=== PATIENT | female | born 1955 | race Caucasian/White ===

== ENCOUNTER → 2017-09-03 | Outpatient (CLI) | payer MEDICAID, SELFPAY | PROVIDERS: Family Provider Internal Medicine; Visit Provider Surgery | DX: K57.20 Diverticulitis of large intestine with perforation and abscess without bleeding (principal); K56.0 Paralytic ileus; R34 Anuria and oliguria; Z48.01 Encounter for change or removal of surgical wound dressing | CPT/HCPCS: 80048; 85025; G0463 ==

== ENCOUNTER 2017-11-12 10:09 | Outpatient (CLI) | payer MEDICAID, SELFPAY ==
--- NOTE | 2017-11-12 13:44 | PC.NURSE ---
1015 - PT HERE FOR EDUCATION ON PROPER COLOSTOMY CARE AND TO HAVE WAFER/BAG CHANGED OR REINFORCED IF NEEDED. DR ZENDEJAS STATED THAT SKIN AROUND STOMA IS VERY RED AND BLISTERED AND PT REPORTS THAT WAFERS ARE NOT STAYING ON AND SHE IS CHANGING WAFERS AND SOMETIMES BAGS 5-[address] ZENDEJAS ALSO STATED THAT HE BELIEVES THEY ARE CUTTING THE HOLE IN THE WAFER TOO BIG SO STOOL IS GETTING ON SKIN AROUND STOMA, CAUSING IT TO BE BECOME RED AND BLISTERED. DISCUSSED WITH PT ABOUT ONLY CUTTING HOLE BIG ENOUGH TO ALLOW COLOSTOMY TO DRAIN INTO BAG AND IMPORTANCE OF NOT ALLOWING STOOL TO TOUCH THE SKIN AROUND THE STOMA. ALSO GAVE PT STOMA ADHESIVE PASTE AND INSTRUCTED ON USE TO HELP WAFER TO STICK TO SKIN AND ALSO PROVIDE RELIEF TO IRRITATED SKIN. REINFORCED CURRENT WAFER WITH MEDIPORE TAPE BUT APPLIANCES NOT CHANGED DURING THIS VISIT. DR ZENDEJAS'S OFFICE LOOKING INTO SETTING PT UP WITH COLOSTOMY NURSE, ALTHOUGH PT ALREADY HAS HOME HEALTH AT HOME.
== END 2017-11-12 11:10 | disposition home or self-care (01) ==
LOC: INF 10:14
PROVIDERS: PCP Internal Medicine; Visit Provider Surgery
DX: Z93.3 Colostomy status (principal)
CPT/HCPCS: G0463

== ENCOUNTER → 2017-12-16 12:39 | Outpatient (CLI) | payer MEDICAID, SELFPAY ==
--- NOTE | 2017-12-16 13:00 | CT_ITS ---
CT abdomen pelvis w con CLINICAL INDICATION: ITS.REASON: LOWER ABD PAIN, DIVERTICULITIS, ABCESS ORDERING PHYSICIAN: Alfred Chapa PATIENT AGE: 62 years COMPARISON: 08/31/2017 TECHNIQUE: Axial images obtained with sagittal and coronal reformats. PROCEDURE: Oral Contrast: Redicat IV Contrast: 75 mL's of Isovue-370. FINDINGS: There are atelectatic/fibrotic changes in the lung bases. The gallbladder is slightly distended and there is mild prominence of the common bile duct and proximal biliary radicles. Spleen, adrenal glands, and pancreas have an unremarkable appearance. No obstructing renal or ureteral calculi. No suspicious renal mass. There is a right lower quadrant diverting ileostomy as before. There is no evidence of intestinal obstruction. The colon is nondistended. Postsurgical changes are present at the rectosigmoid junction. There is a multilocular cystic mass in the left adnexal region which measures 4.9 x 4.9 cm and has increased in size previously measuring 1.9 x 0.9 cm on 08/31/2017. No free air is evident. No obvious gas within the mass. This lesion is along the infra aspect of the sigmoid colon and left lateral to the uterus. No free air or free fluid evident. There is diverticulosis of the descending colon. No evidence of acute diverticulitis. No acute bony anomalies are evident. There is mild wedging of T12 unchanged. IMPRESSION: 1. Enlarging multilocular cyst left pelvic cystic mass with mildly thickened wall and internal septation consistent with enlarging abscess. This is NOT amenable to percutaneous CT-guided drainage by the conventional approach. 2. Postsurgical changes with diverting ileostomy. 3. Mildly distended gallbladder with mild biliary ductal dilatation
--- NOTE | 2017-12-16 13:37 | HMH.ITSHM ---
ATENOLOL,PREDNSISONE PROTONIX ISOSORSBIDE
== END ==
PROVIDERS: Family Provider Internal Medicine; PCP Internal Medicine; Visit Provider Internal Medicine
DX: R10.30 Lower abdominal pain, unspecified (principal); K57.20 Diverticulitis of large intestine with perforation and abscess without bleeding
CPT/HCPCS: 74177; Q9967

== ENCOUNTER → 2018-01-17 08:54 | Outpatient (CLI) | payer MEDICAID, SELFPAY ==
[2018-01-17 09:04] LABS: Basophils # 0.1 K/mm3 (0-0.2); Basophils % 0.5 % (0.1-2.0); Eosinophils # 0.4 K/mm3 (0.0-0.4); Eosinophils % 2.2 % (0.1-12.0); Hematocrit 38.2 % (37.0-47.0); Hemoglobin 11.8 g/dL (12.2-16.2); Lymphocytes # 2.9 K/mm3 (0.7-4.5); Mean Corpuscular Hemoglobin 27.7 pg (27.0-31.2); Mean Corpuscular Volume 89.6 fl (81-99); Mean Platelet Volume 7.5 fl (7.4-10.4); Monocytes # 0.8 K/mm3 (0.1-1.0); Monocytes % 5.2 % (1.7-9.3); Platelet Count 618 K/mm3 (142-424); Red Blood Count 4.27 M/mm3 (4.20-5.40); Red Cell Distribution Width 14.3 % (11.5-17.5); White Blood Count 16.2 K/mm3 (4.8-10.8)
[2018-01-17 09:06] LABS: MANUAL DIFFERENTIAL MANUAL DIFFERENTIAL (MANUAL DIFF)
[2018-01-17 09:29] LABS: Eosinophils % 1 % (0-3); Lymphocytes % 17 % (10-50); Monocytes % 5 % (2-9); Neutrophils % 75 % (42-76); Platelet Estimate Moderate Increase; RBC Morphology Normal; Total Cells Counted 100
[2018-01-17 11:11] LABS: Anion Gap 17.3 mEq/L (5-15); Blood Urea Nitrogen 15 mg/dL (7-18); Carbon Dioxide 23 mmol/L (21.0-32.0); Chloride 106 mmol/L (98-107); Creatinine,Serum 0.83 mg/dL (0.55-1.02); Estimated Glomerular Filt Rate 69 ml/min (>60); GFR (African American) 84 ML/MIN (>60); Glucose 84 mg/dL (74-106); Potassium 4.3 mmoL/L (3.5-5.1); Sodium 142 mmol/L (136-145)
== END ==
PROVIDERS: Visit Provider Surgery
DX: R10.9 Unspecified abdominal pain (principal); K57.92 Diverticulitis of intestine, part unspecified, without perforation or abscess without bleeding
CPT/HCPCS: 36415; 80048; 85007; 85025

== ENCOUNTER → 2018-01-19 09:11 | Outpatient (CLI) | payer MEDICAID, SELFPAY ==
--- NOTE | 2018-01-19 09:13 | CT_ITS ---
CT abdomen pelvis w con CLINICAL INDICATION: Follow-up abscess, diverticulitis ORDERING PHYSICIAN: Javy Steele MD PATIENT AGE: 62 years COMPARISON: None TECHNIQUE: Axial images obtained with sagittal and coronal reformats. All CT scans at the facility use one or more dose reduction, viz: automated exposure control; ma/kV adjustment per patient size (including targeted exams where dose is matched to indication; i.e. head); or iterative reconstruction technique. PROCEDURE: Oral Contrast: Redicat IV Contrast: 75 mL's of Isovue-370 . FINDINGS: There are chronic changes in the lung bases. Coronary artery calcifications are present. The liver, gallbladder, spleen, adrenal glands, pancreas, and kidneys have an unremarkable appearance. Right lower quadrant diverting ileostomy once again noted.. In the left adnexal region there is once again noted a complex mass measuring 3.9 x 3.6 x 4.5 cm smaller when compared to the previous exam previously measuring 4.9 x 4.6 x 6.1 cm. The cystic component of the mass is less apparent. The wall of the cystic mass appears slightly more thickened on today's exam. No gas is evident in this region. This is immediately contiguous with the left adnexa and directly inferior to a loop of sigmoid colon. Colonic diverticulosis once again noted without evidence of acute diverticulitis. No free fluid evident. IMPRESSION: Interval decrease in size of the complex left cystic pelvic/adnexal mass. This may very well represent a abscess. Could involve the left ovary. A cystic ovarian neoplasm is felt to be less likely as this lesion has waxed and waned in size. Continued follow-up recommended.
--- NOTE | 2018-01-19 10:14 | HMH.ITSHM ---
ATENOLOL,ISORAVIDE,PREDNISONE
== END ==
PROVIDERS: Family Provider Internal Medicine; PCP Internal Medicine; Visit Provider Surgery
DX: K57.32 Diverticulitis of large intestine without perforation or abscess without bleeding (principal); R10.9 Unspecified abdominal pain
CPT/HCPCS: 74177; Q9967

== ENCOUNTER → 2018-04-01 09:27 | Outpatient (CLI) | payer MEDICAID, SELFPAY ==
[2018-04-01 10:05] LABS: Blood Urea Nitrogen 14 mg/dL (7-18); Estimated Glomerular Filt Rate 56 ml/min (>60); GFR (African American) 68 ML/MIN (>60)
--- NOTE | 2018-04-01 10:14 | CT_ITS ---
CT abdomen pelvis w con CLINICAL INDICATION: Diverticulitis, diverticular abscess follow-up, evaluate for reconstruction of ileostomy ITS.REASON: Diverticulitis ORDERING PHYSICIAN: Javy Steele MD PATIENT AGE: 62 years COMPARISON: None TECHNIQUE: Axial images obtained with sagittal and coronal reformats. All CT scans at the facility use one or more dose reduction, viz: automated exposure control; ma/kV adjustment per patient size (including targeted exams where dose is matched to indication; i.e. head); or iterative reconstruction technique. PROCEDURE: Oral Contrast: Gastroview Rectal contrast also administered with Gastroview IV Contrast: 75 mL is Isovue-370 . FINDINGS: Initial images were obtained without IV and oral contrast. Once these were reviewed, rectal contrast was administered and repeat exam performed. Lung base images show mild atelectatic changes in the right lobe with chronic volume loss in the right middle lobe. There are coronary artery calcifications. Fibrotic changes are present in the left lung base. The liver, spleen, adrenal glands, gallbladder, pancreas, and kidneys have an unremarkable appearance There has been a diverting ileostomy performed in the right lower quadrant. No intestinal obstruction or free air. A thick walled cavitating masslike lesion is present in the left posterior pelvis as previously described. This is in the left adnexal region and inferior to the sigmoid colon which drapes over top of this area. This measures 3.6 x 3.4 cm and has been present on multiple previous exams at one time measuring up to 4.9 x 4.6 cm on 12/16/2017. This is not significant change from the most recent study of 01/19/2018. Complex ovarian cyst or sterile abscess centered. Neoplasm is not totally excluded. Contrast does not extravasate into this lesion. Following the rectal administration of contrast to colon still retrograde to the proximal ascending colon region. Extensive diverticulosis is present within the sigmoid colon and distal descending colon. No evidence of acute diverticulitis at this time. Moderate wedge compression changes involve T12 with mild wedging of T11. The compressive changes at at T11 and T12 have somewhat increased compared to the previous exam. There is at least 50% wedge compression change of T12 with 30% wedge compression changes of T11. IMPRESSION: 1. Right lower quadrant diverting ileostomy present. Extensive diverticulosis of the sigmoid colon. No evidence of acute diverticulitis. No contrast extravasation. 2. Persistent complex cystic mass in the left adnexa. Differential diagnosis would include complex ovarian cyst/neoplasm versus sterile abscess. This is not significantly changed from the previous exam 3. Increasing wedge compression changes of T11 and T12 as described above
== END ==
PROVIDERS: Surgery; Family Provider Internal Medicine; PCP Internal Medicine; Visit Provider Surgery
DX: K57.20 Diverticulitis of large intestine with perforation and abscess without bleeding (principal)
CPT/HCPCS: 36415; 74177; 82565; 84520

== ENCOUNTER → 2018-04-18 14:40 | Outpatient (CLI) | payer MEDICAID, SELFPAY ==
--- NOTE | 2018-04-18 14:42 | US_ITS ---
US transvaginal HISTORY: Pelvic pain ITS.REASON: Pain in pelvis ORDERING PHYSICIAN: Javy Steele MD PATIENT AGE: 62 years Comparison: 04/01/2018, 12/13/2008 FINDINGS: Patient has had diverticulitis with complex lesion in the left adnexa which has somewhat changed in size at 1. Measuring up to 4.9 x 3.6 cm and on the most recent study 2.9 x 2.1 cm. The uterus measures 4.7 x 2.8 x 4 cm with a combined endometrial thickness of 1 cm. No uterine mass evident. The right ovary is not visualized. What appears to represent the left ovary measures 3.4 x 2.5 cm and contains a complex 2.5 x 2 cm cystic area similar to the CT abnormality. No cul-de-sac fluid or other significant anomalies evident. IMPRESSION: 1. Thickened endometrium. 2. Enlarged left ovary with complex ovarian cyst measuring up to 2.9 x 2.1 cm.
== END ==
PROVIDERS: Family Provider Internal Medicine; PCP Internal Medicine; Visit Provider Surgery
DX: K57.20 Diverticulitis of large intestine with perforation and abscess without bleeding (principal); R10.2 Pelvic and perineal pain
CPT/HCPCS: 76830

== ENCOUNTER → 2018-04-25 11:22 | Outpatient (CLI) | payer MEDICAID, SELFPAY ==
--- NOTE | 2018-04-25 11:27 | XR_ITS ---
EXAM: XR lumbar spine min 4V HISTORY: ITS.REASON: MID/LOW BACK PAIN,COPD ORDERING PHYSICIAN: Alfred Chapa PATIENT AGE: 62 years COMPARISON: None FINDINGS: There is mild dextroscoliotic curvature of the upper lumbar spine. There is slightly accentuated lordotic curvature at the lumbosacral junction. All lumbar vertebrae appear intact and disc spaces are well maintained. There is minimal anterior ossific spurring at the anterior superior border of L4. There is no pars defect. The SI joints are normal. There is generalized osteopenia. There is prominent diffuse arteriosclerotic calcification of the abdominal aorta but there is no aneurysm. . IMPRESSION: Mild accentuated lordotic curvature minor degenerative and/or posttraumatic change L4 vertebral body
--- NOTE | 2018-04-25 11:27 | XR_ITS ---
EXAM: XR thoracic spine 3V HISTORY: ITS.REASON: MID/LOW BACK PAIN,COPD Comparison: 38 (08/24/2017 FINDINGS: There is moderate kyphotic curvature of the thoracic spine. There is generalized osteopenia. There is an old compression fracture of T12 with approximately 60% loss of height. There is old compression fracture T11 with approximately 30-35% loss of height. There is minor old compression of T8 with possibly 20% loss of height. There is mild serpentine scoliotic curvature of the lower thoracic and upper lumbar spine. There is no paraspinal mass. IMPRESSION: Moderate compression fractures of T11 and T12 which apparently have occurred since the previous chest film 08/24/2017, generalized osteopenia of the entire spine as described
== END ==
PROVIDERS: PCP Internal Medicine; Visit Provider Internal Medicine
DX: M54.6 Pain in thoracic spine (principal); M54.5 Low back pain; J44.9 Chronic obstructive pulmonary disease, unspecified
CPT/HCPCS: 72072; 72110

== ENCOUNTER → 2018-04-27 11:13 | Outpatient (CLI) | payer MEDICAID, SELFPAY ==
[2018-04-27 11:45] LABS: Basophils # 0.1 K/mm3 (0-0.2); Basophils % 0.3 % (0.1-2.0); Eosinophils # 0.1 K/mm3 (0.0-0.4); Eosinophils % 0.8 % (0.1-12.0); Hematocrit 46.5 % (37.0-47.0); Lymphocytes # 1.4 K/mm3 (0.7-4.5); Lymphocytes % 9.4 K/mm3 (10-50); Mean Corpuscular HGB Conc 30.2 g/dL (31.8-35.4); Mean Corpuscular Hemoglobin 28.1 pg (27.0-31.2); Mean Corpuscular Volume 93.2 fl (81-99); Mean Platelet Volume 6.9 fl (7.4-10.4); Monocytes # 0.5 K/mm3 (0.1-1.0); Monocytes % 3.6 % (1.7-9.3); Neutrophils % 85.9 % (37.0-80.0); Platelet Count 353 K/mm3 (142-424); Red Blood Count 4.99 M/mm3 (4.20-5.40); Red Cell Distribution Width 14.3 % (11.5-17.5); White Blood Count 15.1 K/mm3 (4.8-10.8)
[2018-04-27 11:46] LABS: MANUAL DIFFERENTIAL MANUAL DIFFERENTIAL (MANUAL DIFF)
[2018-04-27 13:08] LABS: Anion Gap 12.1 mEq/L (5-15); Blood Urea Nitrogen 17 mg/dL (7-18); Calcium 9.6 mg/dL (8.5-10.1); Carbon Dioxide 28 mmol/L (21.0-32.0); Chloride 102 mmol/L (98-107); Creatinine,Serum 0.92 mg/dL (0.55-1.02); Estimated Glomerular Filt Rate 61 ml/min (>60); GFR (African American) 74 ML/MIN (>60); Glucose 94 mg/dL (74-106); Potassium 4.1 mmoL/L (3.5-5.1); Sodium 138 mmol/L (136-145)
[2018-04-27 14:19] LABS: Eosinophils % 2 % (0-3); Lymphocytes % 7 % (10-50); Monocytes % 4 % (2-9); Neutrophils % 87 % (42-76); Platelet Estimate Normal; Total Cells Counted 100
[2018-04-28 13:59] LABS: Cancer Antigen (CA) 125 17.1 U/mL (0.0-38.1)
== END ==
PROVIDERS: Visit Provider Nurse Practitioner Obstetrics & Gynecology
DX: R10.2 Pelvic and perineal pain (principal); N83.209 Unspecified ovarian cyst, unspecified side
CPT/HCPCS: 36415; 80048; 85007; 85025; 86316

== ENCOUNTER → 2018-05-09 14:00 | Outpatient (CLI) | payer MEDICAID, SELFPAY ==
[2018-05-09 15:11] LABS: Blood Urea Nitrogen 22 mg/dL (7-18); Creatinine,Serum 1.24 mg/dL (0.55-1.02); Estimated Glomerular Filt Rate 44 ml/min (>60); GFR (African American) 53 ML/MIN (>60)
== END ==
PROVIDERS: Visit Provider Surgery
DX: Z01.818 Encounter for other preprocedural examination (principal)
CPT/HCPCS: 36415; 82565; 84520

== ENCOUNTER → 2018-05-10 09:48 | Outpatient (CLI) | payer MEDICAID, SELFPAY ==
--- NOTE | 2018-05-10 10:10 | CT_ITS ---
CT abdomen pelvis w con CLINICAL INDICATION: Follow-up diverticulitis, abscess, pelvic mass versus abscess ITS.REASON: Abd. Pain ORDERING PHYSICIAN: Javy Steele MD PATIENT AGE: 62 years COMPARISON: 04/01/2018, 01/19/2018, 08/06/2017 TECHNIQUE: Axial images obtained with sagittal and coronal reformats. All CT scans at the facility use one or more dose reduction, viz: automated exposure control; ma/kV adjustment per patient size (including targeted exams where dose is matched to indication; i.e. head); or iterative reconstruction technique. PROCEDURE: Oral Contrast: None IV Contrast: 75 mL Isovue-370. FINDINGS: There is chronic volume loss of the right middle lobe. The right hemidiaphragm is elevated. No focal liver lesion. The spleen, adrenal glands, gallbladder, and pancreas have an unremarkable appearance. Unremarkable appearing kidneys. No hydronephrosis. There is and diverticulosis. Diverting ileostomy once again noted in the right lower quadrant. There is decompression of the colon. No intestinal obstruction or free air is evident. There remains a complex density in the left adnexa. This is slightly smaller compared to the previous exam measuring 2.8 x 2.5 cm previously 3.7 x 3.3 cm. The central fluid density in this area is also smaller measuring 1 cm previously measuring 2.5 cm. No free fluid in the pelvis. No evidence of acute diverticulitis. Wedge compression changes are present involving T11 and T12 not significant changed. IMPRESSION: 1. Left adnexal complex lesion is somewhat smaller compared to the previous study. The central fluid density in this lesion is also smaller. 2. No change status post ileostomy with diverticulosis of the colon. No evidence of acute diverticulitis.
--- NOTE | 2018-05-10 10:34 | HMH.ITSHM ---
ATENOL 50 MG FLAGYLL PREDNISONE 5 MG ISORDIE
== END ==
PROVIDERS: Family Provider Internal Medicine; PCP Internal Medicine; Visit Provider Surgery
DX: R10.2 Pelvic and perineal pain (principal); N83.202 Unspecified ovarian cyst, left side
CPT/HCPCS: 74177; Q9967

== ENCOUNTER 2018-05-25 06:04 | Inpatient (IN) ==
[2018-05-25 07:12] LABS: Basophils # 0.1 K/mm3 (0-0.2); Basophils % 0.7 % (0.1-2.0); Eosinophils # 0.3 K/mm3 (0.0-0.4); Eosinophils % 2.4 % (0.1-12.0); Hematocrit 42.4 % (37.0-47.0); Hemoglobin 13.7 g/dL (12.2-16.2); Lymphocytes # 2.7 K/mm3 (0.7-4.5); Lymphocytes % 22.3 K/mm3 (10-50); Mean Corpuscular HGB Conc 32.3 g/dL (31.8-35.4); Mean Corpuscular Hemoglobin 29.4 pg (27.0-31.2); Mean Corpuscular Volume 90.9 fl (81-99); Mean Platelet Volume 6.7 fl (7.4-10.4); Monocytes # 0.9 K/mm3 (0.1-1.0); Monocytes % 7.1 % (1.7-9.3); Neutrophils # 8.1 K/mm3 (1.8-7.8); Neutrophils % 67.5 % (37.0-80.0); Platelet Count 374 K/mm3 (142-424); Red Blood Count 4.67 M/mm3 (4.20-5.40); Red Cell Distribution Width 14.7 % (11.5-17.5)
[2018-05-25 07:21] LABS: Anion Gap 12.5 mEq/L (5-15); Calcium 10.2 mg/dL (8.5-10.1); Potassium 4.5 mmoL/L (3.5-5.1)
--- NOTE | 2018-05-25 07:22 | Progress Note ---
[facility] Anesthesia Checklist - Patient Identification Patient Identification: Arm Band, Verbal (Name & ) - Structural Data Admitted From: Home Planned Operative Procedure/s: L SO possible TREMAINE, ileostomy take down possible colon resection Consent for Planned Operative Procedure(s) Verified: Yes Verified Documents: Surgical Consent, History and Physical - NPO Status Verified Time NPO: 22:30 - Additional verifications Patient : No Anesthesia Reactions: No - Airway Assessment C-Spine Mobility Assessed: Yes TMJ Mobility Assessed: Yes Dentition: Poor Dentition (missing) - Neurological Assessment Level of Consciousness: Awake Hx Seizures: No Numbness or tingling in extremities: No - Anesthesia Plan Anesthesia Risk discussed: Yes Anesthesia Plan: Verified ASA Class: III Anesthesia Type: General (with Intrathecal) [facility] Anesthesia HX I have reviewed the patient's past medical history: Yes Medical History: Reports:: Chronic Obstructive Pulmonary Disease (COPD), Gastroesophageal Reflux Disease(GERD), Hypertension Denies:: Cancer, Diabetes Mellitus Type 1, Diabetes Mellitus Type 2, MRSA, Seizures Other Medical History: Reports: Arthritis, Fibromyalgia. Denies: Blood Transfusion Reaction Other Surgeries: Yes: Appendectomy, Cancer Surgery, Colonoscopy, Colon Resection , Colostomy, Diagnostic Lap, Tubal Ligation Amputation: No Fractures: No *Family Hx:: Asthma, Hypertension
--- NOTE | 2018-05-25 09:34 | Operative Note ---
Date of procedure: 05/25/18 Pre-op Diagnosis:: Left ovarian mass, left lower quadrant pain, ileostomy Post-op Diagnosis:: Left ovarian abscess, left lower quadrant pain, ileostomy Procedure performed:: Total abdominal hysterectomy, left salpingo-nephrectomy, extensive lysis of adhesions Surgeon:: Froy Cardenas MD Spinner Open End(s):: Dr. Steele VENEER STAPLER:: Other Anesthesia: GETA Estimated blood loss (mL): 300 Clinical Note:: Is a 62-year-old lady who is been followed by Dr. Steele. She had a previous resection of her colon and ileostomy as a result of diverticulosis. She had a CT scan that showed an ovarian mass and it was not clear whether this was possibly ovarian cancer or an abscess associated with the previous diverticulitis in her sigmoid colon. Dr. Steele and I had long discussions about how we were going to approach this case and we decided that if she had an abscess we would not take down her ileostomy. We had discussed the various risks and staging pressures associated with ovarian cancer. We had a frozen section scheduled as well. Operative findings:: She had extensive adhesions of small bowel into the deep pelvis and along the anterior abdominal wall. On examination of her uterus it was small and atrophic. In the left adnexa the ovary was enlarged and when we freed the ovary up there was approximately 2 cm of thick pus that was released. There was also some inflammation along the left adnexa. As well. The rest the pelvis appeared well. She has had a previous right salpingo-nephrectomy. Operative note:: She was taken to the operating room where general anesthesia was found be adequate. She was prepped and draped in normal sterile fashion in the supine position. A Chen catheter is in the bladder. Dr. Steele will dictate the opening of the abdominal wall as well as extensive lysis of adhesions. After having dissected out the adhesions and freeing up the uterus we then grasped the left adnexa with her fingers and using blunt dissection we freed up the left ovary from the pelvic sidewall. It was quite firm and enlarged approximately 3 times its normal size. On doing this it was noted that there was a pocket of pus that drained. There was also extensive inflammation in the left adnexa and anterior to the left adnexa. The cornua of the uterus were grasped with Mariajose clamps and I then grasped the left round ligament with a Mariajose clamp. I sutured the round ligament and then cut the round ligament. I then opened up into the retroperitoneum. I freed up the ovary using blunt dissection and then fenestrated the posterior aspect of the broad ligament with my finger. I then isolated the infundibular pelvic ligament and clamped across this with Alfonso clamp. This was then cut and doubly suture ligated. We then further freed up the ovary and cut it away from the uterine cornua. This was then sent to pathology and it was determined by frozen section that she had chronic inflammation consistent with an abscess. There was some thickened inflammatory tissue that was adherent to the left adnexa and we took a small piece of this for frozen section. It also said chronic inflammation with calcifications. We then elected to perform a complete hysterectomy. The anterior peritoneum was opened in the midline freeing up the bladder. We then clamped across the uterine artery on the left side cut and suture ligated this. This was followed by the left cardinal ligament which was clamped cut and suture ligated. We then turned our attention to the right side where we grasped the right round ligament, suture ligated this and then cut the round ligament. Once again the anterior peritoneum was taken down to the midline joining up with the other side. The bladder was taken down using both blunt and sharp dissection. The right uterine artery was then skeletonized clamped cut and suture ligated. This was followed by the right cardinal ligament which was clamped cut and suture ligated. We then took one more bite on the right sinus took this down beyond the uterosacral ligament and this was clamped cut and sutured. Using curved Alfonso clamps were then clamped across the vaginal vault and cut away the cervix and uterus. The vaginal vault was then closed at the fornices with interrupted 0 Vicryl suture. The vaginal vault was then closed using running 0 Vicryl suture in a locked fashion. We then assured hemostasis and rinsed the pelvis well with saline. Dr. Steele placed [address] Steele will dictate the remainder of the case. She tolerated the procedure well and was taken to the recovery room in excellent condition. All sponge instrument and needle counts were correct. The estimated blood loss was approximately 300 cc. Condition: stable Disposition: PACU Specimens:: Uterus, left ovary and tube, small portion of the left adnexa Complications:: None
--- NOTE | 2018-05-25 10:28 | Progress Note ---
[facility] Anesthesia Record Part I Intake, IV Amount: 1,700 Estimated blood loss (mL): 250 Urine output (mL): 10 Blood Products used (#): none Blood Pressure: 119/72 SaO2: 96 Pulse Rate: 97 Respiratory Rate: 18 Temperature: 97.5 F Patient is:: Awake, Stable Stable to PACU at:: 10:23
--- NOTE | 2018-05-25 10:29 | Progress Note ---
[facility] Anesthesia Record Part II Discharge Time: 10:53 Destination: Medical Surgical Department PACU nurse assessment reviewed?: Yes Patient Condition:: Good Anesthesia Complications:: None
--- NOTE | 2018-05-25 10:46 | Operative Note ---
Date of procedure: 05/25/18 Pre-op Diagnosis:: Ileostomy Left lower quadrant/left pelvic pain Post-op Diagnosis:: Same Procedure performed:: Exploratory laparotomy, extensive lysis of adhesions Surgeon:: Javy Steele MD ROLL SHEETING CUTTER:: Other Anesthesia: GETA Estimated blood loss (mL): 250 Clinical Note:: Patient is a 62-year-old white female who is a regular established patient of mine for quite some time. Late last summer she had progressive obstipation, left lower quadrant abdominal pain, and inability to maintain adequate nutrition. She had undergone a colonoscopy by Dr. Worley on 07/26/17 and was found to have significant inflammatory stricture of the sigmoid colon consistent with diverticular disease. Full colonoscopy was performed but visualization was difficult and he recommended repeat colonoscopy in 1 year. He was also referred for possible elective resection given the degree of the chronic inflammation and stricture in the sigmoid colon. However, she developed progressive symptoms and had presented to the emergency department on 08/06/17. CT scan at that time revealed findings of complicated diverticulitis with possible developing abscess. She was admitted and underwent distal sigmoid colon resection urgently on 08/09/17. She did have anastomosis performed but had a diverting proximal ileostomy. She had sacral drains placed for a prolonged period of time and did initially have some feculent drainage. She has been followed in the office regularly and has undergone multiple imaging studies. Her initial CT scan revealed possible ovarian cysts and she has had ongoing imaging studies of possible fluid collection versus ovarian cyst pathology mostly on the left. She has had some episodes of left pelvic pain and this usually resolves with antibiotics treating empirically for possible diverticulitis. She had undergone CT scan with IV, oral, and rectal contrast. This revealed this persistent left pelvic fluid collection. However there was no extravasation or communication with the bowel. She did undergo transvaginal ultrasound recently and it is felt that this is likely left ovarian pathology and cyst. Consideration has been given for possible ileostomy takedown. However, the nature of the problem is complicated by this pelvic pathology. She did undergo consultation with Dr. Froy Marti who felt that she needed a possible left salpingo-oophorectomy with possible more extensive surgery if this was gynecologic malignant neoplasm. This was planned as a combined BOAT [employer]ER and general surgical case with possible ileostomy takedown versus drainage of pelvic abscess if that was deemed the pathology. The patient attended to the office several weeks ago with some low-grade fevers and was having general diffuse pain in the abdomen described as a "warmth". She is also had some anorexia and was concerned about her ileostomy. She was given a prescription for levofloxacin and metronidazole for possible diverticulitis. She states that she has had some GI issues with the levofloxacin and metallic taste with the metronidazole. She underwent follow-up CT scan with IV and oral contrast which actually revealed that this fluid collection lesion was slightly smaller. There is no evidence of any acute inflammation. Plan was made to proceed with exploratory laparotomy with exploration of the pelvis, left salpingo-oophorectomy with frozen sections, possible more extensive gynecologic surgery, possible ileostomy takedown if pelvis relatively unremarkable. Operative findings:: She had extensive adhesions within the pelvis. Appears as though she had a left tubo-ovarian abscess. The degree of adhesions in the pelvis made evaluation somewhat difficult but it appeared as though the sigmoid colon was relatively unaffected but was very closely adherent to this left ovarian pathology. Operative note:: Was obtained patient was taken to the operating room. She was given preoperative intravenous antibiotic. In the operating room she was placed in a supine position. General anesthesia was induced. Abdomen was prepped and draped in the standard surgical fashion. Occlusive dressing was placed over the ileostomy. Midline incision was made. Careful dissection was carried down through subcutaneous tissues and fascia. Old prior suture was removed. Peritoneum was entered. Extensive intra-abdominal adhesions with extensive interloop adhesions to small bowel and into the pelvis was encountered. This was carefully taken down so that the small bowel was able to be retracted out of the pelvis. Dissection was carried out using some blunt dissection and some careful Metzenbaum dissection. Ultimately the pelvis was inspected and uterus was relatively unremarkable. There appeared to be chronic inflammatory abscess which was entered in the left adnexal region. Decision was made to perform left salpingo-oophorectomy and send this for frozen section. Please see Dr. Marti's dictation for complete details. She ultimately underwent left salpingo- oophorectomy and hysterectomy. Further dissection was performed and the colon was inspected. There appeared to be no obvious abscess or acute inflammation. Given the degree of adhesions and fact that she appeared to have abscess, although not directly involving the colon, plan was made to forego ileostomy takedown until the acute and chronic inflammatory process in the pelvis could resolve. The pelvis was thoroughly irrigated and aspirated until clear. A couple of HAYES drains were placed within the pelvis through separate incision in the left lower quadrant. Enteric contents were returned to the normal anatomic position. Fascia was closed with a running #2 Novafil 2. Subcutaneous tissues were irrigated. Skin was closed with deandre. A few 3-0 nylon vertical mattress sutures were placed. HAYES drains were secured with 3-0 nylon. Clean dry sterile dressings were applied. New colostomy appliance was applied to the loop ileostomy site. Condition: stable Disposition: PACU Complications:: None immediately apparent
--- NOTE | 2018-05-26 08:23 | Progress Note ---
Subjective Narrative: Patient complains of being sore. Minor nausea when she was coughing. Exam Vital signs and Labs for Last 24 Hours: Temp Pulse Resp BP Pulse Ox 98.1 F 98 H 16 114/58 98 05/26/18 08:00 05/26/18 06:01 05/26/18 06:01 05/26/18 06:01 05/26/18 06:01 Laboratory Results - last 24 hr 05/25/18 07:55: Urine Color Red, Urine Appearance Turbid, Urine pH 6.5, Ur Specific [place] 1.025, Urine Protein 3+, Urine Glucose (UA) Negative, Urine Ketones Negative, Urine Blood 3+, Urine Nitrate Positive, Urine Bilirubin Negative, Urine Urobilinogen 0.2, Ur Leukocyte Esterase Negative, Urine RBC Tntc , Urine WBC Occasional, Ur Squamous Epith Cells Occasional, Urine Bacteria Trace I & O for Last 24 hours: Intake & Output 05/23/18 05/24/18 05/25/18 05/26/18 11:59 11:59 11:59 11:59 Intake Total 1700 / 1700 3261 / 3261 Output Total 873 / 873 Balance 1700 / 1700 2388 / 2388 Weight 159 lb 172 lb 6 oz - *Routine Abdominal Exam Present: distended, surgical scars Progress Note: A&P Assessment and Plan for All Diagnoses:: Clear liquid diet. Transfer out of step down. Keep martinez for now due to post- op hematuria (which has now resolved).
--- NOTE | 2018-05-26 11:22 | Progress Note ---
Internal Medicine - PN: Subj *Date: 05/26/18 *Time: 11:19 Interval history: She seems to be doing much better this morning. She does have some tenderness and I have encouraged her to take pain medicine for this. Her incision looks clean and dry. She had significant hematuria yesterday and is now putting out more urine and the urine is clear. She says she does not feel very hungry yet. She does continue to feel thirsty. I have encouraged her to its. She denies chest pain or calf tenderness or shortness of breath. Exam Vital signs and Labs for Last 24 Hours: Temp Pulse Resp BP Pulse Ox 98.1 F 98 H 20 116/61 98 05/26/18 08:00 05/26/18 08:00 05/26/18 08:00 05/26/18 08:00 05/26/18 08:00 Laboratory Results - last 24 hr 05/25/18 07:55: Urine Color Red, Urine Appearance Turbid, Urine pH 6.5, Ur Specific [place] 1.025, Urine Protein 3+, Urine Glucose (UA) Negative, Urine Ketones Negative, Urine Blood 3+, Urine Nitrate Positive, Urine Bilirubin Negative, Urine Urobilinogen 0.2, Ur Leukocyte Esterase Negative, Urine RBC Tntc , Urine WBC Occasional, Ur Squamous Epith Cells Occasional, Urine Bacteria Trace I & O for Last 24 hours: Intake & Output 05/23/18 05/24/18 05/25/18 05/26/18 11:59 11:59 11:59 11:59 Intake Total 1700 / 1700 3261 / 3261 Output Total 873 / 873 Balance 1700 / 1700 2388 / 2388 Weight 159 lb 172 lb 6 oz - Constitutional no acute distress - *Routine Abdominal Exam Present: soft Comments: Her incision looks clean and dry. She is passing some fluid through her ostomy Assessment and Plan (1) Pelvic peritoneal adhesions, female (postoperative) (postinfection) Current visit: Yes Status: Acute Category: Medical Code(s): N73.6 - Female pelvic peritoneal adhesions (postinfective) (2) Ovarian abscess Current visit: Yes Status: Acute Category: Medical Code(s): N70.92 - Oophoritis, unspecified (3) Status post colostomy Current visit: Yes Status: Acute Category: Surgical Code(s): Z93.3 - Colostomy status - Assessment and plan all Dx Assessment and Plan for all problems:: She is to be doing well this morning. She has some pain and we will give her narcotics for this. She still does not feel hungry yet. She is putting out much more urine. We will start her on Lovenox today since she is elderly and had fairly extensive surgery yesterday. She is not mobile yet.. She does have compression hose. We will plan to keep her for another 3 or 4 days.
--- NOTE | 2018-05-26 16:09 | Pharmacy Consult Notes ---
[facility] Pharmacy VTE Monitoring - Patient Demographics Admission date: 05/25/18 Report Date: 05/26/18 Time: 16:08 Allergies/Adverse Reactions: Patient Allergies No Known Allergies Allergy (Verified 05/09/18 13:27) Height: 1.6 m Weight: 78.188 kg Patient Problems: Current Active Problems Pelvic peritoneal adhesions, female (postoperative) (postinfection) (Acute) Ovarian abscess (Acute) Status post colostomy (Acute) - VTE Risk Labs: VTE Related Lab Results Hgb 13.7 g/dL (12.2-16.2) 05/25/18 07:00 Hct 42.4 % (37.0-47.0) 05/25/18 07:00 Plt Count 374 K/mm3 (142-424) 05/25/18 07:00 BUN 15 mg/dL (7-18) 05/25/18 07:00 Creatinine 0.92 mg/dL (0.55-1.02) 05/25/18 07:00 Estimated Creat Clear 65 mL/min (0-300) 05/25/18 07:00 Was VTE Risk Assessment Performed: Yes VTE Score: 1 VTE Risk Level: Very Low Risk - Prophylaxis VTE Prophylaxis Ordered?: Yes Types of VTE Prophylaxis: IPCS Knee High Location of Applied Device: Bilateral Lower Extremeties - VTE Diagnosis Confirmed Treatment or plan recommended: Continue Current Treatment
[2018-05-27 06:41] LABS: Basophils % 0.2 % (0.1-2.0); Eosinophils # 0.1 K/mm3 (0.0-0.4); Eosinophils % 0.6 % (0.1-12.0); Hematocrit 26.6 % (37.0-47.0); Hemoglobin 8.8 g/dL (12.2-16.2); Lymphocytes # 1.9 K/mm3 (0.7-4.5); Lymphocytes % 10.9 K/mm3 (10-50); Mean Corpuscular HGB Conc 33.2 g/dL (31.8-35.4); Mean Corpuscular Hemoglobin 29.8 pg (27.0-31.2); Mean Corpuscular Volume 89.6 fl (81-99); Mean Platelet Volume 6.9 fl (7.4-10.4); Monocytes # 1.4 K/mm3 (0.1-1.0); Monocytes % 8.1 % (1.7-9.3); Neutrophils # 13.8 K/mm3 (1.8-7.8); Neutrophils % 80.2 % (37.0-80.0); Platelet Count 265 K/mm3 (142-424); Red Blood Count 2.97 M/mm3 (4.20-5.40); Red Cell Distribution Width 14.7 % (11.5-17.5); White Blood Count 17.2 K/mm3 (4.8-10.8)
[2018-05-27 06:51] LABS: Anion Gap 8.6 mEq/L (5-15); Potassium 3.6 mmoL/L (3.5-5.1)
[2018-05-27 07:05] LABS: Calcium 8.5 mg/dL (8.5-10.1)
[2018-05-27 09:17] LABS: Lymphocytes % 13 % (10-50); Monocytes % 5 % (2-9); Neutrophils % 81 % (42-76); Total Cells Counted 100
[2018-05-27 09:18] LABS: RBC Morphology Normal
--- NOTE | 2018-05-27 10:04 | Progress Note ---
Subjective Narrative: Patient complains of being sore. She did have some vomiting with clear liquids. Exam Vital signs and Labs for Last 24 Hours: Temp Pulse Resp BP Pulse Ox 97.3 F L 98 H 20 129/71 96 05/27/18 08:00 05/27/18 08:00 05/27/18 08:00 05/27/18 08:00 05/27/18 08:00 Laboratory Results - last 24 hr 05/27/18 06:15: WBC 17.2 H D, RBC 2.97 L D, Hgb 8.8 L, Hct 26.6 L, MCV 89.6, MCH 29.8, MCHC 33.2, RDW 14.7, Plt Count 265 D, MPV 6.9 L, Neut % (Auto) 80.2 H , Lymph % (Auto) 10.9, [place] % (Auto) 8.1, Eos % (Auto) 0.6, Baso % (Auto) 0.2, Neut # (Auto) 13.8 H, Lymph # (Auto) 1.9, [place] # (Auto) 1.4 H, Eos # (Auto) 0.1 , Baso # (Auto) 0.0, Total Counted 100, Neutrophils % (Manual) 81 H, Lymphocytes % (Manual) 13, Monocytes % (Manual) 5, Basophils % (Manual) 1.0, Platelet Estimate Normal, RBC Morphology Normal 05/27/18 06:15: Sodium 140, Potassium 3.6, Chloride 104, Carbon Dioxide 31, Anion Gap 8.6, BUN 11 D, Creatinine 1.02, Estimated Creat Clear 67, Estimated GFR 55 L, Est GFR ( Amer) 66, Glucose 84, Calcium 8.5 D I & O for Last 24 hours: Intake & Output 05/24/18 05/25/18 05/26/18 05/27/18 11:59 11:59 11:59 11:59 Intake Total 1700 / 1700 3261 / 3261 3215 / 3215 Output Total 873 / 873 1705 / 1705 Balance 1700 / 1700 2388 / 2388 1510 / 1510 Weight 159 lb 172 lb 6 oz 167 lb 3 oz - *Routine Abdominal Exam Present: distended, ostomy Progress Note: A&P (1) Pelvic peritoneal adhesions, female (postoperative) (postinfection) Status: Acute Current Visit: Yes (2) Ovarian abscess Status: Acute Current Visit: Yes (3) Status post colostomy Status: Acute Current Visit: Yes Assessment and Plan for All Diagnoses:: Notable decrease in hemoglobin and hematocrit. HAYES output thin serosanguineous. Will DC Chen catheter. Continue clear liquids for now. She does have good ileostomy output however. Possibly remove 1 drain this afternoon.
--- NOTE | 2018-05-27 14:44 | Progress Note ---
Internal Medicine - PN: Subj *Date: 05/27/18 *Time: 14:41 Interval history: POD #2 "feels sore" but no unusual/concerning complaints Postop Hgb 8.8 (preop 13.7) Exam Vital signs and Labs for Last 24 Hours: Temp Pulse Resp BP Pulse Ox 98.0 F 83 18 118/60 99 05/27/18 12:00 05/27/18 12:00 05/27/18 12:00 05/27/18 12:00 05/27/18 12:00 Laboratory Results - last 24 hr 05/27/18 06:15: WBC 17.2 H D, RBC 2.97 L D, Hgb 8.8 L, Hct 26.6 L, MCV 89.6, MCH 29.8, MCHC 33.2, RDW 14.7, Plt Count 265 D, MPV 6.9 L, Neut % (Auto) 80.2 H , Lymph % (Auto) 10.9, [place] % (Auto) 8.1, Eos % (Auto) 0.6, Baso % (Auto) 0.2, Neut # (Auto) 13.8 H, Lymph # (Auto) 1.9, [place] # (Auto) 1.4 H, Eos # (Auto) 0.1 , Baso # (Auto) 0.0, Total Counted 100, Neutrophils % (Manual) 81 H, Lymphocytes % (Manual) 13, Monocytes % (Manual) 5, Basophils % (Manual) 1.0, Platelet Estimate Normal, RBC Morphology Normal 05/27/18 06:15: Sodium 140, Potassium 3.6, Chloride 104, Carbon Dioxide 31, Anion Gap 8.6, BUN 11 D, Creatinine 1.02, Estimated Creat Clear 67, Estimated GFR 55 L, Est GFR ( Amer) 66, Glucose 84, Calcium 8.5 D I & O for Last 24 hours: Intake & Output 05/25/18 05/26/18 05/27/18 05/28/18 11:59 11:59 11:59 11:59 Intake Total 1700 / 1700 3261 / 3261 3215 / 3215 Output Total 873 / 873 1705 / 1705 Balance 1700 / 1700 2388 / 2388 1510 / 1510 Weight 159 lb 172 lb 6 oz 167 lb 3 oz - Constitutional no acute distress - *Routine Respiratory Exam Absent: respiratory distress - *Routine Cardiovascular Exam Absent: tachycardia - *Routine Abdominal Exam Present: soft, tenderness (appropriate postop tenderness), wound (dressing dry/ intact) - *Routine Skin Exam Absent: rash - *Routine Neurological Exam Present: alert, oriented X3 - Routine Psychiatric Exam Present: normal affect Assessment and Plan (1) Pelvic peritoneal adhesions, female (postoperative) (postinfection) Current visit: Yes Status: Acute Category: Medical Code(s): N73.6 - Female pelvic peritoneal adhesions (postinfective) (2) Ovarian abscess Current visit: Yes Status: Acute Category: Medical Code(s): N70.92 - Oophoritis, unspecified (3) Status post colostomy Current visit: Yes Status: Acute Category: Surgical Code(s): Z93.3 - Colostomy status - Assessment and plan all Dx Assessment and Plan for all problems:: Continue inpatient management Advance postop care as tolerated; defer to general surgery regarding plans for advancing care and discharge Will continue to follow while inpatient
[2018-05-28 06:17] LABS: Basophils % 0.2 % (0.1-2.0); Eosinophils # 0.2 K/mm3 (0.0-0.4); Eosinophils % 1.7 % (0.1-12.0); Hematocrit 27.1 % (37.0-47.0); Hemoglobin 8.7 g/dL (12.2-16.2); Lymphocytes # 1.2 K/mm3 (0.7-4.5); Lymphocytes % 8.8 K/mm3 (10-50); Mean Corpuscular Hemoglobin 29.3 pg (27.0-31.2); Mean Corpuscular Volume 91.7 fl (81-99); Mean Platelet Volume 6.8 fl (7.4-10.4); Monocytes % 7.7 % (1.7-9.3); Neutrophils # 10.9 K/mm3 (1.8-7.8); Neutrophils % 81.6 % (37.0-80.0); Platelet Count 271 K/mm3 (142-424); Red Blood Count 2.96 M/mm3 (4.20-5.40); Red Cell Distribution Width 14.6 % (11.5-17.5); White Blood Count 13.4 K/mm3 (4.8-10.8)
[2018-05-28 06:46] LABS: Calcium 8.4 mg/dL (8.5-10.1)
--- NOTE | 2018-05-28 13:04 | Progress Note ---
Subjective Patient reports: no new complaints, voiding w/o difficulty Narrative: Has been having less nausea bit feels bloated. Exam Vital signs and Labs for Last 24 Hours: Temp Pulse Resp BP Pulse Ox 98.2 F 87 18 135/79 98 05/28/18 12:00 05/28/18 12:36 05/28/18 12:00 05/28/18 12:00 05/28/18 12:36 Laboratory Results - last 24 hr 05/28/18 05:45: WBC 13.4 H, RBC 2.96 L, Hgb 8.7 L, Hct 27.1 L, MCV 91.7, MCH 29.3, MCHC 32.0, RDW 14.6, Plt Count 271, MPV 6.8 L, Neut % (Auto) 81.6 H, Lymph % (Auto) 8.8 L, [place] % (Auto) 7.7, Eos % (Auto) 1.7, Baso % (Auto) 0.2, Neut # (Auto) 10.9 H, Lymph # (Auto) 1.2, [place] # (Auto) 1.0, Eos # (Auto) 0.2, Baso # (Auto) 0.0 05/28/18 05:45: Sodium 142, Potassium 4.0, Chloride 104, Carbon Dioxide 34 H, Anion Gap 8.0, BUN 8 D, Creatinine 0.86, Estimated Creat Clear 70, Estimated GFR 66, Est GFR ( Amer) 80 D, Glucose 81, Calcium 8.4 L I & O for Last 24 hours: Intake & Output 05/26/18 05/27/18 05/28/18 05/29/18 11:59 11:59 11:59 11:59 Intake Total 3261 / 3261 3215 / 3215 3512 / 3512 Output Total 873 / 873 1705 / 1705 1268 / 1268 Balance 2388 / 2388 1510 / 1510 2244 / 2244 Weight 172 lb 6 oz 167 lb 3 oz 171 lb 2 oz - *Routine Abdominal Exam Present: soft, distended, ostomy Progress Note: A&P (1) Pelvic peritoneal adhesions, female (postoperative) (postinfection) Status: Acute Current Visit: Yes (2) Ovarian abscess Status: Acute Current Visit: Yes (3) Status post colostomy Status: Acute Current Visit: Yes Assessment and Plan for All Diagnoses:: Patient with significant ileus. Good ileostomy output. Limit to clear liquids.
[2018-05-29 04:13] LABS: Basophils % 0.2 % (0.1-2.0); Eosinophils # 0.3 K/mm3 (0.0-0.4); Eosinophils % 3.3 % (0.1-12.0); Lymphocytes # 1.2 K/mm3 (0.7-4.5); Lymphocytes % 11.2 K/mm3 (10-50); Mean Corpuscular Hemoglobin 29.3 pg (27.0-31.2); Mean Corpuscular Volume 91.5 fl (81-99); Mean Platelet Volume 7.6 fl (7.4-10.4); Monocytes # 0.9 K/mm3 (0.1-1.0); Monocytes % 8.5 % (1.7-9.3); Neutrophils # 7.9 K/mm3 (1.8-7.8); Neutrophils % 76.9 % (37.0-80.0); Platelet Count 278 K/mm3 (142-424); Red Blood Count 2.73 M/mm3 (4.20-5.40); Red Cell Distribution Width 14.7 % (11.5-17.5); White Blood Count 10.3 K/mm3 (4.8-10.8)
--- NOTE | 2018-05-30 08:37 | Progress Note ---
Subjective Patient reports: no new complaints (on O2, walking "only a little bit") Exam Vital signs and Labs for Last 24 Hours: Temp Pulse Resp BP Pulse Ox 97.8 F 86 18 135/74 98 05/30/18 07:33 05/30/18 07:33 05/30/18 07:33 05/30/18 07:33 05/30/18 08:00 I & O for Last 24 hours: Intake & Output 05/27/18 05/28/18 05/29/18 05/30/18 11:59 11:59 11:59 11:59 Intake Total 3215 / 3215 3512 / 3512 3426 / 3426 2943 / 2943 Output Total 1705 / 1705 1268 / 1268 1208 / 1208 1650 / 1650 Balance 1510 / 1510 2244 / 2244 2218 / 2218 1293 / 1293 Weight 167 lb 3 oz 171 lb 2 oz 173 lb 9 oz 174 lb 8 oz - Constitutional no acute distress - *Routine Respiratory Exam Absent: respiratory distress Comments: on [place] O2 - *Routine Abdominal Exam Present: soft Comments: ostomy with normal output incision without erythema Progress Note: A&P (1) Pelvic peritoneal adhesions, female (postoperative) (postinfection) Status: Acute Current Visit: Yes (2) Ovarian abscess Status: Acute Current Visit: Yes (3) Status post colostomy Status: Acute Current Visit: Yes (4) Postoperative anemia Status: Acute Assessment and plan: repeat labs this AM Current Visit: Yes (5) Hypoxia Status: Acute Assessment and plan: wean O2 as tolerated Current Visit: Yes (6) Physical deconditioning Status: Acute Assessment and plan: PT consult Current Visit: Yes
[2018-05-30 09:10] LABS: Basophils % 0.3 % (0.1-2.0); Eosinophils # 0.3 K/mm3 (0.0-0.4); Eosinophils % 3.6 % (0.1-12.0); Hematocrit 27.6 % (37.0-47.0); Hemoglobin 9.1 g/dL (12.2-16.2); Lymphocytes # 1.2 K/mm3 (0.7-4.5); Lymphocytes % 12.7 K/mm3 (10-50); Mean Corpuscular HGB Conc 32.9 g/dL (31.8-35.4); Mean Corpuscular Hemoglobin 30.1 pg (27.0-31.2); Mean Corpuscular Volume 91.3 fl (81-99); Mean Platelet Volume 6.7 fl (7.4-10.4); Monocytes # 0.9 K/mm3 (0.1-1.0); Monocytes % 9.4 % (1.7-9.3); Neutrophils % 73.9 % (37.0-80.0); Platelet Count 360 K/mm3 (142-424); Red Blood Count 3.03 M/mm3 (4.20-5.40); Red Cell Distribution Width 14.6 % (11.5-17.5); White Blood Count 9.4 K/mm3 (4.8-10.8)
[2018-05-30 09:16] LABS: Anion Gap 6.2 mEq/L (5-15); Calcium 8.5 mg/dL (8.5-10.1); Potassium 3.2 mmoL/L (3.5-5.1)
--- NOTE | 2018-05-31 07:18 | Progress Note ---
Subjective Patient reports: feels better, pain is less Narrative: Not much appetite. No nausea. Taking minimal full liquids. Exam Vital signs and Labs for Last 24 Hours: Temp Pulse Resp BP Pulse Ox 98.9 F 102 H 22 172/96 90 L 05/31/18 04:00 05/31/18 04:00 05/31/18 04:00 05/31/18 04:00 05/31/18 04:00 Laboratory Results - last 24 hr 05/30/18 08:53: WBC 9.4, RBC 3.03 L, Hgb 9.1 L, Hct 27.6 L, MCV 91.3, MCH 30.1, MCHC 32.9, RDW 14.6, Plt Count 360 D, MPV 6.7 L, Neut % (Auto) 73.9, Lymph % ( Auto) 12.7, [place] % (Auto) 9.4 H, Eos % (Auto) 3.6, Baso % (Auto) 0.3, Neut # ( Auto) 7.0, Lymph # (Auto) 1.2, [place] # (Auto) 0.9, Eos # (Auto) 0.3, Baso # (Auto ) 0.0 05/30/18 08:53: Sodium 141, Potassium 3.2 L, Chloride 103, Carbon Dioxide 35 H, Anion Gap 6.2, BUN 5 L D, Creatinine 0.87, Estimated Creat Clear 71, Estimated GFR 66, Est GFR ( Amer) 79, Glucose 86, Calcium 8.5 I & O for Last 24 hours: Intake & Output 05/28/18 05/29/18 05/30/18 05/31/18 11:59 11:59 11:59 11:59 Intake Total 3512 / 3512 3426 / 3426 2943 / 2943 988 / 988 Output Total 1268 / 1268 1208 / 1208 1650 / 1650 2683 / 2683 Balance 2244 / 2244 2218 / 2218 1293 / 1293 -1695 / -1695 Weight 171 lb 2 oz 173 lb 9 oz 174 lb 8 oz 174 lb 8.004 oz - *Routine Abdominal Exam Present: soft, ostomy Progress Note: A&P (1) Pelvic peritoneal adhesions, female (postoperative) (postinfection) Status: Acute Current Visit: Yes (2) Ovarian abscess Status: Acute Current Visit: Yes (3) Status post colostomy Status: Acute Current Visit: Yes (4) Postoperative anemia Status: Acute Current Visit: Yes (5) Hypoxia Status: Acute Current Visit: Yes (6) Physical deconditioning Status: Acute Current Visit: Yes Assessment and Plan for All Diagnoses:: DC antibiotics. Decrease IV fluids. May DC HAYES this afternoon. Possible discharge home once able to sustain oral fluid and nutrition intake.
--- NOTE | 2018-06-01 10:04 | Discharge Summary ---
General - General Admission date:: 05/25/18 Discharge date: 06/01/18 HPI HPI: Patient is a 62-year-old white female with a history of complicated diverticulitis who underwent urgent sigmoid colon resection and in August 2017 with anastomosis and proximal diverting loop ileostomy at that time. She did convalesce slowly from that. 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 This was evaluated with trans-vaginal ultrasound. She has had some episodes of intermittent abdominal pain and fevers and has been treated empirically for infection or diverticulitis with oral antibiotics as an outpatient. She did undergo contrast enema which revealed no evidence of any communication to the colon with the fluid collection. She also had CT scan with IV, oral, and rectal contrast. She was sent for consultation with gynecology, Dr. Froy Marti. Plan was for left salpingo-oophorectomy with possible cancer operation combined with general surgery with possible ileostomy takedown versus colon resection. Hospital Course Hospital Course: Patient was taken to the operating room and underwent laparotomy. She is found to have extensive intra-abdominal adhesions. It appeared as though the colon was relatively unaffected. She did have cystic lesion in the left ovary and underwent left salpingo-oophorectomy. She also had a significant amount of inflammation within the uterus and therefore ultimately underwent total abdominal hysterectomy. 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 Residual right ovary or tube. Please see operative dictation for complete details including gynecologic operative note for the majority of the details. Decision was made to not perform ileostomy takedown due to the extensive adhesions of loops of small bowel and due to the pelvic pathology. She did have a couple of HAYES drains placed. She was admitted postoperatively for inpatient care. She was initially stopped within the stepdown unit. Patient convalesced slowly. She initially had gross hematuria immediately postoperatively but this resolved within a few hours after surgery. She did have a postoperative ileus due to the dissection of the loops of small bowel secondary to adhesions. On postoperative day #2 she had her Chen catheter removed. She voided without difficulty. She did show some decrease in hemoglobin and hematocrit postoperatively but did not require transfusion and this stabilized. Her diet was slowly advanced as her ileus resolved and her ileostomy output improved. She was rather slow to increase her activity and wean off oxygen. However, by postoperative day #5 she was off oxygen. She was ambulating with some assistance. Discharge planning was consulted and plan was made ultimately for discharge home with home health. By postoperative day # 7 patient was feeling well. She still does not have an appetite but nausea had resolved and she was tolerating a bland diet. She had good ileostomy output. Incision was clean with only some minimal induration inferiorly but no evidence of any cellulitis. Plan was made for discharge home at that time. Objective Vital signs: Temp Pulse Resp BP Pulse Ox 98.9 F 108 H 16 189/93 90 L 06/01/18 07:52 06/01/18 07:52 06/01/18 07:52 06/01/18 07:52 06/01/18 08:15 DS: Diagnosis - Discharge Diagnosis (1) Pelvic peritoneal adhesions, female (postoperative) (postinfection) Status: Acute (2) Ovarian abscess Status: Acute (3) Status post colostomy Status: Acute (4) Postoperative anemia Status: Acute (5) Hypoxia Status: Acute (6) Physical deconditioning Status: Acute Discharge Plan - Patient Discharge Instructions ACTIVITY: No heavy lifting DIET: advance to your usual diet Patient Instructions: Surgical Site Infection - Follow up Plan Follow up with: Javy Steele MD [Staff Physician] - 06/06/18 Froy Cardenas MD [Staff Physician] - 1 week Disposition: Home Health Service Home Medications: Home Medications Medication Instructions Recorded Confirmed Type atenolol 50 mg tablet 50 mg PO DAILY tab 11/12/17 05/25/18 History RX: Isosorbide Mononitrate 10 mg PO DAILY 05/24/18 05/25/18 History RX: predniSONE [Prednisone 5mg 5 mg PO DAILY 05/24/18 05/25/18 History Tab] Albuterol Sulfate [Albuterol HFA 1 - 2 puffs IH Q4-6H PRN 05/25/18 05/25/18 History Inhaler] Alendronate Sodium [Fosamax] 70 mg PO WEEKLY 05/25/18 05/25/18 History Loratadine [Claritin] 10 mg PO DAILY 05/25/18 05/25/18 History Pantoprazole Sodium [Protonix 40mg 40 mg PO DAILY 05/25/18 05/25/18 History tablet] Prescriptions/Medication Reconciliation: New Hydrocod/Acet 5/325 mg [Fisher 5/325mg tablet] 1 - 2 tab PO Q6HP PRN #21 tab PRN Reason: Moderate Pain RX: Nystatin [Nystatin Susp 500,000 Units/5mL Udc] 500,000 unit PO TID #14 udc Continue atenolol 50 mg tablet 50 mg PO DAILY tab RX: predniSONE [Prednisone 5mg Tab] 5 mg PO DAILY Albuterol Sulfate [Albuterol HFA Inhaler] 1 - 2 puffs IH Q4-6H PRN PRN Reason: Shortness Of Breath Or Wheezing Loratadine [Claritin] 10 mg PO DAILY Pantoprazole Sodium [Protonix 40mg tablet] 40 mg PO DAILY RX: Isosorbide Mononitrate 10 mg PO DAILY Alendronate Sodium [Fosamax] 70 mg PO WEEKLY
--- NOTE | 2018-06-01 10:05 | Progress Note ---
Subjective Patient reports: feels better Exam Vital signs and Labs for Last 24 Hours: Temp Pulse Resp BP Pulse Ox 98.9 F 108 H 16 189/93 90 L 06/01/18 07:52 06/01/18 07:52 06/01/18 07:52 06/01/18 07:52 06/01/18 08:15 I & O for Last 24 hours: Intake & Output 05/29/18 05/30/18 05/31/18 06/01/18 11:59 11:59 11:59 11:59 Intake Total 3426 / 3426 2943 / 2943 1468 / 1468 480 / 480 Output Total 1208 / 1208 1650 / 1650 2683 / 2683 300 / 300 Balance 2218 / 2218 1293 / 1293 -1215 / -1215 180 / 180 Weight 173 lb 9 oz 174 lb 8 oz 174 lb 8.004 oz - *Routine Abdominal Exam Present: soft, ostomy Comments: Minimal induration inferiorly Progress Note: A&P (1) Pelvic peritoneal adhesions, female (postoperative) (postinfection) Status: Acute Current Visit: Yes (2) Ovarian abscess Status: Acute Current Visit: Yes (3) Status post colostomy Status: Acute Current Visit: Yes (4) Postoperative anemia Status: Acute Current Visit: Yes (5) Hypoxia Status: Acute Current Visit: Yes (6) Physical deconditioning Status: Acute Current Visit: Yes Assessment and Plan for All Diagnoses:: Discharge home
== END 2018-06-01 11:12 | disposition home health service (06) ==
LOC: 2ND 06:04 → EDSTATUS 07:30 → 2ND 11:58
PROVIDERS: ADMIT Nurse Practitioner Obstetrics & Gynecology; ATTEND Surgery

== ENCOUNTER → 2018-07-14 14:35 | Outpatient (CLI) | payer MEDICAID, SELFPAY ==
--- NOTE | 2018-07-14 14:42 | MR_ITS ---
MR lumbar spine wo con, MR 3-d myelogram/MRCP HISTORY: PT states low back pain off and on X 6 Months or so. Left side pain, Left leg tingling at times. ITS.REASON: LUMBAGO, LT SCIATICA ORDERING PHYSICIAN: Alfred Chapa PATIENT AGE: 62 years Comparison: X-RAY 04/25/18 TECHNIQUE: Standard multiplanar multiecho sequences are performed without contrast. 3-D MIP and myelographic images are also rendered and reviewed FINDINGS: There is normal alignment. The spinal cord ends at the T12-L1 level. Multilevel degenerative disc disease is noted. T10-T11: Degenerative disc disease. T11-T12: Degenerative disc disease. There is wedging of the T12 vertebral body with loss of height anteriorly by approximately 40% and appears chronic. T12-L1: Moderate wedging of the superior endplate of L1 greater along the anterior aspect with slight increase T2 signal involving the vertebral body. Previous CT scan demonstrated chronic wedging of T12 unchanged from 04/01/2018 but has however increased somewhat since 01/19/2018. There is slight increased T2 signal involving the mid and superior aspect of the vertebral body with some sclerosis along the endplates. Minimal retropulsion posterior superior aspect of L1 L1-L2: Minimal wedging along the anterosuperior aspect appears chronic. Minimal retropulsion of the posterior superior aspect of L2 L2-L3: Decreased T1 and slightly increased STIR signal involving the superior endplate of L3 consistent with mild acute wedge changes with minimal central and anterior loss of height with minimal retropulsion of the posterior superior aspect of L3. L3-L4: Unremarkable. L5-S1: Minimal anterolisthesis of L5 with mild concentric bulging disc and mild facet hypertrophic change. No canal stenosis. No disc herniation evident. 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 IMPRESSION: 1. Abnormal MRI of the lumbar spine with subacute wedging of T12 and L1 with mild chronic wedging of L2 2. Minimal wedging of the superior endplate of L3 which appears more acute. 3. Multilevel degenerative disc disease. Please see above for detailed description at each level.
== END ==
PROVIDERS: Family Provider Internal Medicine; PCP Internal Medicine; Visit Provider Internal Medicine
DX: Q04.0 Congenital malformations of corpus callosum (principal); M54.42 Lumbago with sciatica, left side
CPT/HCPCS: 72148; 76376

== ENCOUNTER → 2018-08-24 09:06 | Outpatient (CLI) | payer MEDICAID, SELFPAY ==
--- NOTE | 2018-08-24 09:16 | CT_ITS ---
CT abdomen pelvis w con CLINICAL INDICATION: Abdominal pain and bloating ITS.REASON: abdominal bloating, possible abscess ORDERING PHYSICIAN: Javy Steele MD PATIENT AGE: 62 years COMPARISON: 05/10/2018 TECHNIQUE: Axial images obtained with sagittal and coronal reformats. All CT scans at the facility use one or more dose reduction, viz: automated exposure control, ma/kV adjustment per patient size (including targeted exams where dose is matched to indication, i.e. head), or iterative reconstruction technique. PROCEDURE: Oral Contrast: Redicat IV Contrast: 75 mL's of Isovue-370. FINDINGS: There are atelectatic changes in the lung bases with elevated right hemidiaphragm. There are coronary artery calcifications. No radio opaque gallstones. The liver, spleen, adrenal glands, and pancreas have an unremarkable appearance. No renal or ureteral calculi. No hydronephrosis. There is a diverting right lower quadrant ileostomy with decompression of the colon.. There is herniation of abdominal fat into the ileostomy site. There is colonic diverticulosis. No evidence of diverticulitis. No abscess apparent. There has been an interval hysterectomy. Previously noted left adnexal lesion no longer apparent There is been interval wedge compression changes having developed in the inferior endplate of L4 as well as compression changes also noted at L3 and increasing wedge compression changes at L2 with new compression fracture at L1. IMPRESSION: 1. Interval hysterectomy. Left adnexal mass no longer apparent. 2. Overall no change status post diverting ileostomy with colonic diverticulosis. No evidence of diverticulitis 3. New multiple wedge compression changes of the lumbar spine at L1, L2, L3, and L4
[2018-08-24 09:33] LABS: Blood Urea Nitrogen 15 mg/dL (7-18); Estimated Glomerular Filt Rate 63 ml/min (>60); GFR (African American) 76 ML/MIN (>60)
--- NOTE | 2018-08-24 10:17 | HMH.ITSHM ---
Current Home Medications as stated by this patient Dulce Mae or software support representative. []PREDNISONE,ATENOL,ISORIBIDE,PROTONIX
== END ==
PROVIDERS: Family Provider Internal Medicine; PCP Internal Medicine; Visit Provider Surgery
DX: L02.91 Cutaneous abscess, unspecified (principal); R14.0 Abdominal distension (gaseous)
CPT/HCPCS: 36415; 74177; 82565; 84520; Q9967

== ENCOUNTER → 2018-09-21 11:20 | Outpatient (CLI) | payer MEDICAID, SELFPAY ==
--- NOTE | 2018-09-21 11:31 | CT_ITS ---
CT chest w con HISTORY: Shortness of air, acute exacerbation of COPD ITS.REASON: COPD WITH ACUTE EXACERBATION, SOB ORDERING PHYSICIAN: Alfred Chapa PATIENT AGE: 62 years COMPARISON: 08/07/2015 TECHNIQUE: Axial images obtained following the administration of 75 mL of Isovue 370 . Sagittal, and coronal reformatted images are also generated and reviewed. All CT scans at the facility use one or more dose reduction, viz: automated exposure control, ma/kV adjustment per patient size (including targeted exams where dose is matched to indication, i.e. head), or iterative reconstruction technique. FINDINGS: No mediastinal or hilar mass. No evidence of central pulmonary embolus or aortic dissection. There is mild dilatation and ectasia of the descending thoracic aorta which measures up to 3.4 cm in AP and transverse dimension. There is increasing tortuosity of the descending thoracic aorta There is some increase seen rind of soft tissue density along the posterior left lateral aspect of the descending thoracic aorta consistent with perianeurysmal fibrosis . This does raise a suspicion of a chronic leak from the descending thoracic aorta. Coronary artery calcifications are present with normal heart size. There is a small hiatal hernia. There are centrilobular emphysematous changes. The right hemidiaphragm is elevated. This has developed since the previous exam. No obvious central obstructing lesion is evident. Atelectatic changes are present in the right middle lobe and right lower lobe. There are also atelectatic changes in the left lower lobe posteriorly. There is multilevel wedge compression changes within the thoracic and lumbar spine which have developed since the previous exam. There is mild wedging of T7, moderate wedging of T8, mild wedging at T11 and moderate wedging at T12 as well as moderate wedging of L1. These findings have either progressed or developed since the CT scan 08/07/2015. Please see recent MRI lumbar spine report of 07/14/2018. IMPRESSION: 1. Mild dilatation of the descending thoracic aorta with tortuosity. Descending thoracic aorta measures up to 3.4 cm. There is a small rind of soft tissue density along the posterior left lateral aspect of the descending thoracic aorta which could represent some mild perianeurysmal fibrosis which may be seen with either prior or chronic leak. Please correlate with clinical parameters. 2. Elevated right hemidiaphragm with atelectatic changes in the right middle and right lower lobe. Left lower lobe atelectasis is also noted.. 3. Coronary artery calcification. 4. Multiple wedge compression changes of the thoracic and lumbar spine
[2018-09-21 11:42] LABS: Blood Urea Nitrogen 28 mg/dL (7-18); Creatinine,Serum 1.02 mg/dL (0.55-1.02); Estimated Glomerular Filt Rate 55 ml/min (>60); GFR (African American) 66 ML/MIN (>60)
== END ==
PROVIDERS: Visit Provider Internal Medicine
DX: J44.1 Chronic obstructive pulmonary disease with (acute) exacerbation (principal); R06.02 Shortness of breath
CPT/HCPCS: 36415; 71260; 82565; 84520; Q9967

== ENCOUNTER → 2018-10-31 10:05 | Outpatient (CLI) | payer MEDICAID, SELFPAY ==
--- NOTE | 2018-10-31 10:09 | US_ITS ---
US gallbladder COMPARISON: CT scan abdomen pelvis 08/24/2018 HISTORY:Right upper quadrant pain and nausea Sagittal, transverse and decubitus imaging of the gallbladder was performed. GALLBLADDER - No stones are evident. There is no gallbladder wall thickening. Common duct is normal in diameter. There is partial septation of the gallbladder and there is a tiny amount biliary sludge near the neck. Liver: Unremarkable Pancreas: Grossly normal Right kidney: The right kidney measures 8.6 x 4.2 x 7.2 cm and appears sonographically normal. IMPRESSION: Partially septated gallbladder with tiny amount biliary sludge, no other significant abnormality noted..
== END ==
PROVIDERS: PCP Internal Medicine; Visit Provider Internal Medicine
DX: R10.9 Unspecified abdominal pain (principal)
CPT/HCPCS: 76705

== ENCOUNTER → 2018-12-09 11:17 | Outpatient (CLI) | payer MEDICARE, OTHER, SELFPAY ==
[2018-12-09 12:17] LABS: Blood Urea Nitrogen 21 mg/dL (7-18); Creatinine,Serum 1.06 mg/dL (0.55-1.02); Estimated Glomerular Filt Rate 52 ml/min (>60); GFR (African American) 63 ML/MIN (>60)
== END ==
PROVIDERS: Visit Provider Surgery
DX: Z01.818 Encounter for other preprocedural examination (principal)
CPT/HCPCS: 36415; 82565; 84520

== ENCOUNTER → 2018-12-15 08:46 | Outpatient (CLI) | payer MEDICARE, OTHER, SELFPAY ==
--- NOTE | 2018-12-15 08:48 | CT_ITS ---
CT abdomen pelvis w con CLINICAL INDICATION: Diffuse abdominal pain, history of diverticulitis with abscess ITS.REASON: abdominal pain ORDERING PHYSICIAN: Javy Steele MD PATIENT AGE: 63 years COMPARISON: 08/24/2018, [id number] TECHNIQUE: Axial images obtained with sagittal and coronal reformats. All CT scans at the facility use one or more dose reduction, viz: automated exposure control, ma/kV adjustment per patient size (including targeted exams where dose is matched to indication, i.e. head), or iterative reconstruction technique. PROCEDURE: Oral Contrast: Redicat, rectal contrast also given IV Contrast: 75 mL's Optiray 350. FINDINGS: Coronary artery calcifications are present. Mild atelectatic or fibrotic changes are present in the lung bases. The heart is shifted toward the left. The liver, gallbladder, spleen, adrenal glands, pancreas, and kidneys have an unremarkable appearance. There is a right lower quadrant diverting ileostomy. There is herniation of the peritoneal fat into the ileostomy as well as herniation of a loop of transverse colon into the ileostomy site. The ileum is narrowed at the ileostomy site but no evidence of obstruction. There is no evidence of pelvic abscess or abnormal fluid collection. Diffuse diverticulosis involves the colon. No evidence of diverticulitis. There has been a prior hysterectomy. No intestinal obstruction or free air. Multiple wedge compression changes are present in the lower thoracic and lumbar spine at T11, T12, L1, L2, L3, and L4. These findings are not significantly changed. IMPRESSION: 1. Postsurgical changes with right lower quadrant diverting ileostomy. There is herniation of a loop transverse colon in the ileostomy site. No intestinal obstruction is evident. 2. No evidence of pelvic abscess or contrast extravasation from the rectal contrast. There is diffuse diverticulosis of the colon. 3. No change multiple wedge compression changes of the thoracic and lumbar spine
--- NOTE | 2018-12-15 11:51 | HMH.ITSHM ---
Current Home Medications as stated by this patient Dulce Mae or support representative. []ISOSORBIDE ATENOL PREDNISONE PANTRASONE OMELODEPINE
== END ==
PROVIDERS: PCP Internal Medicine; Visit Provider Surgery
DX: R10.9 Unspecified abdominal pain (principal)
CPT/HCPCS: 74177

== ENCOUNTER → 2019-01-03 12:56 | Outpatient (POV) | payer MEDICARE, OTHER, SELFPAY | PROVIDERS: Visit Provider Internal Medicine | DX: Z00.00 Encounter for general adult medical examination without abnormal findings (principal) ==

== ENCOUNTER → 2019-01-26 09:26 | Outpatient (CLI) | payer MEDICARE, OTHER, SELFPAY ==
[2019-01-26 10:16] LABS: Basophils # 0.1 K/mm3 (0-0.2); Basophils % 0.7 % (0.1-2.0); Eosinophils # 0.2 K/mm3 (0.0-0.4); Eosinophils % 1.7 % (0.1-12.0); Hematocrit 40.6 % (37.0-47.0); Lymphocytes # 1.4 K/mm3 (0.7-4.5); Lymphocytes % 15.2 % (10-50); Mean Corpuscular HGB Conc 32.1 g/dL (31.8-35.4); Mean Corpuscular Hemoglobin 29.5 pg (27.0-31.2); Mean Corpuscular Volume 91.9 fl (81-99); Monocytes # 0.4 K/mm3 (0.1-1.0); Monocytes % 4.5 % (1.7-9.3); Neutrophils # 6.9 K/mm3 (1.8-7.8); Neutrophils % 77.9 % (37.0-80.0); Platelet Count 341 K/mm3 (142-424); Red Blood Count 4.41 M/mm3 (4.20-5.40); Red Cell Distribution Width 13.9 % (11.5-17.5); White Blood Count 8.8 K/mm3 (4.8-10.8)
[2019-01-26 10:47] VITALS: PULSE 74
[2019-01-26 11:00] VITALS: BP 143/84; PULSE 74; RESP 12; O2SAT 97
[2019-01-26 11:15] VITALS: BP 128/86; PULSE 80; RESP 16; O2SAT 99
[2019-01-26 12:34] LABS: Erythrocyte Sedimentation Rate 14 mm/hr (0-30)
[2019-01-26 19:49] LABS: Alanine Aminotransferase 32 U/L (12-78); Albumin/Globulin Ratio 1.1 (1.1-1.8); Alkaline Phosphatase 71 U/L (46-116); Anion Gap 20.4 mEq/L (5-15); Aspartate Amino Transferase 29 U/L (15-37); Bilirubin,Total 0.5 mg/dL (0.2-1.0); Blood Urea Nitrogen 17 mg/dL (7-18); Calcium 9.7 mg/dL (8.5-10.1); Carbon Dioxide 22 mmol/L (21.0-32.0); Chloride 106 mmol/L (98-107); Creatinine,Serum 1.07 mg/dL (0.55-1.02); Estimated Glomerular Filt Rate 51 ml/min (>60); GFR (African American) 62 ML/MIN (>60); Globulin 3.7 gm/dl (1.3-3.2); Glucose 95 mg/dL (74-106); Potassium 4.4 mmoL/L (3.5-5.1); Sodium 144 mmol/L (136-145); Thyroid Stimulating Hormone 1.79 uIU/ml (0.358-3.740); Total Protein,Serum 7.7 gm/dL (6.4-8.2)
== END ==
PROVIDERS: PCP Internal Medicine; Visit Provider Internal Medicine
DX: R06.09 Other forms of dyspnea (principal); M35.3 Polymyalgia rheumatica; J98.6 Disorders of diaphragm; J44.9 Chronic obstructive pulmonary disease, unspecified
CPT/HCPCS: 36415; 80053; 84443; 85025; 85651; 94060; 94618; 94640; 94726; 94729

== ENCOUNTER → 2019-02-27 09:48 | Outpatient (CLI) | payer MEDICARE, OTHER, SELFPAY ==
--- NOTE | 2019-02-27 09:51 | FL_ITS ---
Fluoro up to 1 hour Diaphragmatic sniff test CLINICAL INDICATION: Shortness of breath, elevated hemidiaphragm ITS.REASON: DIAPHRAGM DYSFUNCTION ORDERING PHYSICIAN: Basilio Galdamez MD PATIENT AGE: 63 years Comparison: None Fluoroscopy time: 38 seconds FINDINGS: The upright position the patient was instructed to take deep sniff in. Hemidiaphragm is visualized bilaterally. There is elevation of the right hemidiaphragm but good excursion on deep sniff in. The left hemidiaphragm has normal excursion. IMPRESSION: Elevated right hemidiaphragm with normal excursion on deep breathing
--- NOTE | 2019-02-27 10:13 | XR_ITS ---
XR chest 2V HISTORY: ITS.REASON: DIAPHRAGM DYSFUNCTION ORDERING PHYSICIAN: Basilio Galdamez MD PATIENT AGE: 63 years COMPARISON: 10/25/2017 FINDINGS: There is mild elevation of the right hemidiaphragm. Atelectatic or fibrotic changes are present in both lower lobes. Upper lobes are clear. Unremarkable cardiovascular structures. There is tortuosity of the thoracic aorta. There is mild wedging of T12, T11, T8, T7, and T6. There is also mild wedging of L1 and L2. IMPRESSION: 1. Elevated right hemidiaphragm with bibasilar atelectasis or fibrosis. 2. Multiple wedge compression changes of the thoracic spine. Most of these do not appear significant change dating back to previous CT scan of 12/15/2018. The T6 and T7 area however was not imaged at that time and is age indeterminate
[2019-02-27 11:38] LABS: Basophils # 0.1 K/mm3 (0-0.2); Basophils % 0.4 % (0.1-2.0); Eosinophils # 0.2 K/mm3 (0.0-0.4); Eosinophils % 1.3 % (0.1-12.0); Hematocrit 41.2 % (37.0-47.0); Hemoglobin 13.6 g/dL (12.2-16.2); Lymphocytes # 1.5 K/mm3 (0.7-4.5); Lymphocytes % 11.3 % (10-50); Mean Corpuscular HGB Conc 32.9 g/dL (31.8-35.4); Mean Corpuscular Hemoglobin 29.3 pg (27.0-31.2); Mean Corpuscular Volume 88.9 fl (81-99); Mean Platelet Volume 6.8 fl (7.4-10.4); Monocytes # 0.7 K/mm3 (0.1-1.0); Monocytes % 4.9 % (1.7-9.3); Neutrophils # 11.2 K/mm3 (1.8-7.8); Platelet Count 376 K/mm3 (142-424); Red Blood Count 4.64 M/mm3 (4.20-5.40); Red Cell Distribution Width 13.6 % (11.5-17.5); White Blood Count 13.6 K/mm3 (4.8-10.8)
[2019-02-27 12:08] LABS: Alanine Aminotransferase 30 U/L (12-78); Albumin Level 3.9 gm/dL (3.4-5.0); Alkaline Phosphatase 84 U/L (46-116); Anion Gap 12.9 mEq/L (5-15); Aspartate Amino Transferase 18 U/L (15-37); Bilirubin,Total 0.5 mg/dL (0.2-1.0); Blood Urea Nitrogen 17 mg/dL (7-18); Calcium 9.2 mg/dL (8.5-10.1); Carbon Dioxide 26 mmol/L (21.0-32.0); Chloride 106 mmol/L (98-107); Cholesterol 225 mg/dL (140-200); Creatinine,Serum 0.96 mg/dL (0.55-1.02); Estimated Glomerular Filt Rate 58 ml/min (>60); GFR (African American) 71 ML/MIN (>60); Globulin 3.8 gm/dl (1.3-3.2); Glucose 91 mg/dL (74-106); HDL Cholesterol 75 mg/dL (29-89); LDL Cholesterol 123 mg/dL (0-130); Potassium 3.9 mmoL/L (3.5-5.1); Sodium 141 mmol/L (136-145); Total Protein,Serum 7.7 gm/dL (6.4-8.2); Triglycerides 134 mg/dL (30-200); VLDL Cholesterol 27 mg/dL (0-40)
[2019-02-28 10:12] LABS: Vitamin D 25 Hydroxy 28.2 ng/mL (30.0-100.0)
== END ==
PROVIDERS: PCP Internal Medicine; Visit Provider Internal Medicine
DX: J98.6 Disorders of diaphragm (principal); J44.9 Chronic obstructive pulmonary disease, unspecified; R41.3 Other amnesia; H66.019 Acute suppurative otitis media with spontaneous rupture of ear drum, unspecified ear; Z79.899 Other long term (current) drug therapy
CPT/HCPCS: 36415; 71046; 76000; 80053; 80061; 82652; 85025

== ENCOUNTER → 2019-03-31 10:57 | Outpatient (CLI) | payer MEDICARE, OTHER, SELFPAY ==
--- NOTE | 2019-03-31 11:00 | MR_ITS ---
MR lumbar spine wo con, MR 3-d myelogram/MRCP HISTORY: LBP with several compression FX. Low back pain ITS.REASON: LOW BACK PAIN, OSTEOPOROSIS ORDERING PHYSICIAN: Alfred Chapa PATIENT AGE: 63 years Comparison: 07/14/2018 TECHNIQUE: Standard multiplanar multiecho sequences are performed without contrast. 3-D MIP and myelographic images are also rendered and reviewed FINDINGS: The spinal cord ends at the L1 level. There is kyphosis of the thoracic lumbar region. T10-T11: Degenerative disc disease. There is mild chronic wedging of T11 anteriorly of approximately 40% unchanged. A Schmorl's node is present along the inferior endplate of T11. T11-T12: Degenerative disc use. There is chronic wedging at T12 with loss of height of approximately 45-50% and a small node along the inferior endplate of T12 unchanged. T12-L1: Minimal bulging disc. There is mild concavity along the superior endplate of L1 which is chronic. L1-L2: Unremarkable. L2-L3: Unremarkable. L3-L4: Unremarkable. There is concave deformity involving the inferior endplate of L4 which has developed since the previous exam but does not have an acute appearance without bone marrow edema. L5-S1: Minimal anterolisthesis of L5 of approximately 3 mm with mild bulging disc. Tarlov cysts are present at the S2 region on the left and centrally. IMPRESSION: 1. Multilevel spondylosis with degenerative disc disease and bulging disc. There is multilevel chronic wedge compression changes involving T11-T12 and L1. Not significant change. There is kyphosis of the lower thoracic spine 2. Mild central concave compression deformity of the inferior endplate of L4 which has developed since the previous exam but does not appear acute. No bone marrow edema evident. 3. No disc herniation or canal stenosis
== END ==
PROVIDERS: PCP Internal Medicine; Visit Provider Internal Medicine
DX: M54.5 Low back pain (principal); M81.0 Age-related osteoporosis without current pathological fracture
CPT/HCPCS: 72148; 76376

== ENCOUNTER → 2019-05-16 15:58 | Outpatient (POV) | payer MEDICARE, OTHER, SELFPAY | PROVIDERS: Visit Provider Internal Medicine | DX: Z00.00 Encounter for general adult medical examination without abnormal findings (principal) ==

== ENCOUNTER → 2019-06-27 11:00 | Outpatient (CLI) | payer MEDICARE, OTHER, SELFPAY ==
--- NOTE | 2019-06-27 11:05 | XR_ITS ---
PROCEDURE: XR SINUS MIN 3V CLINICAL INDICATION: SINUSITIS, FRONTAL CHEEK PAIN COMPARISON: No exams were available for comparison FINDINGS: There is an air-fluid level in the left maxillary sinus. No other significant anomalies are evident. IMPRESSION: Left maxillary sinusitis Dictated by: Avery Francis MD 06/27/2019 11:29 Signed by: <Electronically signed by Avery Francis MD in [facility]> 06/27/2019 11:29
== END ==
PROVIDERS: PCP Internal Medicine; Visit Provider Internal Medicine
DX: J01.10 Acute frontal sinusitis, unspecified (principal)
CPT/HCPCS: 70220

== ENCOUNTER → 2019-08-29 14:45 | Outpatient (CLI) | payer MEDICARE, OTHER, SELFPAY ==
[2019-08-29 18:41] LABS: Anion Gap 16.8 mEq/L (5-15); Blood Urea Nitrogen 18 mg/dL (7-18); Calcium 7.8 mg/dL (8.5-10.1); Carbon Dioxide 27 mmol/L (21.0-32.0); Chloride 104 mmol/L (98-107); Chol/HDL Ratio 3.2 (1-3.5); Cholesterol 190 mg/dL (140-200); Creatinine,Serum 1.06 mg/dL (0.55-1.02); Estimated Glomerular Filt Rate 52 ml/min (>60); GFR (African American) 63 ML/MIN (>60); Glucose 97 mg/dL (74-106); HDL Cholesterol 60 mg/dL (29-89); LDL Cholesterol 107 mg/dL (0-130); Potassium 4.8 mmoL/L (3.5-5.1); Sodium 143 mmol/L (136-145); Triglycerides 115 mg/dL (30-200); VLDL Cholesterol 23 mg/dL (0-40)
[2019-08-29 19:09] LABS: Magnesium 0.5 mg/dL (1.4-2.2)
== END ==
PROVIDERS: Visit Provider Internal Medicine
DX: E78.5 Hyperlipidemia, unspecified (principal); E83.42 Hypomagnesemia; E87.6 Hypokalemia
CPT/HCPCS: 36415; 80048; 80061; 83735

== ENCOUNTER → 2019-12-08 14:35 | Outpatient (CLI) | payer MEDICARE, OTHER, SELFPAY ==
--- NOTE | 2019-12-08 14:41 | XR_ITS ---
PROCEDURE: XR CHEST 2V CLINICAL HISTORY: COUGH,SPUTUM,SOA Cough, congestion, shortness of air COMPARISON: CXR CHEST(2 VIEWS-NOT PORTABLE) from 08/24/2017 CXR1 CHEST-PORTABLE from 10/25/[address] chest w con from 09/21/2018 XR CHEST 2V from 08/12/2019 FINDINGS: Heart size. There is moderate tortuosity/ectasia of the descending thoracic aorta not significantly changed. There are atelectatic or fibrotic changes in the lingula as before Kyphosis of the thoracic spine with mild wedging involving L2, L1, T12, T11, T8 and T7. This is not significantly changed. IMPRESSION: As above, no change with no acute finding Dictated by: Avery Francis MD 12/08/2019 14:49 Electronically signed by Avery Francis MD in [facility] 12/08/2019 14:49
== END ==
PROVIDERS: PCP Internal Medicine; Visit Provider Internal Medicine
DX: R05 Cough (principal); R06.02 Shortness of breath; R09.89 Other specified symptoms and signs involving the circulatory and respiratory systems
CPT/HCPCS: 71046

== ENCOUNTER → 2020-01-05 14:33 | Outpatient (CLI) | payer MEDICARE, OTHER, SELFPAY ==
--- NOTE | 2020-01-05 14:40 | XR_ITS ---
PROCEDURE: XR WRIST RT MIN 3V CLINICAL INDICATION: RT HAND AND WRIST PAIN Lateral wrist pain COMPARISON: WRL3 WRIST-3 VIEWS-LT from 04/09/2017 XR HAND RT MIN 3V from 01/05/2020 FINDINGS: Severe osteoarthritic changes of the 1st metacarpal carpal with bony hypertrophic change at this area. Osteoarthritic changes are also present at the lunate capitate joint. No fracture or dislocation. IMPRESSION: Osteoarthritis as described Dictated by: Avery Francis MD 01/05/2020 16:20 Electronically signed by Avery Francis MD in [facility] 01/05/2020 16:20
== END ==
PROVIDERS: PCP Internal Medicine; Visit Provider Internal Medicine
DX: M79.641 Pain in right hand (principal); M25.531 Pain in right wrist
CPT/HCPCS: 73110; 73130

== ENCOUNTER → 2020-03-06 13:23 | Outpatient (CLI) | payer MEDICARE, OTHER, SELFPAY ==
--- NOTE | 2020-03-06 13:26 | CA_ITS ---
APPROVED REPORT EXAM: Comprehensive 2D, Doppler, and color-flow Echocardiogram Stitchdown Toe Former: Leonor Sorto RVT Ht: 5 ft 4 in Wt: 168lbs BSA: 1.82 BP: 143/89 mmHg Indications: SOA,PALPS,COPD,HTN,HLD,GERD VERY TDS-LIMITED WINDOWS 2D Dimensions LVOT 2.14 cm (M/F) 1.5-2.5 M-Mode Dimensions RVDd 2.44 cm (0.9-2.6) LVDd 4.51 cm (3.5-5.7) LVDs 3.15 cm (3.5-5.7) IVSd 1.69 cm (0.6-1.1) PWd 0.70 cm (0.6-1.1) EF (Teich) 57.60% FS 30.20% EDV (Teich) 92.90 mL ESV (Teich) 39.40 mL LV Diastology E/A Ratio 1.03 Mitral Valve MV A Velocity 80.00 (40-130 cm/s) Left Ventricle Left atrium is mildly enlarged, left ventricle is normal size, mild concentric left ventricular hypertrophy, visually estimated ejection fraction 55% with no regional wall motion abnormality, grade 1 diastolic dysfunction seen without tissue Doppler evidence of raise left atrial pressure. Right Ventricle Right atrium and right ventricle mildly enlarged with normal contractility. Aortic Valve Aortic valve is thickened and calcified leaflet chordae display good mobility, there is no aortic stenosis or aortic insufficiency. Mitral Valve Mitral valve is grossly normal, there is mild mitral regurgitation. Tricuspid Valve Tricuspid valve grossly normal, there is mild tricuspid regurgitation, tricuspid regurgitation jet velocity is inadequate for calculation of the right ventricular systolic pressure. Pulmonic Valve Pulmonic valve is poorly visualized. Great Vessels Aortic root is normal size. Pericardium No significant pericardial effusion noted, there is anterior echo-free space seen. Conclusion 1. Mild biatrial abdomen, normal left ventricular size, mild concentric left ventricular hypertrophy, visually estimated ejection fraction 55% with no regional wall motion abnormality, grade 1 diastolic dysfunction seen without tissue Doppler evidence of raise left atrial pressure. 2. Mildly enlarged right ventricle with normal contractility. 3. Thickened and calcified aortic valve without aortic stenosis or aortic insufficiency. 4. Mild mitral and tricuspid regurgitation. 5. There is no significant pericardial effusion noted, there is anterior echo-free space seen. Electronically signed by : Juventino Granda, 03/07/2020 15:29:59
== END ==
PROVIDERS: PCP Internal Medicine; Visit Provider Internal Medicine
DX: R00.2 Palpitations (principal); R06.00 Dyspnea, unspecified
CPT/HCPCS: 93306

== ENCOUNTER → 2020-05-03 13:08 | Outpatient (CLI) | payer MEDICARE, OTHER, SELFPAY ==
[2020-05-03 14:49] LABS: Chloride 101 mmol/L (98-107); Sodium 136 mmol/L (136-145)
[2020-05-03 14:50] LABS: Potassium 5.1 mmoL/L (3.5-5.1)
[2020-05-03 14:53] LABS: Anion Gap 11.1 mEq/L (5-15); Blood Urea Nitrogen 17 mg/dl (7-17); Calcium 9.4 mg/dl (8.4-10.2); Carbon Dioxide 29 mmol/L (22.0-30.0); Estimated Glomerular Filt Rate 72 ml/min (>60); GFR (African American) 87 ML/MIN (>60); Glucose 100 mg/dl (74-100)
[2020-05-03 15:03] LABS: NT Pro Brain Natriuretic Pep. 89.1 pg/mL (0-125)
== END ==
PROVIDERS: Visit Provider Internal Medicine Cardiovascular Disease
DX: I51.89 Other ill-defined heart diseases (principal); R06.00 Dyspnea, unspecified; R07.9 Chest pain, unspecified
CPT/HCPCS: 36415; 80048; 83880

== ENCOUNTER → 2020-05-07 12:02 | Outpatient (CLI) | payer MEDICARE, OTHER, SELFPAY ==
--- NOTE | 2020-05-07 | CA_ITS ---
APPROVED REPORT Exam: Pharmacologic Technologist: Denise Cantrell Ht: 5 ft 4 in Wt: 168 lbs BSA: 1.82 m2 HR: 68 bpm BP: 148/70 mmHg Indications: Chest pain Medical History Medications: Isosorbide,,,,, Atenolol,,,,, Vitamin C,,,,, Vitamin B12,,,,, Losartan,,,,, Pantoprazole,,,,, Tramadol,,,,, LoraTidine,,,,, Methocarbamol,,,,, RoSUVASTATIN,,,,, Alendronate,,,,, Stress Test Details Test: LEXISCAN HR Resting HR: 76 bpm Max Heart Rate (APMHR): 154 bpm Max HR Achieved: 103 bpm Target HR (85% APMHR): 130 bpm % of APMHR: 66 Recovery HR: 88 bpm BP Resting BP: 148.0/70.0 mmHg Max BP: 153.0/78.0 mmHg Recovery BP: 153.0/78.0 mmHg ECG Clinical Exercise duration: 04:00 min Highest Stage Achieved: Stress ECG Conclusion Resting ECG: Normal sinus rhythm Symptoms: Shortness of air, malaise, urge to defacate. No chest pain. Arrhythmias/Ectopy: None ST-T Changes: No significant changes. Conclusion: Unremarkable Lexiscan stress. Myoview images reported separately. Test Summary . . Myoview Injected . . . Stop exercise at 04:00 . . . . Electronically signed by : Juventino Granda, 05/07/2020 19:26:47
--- NOTE | 2020-05-07 12:03 | NM_ITS ---
APPROVED REPORT Exam: Nuclear Stress Test Indication: obesity, htn, hyperlipidemia, fm hx, c.p., sob, pa;pitations, syncope, fatigue Patient Location: Outpatient Stress Tech: Denise Cantrell ND Tech:Shannon Hayes, ARRT, RT (R)(N) Ht: 5 ft 4 in Wt: 168 lbs Bra Size: DD HR: 68 bpm BP: 148/70 mmHg BSA: 1.82 m2 BMI: 28.8 History: obesity, htn, hyperlipidemia, fm hx, c.p., sob, pa;pitations, syncope, fatigue Procedure: Patient received a 0.4 mg of intravenous Lexiscan, resting heart rate 68 bpm, resting blood pressure 148/70 mmHg, with Lexiscan maximum heart rate achived was 98 bpm which is Less than 85 % of the maximum predicted heart rate and blood pressure was 148/82 mmHg. With Lexiscan, patient denied any complaint of chest pain. Electrocardiogram Resting electrocardiogram showed sinus rhythm, with Lexiscan less than 1.[address] segment depression noted from the baseline EKG. The EKG portion of the Lexiscan Myoview is nondiagnostic. Cardiac Stress and Resting SPECT Images: Cardiac Stress and Resting SPECT images were obtained using technetium 99m Myoview 31.7 mCi stress and 10.66 mCi at rest. Gated SPECT for the analysis of segmental wall motion and calculation of the ejection fraction also done. Cardiac stress and resting SPECT images show a mild fixed defect in the anterior wall with normal contracted gated SPECT is likely secondary to soft tissue attenuation, no reversible ischemia seen. Computer derived ejection fraction is over 65% with no regional wall motion abnormality, right ventricle is normal size and contractility. Conclusion: 1. The EKG portion of the Lexiscan Myoview is nondiagnostic. 2. No scintigraphic evidence of reversible ischemia seen, computer derived ejection fraction is over 65% with no regional wall motion abnormality, right ventricle is normal size and contractility. 3. Likely normal Lexiscan Myoview study. Electronically signed by : Juventino Granda, 05/07/2020 19:29:03
--- NOTE | 2020-05-07 13:59 | CA_ITS ---
APPROVED REPORT Butter Wrapper: Leonor Sorto RVT Laterality: Bilateral Study Quality: Good Indications: dizziness Risk Factors Hypertension: Smoking Doppler Spectral Velocity Analysis ECA (R) 88.10/3.10 cm/s ECA (L) 97.30/6.50 cm/s dICA (R) 78.50/24.50 cm/s dICA (L) 120.00/25.70 cm/s Bharath (R) 89.80/24.40 cm/s Bharath (L) 102.00/26.60 cm/s pICA (R) 116.80/25.40 cm/s pICA (L) 108.00/22.30 cm/s dCCA (R) 81.50/16.30 cm/s dCCA (L) 88.70/17.90 cm/s pCCA (R) 81.20/14.00 cm/s pCCA (L) 73.80/14.30 cm/s Vert (R) 56.60/12.60 cm/s Vert (L) 59.40/13.10 cm/s ICA/CCA 1.43 ICA/CCA 1.35 Findings Study suggests 20-49% stenosis of the right internal cartoid artery. Study suggests 20-49% stenosis of the left internal cartoid artery. Antegrade flow seen bilateral vertebral arteries. Conclusion Study suggests 20-49% stenosis of the right internal cartoid artery. Study suggests 20-49% stenosis of the left internal cartoid artery. Antegrade flow seen bilateral vertebral arteries. Electronically signed by : Avery Francis MD 05/07/2020 17:37:01
== END ==
PROVIDERS: PCP Internal Medicine; Visit Provider Internal Medicine Cardiovascular Disease
DX: I51.89 Other ill-defined heart diseases (principal); R06.00 Dyspnea, unspecified; R07.9 Chest pain, unspecified; R60.0 Localized edema; I20.9 Angina pectoris, unspecified; R42 Dizziness and giddiness
CPT/HCPCS: 78452; 93017; 93880; A9502; J2785

== ENCOUNTER 2020-05-26 12:04 | Emergency (ER) | payer MEDICARE, OTHER, SELFPAY ==
[2020-05-26 12:05] VITALS: BP 170/92; PULSE 109; RESP 18; TEMP 36.5; O2SAT 95; BMI 30.1
--- NOTE | 2020-05-26 12:33 | CT_ITS ---
PROCEDURE: CT CERVICAL SPINE WO CON CLINICAL INDICATION: pain COMPARISON: No exams were available for comparison TECHNIQUE: Axial images obtained with sagittal and coronal reformats. All CT scans at the facility use one or more dose reduction, viz: automated exposure control, ma/kV adjustment per patient size (including targeted exams where dose is matched to indication, i.e. head), or iterative reconstruction technique. Axial spiral CT scanning performed of the cervical spine beginning at the base of the skull and continuing to the upper T-spine. 3-D multiplanar reconstruction with 3-D manipulation of volumetric data set in image rendering was completed by the radiologist and/or technologist with the supervision of the radiologist on independent workstation. FINDINGS: No fracture nor subluxation is evident. Normal prevertebral soft tissues. Facets, neural foramen and vertebral bodies intact and unremarkable. There is mild generalized osteopenia. There is mild disc space narrowing at the C6-7 level with mild anterior osteophytic spurring. There is mild multilevel narrowing and sclerosis of the apophyseal joints. Normal C1/C2 relationships. Apices of lungs are clear with no acute findings. IMPRESSION: Mild degenerate disc disease C6-7 along with mild multilevel osteoarthritic changes of the apophyseal joints Dictated by: Dr. Zen Granados MD 05/26/2020 13:[address] Zen Granados MD in [place] 05/26/2020 13:42
--- NOTE | 2020-05-26 12:33 | CT_ITS ---
PROCEDURE: CT HEAD/BRAIN WO CON CLINICAL INDICATION: pain Chronic headache COMPARISON: HDWO CT HEAD W/O CONTRAST from 11/18/2016 TECHNIQUE: Axial images obtained. All CT scans at the facility use one or more dose reduction, viz: automated exposure control, ma/kV adjustment per patient size (including targeted exams where dose is matched to indication, i.e. head), or iterative reconstruction technique. FINDINGS: No midline shift, mass effect, intracranial hemorrhage, hydrocephalus, or extra-axial fluid collection is evident. The sylvian fissures and cortical sulci are mildly prominent. There are mild periventricular hypodensities consistent with chronic ischemic white matter changes. The calvarium has an unremarkable appearance. No mastoid effusion. No sinus air-fluid level. IMPRESSION: Findings of [id number] cortical atrophy and mild chronic white matter changes, no acute intracranial pathology noted Dictated by: Dr. Zen Granados MD 05/26/2020 13:[address] Zen Granados MD in [place] 05/26/2020 13:39
--- NOTE | 2020-05-26 12:35 | XR_ITS ---
PROCEDURE: XR CHEST AP CLINICAL HISTORY: weak COMPARISON: CXR1 CHEST-PORTABLE from 10/25/[address] chest w con from 09/21/2018 XR CHEST 2V from 08/12/2019 XR CHEST 2V from 12/08/2019 FINDINGS: This is a poor inspiratory effort. There is an ill-defined opacity right perihilar region with atelectasis versus early pneumonic infiltrate as possibilities. There is borderline cardiomegaly which is likely somewhat accentuated due to the poor inspiration. The left lung base is partially obscured by the cardiac silhouette. The left upper lung field is clear. IMPRESSION: Poor inspiration right perihilar opacity with infiltrate versus atelectasis and I somewhat favor the former Dictated by: Dr. Zen Granados MD 05/26/2020 13:[address] Zen Granados MD in [place] 05/26/2020 13:44
--- NOTE | 2020-05-26 12:35 | ECG_ITS ---
APPROVED REPORT Exam: Resting ECG HR:108 bpm ECG Measurements Heart Rate 108 AXES MA 124 P 12 QRSd 84 QRS -8 QT 348 T 54 QTc 466 <Conclusion> Sinus tachycardia PAC Noted Abnormal ECG Electronically signed by : Alfred Chapa, 05/27/2020 09:04:43
[2020-05-26 12:39] LABS: Appearance,Urine CLEAR (Clear); Bilirubin,Urine Negative (Negative); Blood, Urine 1+ (Negative); Color,Urine DK YELLOW (Yellow); Glucose,Urine (UA) Negative (Negative); Ketones,Urine Negative (Negative); Leukocyte Esterase,Urine Negative (Negative); Microscopic, Urine URINE MICROSCOPIC (MICROSCOPIC); Nitrate,Urine Negative (Negative); PH,Urine 6.5 (5.0-8.5); Protein,Urine Negative (Negative); Urobilinogen,Urine 0.2 EU/dl (0.2)
[2020-05-26 12:40] LABS: Basophils # 0.1 K/mm3 (0-0.2); Basophils % 0.3 % (0.1-2.0); Eosinophils % 0.2 % (0.1-12.0); Hematocrit 36.8 % (37.0-47.0); Hemoglobin 12.5 g/dL (12.2-16.2); Lymphocytes % 6.6 % (10-50); Mean Corpuscular HGB Conc 34.1 g/dL (31.8-35.4); Mean Corpuscular Hemoglobin 28.8 pg (27.0-31.2); Mean Corpuscular Volume 84.5 fl (81-99); Mean Platelet Volume 7.7 fl (7.4-10.4); Monocytes # 1.1 K/mm3 (0.1-1.0); Monocytes % 7.3 % (1.7-9.3); Neutrophils # 13.5 K/mm3 (1.8-7.8); Neutrophils % 85.6 % (37.0-80.0); Platelet Count 379 K/mm3 (142-424); Red Blood Count 4.35 M/mm3 (4.20-5.40); Red Cell Distribution Width 15.2 % (11.5-17.5); White Blood Count 15.7 K/mm3 (4.8-10.8)
[2020-05-26 12:42] LABS: MANUAL DIFFERENTIAL MANUAL DIFFERENTIAL (MANUAL DIFF)
--- NOTE | 2020-05-26 12:43 | HMH.EDHA ---
ED Disposition Clinical Impression: Tension headache Disposition: Home, Self-Care Condition on Discharge: Good Instructions: DI for Headache Prescriptions: Cyclobenzaprine HCl [Cyclobenzaprine 5mg Tab] 5 mg PO Q8HP PRN #30 tab PRN Reason: pain/spasm Transmission Status: Pending to [facility] Ketorolac Tromethamine [Toradol 10mg tablet] 10 mg PO Q6H 5 Days #20 tab Transmission Status: Pending to [facility] Referrals: Alfred Chapa [Primary Care Provider] - - Critical Care Critical Care Time: No Attestation: On 05/26/20, the high probability of a clinically significant, sudden or life threatening deterioration of the following system(s) required my full and direct attention, intervention and personal management. The time I documented below is in addition to time spent performing reported procedures but includes the following listed in this critical care notation. Medical Decision Making - Medical Records Medical records reviewed: Yes: I reviewed the patient's medical records. - Chuy Inquiry Pt receiving controlled substance: No Vital Signs: 05/26/20 12:05 05/26/20 13:30 Temperature 97.7 F Temperature Source Temporal Artery Scan Pulse Rate [Right] 109 H 103 H Respiratory Rate 18 17 Blood Pressure [Right Arm] 170/92 H 147/78 H Blood Pressure Mean [Right Arm] 118 101 02 Sat by Pulse Oximetry 95 92 L - Lab Data Lab results reviewed: Yes: I reviewed the patient's lab results. Lab Results 05/26/20 12:15: Urine Color Dk yellow, Urine Appearance Clear, Urine pH 6.5, Ur Specific [place] 1.020, Urine Protein Negative, Urine Glucose (UA) Negative, Urine Ketones Negative, Urine Blood 1+, Urine Nitrate Negative, Urine Bilirubin Negative, Urine Urobilinogen 0.2, Ur Leukocyte Esterase Negative, Urine RBC 3-5, Urine WBC 3-5, Ur Squamous Epith Cells 20-50, Urine Bacteria None 05/26/20 12:15: WBC 15.7 H, RBC 4.35, Hgb 12.5, Hct 36.8 L, MCV 84.5, MCH 28.8, MCHC 34.1, RDW 15.2, Plt Count 379, MPV 7.7, Neut % (Auto) 85.6 H, Lymph % (Auto) 6.6 L, [place] % (Auto) 7.3, Eos % (Auto) 0.2, Baso % (Auto) 0.3, Neut # (Auto) 13.5 H, Lymph # (Auto) 1.0, [place] # (Auto) 1.1 H, Eos # (Auto) 0.0, Baso # (Auto) 0.1, Total Counted 100, Neutrophils % (Manual) 81 H, Band Neutrophils % 4.0, Lymphocytes % (Manual) 11, Monocytes % (Manual) 4, Platelet Estimate Normal, RBC Morphology Normal, ESR 20 05/26/20 12:15: Sodium 133 L, Potassium 3.9, Chloride 92 L, Carbon Dioxide 31 H, Anion Gap 13.9, BUN 11, Creatinine 0.80, Estimated Creat Clear 67, Estimated GFR 72, Est GFR ( Amer) 87, Glucose 127 H, Calcium 8.9, Total Bilirubin 1.3, AST 28, ALT 19, Alkaline Phosphatase 77, Troponin I < 0.01, C-Reactive Protein 148.2 H, Total Protein 7.4, Albumin 4.0, Globulin 3.4 H, Albumin/Globulin Ratio 1.2 Result diagrams: 05/26/20 12:15 05/26/20 12:15 Orders (Tests/Meds): ED MEDICATIONS Discontinued Medications Generic Name Dose Route Start Last Admin Trade Name Freq PRN Reason Stop Dose Admin Ketorolac Tromethamine 30 mg 05/26/20 12:36 05/26/20 12:46 Toradol 30mg/Ml Vial IV 05/26/20 12:37 30 mg ONCE ONE Administration Methylprednisolone Sodium Succinate 125 mg 05/26/20 12:36 05/26/20 12:46 Solu-Medrol 125mg/2ml Vial IV 05/26/20 12:37 125 mg ONCE ONE Administration Ondansetron HCl 4 mg 05/26/20 12:36 05/26/20 12:46 Zofran 4mg/2ml Vial IV 05/26/20 12:37 4 mg ONCE ONE Administration Orphenadrine Citrate 60 mg 05/26/20 12:42 05/26/20 12:46 Norflex 60mg/2ml Vial IV 05/26/20 12:43 60 mg ONCE ONE Administration Promethazine HCl 12.5 mg 05/26/20 13:43 05/26/20 13:46 Phenergan 25mg/Ml 1ml Vial IV 05/26/20 13:44 12.5 mg ONCE ONE Administration Sodium Chloride 25 ml 05/26/20 13:43 05/26/20 13:46 Sod Chlor 0.9% 25ml Bag IV 05/26/20 13:44 25 ml ONCE ONE Administration ORDERS Category Date Time Status Troponin I Q3H Lab 05/26/20 15:45 Ordered Troponin I Q3H [place]
[2020-05-26 12:44] LABS: Chloride 92 mmol/L (98-107); Potassium 3.9 mmoL/L (3.5-5.1); Sodium 133 mmol/L (136-145)
[2020-05-26 12:46] LABS: Squamous Epithelial Cell,Urine 20-50 #/hpf (0-5)
[2020-05-26 12:47] LABS: Alanine Aminotransferase 19 U/L (12-78); Albumin/Globulin Ratio 1.2 (1.1-1.8); Alkaline Phosphatase 77 U/L (38-126); Anion Gap 13.9 mEq/L (5-15); Aspartate Amino Transferase 28 U/L (14-36); Bilirubin,Total 1.3 mg/dl (0.2-1.3); Blood Urea Nitrogen 11 mg/dl (7-17); Carbon Dioxide 31 mmol/L (22.0-30.0); Creatinine Clearance Estimated 67 mL/min (50-200); Estimated Glomerular Filt Rate 72 ml/min (>60); GFR (African American) 87 ML/MIN (>60); Globulin 3.4 g/dL (1.3-3.2); Total Protein,Serum 7.4 g/dl (6.3-8.2)
[2020-05-26 12:48] LABS: Calcium 8.9 mg/dl (8.4-10.2); Glucose 127 mg/dl (74-100)
[2020-05-26 12:51] LABS: Lymphocytes % 11 % (10-50); Monocytes % 4 % (2-9); Neutrophils % 81 % (42-76); Platelet Estimate Normal; RBC Morphology Normal; Total Cells Counted 100
[2020-05-26 12:53] LABS: C-Reactive Protein 148.2 mg/L (0-4)
[2020-05-26 13:02] LABS: Erythrocyte Sedimentation Rate 20 mm/hr (0-30); Troponin I < 0.01 ng/ml (0.00-0.034)
--- NOTE | 2020-05-26 13:10 | PC.NURSE ---
pt is still in rad
[2020-05-26 13:30] VITALS: BP 147/78; PULSE 103; RESP 17; O2SAT 92
[2020-05-26 14:11] VITALS: BP 121/74; PULSE 87; RESP 19; TEMP 36.6; O2SAT 98
== END 2020-05-26 14:13 | disposition home or self-care (01) ==
PROVIDERS: Emergency Provider Emergency Medicine; PCP Internal Medicine
DX: G44.209 Tension-type headache, unspecified, not intractable (principal); M79.7 Fibromyalgia; K21.9 Gastro-esophageal reflux disease without esophagitis; E78.5 Hyperlipidemia, unspecified; I10 Essential (primary) hypertension; J44.9 Chronic obstructive pulmonary disease, unspecified; Z79.899 Other long term (current) drug therapy
CPT/HCPCS: 70450; 71045; 72125; 80053; 81001; 84484; 85007; 85025; 85651; 86140; 93005; 96374; 96375; 99284; J2405

== ENCOUNTER → 2020-06-03 13:59 | Outpatient (CLI) | payer MEDICARE, OTHER, SELFPAY ==
[2020-06-03 14:51] LABS: Anion Gap 17.5 mEq/L (5-15); Blood Urea Nitrogen 17 mg/dl (7-17); Calcium 10.6 mg/dl (8.4-10.2); Carbon Dioxide 29 mmol/L (22.0-30.0); Chloride 100 mmol/L (98-107); Estimated Glomerular Filt Rate 72 ml/min (>60); GFR (African American) 87 ML/MIN (>60); Glucose 101 mg/dl (74-100); Potassium 5.5 mmoL/L (3.5-5.1); Sodium 141 mmol/L (136-145)
[2020-06-03 15:00] LABS: NT Pro Brain Natriuretic Pep. 99.5 pg/mL (0-125)
== END ==
PROVIDERS: Visit Provider Internal Medicine Cardiovascular Disease
DX: I20.9 Angina pectoris, unspecified (principal); I51.89 Other ill-defined heart diseases; R06.00 Dyspnea, unspecified; R07.9 Chest pain, unspecified; R60.0 Localized edema
CPT/HCPCS: 36415; 80048; 83880

== ENCOUNTER → 2020-06-11 13:34 | Outpatient (CLI) | payer MEDICARE, OTHER, SELFPAY ==
[2020-06-11 14:54] LABS: Anion Gap 15.7 mEq/L (5-15); Blood Urea Nitrogen 19 mg/dl (7-17); Calcium 9.7 mg/dl (8.4-10.2); Carbon Dioxide 29 mmol/L (22.0-30.0); Chloride 100 mmol/L (98-107); Estimated Glomerular Filt Rate 50 ml/min (>60); GFR (African American) 60 ML/MIN (>60); Glucose 101 mg/dl (74-100); Potassium 4.7 mmoL/L (3.5-5.1); Sodium 140 mmol/L (136-145)
== END ==
PROVIDERS: Physician Assistant; Visit Provider Internal Medicine Cardiovascular Disease
DX: I20.9 Angina pectoris, unspecified (principal); I51.89 Other ill-defined heart diseases; I65.29 Occlusion and stenosis of unspecified carotid artery; R06.00 Dyspnea, unspecified; R60.0 Localized edema
CPT/HCPCS: 36415; 80048

== ENCOUNTER → 2020-06-24 12:32 | Outpatient (CLI) | payer MEDICARE, OTHER, SELFPAY ==
[2020-06-24 15:25] LABS: Coronavirus 19 IgG Antibody Negative (Negative); Coronavirus 19 IgM Antibody Negative (Negative)
== END ==
PROVIDERS: Visit Provider Ophthalmology
DX: Z03.818 Encounter for observation for suspected exposure to other biological agents ruled out (principal)
CPT/HCPCS: 36415; 86328

== ENCOUNTER 2020-06-25 08:43 | Day surgery (SDC) | payer MEDICARE, OTHER, SELFPAY ==
[2020-06-20 14:22] VITALS: BMI 28.8
[2020-06-25 08:54] VITALS: BP 149/88; PULSE 80; RESP 18; TEMP 36.4; O2SAT 97
[2020-06-25 09:30] VITALS: BP 148/85; PULSE 74; RESP 18; O2SAT 97
== END 2020-06-25 09:40 | disposition home or self-care (01) ==
LOC: OUTP 08:45
PROVIDERS: PCP Internal Medicine; Visit Provider Ophthalmology
PROC: (CPT 66821; principal; 2020-06-25 09:00)
DX: H26.493 Other secondary cataract, bilateral (principal); H53.8 Other visual disturbances; H53.149 Visual discomfort, unspecified; Z96.1 Presence of intraocular lens; R03.0 Elevated blood-pressure reading, without diagnosis of hypertension; M19.90 Unspecified osteoarthritis, unspecified site; K21.9 Gastro-esophageal reflux disease without esophagitis; Z90.49 Acquired absence of other specified parts of digestive tract; Z87.19 Personal history of other diseases of the digestive system; Z90.710 Acquired absence of both cervix and uterus; Z87.42 Personal history of other diseases of the female genital tract; Z79.899 Other long term (current) drug therapy
CPT/HCPCS: 66821

== ENCOUNTER → 2020-07-05 12:19 | Outpatient (CLI) | payer MEDICARE, OTHER, SELFPAY ==
[2020-07-05 13:59] LABS: Chloride 101 mmol/L (98-107); Potassium 4.7 mmoL/L (3.5-5.1); Sodium 141 mmol/L (136-145)
[2020-07-05 14:02] LABS: Anion Gap 13.7 mEq/L (5-15); Blood Urea Nitrogen 17 mg/dl (7-17); Calcium 9.5 mg/dl (8.4-10.2); Carbon Dioxide 31 mmol/L (22.0-30.0); Estimated Glomerular Filt Rate 63 ml/min (>60); GFR (African American) 76 ML/MIN (>60); Glucose 88 mg/dl (74-100)
[2020-07-05 14:11] LABS: NT Pro Brain Natriuretic Pep. 132 pg/mL (0-125)
== END ==
PROVIDERS: Visit Provider Internal Medicine Cardiovascular Disease
DX: I25.10 Atherosclerotic heart disease of native coronary artery without angina pectoris (principal); I65.23 Occlusion and stenosis of bilateral carotid arteries; R07.9 Chest pain, unspecified; R06.00 Dyspnea, unspecified
CPT/HCPCS: 36415; 80048; 83880

== ENCOUNTER → 2020-08-08 14:09 | Outpatient (CLI) | payer MEDICARE, OTHER, SELFPAY ==
[2020-08-08 14:32] LABS: Chloride 100 mmol/L (98-107); Potassium 5.1 mmoL/L (3.5-5.1); Sodium 143 mmol/L (136-145)
[2020-08-08 14:35] LABS: Blood Urea Nitrogen 17 mg/dl (7-17); Estimated Glomerular Filt Rate 55 ml/min (>60); GFR (African American) 67 ML/MIN (>60)
[2020-08-08 14:36] LABS: Anion Gap 14.1 mEq/L (5-15); Calcium 10.6 mg/dl (8.4-10.2); Carbon Dioxide 34 mmol/L (22.0-30.0); Glucose 103 mg/dl (74-100)
== END ==
PROVIDERS: Visit Provider Internal Medicine Cardiovascular Disease
DX: I25.10 Atherosclerotic heart disease of native coronary artery without angina pectoris (principal); R07.9 Chest pain, unspecified; I65.23 Occlusion and stenosis of bilateral carotid arteries
CPT/HCPCS: 36415; 80048

== ENCOUNTER → 2021-03-28 12:56 | Outpatient (CLI) | payer MEDICARE, OTHER, SELFPAY ==
[2021-03-28 13:51] LABS: Basophils # 0.1 K/mm3 (0-0.2); Basophils % 0.7 % (0.1-2.0); Eosinophils # 0.3 K/mm3 (0.0-0.4); Eosinophils % 2.8 % (0.1-12.0); Hemoglobin 12.7 g/dL (12.2-16.2); Lymphocytes # 1.3 K/mm3 (0.7-4.5); Lymphocytes % 10.2 % (10-50); Mean Corpuscular HGB Conc 31.8 g/dL (31.8-35.4); Mean Corpuscular Hemoglobin 28.4 pg (27.0-31.2); Mean Corpuscular Volume 89.1 fl (81-99); Mean Platelet Volume 7.1 fl (7.4-10.4); Monocytes # 0.8 K/mm3 (0.1-1.0); Monocytes % 6.1 % (1.7-9.3); Neutrophils # 9.9 K/mm3 (1.8-7.8); Neutrophils % 80.3 % (37.0-80.0); Platelet Count 340 K/mm3 (142-424); Red Blood Count 4.49 M/mm3 (4.20-5.40); Red Cell Distribution Width 14.2 % (11.5-17.5); White Blood Count 12.3 K/mm3 (4.8-10.8)
[2021-03-28 14:28] LABS: Chloride 102 mmol/L (98-107)
[2021-03-28 14:29] LABS: Potassium 3.9 mmoL/L (3.5-5.1); Sodium 139 mmol/L (136-145)
[2021-03-28 14:32] LABS: Alanine Aminotransferase 12 U/L (12-78); Albumin Level 4.3 g/dl (3.5-5.0); Albumin/Globulin Ratio 1.6 (1.1-1.8); Alkaline Phosphatase 81 U/L (38-126); Anion Gap 11.9 mEq/L (5-15); Aspartate Amino Transferase 26 U/L (14-36); Bilirubin,Total 0.9 mg/dl (0.2-1.3); Blood Urea Nitrogen 11 mg/dl (7-17); Carbon Dioxide 29 mmol/L (22.0-30.0); Chol/HDL Ratio 2.7 (1-3.5); Cholesterol 159 mg/dl (140-200); Estimated Glomerular Filt Rate 72 ml/min (>60); GFR (African American) 87 ML/MIN (>60); Globulin 2.7 g/dL (1.3-3.2); Glucose 92 mg/dl (74-100); HDL Cholesterol 60 mg/dl (40-60); Triglycerides 162 mg/dl (30-150); VLDL Cholesterol 32 mg/dL (0-40)
[2021-03-28 14:44] LABS: Direct LDL Cholesterol 64.24 mg/dL (100-129)
[2021-03-28 18:10] LABS: Erythrocyte Sedimentation Rate 99 mm/hr (0-30)
== END ==
PROVIDERS: Visit Provider Internal Medicine
DX: I11.0 Hypertensive heart disease with heart failure (principal); I50.32 Chronic diastolic (congestive) heart failure; E78.5 Hyperlipidemia, unspecified; M35.3 Polymyalgia rheumatica; M81.0 Age-related osteoporosis without current pathological fracture
CPT/HCPCS: 36415; 80053; 80061; 82306; 85025; 85651

== ENCOUNTER → 2021-08-05 14:39 | Outpatient (CLI) | payer MEDICARE, OTHER, SELFPAY ==
--- NOTE | 2021-08-05 14:46 | XR_ITS ---
PROCEDURE: XR CHEST 2V CLINICAL HISTORY: CHEST PAIN,COPD COMPARISON: CT CHESTW CT chest w con from 09/21/2018 CR XR CHEST 2V from 08/12/2019 CR XR CHEST 2V from 12/08/2019 CR XR CHEST AP from 05/26/2020 FINDINGS: The cardiomediastinal silhouette and pulmonary vascularity are within normal limits. There is tortuosity of the descending thoracic aorta. The heart is slightly located toward the left as before. Minimal atelectatic changes are present in the right CP angle. There is exaggeration of the thoracic kyphosis with multiple mild wedge compression changes from T7-T12 greatest at T12 and T10. The T10 compression changes have increased since 12/08/2019 with 40 percent loss of height anteriorly at T10 and 50 percent loss of height anteriorly at T12.. IMPRESSION: Mild cardiomegaly with minimal right basilar atelectasis. Increased wedge compression change of T10 with stable moderate to severe compression change of T12 Dictated by: Avery Francis MD 08/05/2021 15:07 Avery Francis MD in [place] 08/05/2021 15:07
== END ==
PROVIDERS: PCP Internal Medicine; Visit Provider Internal Medicine
DX: R07.89 Other chest pain (principal); J44.9 Chronic obstructive pulmonary disease, unspecified
CPT/HCPCS: 71046

== ENCOUNTER 2021-09-04 17:11 | Emergency (ER) | payer MEDICARE, OTHER, SELFPAY ==
[2021-09-04 17:11] VITALS: BP 145/89; PULSE 71; RESP 16; TEMP 36.6; O2SAT 98; BMI 28.8
--- NOTE | 2021-09-04 17:11 | ECG_ITS ---
APPROVED REPORT Exam: Resting ECG HR:68 bpm ECG Measurements Heart Rate 68 AXES FL 138 P 28 QRSd 76 QRS -7 QT 402 T 45 QTc 427 Conclusion Normal sinus rhythm Normal ECG Electronically signed by : Edgar Jimenez MD 09/05/2021 22:38:21
[2021-09-04 17:16] VITALS: BMI 28.8
--- NOTE | 2021-09-04 17:17 | XR_ITS ---
PROCEDURE INFORMATION: Exam: XR Chest Exam date and time: 09/04/2021 5:17 PM Age: 65 years old Clinical indication: Pain; Chest pressure; Additional info: Cp TECHNIQUE: Imaging protocol: XR of the chest. Views: 1 view. COMPARISON: CR XR CHEST 2V 08/05/2021 2:55 PM FINDINGS: Lungs: Unremarkable. No consolidation. Pleural spaces: Unremarkable. No pleural effusion. No pneumothorax. Heart/Mediastinum: Unremarkable. No cardiomegaly. Vasculature: Moderate aortic tortuosity with atherosclerotic calcification. Bones/joints: Unremarkable. IMPRESSION: No acute findings.
[2021-09-04 17:26] LABS: Basophils # 0.1 K/mm3 (0-0.2); Basophils % 0.8 % (0.1-2.0); Eosinophils # 0.2 K/mm3 (0.0-0.4); Eosinophils % 1.5 % (0.1-12.0); Hematocrit 43.8 % (37.0-47.0); Hemoglobin 14.1 g/dL (12.2-16.2); Lymphocytes # 1.6 K/mm3 (0.7-4.5); Lymphocytes % 15.5 % (10-50); Mean Corpuscular HGB Conc 32.2 g/dL (31.8-35.4); Mean Corpuscular Hemoglobin 29.8 pg (27.0-31.2); Mean Corpuscular Volume 92.6 fl (81-99); Mean Platelet Volume 8.1 fl (7.4-10.4); Monocytes # 0.6 K/mm3 (0.1-1.0); Monocytes % 5.5 % (1.7-9.3); Neutrophils % 76.7 % (37.0-80.0); Platelet Count 341 K/mm3 (142-424); Red Blood Count 4.73 M/mm3 (4.20-5.40); Red Cell Distribution Width 14.7 % (11.5-17.5); White Blood Count 10.4 K/mm3 (4.8-10.8)
[2021-09-04 17:29] LABS: Chloride 96 mmol/L (98-107); Potassium 4.1 mmoL/L (3.5-5.1); Sodium 138 mmol/L (136-145)
[2021-09-04 17:32] LABS: Anion Gap 15.1 mEq/L (5-15); Blood Urea Nitrogen 8 mg/dl (7-17); Carbon Dioxide 31 mmol/L (22.0-30.0); Creatinine Clearance Estimated 64 mL/min (50-200); Estimated Glomerular Filt Rate 72 ml/min (>60); GFR (African American) 87 ML/MIN (>60)
[2021-09-04 17:33] LABS: Calcium 9.6 mg/dl (8.4-10.2); Glucose 115 mg/dl (74-100)
[2021-09-04 17:47] LABS: Troponin I < 0.01 ng/ml (0.00-0.034)
--- NOTE | 2021-09-04 19:24 | HMH.EDGENADL ---
ED Disposition Clinical Impression: Atypical chest pain Disposition: Home, Self-Care Condition on Discharge: Good Referrals: Alfred Chapa [Primary Care Provider] - - Critical Care Critical Care Time: No Attestation: On 09/04/21, the high probability of a clinically significant, sudden or life threatening deterioration of the following system(s) required my full and direct attention, intervention and personal management. The time I documented below is in addition to time spent performing reported procedures but includes the following listed in this critical care notation. Medical Decision Making - Medical Records Medical records reviewed: Yes: I reviewed the patient's medical records. - Chuy Inquiry Pt receiving controlled substance: No Vital Signs: 09/04/21 17:11 Temperature 97.8 F Temperature Source Oral Pulse Rate [Right Radial] 71 Respiratory Rate 16 Blood Pressure [Right Arm] 145/89 H Blood Pressure Mean [Right Arm] 107 Blood Pressure Source [Right Arm] Automatic Cuff Blood Pressure Position [Right Arm] Sitting 02 Sat by Pulse Oximetry 98 Oxygen Delivery Method Room Air - Lab Data Lab Results 09/04/21 17:15: WBC 10.4, RBC 4.73, Hgb 14.1, Hct 43.8, MCV 92.6, MCH 29.8, MCHC 32.2, RDW 14.7, Plt Count 341, MPV 8.1, Neut % (Auto) 76.7, Lymph % (Auto) 15.5, [place] % (Auto) 5.5, Eos % (Auto) 1.5, Baso % (Auto) 0.8, Neut # (Auto) 8.0 H, Lymph # (Auto) 1.6, [place] # (Auto) 0.6, Eos # (Auto) 0.2, Baso # (Auto) 0.1 09/04/21 17:15: Sodium 138, Potassium 4.1, Chloride 96 L, Carbon Dioxide 31 H, Anion Gap 15.1 H, BUN 8, Creatinine 0.80, Estimated Creat Clear 64, Estimated GFR 72, Est GFR ( Amer) 87, Glucose 115 H, Calcium 9.6, Troponin I < 0.01 09/04/21 19:52: Troponin I < 0.01 Result diagrams: 09/04/21 17:15 09/04/21 17:15 Orders (Tests/Meds): ED MEDICATIONS Discontinued Medications Generic Name Dose Route Start Last Admin Trade Name Freq PRN Reason Stop Dose Admin Georgea Alkaloids 60 ml 09/04/21 19:37 09/04/21 20:00 Gi Cocktail 60ml Udc PO 09/04/21 19:38 60 ml ONCE ONE Administration ORDERS Category Date Time Status Troponin I Q3H Lab 09/04/21 23:30 Ordered Medical Decision Narrative: 65-year-old female presents emergency department chief complaint of pain. Differential diagnosis in this patient includes ACS, esophageal spasm, pleurodynia, pneumonia, costochondritis, among others. Given this plan to order troponin, CBC, CMP, chest x-ray, EKG. EKG showed normal sinus rhythm denies any acute ST elevation or ST depression. CBC is grossly within normal meds, as was CMP. Initial troponin was not elevated however given that patient symptoms have been short will wait for a second troponin. Second troponin was also not elevated. Patient was given a GI cocktail due to concern for esophageal spasm versus GERD as a pathology of the pain. On reevaluation patient was asymptomatic with regard to the chest pain. Patient discharged. General Adult HPI - General Chief complaint: Chest Pain Stated complaint: CP Time Seen by Provider: 09/04/21 17:40 Mode of Arrival: Wheelchair Limitations: No Limitations Description of Symptoms (Recalled from ER Triage Doc. by RN): PT C/O INTERMITTENT MIDSTERNAL CP THAT BEGAN APPROX 1530 WITH ASSOCIATED NAUSEA AND SOA. PT STATES BUT IM ALWAYS SOA - History of Present Illness HPI narrative: Patient is a 65-year-old female presenting to the emergency department with chief complaint of chest pain. She states the chest pain began around 230 or 3 when she was at the store. She has a past history of esophageal spasm and used to take calcium channel blockers for it however she has not taken them past 2 months because she has had lower blood pressure. States that she feels chronically short of breath but she has not had any worsening of her shortness of breath. Chest pain began on the of her chest and moved to the left side of her chest felt li
[2021-09-04 20:34] LABS: Troponin I < 0.01 ng/ml (0.00-0.034)
[2021-09-04 20:55] VITALS: BP 100/67; PULSE 86; RESP 16; TEMP 36.6; O2SAT 99
== END 2021-09-04 21:16 | disposition home or self-care (01) ==
PROVIDERS: Emergency Provider Emergency Medicine; PCP Internal Medicine
DX: R07.89 Other chest pain (principal); K22.4 Dyskinesia of esophagus; J44.9 Chronic obstructive pulmonary disease, unspecified; K21.9 Gastro-esophageal reflux disease without esophagitis; E78.5 Hyperlipidemia, unspecified; I10 Essential (primary) hypertension; M79.7 Fibromyalgia; Z87.891 Personal history of nicotine dependence; Z79.899 Other long term (current) drug therapy
CPT/HCPCS: 71045; 80048; 84484; 85025; 93005; 99283

== ENCOUNTER → 2021-09-29 18:00 | Outpatient (CLI) | payer MEDICARE, OTHER, SELFPAY ==
[2021-09-29 19:37] LABS: Alanine Aminotransferase 6 U/L (12-78); Albumin Level 4.1 g/dl (3.5-5.0); Albumin/Globulin Ratio 1.5 (1.1-1.8); Alkaline Phosphatase 84 U/L (38-126); Aspartate Amino Transferase 30 U/L (14-36); Bilirubin,Total 0.6 mg/dl (0.2-1.3); Blood Urea Nitrogen 17 mg/dl (7-17); Calcium 10.5 mg/dl (8.4-10.2); Carbon Dioxide 31 mmol/L (22.0-30.0); Chloride 98 mmol/L (98-107); Chol/HDL Ratio 2.4 (1-3.5); Cholesterol 168 mg/dl (140-200); Estimated Glomerular Filt Rate 72 ml/min (>60); GFR (African American) 87 ML/MIN (>60); Globulin 2.8 g/dL (1.3-3.2); Glucose 81 mg/dl (74-100); HDL Cholesterol 71 mg/dl (40-60); Sodium 137 mmol/L (136-145); Total Protein,Serum 6.9 g/dl (6.3-8.2); Triglycerides 118 mg/dl (30-150); VLDL Cholesterol 24 mg/dL (0-40)
[2021-09-29 19:47] LABS: Direct LDL Cholesterol 74.65 mg/dL (100-129)
== END ==
PROVIDERS: Visit Provider Internal Medicine
DX: I25.10 Atherosclerotic heart disease of native coronary artery without angina pectoris (principal); I10 Essential (primary) hypertension; E78.5 Hyperlipidemia, unspecified
CPT/HCPCS: 80053; 80061

== ENCOUNTER → 2021-10-20 12:34 | Outpatient (CLI) | payer MEDICARE, OTHER, SELFPAY ==
[2021-10-20 14:00] LABS: Phosphorous 3.9 mg/dl (2.5-4.5)
[2021-10-20 14:10] LABS: Intact Parathyroid Hormone 101.4 pg/mL (7.5-53.5)
== END ==
PROVIDERS: Visit Provider Internal Medicine
DX: E83.52 Hypercalcemia (principal)
CPT/HCPCS: 36415; 82310; 83970; 84100

== ENCOUNTER → 2021-12-08 17:06 | Outpatient (CLI) | payer MEDICARE, OTHER, SELFPAY ==
[2021-12-08 21:54] LABS: Erythrocyte Sedimentation Rate 42 mm/hr (0-30)
== END ==
PROVIDERS: Visit Provider Internal Medicine
DX: R70.0 Elevated erythrocyte sedimentation rate (principal)
CPT/HCPCS: 85651

== ENCOUNTER → 2021-12-13 10:32 | Outpatient (CLI) | payer MEDICARE, OTHER, SELFPAY ==
[2021-12-13 11:34] LABS: Basophils # 0.1 K/mm3 (0-0.2); Basophils % 0.3 % (0.1-2.0); Eosinophils # 0.2 K/mm3 (0.0-0.4); Eosinophils % 0.9 % (0.1-12.0); Hematocrit 45.6 % (37.0-47.0); Hemoglobin 14.6 g/dL (12.2-16.2); Lymphocytes # 1.6 K/mm3 (0.7-4.5); Mean Corpuscular Hemoglobin 29.6 pg (27.0-31.2); Mean Corpuscular Volume 92.5 fl (81-99); Mean Platelet Volume 7.9 fl (7.4-10.4); Monocytes # 0.7 K/mm3 (0.1-1.0); Neutrophils # 15.5 K/mm3 (1.8-7.8); Neutrophils % 85.8 % (37.0-80.0); Platelet Count 393 K/mm3 (142-424); Red Blood Count 4.93 M/mm3 (4.20-5.40); Red Cell Distribution Width 14.3 % (11.5-17.5); White Blood Count 18.1 K/mm3 (4.8-10.8)
[2021-12-13 11:35] LABS: MANUAL DIFFERENTIAL MANUAL DIFFERENTIAL (MANUAL DIFF)
[2021-12-13 11:45] LABS: Anion Gap 11.5 mEq/L (5-15); Blood Urea Nitrogen 23 mg/dl (7-17); Calcium 9.4 mg/dl (8.4-10.2); Carbon Dioxide 32 mmol/L (22.0-30.0); Chloride 101 mmol/L (98-107); Estimated Glomerular Filt Rate 62 ml/min (>60); GFR (African American) 75 ML/MIN (>60); Glucose 97 mg/dl (74-100); Potassium 4.5 mmoL/L (3.5-5.1); Sodium 140 mmol/L (136-145)
[2021-12-13 11:57] LABS: Lymphocytes % 14 % (10-50); Monocytes % 1 % (2-9); Neutrophils % 85 % (42-76); Platelet Estimate Normal; Total Cells Counted 100
== END ==
PROVIDERS: PCP Internal Medicine; Visit Provider Surgery
DX: R07.89 Other chest pain (principal); R51.9 Headache, unspecified; Z01.812 Encounter for preprocedural laboratory examination; Z11.52 Encounter for screening for COVID-19
CPT/HCPCS: 36415; 80048; 85007; 85025; C9803; U0003; U0005

== ENCOUNTER 2021-12-16 09:58 | Day surgery (SDC) | payer MEDICARE, OTHER, SELFPAY ==
[2021-12-16] VITALS (10 sets, daily range): BP systolic 118–169; BP diastolic 68–89; PULSE 67–98; RESP 16–18; TEMP 36.2–37.6; O2SAT 91–98
--- NOTE | 2021-12-16 10:42 | HMH.ANESCL ---
[facility] Anesthesia Checklist - Patient Identification Patient Identification: Arm Band - Structural Data Admitted From: Home Planned Operative Procedure/s: Temporal artery biopsy Consent for Planned Operative Procedure(s) Verified: Yes - NPO Status Verified Time NPO: 00:00 - Additional verifications Anesthesia Reactions: No Hx Blood Transfusions: No Blood Transfusion Reaction: No - Airway Assessment C-Spine Mobility Assessed: Yes TMJ Mobility Assessed: Yes Dentition: Poor Dentition - Neurological Assessment Level of Consciousness: Awake Hx Seizures: No Numbness or tingling in extremities: No - Anesthesia Plan Anesthesia Risk discussed: Yes Anesthesia Plan: Verified ASA Class: III Anesthesia Type: General [facility] History I have reviewed the patient's past medical history: Yes Medical History: Reports:: Chronic Obstructive Pulmonary Disease (COPD), Gastroesophageal Reflux Disease(GERD), Hyperlipidemia, Hypertension, Lung Disease, Palpitations Denies:: Cancer, Diabetes Mellitus Type 1, Diabetes Mellitus Type 2, Internal Pacemaker, MRSA, Seizures *Have you ever received a pneumonia vaccine?: Yes *Have you received a flu vaccine this season?: Yes Other Medical History: Reports: Arthritis, Fibromyalgia. Denies: Blood Transfusion Reaction Anesthesia experience/problems:: None Laterality Cases: Bilateral: Cataract Other Surgeries: Yes: Appendectomy, Cancer Surgery, Cardiac Catheterization, Colonoscopy, Colon Resection, Colostomy, Diagnostic Lap, Hernia Repair, Hysterectomy-Total, Tubal Ligation. No: Pacemaker Amputation: No Fractures: Yes (spinal) - *Social History Last grade of school completed: GED Smoking Status: Former smoker Tobacco Type: cigarettes #Yrs smoked (if former smoker): 48 Alcohol Intake: never Alcohol Intake Frequency:: other Substance Use Type: denies use *Occupational Status:: retired Housing: house Household Members: spouse *Travel in the last 8 weeks: None Family Hx:: Cancer, Heart Attack
--- NOTE | 2021-12-16 10:55 | US_ITS ---
FINAL REPORT CLINICAL HISTORY: LOCALIZE TEMPORAL ARTERY for preop-- dr echevarria present for loc FINDINGS: Limited sonographic images of the scalp were obtained for localization of the temporal artery. The temporal artery is patent. IMPRESSION: The temporal artery is patent. Reviewed, Interpreted and Dictated by Javy Sutherland III, MD Transcribed by Jayde Salazar Authenticated by Javy Sutherland III, MD on 12/16/2021 02:35:23 PM [facility]
--- NOTE | 2021-12-16 13:48 | P.OP_ITS ---
Date of procedure: 12/16/21 Pre-op Diagnosis:: Headache and visual changes, rule out temporal arteritis Post-op Diagnosis:: Same Procedure performed:: Right temporal artery biopsy Surgeon:: Javy Steele MD CONSTRUCTION SKILLS TEACHER:: Joseluis Jasmine Anesthesia: LMA Estimated blood loss (mL): 5 Clinical Note:: Patient is a 66-year-old female well-known to me referred by Dr. Alfred Chapa for right temporal artery biopsy. She has a prior history of complicated diverticulitis for which she underwent laparotomy with sigmoid colon resection and proximal diverting ileostomy on 08/09/2017. She did have a prolonged postoperative convalescence and ultimately did undergo reversal of ileostomy at outside facility. She has a history of polymyalgia rheumatica. She has recen tly had some symptoms of visual changes with blurry vision and double vision. She states that she had a spell where she had the symptoms and also had severe right-sided headache. She is also had symptoms of her entire right side becoming numb. There is concern for possible temporal arteritis and she was started on steroids empirically. She is referred for surgical consultation for temporal artery biopsy. 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 Using the SonoSite device until was made to localize and map the temporal artery. This was rather difficult. A couple of sites where the apparent temporal artery was located was marked with a skin marker. Ultrasound was then performed with time study technologist present and once again identification of branches of the temporal artery were rather difficult due to the likely very attenuated artery. However, couple of sites were marked with an indelible marker. Patient was then taken to the operating room. She was given preoperative intravenous antibiotic. In the operating room she was placed in a supine position. General anesthesia was induced via LMA. The area was prepped and draped. SonoSite was brought onto the field. With some difficulty there appeared to be attenuated artery located at previously marked site. Limited incision was made. Dissection was carried down through subcutaneous tissues and superficial temporal parietal fascia. What appeared to be rather small attenuated artery was identified. This was dissected proximally and distally for at least 2 cm. It was clamped proximally and distally with the intervening segment excised. It was ligated proximally and distally with 4-0 Vicryl. There was additional very tiny branch which was excised in similar fashion and sent along with the specimen. Exploration was carried out of the wound. SonoSite was once again brought onto the field to assess for residual artery. Wound was then irrigated. Hemostasis was achieved with use of bipolar cautery. Subcutaneous tissues were reapproximated with interrupted 4-0 Vicryl. Skin incision was closed with a running 5-0 plain gut. Dermabond was applied. Clean dry sterile dressing was applied. There were no immediate complications. Condition: stable Disposition: PACU Specimens:: Temporal artery Complications:: None immediately apparent
--- NOTE | 2021-12-16 13:54 | HMH.ANESI ---
[facility] Anesthesia Record Part I Intake, IV Amount: 1,000 Estimated blood loss (mL): 10 Urine output (mL): 0 Blood Pressure: 166/76 SaO2: 91 Pulse Rate: 98 Respiratory Rate: 16 Temperature: 99.6 F Patient is:: Drowsy, Stable Stable to PACU at:: 13:50
--- NOTE | 2021-12-16 14:33 | HMH.ANESII ---
[facility] Anesthesia Record Part II Discharge Time: 14:20 Destination: Surgical Day Care (OP Surgery) PACU nurse assessment reviewed?: Yes Patient Condition:: Good Anesthesia Complications:: None Swallowing reflex intact?: Yes Cyanosis?: No Blood Pressure: 133/84 Pulse Rate: 90 Temperature: 98.4 F Mental Status: Alert & Oriented Pain level:: 0 Nausea and/or vomitting:: None Intake, IV Amount: 0
== END 2021-12-16 15:05 | disposition home or self-care (01) ==
LOC: OR 10:00
PROVIDERS: PCP Internal Medicine; Visit Provider Surgery
DX: G44.89 Other headache syndrome; H53.8 Other visual disturbances; J44.9 Chronic obstructive pulmonary disease, unspecified; K21.9 Gastro-esophageal reflux disease without esophagitis; E78.5 Hyperlipidemia, unspecified; I10 Essential (primary) hypertension; J84.9 Interstitial pulmonary disease, unspecified; R00.2 Palpitations; M19.90 Unspecified osteoarthritis, unspecified site; M79.7 Fibromyalgia; Z80.9 Family history of malignant neoplasm, unspecified; Z82.3 Family history of stroke
CPT/HCPCS: 37609; 76536; 88305; 96374; J2405

== ENCOUNTER → 2021-12-30 12:44 | Outpatient (CLI) | payer MEDICARE, OTHER, SELFPAY ==
--- NOTE | 2021-12-30 | CA_ITS ---
FINAL REPORT TECHNIQUE: Color Doppler, duplex Doppler and patterson scale sonography of the bilateral neck vasculature was performed. Velocities were measured in the carotid arteries. Stenosis evaluation based on velocity criteria. 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 TIA. HTN, smoking FINDINGS: The peak systolic velocity of the right common carotid artery is 61 cm/sec and internal carotid artery 54 cm/sec. The diastolic velocity in the internal carotid artery is 22 cm/sec. The ICA/CCA ratio is 0.9. Visually, a mild amount of plaque is seen. These findings are consistent with less than 50% stenosis. The external carotid artery is patent. The right vertebral artery is patent with antegrade flow. The peak systolic velocity of the left common carotid artery is 115 cm/sec and internal carotid artery 161 cm/sec. The diastolic velocity in the internal carotid artery is 33 cm/sec. The ICA/CCA ratio is 1.4. Visually, a moderate amount of plaque is seen. These findings are consistent with 50-69 % stenosis. The external carotid artery is patent. The left vertebral velocity is elevated of uncertain significance with possible bidirectional flow.. IMPRESSION: Less than 50% stenosis of the right carotid artery. 50-69% stenosis of the left carotid artery. If indicated, CTA or catheter angiogram could further evaluate. Reviewed, Interpreted and Dictated by Javy Sutherland III, MD Transcribed by Rosibel Wood Authenticated by Javy Sutherland III, MD on 12/30/2021 03:10:28 PM [facility]
== END ==
PROVIDERS: PCP Internal Medicine; Visit Provider Internal Medicine
DX: G45.8 Other transient cerebral ischemic attacks and related syndromes (principal)
CPT/HCPCS: 93880

== ENCOUNTER → 2022-01-21 15:21 | Outpatient (CLI) | payer MEDICARE, OTHER, SELFPAY | PROVIDERS: PCP Internal Medicine; Visit Provider Internal Medicine | DX: R00.2 Palpitations (principal); R00.1 Bradycardia, unspecified | CPT/HCPCS: 93225; 93226 ==

== ENCOUNTER → 2022-02-20 15:00 | Outpatient (CLI) | payer MEDICARE, OTHER, SELFPAY ==
--- NOTE | 2022-02-20 15:04 | CA_ITS ---
APPROVED REPORT EXAM: Comprehensive 2D, Doppler, and color-flow Echocardiogram [employer]: Leonor Sorto RVT Ht: 5 ft 4 in Wt: 165lbs BSA: 1.80 BP: 95/50 mmHg Indications: SOA,COPD,GERD,PALPS,HTN,HLD,EX SMOKER TDS PT BODY HABITUS 2D Dimensions LVOT 2.13 cm (M/F) 1.5-2.5 LA Volume 42.10 mL LA Volume Index 23.38 mL/m2 (M/F) 16-34 M-Mode Dimensions RVDd 1.50 cm (0.9-2.6) LA Diam 3.86 cm (1.9-4.0) LVDd 4.04 cm (3.5-5.7) Ao Diam 2.64 cm (2.0-3.7) LVDs 2.63 cm (3.5-5.7) IVSd 1.13 cm (0.6-1.1) PWd 1.27 cm (0.6-1.1) EF (Teich) 64.70% FS 34.90% EDV (Teich) 71.70 mL ESV (Teich) 25.30 mL LV Diastology E Decel Time 200.00 (160-240 msec) E/A Ratio 0.7 MED E' 6.20 (< 7 cm/sec) E'/MED E' Ratio 9.47 (>14) LAT E' 7.10 (<10 cm/sec) E/LAT E' Ratio 8.27 (>14) Aortic Valve AO Peak GR. 3.50 mmHg Mitral Valve MV E Max Kj. 59.00 (40-130 cm/s) MV A Velocity 79.00 (40-130 cm/s) E/A Ratio 0.74 MV Decel. Time 200.00 (160-240 ms) MV PHT 59.00 ms Pulmonary Valve PV Peak Velocity 76.00 (50-150 cm/s) Left Ventricle Technically difficult study because of the patient factors and poor acoustic windows, left atrium is mildly enlarged, left ventricle is normal size, mild concentric left ventricular hypertrophy, estimated ejection fraction 55% with no regional wall motion abnormality, grade 1 diastolic dysfunction seen without tissue Doppler evidence of raise left atrial pressure. Right Ventricle Right atrium and right ventricle are mildly enlarged with normal contractility. Aortic Valve Aortic valve is thickened and calcified without Doppler evidence of aortic stenosis or aortic insufficiency. Mitral Valve Mitral valve is grossly normal, there is trace mitral regurgitation. Tricuspid Valve Tricuspid grossly normal, there is trace tricuspid regurgitation, tricuspid regurgitation jet velocity is inadequate for calculation of the right ventricular systolic pressure. Pulmonic Valve Pulmonic valve is poorly visualized. Great Vessels Aortic root is normal size. Inferior vena cava is poorly visualized. Pericardium No significant pericardial effusion noted. Conclusion 1. Mild biatrial enlargement, normal left ventricular size, mild concentric left ventricular hypertrophy, estimated ejection fraction 55% with no regional wall motion abnormality, grade 1 diastolic dysfunction seen without tissue Doppler evidence of raise left atrial pressure. 2. Mildly enlarged right ventricle with normal contractility. 3. Trace mitral and tricuspid regurgitation. 4. No significant pericardial effusion. 5. Inferior vena cava is poorly visualized. Electronically signed by : Juventino Granda MD 02/23/2022 20:27:11
== END ==
PROVIDERS: PCP Internal Medicine; Visit Provider Internal Medicine
DX: R06.02 Shortness of breath (principal); R06.09 Other forms of dyspnea; I50.32 Chronic diastolic (congestive) heart failure
CPT/HCPCS: 93306

== ENCOUNTER → 2022-02-27 07:54 | Outpatient (CLI) | payer MEDICARE, OTHER, SELFPAY ==
--- NOTE | 2022-02-27 07:59 | FL_ITS ---
FINAL REPORT CLINICAL HISTORY: GERD, BLOATING FT: 1:19 FINDINGS: UPPER GI WITH SBFT UPPER GI EXAM HISTORY: Abdominal pain, nausea. PROCEDURE: The patient ingested barium. Effervescent crystals were also administered. Spot and overhead films were obtained. FINDINGS: The esophagus is normal. There is no hiatal hernia. There is mildgastroesophageal refluxto the upper third of the esophagus. Peristalsis is normal.There are mildly prominent gastric folds which may in part be due to nondistentional. The duodenal bulb is normal. FLUOROSCOPY TIME: 1 minute 19 secondss IMPRESSION: 1. Gastroesophageal reflux to the upper third of the esophagus. 2. Mildly prominent gastric folds may be due to nondistention. SBFT: The sewer pipe layer helper film is normal. There is no evidence of obstruction. The mucosal fold pattern is normal. The terminal ilium is normal. IMPRESSION: Normal SBFT. Reviewed, Interpreted and Dictated by Cristobal Wu MD Transcribed by CHRISTOPHER Mcmahan Authenticated by Cristobal Wu MD on 02/27/2022 11:04:31 AM [facility]
--- NOTE | 2022-02-27 07:59 | FL_ITS ---
FINAL REPORT CLINICAL HISTORY: GERD, BLOATING FT: 1:19 FINDINGS: UPPER GI WITH SBFT UPPER GI EXAM HISTORY: Abdominal pain, nausea. PROCEDURE: The patient ingested barium. Effervescent crystals were also administered. Spot and overhead films were obtained. FINDINGS: The esophagus is normal. There is no hiatal hernia. There is mildgastroesophageal refluxto the upper third of the esophagus. Peristalsis is normal.There are mildly prominent gastric folds which may in part be due to nondistentional. The duodenal bulb is normal. FLUOROSCOPY TIME: 1 minute 19 secondss IMPRESSION: 1. Gastroesophageal reflux to the upper third of the esophagus. 2. Mildly prominent gastric folds may be due to nondistention. SBFT: The printing machinist film is normal. There is no evidence of obstruction. The mucosal fold pattern is normal. The terminal ilium is normal. IMPRESSION: Normal SBFT. Reviewed, Interpreted and Dictated by Cristobal Wu MD Transcribed by CHRISTOPHER Mcmahan Authenticated by Cristobal Wu MD on 02/27/2022 11:04:29 AM [facility]
[2022-02-27 10:28] LABS: Blood Urea Nitrogen 13 mg/dl (7-17); Estimated Glomerular Filt Rate 62 ml/min (>60); GFR (African American) 75 ML/MIN (>60)
== END ==
PROVIDERS: Surgery; PCP Internal Medicine; Visit Provider Internal Medicine
DX: R06.02 Shortness of breath (principal); K21.9 Gastro-esophageal reflux disease without esophagitis; R14.0 Abdominal distension (gaseous)
CPT/HCPCS: 36415; 74221; 74246; 74250; 82565; 84520

== ENCOUNTER → 2022-03-04 08:34 | Outpatient (CLI) | payer MEDICARE, OTHER, SELFPAY ==
--- NOTE | 2022-03-04 08:35 | CT_ITS ---
FINAL REPORT CLINICAL HISTORY: LLQ abdominal pain and gas FINDINGS: CT OF THE ABDOMEN AND PELVIS WITH CONTRAST Axial CT images of the abdomen and pelvis were obtained after the administration of oral and iv contrast. Coronal reformatted images were also obtained and reviewed.This study was performed with techniques to keep radiation doses as low as reasonably achievable (ALARA). Individualized dose reduction techniques using automated exposure control or adjustment of mA and/or kV according to the patient's size were employed. Abdomen: There is mild scarring in the lung bases.. The heart is normal in size. 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 The liver has an unremarkable appearance, without evidence of mass or biliary ductal dilatation. There is mild, nonspecific gallbladder wall thickening. No biliary ductal dilatation is identified. The spleen is unremarkable. No adrenal mass is present. The pancreas has an unremarkable appearance. The kidneys are normal, without evidence of mass or hydronephrosis. The aorta is normal in caliber. There is no free fluid or adenopathy. No mass or abnormal fluid collection is seen. Pelvis: The appendix not seen which is consistent with history of appendectomy. There are postoperative changes from hysterectomy. There are multiple diverticula within the colon. There are postoperative changes in the rectosigmoid colon. There is been interval resolution of right anterior pelvic fluid collection. The urinary bladder is unremarkable. No inflammatory process is seen. There is no evidence of mass or adenopathy. There is no evidence of bowel obstruction. IMPRESSION: Nonspecific gallbladder wall thickening. Multiple diverticula within the colon. Stable descending thoracic aorta aneurysm. Reviewed, Interpreted and Dictated by Javy Sutherland III, MD Transcribed by Abi Franco Authenticated by Javy Sutherland III, MD on 03/04/2022 11:17:29 AM [facility]
== END ==
PROVIDERS: PCP Internal Medicine; Visit Provider Surgery
DX: R10.32 Left lower quadrant pain (principal); K57.92 Diverticulitis of intestine, part unspecified, without perforation or abscess without bleeding
CPT/HCPCS: 74177; Q9967

== ENCOUNTER → 2022-03-31 12:03 | Outpatient (CLI) | payer MEDICARE, OTHER, SELFPAY ==
[2022-03-31 13:26] LABS: Basophils # 0.2 K/mm3 (0-0.2); Basophils % 1.5 % (0.1-2.0); Eosinophils # 0.1 K/mm3 (0.0-0.4); Eosinophils % 0.7 % (0.1-12.0); Hematocrit 41.5 % (37.0-47.0); Hemoglobin 13.7 g/dL (12.2-16.2); Lymphocytes % 6.6 % (10-50); Mean Corpuscular HGB Conc 32.9 g/dL (31.8-35.4); Mean Corpuscular Hemoglobin 30.6 pg (27.0-31.2); Mean Corpuscular Volume 93.2 fl (81-99); Mean Platelet Volume 8.1 fl (7.4-10.4); Monocytes # 0.6 K/mm3 (0.1-1.0); Monocytes % 3.8 % (1.7-9.3); Neutrophils # 12.6 K/mm3 (1.8-7.8); Neutrophils % 87.4 % (37.0-80.0); Platelet Count 295 K/mm3 (142-424); Red Blood Count 4.46 M/mm3 (4.20-5.40); Red Cell Distribution Width 14.7 % (11.5-17.5); White Blood Count 14.4 K/mm3 (4.8-10.8)
[2022-03-31 13:33] LABS: MANUAL DIFFERENTIAL MANUAL DIFFERENTIAL (MANUAL DIFF)
[2022-03-31 13:59] LABS: Alanine Aminotransferase 18 U/L (12-78); Albumin Level 3.9 g/dl (3.5-5.0); Albumin/Globulin Ratio 1.5 (1.1-1.8); Alkaline Phosphatase 90 U/L (38-126); Aspartate Amino Transferase 31 U/L (14-36); Bilirubin,Total 0.7 mg/dl (0.2-1.3); Blood Urea Nitrogen 14 mg/dl (7-17); Calcium 9.2 mg/dl (8.4-10.2); Carbon Dioxide 33 mmol/L (22.0-30.0); Chloride 97 mmol/L (98-107); Chol/HDL Ratio 2.1 (1-3.5); Cholesterol 165 mg/dl (140-200); Estimated Glomerular Filt Rate 62 ml/min (>60); GFR (African American) 75 ML/MIN (>60); Globulin 2.6 g/dL (1.3-3.2); Glucose 98 mg/dl (74-100); HDL Cholesterol 77 mg/dl (40-60); Sodium 138 mmol/L (136-145); Total Protein,Serum 6.5 g/dl (6.3-8.2); Triglycerides 94 mg/dl (30-150); VLDL Cholesterol 19 mg/dL (0-40)
[2022-03-31 14:10] LABS: Lymphocytes % 9 % (10-50); Monocytes % 8 % (2-9); Neutrophils % 83 % (42-76); Platelet Estimate Normal; RBC Morphology Normal; Total Cells Counted 100
[2022-03-31 14:22] LABS: Direct LDL Cholesterol 70.57 mg/dL (100-129)
[2022-03-31 14:27] LABS: Thyroid Stimulating Hormone 1.09 uIU/mL (0.465-4.68)
== END ==
PROVIDERS: PCP Internal Medicine; Visit Provider Internal Medicine
DX: I25.10 Atherosclerotic heart disease of native coronary artery without angina pectoris (principal); I10 Essential (primary) hypertension; E78.5 Hyperlipidemia, unspecified; E03.9 Hypothyroidism, unspecified; J44.9 Chronic obstructive pulmonary disease, unspecified; M35.3 Polymyalgia rheumatica; M81.0 Age-related osteoporosis without current pathological fracture
CPT/HCPCS: 80053; 80061; 84443; 85007; 85025

== ENCOUNTER → 2022-04-08 11:03 | Outpatient (CLI) | payer MEDICARE, OTHER, SELFPAY | PROVIDERS: PCP Internal Medicine; Visit Provider Internal Medicine Pulmonary Disease | DX: R06.02 Shortness of breath (principal) | CPT/HCPCS: 94762 ==

== ENCOUNTER → 2022-04-13 15:08 | Outpatient (CLI) | payer MEDICARE, OTHER, SELFPAY ==
--- NOTE | 2022-04-13 15:13 | XR_ITS ---
FINAL REPORT CLINICAL HISTORY: LEFT HIP PAIN AFTER PULLING WEEDS IN GARDEN FINDINGS: LEFT HIP 2 views including AP pelvis were obtained. There is no acute fracture or dislocation. There is mild degenerative change of both hips. There are mild vascular calcifications. There are postoperative changes in the pelvis. IMPRESSION: Mild degenerative change with no acute bony abnormality. Reviewed, Interpreted and Dictated by Javy Sutherland III, MD Transcribed by Abi Franco Authenticated and [facility]
== END ==
PROVIDERS: PCP Internal Medicine; Visit Provider Internal Medicine
DX: M25.552 Pain in left hip (principal); R10.32 Left lower quadrant pain
CPT/HCPCS: 73502

== ENCOUNTER → 2022-04-23 10:42 | Outpatient (CLI) | payer MEDICARE, OTHER, SELFPAY ==
--- NOTE | 2022-04-23 10:46 | US_ITS ---
FINAL REPORT CLINICAL HISTORY: AAA, FAMILY H/O ANEURYSM FINDINGS: ULTRASOUND AORTA Limited sonographic images were obtained of the abdomen to evaluate the abdominal aorta and iliac arteries. The abdominal aorta measures up to 2.0 cm in greatest dimensions. The iliac arteries are within normal limits. IMPRESSION: No evidence of abdominal aortic aneurysm. Reviewed, Interpreted and Dictated by Javy Sutherland III, MD Transcribed by Elpidio Lee Authenticated and [facility]
== END ==
PROVIDERS: PCP Internal Medicine; Visit Provider Internal Medicine
DX: Z13.6 Encounter for screening for cardiovascular disorders (principal)
CPT/HCPCS: 76770

== ENCOUNTER → 2022-05-27 12:17 | Outpatient (CLI) | payer MEDICARE, OTHER, SELFPAY ==
[2022-05-27 13:20] VITALS: PULSE 72; PULSE 76
--- NOTE | 2022-05-27 13:48 | CT_ITS ---
FINAL REPORT TECHNIQUE: Thin section axial images were obtained from the lung apices through the upper abdomen without contrast. High-resolution images were obtained in inspiration, expiration and prone position. Reconstruction images were also obtained. This study was performed with techniques to keep radiation doses as low as reasonably achievable (ALARA). Individualized dose reduction techniques using automated exposure control or adjustment of mA and/or kV according to the patient's size were employed. CLINICAL HISTORY: soa COMPARISON: 05/21/2018 FINDINGS: There is no mediastinal, hilar, or axillary lymphadenopathy. There is no pleural or pericardial effusion. Heart is normal in size. There are prominent coronary artery and aortic calcifications. Discoid opacities are seen bilaterally, asymmetric to the left, favor atelectasis. No nodule or mass is identified. Limited imaging of the upper abdomen is without acute abnormality. There are multiple thoracic compression fractures, likely stable from prior exam. High-resolution images were obtained on inspiration, expiration and in the prone position. There is mild emphysema. No pulmonary fibrosis is seen. There is no significant interlobular septal thickening. With expiration, there appears to be mild air trapping in the superior segments of the lower lobes bilaterally, which is nonspecific. IMPRESSION: No evidence of pulmonary fibrosis. Subtle air trapping in the superior segments of the lower lobes, nonspecific. Mild emphysema. Reviewed, Interpreted and Dictated by Becky Solis MD Transcribed by Namita Wang Authenticated and [facility]
== END ==
PROVIDERS: PCP Surgery; Visit Provider Internal Medicine Pulmonary Disease
DX: J84.9 Interstitial pulmonary disease, unspecified (principal)
CPT/HCPCS: 71250; 94060; 94618; 94640; 94727; 94729; C9803; U0003; U0005

== ENCOUNTER 2022-05-29 10:08 | Day surgery (SDC) | payer MEDICARE, OTHER, SELFPAY ==
[2022-05-29 10:31] VITALS: BP 112/76; PULSE 72; RESP 18; TEMP 36.2; O2SAT 95; BMI 30.1
--- NOTE | 2022-05-29 10:55 | P.PN_ITS ---
[facility] Anesthesia Checklist - Patient Identification Patient Identification: Arm Band - Structural Data Admitted From: Home Planned Operative Procedure/s: Colonoscopy Consent for Planned Operative Procedure(s) Verified: Yes Verified Documents: Surgical Consent, History and Physical - NPO Status Verified Time NPO: 00:00 - Additional verifications Anesthesia Reactions: No Hx Blood Transfusions: No Blood Transfusion Reaction: No - Airway Assessment C-Spine Mobility Assessed: Yes (mp2) TMJ Mobility Assessed: Yes Dentition: Poor Dentition - Neurological Assessment Level of Consciousness: Awake, Alert - Anesthesia Plan Anesthesia Risk discussed: Yes Anesthesia Plan: Verified ASA Class: III Anesthesia Type: MAC [facility] History I have reviewed the patient's past medical history: Yes Medical History: Reports:: Chronic Obstructive Pulmonary Disease (COPD), Gastroesophageal Reflux Disease(GERD), Hyperlipidemia, Hypertension, Lung Disease, Palpitations Denies:: Cancer, Diabetes Mellitus Type 1, Diabetes Mellitus Type 2, Internal Pacemaker, MRSA, Seizures *Have you ever received a pneumonia vaccine?: Yes *Have you received a flu vaccine this season?: Yes Other Medical History: Reports: Arthritis, Fibromyalgia. Denies: Blood Transfusion Reaction Anesthesia experience/problems:: nac Other Surgeries: Yes: Appendectomy, Cancer Surgery, Cardiac Catheterization, Colonoscopy, Colon Resection, Colostomy, Diagnostic Lap, EGD, Hernia Repair, Hysterectomy-Total, Tubal Ligation, Other. No: Pacemaker Amputation: No Fractures: Yes (spinal) - *Social History Last grade of school completed: GED Smoking Status: Former smoker Tobacco Type: cigarettes #Yrs smoked (if former smoker): 48 Alcohol Intake: never Alcohol Intake Frequency:: other Substance Use Type: denies use *Occupational Status:: retired Housing: house Household Members: spouse *Travel in the last 8 weeks: None Family Hx:: No significant family history
--- NOTE | 2022-05-29 11:10 | HMH.GSHP ---
HPI HPI: Patient presents for colonoscopy.? She had undergone colonoscopy by Dr. Worley on 07/26/2017.? She was found to have findings of complicated diverticulitis.? There were no polyps.? Her symptoms failed outpatient management and she actually developed abscess with refractory symptoms despite intravenous antibiotics and was taken to the operating room as an inpatient on 08/09/2017 at which time she underwent low anterior resection with proximal diverting loop ileostomy.? She had a very prolonged postoperative recovery and there was even concern for recurrent abscess and she actually had gone back to the operating room at which time she underwent oophorectomy by Dr. Cardenas.? Patient ultimately underwent her ileostomy takedown in [place] in July [address] Camron Diaz (colorectal surgeon) at [facility].? Consideration was being given for possible colonoscopy following that but this was delayed due to the COVID pandemic.? Patient states that recently over the past 4 to 5 months she has a sensation like she is trying to blocked up .? She describes some left lower quadrant pain.? This is intermittent.? She has had some decreased bowel movements.? She does describe some gassiness.? I had seen her in the office as a consultation for possible colonoscopy on 02/24/2021. She had already been scheduled for a small bowel follow-through through her primary care provider's office. I felt that this was a good idea and I also ordered a CT scan with IV and oral contrast due to her prior history. She was found to have some evidence of gastroesophageal reflux to the upper third of the esophagus. There were mildly prominent gastric folds which may be due to nondistention. Small bowel follow-through was unremarkable. CT scan revealed nonspecific gallbladder wall thickening. There were multiple diverticuli within the colon with a stable descending thoracic aortic aneurysm. [facility] History I have reviewed the patient's past medical history: Yes Medical History: Reports:: Chronic Obstructive Pulmonary Disease (COPD), Gastroesophageal Reflux Disease(GERD), Hyperlipidemia, Hypertension, Lung Disease, Palpitations Denies:: Cancer, Diabetes Mellitus Type 1, Diabetes Mellitus Type 2, Internal Pacemaker, MRSA, Seizures *Have you ever received a pneumonia vaccine?: Yes *Have you received a flu vaccine this season?: Yes Other Medical History: Reports: Arthritis, Fibromyalgia. Denies: Blood Transfusion Reaction Anesthesia experience/problems:: nac Other Surgeries: Yes: Appendectomy, Cancer Surgery, Cardiac Catheterization, Colonoscopy, Colon Resection, Colostomy, Diagnostic Lap, EGD, Hernia Repair, Hysterectomy-Total, Tubal Ligation, Other. No: Pacemaker Amputation: No Fractures: Yes (spinal) - *Social History Last grade of school completed: GED Smoking Status: Former smoker Tobacco Type: cigarettes #Yrs smoked (if former smoker): 48 Alcohol Intake: never Alcohol Intake Frequency:: other Substance Use Type: denies use *Occupational Status:: retired Housing: house Household Members: spouse *Travel in the last 8 weeks: None Family Hx:: No significant family history Review of Systems - Review of Systems Review of systems:: pertinent systems reviewed and negative unless documented below Meds Home Medications Medication Instructions Recorded Confirmed Type atenolol 50 mg tablet 50 mg PO DAILY tab 11/12/17 03/26/22 History predniSONE [Prednisone 5mg 10 mg PO QID 05/24/18 03/26/22 History Tab] Alendronate Sodium [Fosamax 70mg 70 mg PO WEEKLY 05/25/18 03/26/22 History Tablet] Loratadine [Claritin] 10 mg PO DAILY 05/25/18 03/26/22 History Pantoprazole Sodium [Protonix 40mg 40 mg PO DAILY 05/25/18 03/26/22 History tablet] ascorbate calcium (vitamin C) 500 500 mg PO DAILY 04/25/20 03/26/22 History mg tablet tramadol 50 mg tablet 50 mg PO NEEDED PRN tab 04/25/20 03/26/22 History rosuvastatin 10 mg tablet 10 mg PO DAILY #90 tab
[2022-05-29 11:17] VITALS: O2SAT 95
--- NOTE | 2022-05-29 11:45 | HMH.SCOPE ---
- Procedure: Date: 05/29/22 Patient Date of :: 1955 Procedure Performed:: Total colonoscopy with biopsy Indications:: Patient presents for colonoscopy.? She had undergone colonoscopy by Dr. Worley on 07/26/2017.? She was found to have findings of complicated diverticulitis.? There were no polyps.? Her symptoms failed outpatient management and she actually developed abscess with refractory symptoms despite intravenous antibiotics and was taken to the operating room as an inpatient on 08/09/2017 at which time she underwent low anterior resection with proximal diverting loop ileostomy.? She had a very prolonged postoperative recovery and there was even concern for recurrent abscess and she actually had gone back to the operating room at which time she underwent oophorectomy by Dr. Cardenas.? Patient ultimately underwent her ileostomy takedown in [place] in July [address] Camron Diaz (colorectal surgeon) at [facility].? She does state that he had performed colonoscopy prior to ileostomy reversal. Consideration was being given for possible colonoscopy following that but this was delayed due to the COVID pandemic.? ? I had seen her in the office as a consultation for possible colonoscopy on 02/24/2021. She had already been scheduled for a small bowel follow-through through her primary care provider's office. I felt that this was a good idea and I also ordered a CT scan with IV and oral contrast due to her prior history. She was found to have some evidence of gastroesophageal reflux to the upper third of the esophagus. There were mildly prominent gastric folds which may be due to nondistention. Small bowel follow-through was unremarkable. CT scan revealed nonspecific gallbladder wall thickening. There were multiple diverticuli within the colon with a stable descending thoracic aortic aneurysm. Performing Provider:: Javy Steele MD Referring Provider:: Alfred Chapa MD Sedation:: MAC sedation Procedure:: Consent was obtained and patient was taken to endoscopy procedure room. She was positioned in lateral decubitus position. Adequate intravenous sedation was achieved. Variable stiffness Olympus colonoscope was inserted via the anus. It was advanced to the cecum. Ileocecal valve and appendiceal orifice were clearly identified. There was some particulate liquid stool throughout the colon and this was able to be cleared for the most part using irrigation and suctioning. The appendiceal orifice and ileocecal valve were clearly identified. Colonoscope was advanced briefly a short distance into the terminal ileum which appeared grossly normal. There was a possible tiny subtle polyp adjacent to the appendiceal orifice which was removed with cold biopsy forceps. She had severe pandiverticulosis which was most pronounced in the left colon. In the ascending colon there was a subtle irregularity which was likely inverted diverticulum. This was biopsied with cold biopsy forceps. Colonoscope was withdrawn through the remainder of the colon. Anastomosis was identified at approximately 12 cm from the anal verge. Retroflexion revealed internal hemorrhoids. Colonoscope was withdrawn. Findings:: Severe pandiverticulosis Anastomosis at approximately 12 cm Possible very tiny diminutive cecal polyp removed with biopsy forceps Ascending colon irregularity biopsied, probable inverted diverticulum Recommendations:: Repeat colonoscopy pending pathology. Likely 5 years Complications:: None immediately apparent Estimated blood obtained (mL): 1
[2022-05-29 11:46] VITALS: BP 88/57; PULSE 90; RESP 17; TEMP 36.1; O2SAT 94
[2022-05-29 11:56] VITALS: BP 96/51; PULSE 92; RESP 17; O2SAT 98
[2022-05-29 12:06] VITALS: BP 130/77; PULSE 87; RESP 17; O2SAT 98
== END 2022-05-29 12:18 | disposition home or self-care (01) ==
LOC: OUTP 10:09
PROVIDERS: PCP Internal Medicine; Visit Provider Surgery
PROC: 0DJD8ZZ Inspection of Lower Intestinal Tract, Via Natural or Artificial Opening Endoscopic (ICD-10-PCS; principal; 2022-05-29 11:30)
DX: Z12.11 Encounter for screening for malignant neoplasm of colon (principal); K63.5 Polyp of colon; K21.9 Gastro-esophageal reflux disease without esophagitis; E78.5 Hyperlipidemia, unspecified; I10 Essential (primary) hypertension; J44.9 Chronic obstructive pulmonary disease, unspecified; Z79.899 Other long term (current) drug therapy
CPT/HCPCS: 45380; 88305; J2704

== ENCOUNTER → 2022-07-23 07:49 | Outpatient (CLI) | payer MEDICARE, OTHER, SELFPAY ==
[2022-07-23 08:33] LABS: Blood Urea Nitrogen 15 mg/dl (7-17); Estimated Glomerular Filt Rate 71 ml/min (>60); GFR (African American) 86 ML/MIN (>60)
--- NOTE | 2022-07-23 08:54 | CT_ITS ---
FINAL REPORT CLINICAL HISTORY: DIZZINESS,VERTIGO FINDINGS: Thin section axial CT with IV contrast supplemented with multiplanar reconstruction under CT angiogram protocol. This study was performed with techniques to keep radiation doses as low as reasonably achievable (ALARA). Individualized dose reduction techniques using automated exposure control or adjustment of mA and/or kV according to the patient's size were employed. NASCET criteria was utilized during interpretation. Aortic arch: Arch shows no significant narrowing. Great vessel origins are widely patent. Right carotid: Dense vascular calcification at the bifurcation. Less than 50% stenosis. Left carotid: Dense vascular calcification at the bifurcation. Less than 50% stenosis. Vertebral: Left vertebral artery is dominant. No significant stenosis is present. There is a 1.5 cm heterogeneous lesion within the superior pole of the left thyroid. IMPRESSION: Dense vascular calcification at the aortic bifurcations with less than 50% stenosis. Heterogeneous left thyroid lesion. Recommend dedicated thyroid ultrasound. Reviewed, Interpreted and Dictated by Cristobal Wu MD Transcribed by Elpidio Lee Authenticated and [facility]
--- NOTE | 2022-07-23 09:35 | CT_ITS ---
FINAL REPORT TECHNIQUE: Axial CT images were performed through the head. Coronal reformatted images were submitted. This study was performed with techniques to keep radiation doses as low as reasonably achievable (ALARA). Individualized dose reduction techniques using automated exposure control or adjustment of mA and/or kV according to the patient's size were employed. CLINICAL HISTORY: DIZZINESS,VERTIGO FINDINGS: There is [id number] diffuse atrophy. There is mild decreased attenuation in the deep white matter consistent with chronic ischemia. There is physiologic calcification in the right basal ganglia. The ventricles are normal in size. There is no evidence of hemorrhage. There is no mass or edema identified. There is no abnormal extra-axial fluid seen. The sinuses are well aerated. IMPRESSION: No acute intracranial process. Reviewed, Interpreted and Dictated by Cristobal Wu MD Transcribed by Elpidio Lee Authenticated and [facility]
--- NOTE | 2022-07-23 09:36 | CT_ITS ---
FINAL REPORT TECHNIQUE: Following the administration of intravenous contrast, helically acquired axial multidetector CT images were obtained through the brain. Multiplanar, MIP and 3-D reconstructions were performed. Dose reduction techniques were employed. CLINICAL HISTORY: DIZZINESS,VERTIGO FINDINGS: CTA HEAD With regards the intracranial vessels, the bilateral anterior cerebral, middle cerebral and posterior cerebral arteries are patent. The basilar artery is patent. There is no evidence of aneurysm formation. IMPRESSION: No evidence of aneurysm or stenosis of the intracranial vasculature. Reviewed, Interpreted and Dictated by Cristobal Wu MD Transcribed by Elpidio Lee Authenticated and [facility]
== END ==
PROVIDERS: PCP Internal Medicine; Visit Provider Internal Medicine
DX: R42 Dizziness and giddiness (principal)
CPT/HCPCS: 36415; 70450; 70496; 70498; 82565; 84520; Q9967

== ENCOUNTER → 2022-09-07 13:07 | Outpatient (CLI) | payer MEDICARE, OTHER, SELFPAY ==
--- NOTE | 2022-09-07 | XR_ITS ---
FINAL REPORT CLINICAL HISTORY: una shoulder pain FINDINGS: RIGHT SHOULDER Three views demonstrate no acute fracture or dislocation. The visualized joint spaces are normally aligned. The soft tissues are unremarkable. IMPRESSION: No acute process. Reviewed, Interpreted and Dictated by Cristobal Wu MD Transcribed by Namita Wang Authenticated and [facility]
--- NOTE | 2022-09-07 | XR_ITS ---
FINAL REPORT CLINICAL HISTORY: una shoulder pain FINDINGS: LEFT SHOULDER 3 views of the left shoulder were obtained. There is no acute fracture or dislocation. There are mild hypertrophic changes of the acromioclavicular joint. Soft tissues are unremarkable. IMPRESSION: No acute bony abnormality. Reviewed, Interpreted and Dictated by Cristobal Wu MD Transcribed by Namita Wang Authenticated and [facility]
--- NOTE | 2022-09-07 13:18 | XR_ITS ---
FINAL REPORT CLINICAL HISTORY: OSTEOARTHRITIS FINDINGS: RIGHT HAND Three views demonstrate no acute fracture or dislocation. There are advanced changes of osteoarthritis at the basilar joint. Mild degenerative changes are seen of the DIP and PIP joints with joint space narrowing. The soft tissues are unremarkable. IMPRESSION: Advanced degenerative changes without acute bony abnormality. Reviewed, Interpreted and Dictated by Cristobal Wu MD Transcribed by Namita Wang Authenticated and [facility]
--- NOTE | 2022-09-07 13:19 | XR_ITS ---
FINAL REPORT CLINICAL HISTORY: OSTEOARTHRITIS FINDINGS: LEFT HAND Three views demonstrate no acute fracture or dislocation. There are advanced changes of osteoarthritis at the basilar joint. Mild degenerative changes are seen of the DIP and PIP joints with joint space narrowing. The soft tissues are unremarkable. IMPRESSION: Advanced degenerative changes without acute bony abnormality. Reviewed, Interpreted and Dictated by Cristobal Wu MD Transcribed by Namita Wang Authenticated and [facility]
== END ==
PROVIDERS: PCP Internal Medicine; Visit Provider Internal Medicine Rheumatology
DX: M06.4 Inflammatory polyarthropathy (principal); M18.9 Osteoarthritis of first carpometacarpal joint, unspecified; M35.3 Polymyalgia rheumatica; R53.83 Other fatigue; E66.9 Obesity, unspecified; Z68.31 Body mass index [BMI] 31.0-31.9, adult; Z79.899 Other long term (current) drug therapy
CPT/HCPCS: 73030; 73130

== ENCOUNTER → 2022-10-19 14:21 | Outpatient (CLI) | payer MEDICARE, OTHER, SELFPAY ==
--- NOTE | 2022-10-19 14:26 | XR_ITS ---
FINAL REPORT CLINICAL HISTORY: Right shoulder pain COMPARISON: 09/07/2022 FINDINGS: RIGHT SHOULDER Two views demonstrate no acute fracture or dislocation. There are stable, mild degenerative changes at the acromioclavicular joint. The visualized bony structures are well aligned. No soft tissue abnormality is seen. IMPRESSION: Stable degenerative changes with no acute process. Reviewed, Interpreted and Dictated by Javy Sutherland III, MD Transcribed by Rosibel Wood Authenticated and [facility]
== END ==
PROVIDERS: PCP Internal Medicine; Visit Provider Internal Medicine
DX: M25.511 Pain in right shoulder (principal)
CPT/HCPCS: 73030

== ENCOUNTER → 2022-12-04 14:44 | Outpatient (CLI) | payer MEDICARE, OTHER, SELFPAY ==
--- NOTE | 2022-12-04 14:53 | CT_ITS ---
FINAL REPORT CLINICAL HISTORY: DIZZINESS, BLURRED VISION COMPARISON: 07/23/2022 FINDINGS: Axial images of the head were obtained without contrast. Coronal reformatted images were also obtained. This study was performed with techniques to keep radiation doses as low as reasonably achievable (ALARA). Individualized dose reduction techniques using automated exposure control or adjustment of mA and/or kV according to the patient's size were employed. There is generalized age-appropriate atrophy. Periventricular low-attenuation areas are seen consistent with mild chronic ischemic changes. There is no evidence of intracranial hemorrhage or mass. There is no evidence of acute infarct. There is no evidence of shift of the midline structures. No skull abnormality is seen on the bone window images. There are small fluid levels in the maxillary sinuses consistent with maxillary sinusitis. IMPRESSION: Atrophy and mild periventricular chronic ischemic changes. No acute intracranial abnormality identified. Reviewed, Interpreted and Dictated by Javy Sutherland III, MD Transcribed by Jayde Salazar Authenticated and . [facility]
== END ==
PROVIDERS: PCP Internal Medicine; Visit Provider Internal Medicine
DX: R42 Dizziness and giddiness (principal); H53.8 Other visual disturbances; I63.9 Cerebral infarction, unspecified
CPT/HCPCS: 70450

== ENCOUNTER → 2022-12-22 11:55 | Outpatient (CLI) | payer MEDICARE, OTHER, SELFPAY ==
[2022-12-22 12:40] LABS: Basophils # 0.1 K/mm3 (0-0.2); Basophils % 0.5 % (0.1-2.0); Eosinophils # 0.1 K/mm3 (0.0-0.4); Eosinophils % 0.9 % (0.1-12.0); Hematocrit 41.7 % (37.0-47.0); Hemoglobin 13.4 g/dL (12.2-16.2); Lymphocytes # 1.2 K/mm3 (0.7-4.5); Lymphocytes % 8.1 % (10-50); Mean Corpuscular Hemoglobin 29.3 pg (27.0-31.2); Mean Corpuscular Volume 91.3 fl (81-99); Mean Platelet Volume 7.6 fl (7.4-10.4); Monocytes # 0.6 K/mm3 (0.1-1.0); Monocytes % 4.6 % (1.7-9.3); Neutrophils # 12.1 K/mm3 (1.8-7.8); Neutrophils % 85.9 % (37.0-80.0); Platelet Count 388 K/mm3 (142-424); Red Blood Count 4.56 M/mm3 (4.20-5.40); Red Cell Distribution Width 15.3 % (11.5-17.5); White Blood Count 14.1 K/mm3 (4.8-10.8)
[2022-12-22 12:55] LABS: MANUAL DIFFERENTIAL MANUAL DIFFERENTIAL (MANUAL DIFF)
[2022-12-22 13:07] LABS: Alanine Aminotransferase 22 U/L (12-78); Albumin Level 4.1 g/dl (3.5-5.0); Albumin/Globulin Ratio 1.6 (1.1-1.8); Alkaline Phosphatase 73 U/L (38-126); Anion Gap 7.1 mEq/L (5-15); Aspartate Amino Transferase 31 U/L (14-36); Bilirubin,Total 0.8 mg/dl (0.2-1.3); Blood Urea Nitrogen 19 mg/dl (7-17); Calcium 9.5 mg/dl (8.4-10.2); Carbon Dioxide 32 mmol/L (22.0-30.0); Chloride 103 mmol/L (98-107); Chol/HDL Ratio 2.2 (1-3.5); Cholesterol 142 mg/dl (140-200); Estimated Glomerular Filt Rate 62 ml/min (>60); GFR (African American) 75 ML/MIN (>60); Globulin 2.6 g/dL (1.3-3.2); Glucose 87 mg/dl (74-100); HDL Cholesterol 64 mg/dl (40-60); Potassium 5.1 mmoL/L (3.5-5.1); Sodium 137 mmol/L (136-145); Total Protein,Serum 6.7 g/dl (6.3-8.2); Triglycerides 114 mg/dl (30-150); VLDL Cholesterol 23 mg/dL (0-40)
[2022-12-22 13:34] LABS: Erythrocyte Sedimentation Rate 25 mm/hr (0-30)
[2022-12-22 18:47] LABS: Lymphocytes % 11 % (10-50); Monocytes % 3 % (2-9); Neutrophils % 85 % (42-76); Platelet Estimate Normal; RBC Morphology Normal; Total Cells Counted 100
== END ==
PROVIDERS: PCP Internal Medicine; Visit Provider Internal Medicine
DX: H34.231 Retinal artery branch occlusion, right eye (principal)
CPT/HCPCS: 36415; 80053; 80061; 85007; 85025; 85651

== ENCOUNTER → 2022-12-22 13:40 | Outpatient (CLI) | payer MEDICARE, OTHER, SELFPAY ==
--- NOTE | 2022-12-22 | CA_ITS ---
APPROVED REPORT EXAM: Comprehensive 2D, Doppler, and color-flow Echocardiogram Continuity Person: Luda Noriega RT(R) Ht: 5 ft 3 in Wt: 175lbs BSA: 1.83 BP: 120/69 mmHg Indications: CP, COPD, ex smoker, SOB, BOBBY, obesity, HTN, hyperlipidemia. Limited windows secondary to body habitus and lung interference. LV Diastology E Decel Time 190.00 (160-240 msec) E/A Ratio 0.6 MED E' 9.20 (< 7 cm/sec) E'/MED E' Ratio 6.89 (>14) LAT E' 8.10 (<10 cm/sec) E/LAT E' Ratio 7.83 (>14) Mitral Valve MV E Max Kj. 63.00 (40-130 cm/s) MV A Velocity 99.00 (40-130 cm/s) E/A Ratio 0.64 MV Decel. Time 190.00 (160-240 ms) MV PHT 56.00 ms Left Ventricle Technically difficult study because of the patient factors and poor acoustic windows. Left atrium is mildly enlarged, left ventricle is normal size mild concentric left ventricular hypertrophy, estimated ejection fraction 55% with no regional wall motion abnormality, grade 1 diastolic dysfunction seen without tissue Doppler evidence of late left atrial pressure. Right Ventricle Right atrium and right ventricular mildly enlarged with normal contractility. Aortic Valve Aortic valve is minimally thickened and calcified without aortic stenosis aortic insufficiency. Mitral Valve Mitral valve is grossly normal, there is trace mitral regurgitation. Tricuspid Valve Tricuspid valve grossly normal, there is trace tricuspid regurgitation tricuspid regurgitation jet velocity is inadequate for calculation of the right ventricular systolic pressure. Pulmonic Valve Pulmonic valve is poorly visualized. Great Vessels Aortic root is normal size. Inferior vena cava is poorly visualized. Pericardium No significant pericardial effusion noted. Conclusion 1. Mild biatrial enlargement, normal left ventricular size, estimated ejection fraction 55% with no regional wall motion abnormality, grade 1 diastolic dysfunction seen without tissue Doppler evidence of raise left atrial pressure. 2. Mildly enlarged right ventricle with normal contractility. 3. Trace mitral and tricuspid regurgitation. 4. No significant pericardial effusion noted, there is anterior echo-free space seen. 5. Inferior vena cava is poorly visualized. Electronically signed by : Juventino Granda MD 12/23/2022 05:51:52
--- NOTE | 2022-12-22 | CA_ITS ---
FINAL REPORT CLINICAL HISTORY: .TIA, HTN, Smoker FINDINGS: An ultrasound of the carotid arteries was performed. Duplex Doppler evaluation with spectral analysis was performed. The peak systolic velocity of the right common carotid artery is 77 cm/s. The peak systolic velocity of the right internal carotid artery is 65 cm/s and end diastolic velocity 33 cm/s. A moderate amount of plaque is present. The right external carotid artery is patent. There appears to be retrograde flow the right vertebral artery. ICA/CCA ratio: 1.6 The peak systolic velocity of the left common carotid artery is 134 cm/s. The peak systolic velocity of the left internal carotid artery is 167 cm/s and end diastolic velocity 33 cm/s. A moderate amount of plaque is present. The left external carotid artery is patent. The left vertebral artery is patent with antegrade flow. ICA/CCA ratio: 1.2 IMPRESSION: Less than 50% bilateral carotid stenosis. Retrograde flow in the right vertebral artery. Consider CTA or catheter directed angiography. Reviewed, Interpreted and Dictated by Javy Sutherland III, MD Transcribed by Elpidio Lee Authenticated and . [facility]
== END ==
PROVIDERS: PCP Internal Medicine; Visit Provider Internal Medicine
DX: I10 Essential (primary) hypertension (principal); H34.231 Retinal artery branch occlusion, right eye; R07.89 Other chest pain; R06.09 Other forms of dyspnea
CPT/HCPCS: 36415; 80053; 80061; 85007; 85025; 85651; 93225; 93226; 93306; 93880

== ENCOUNTER → 2023-08-02 13:55 | Outpatient (CLI) | payer MEDICARE, OTHER, SELFPAY ==
--- NOTE | 2023-08-02 14:15 | XR_ITS ---
FINAL REPORT CLINICAL HISTORY: pain - whole spinal area FINDINGS: Cervical spine AP and lateral views were obtained. Vertebrae are normal height. Alignment is within normal limits. There are moderate and severe degenerative changes with multilevel osteophytes. IMPRESSION: No acute process. Thoracic spine AP and lateral views were obtained. There are multiple chronic thoracic compression fractures. There is moderate diffuse kyphosis. Vertebrae are normal height. Alignment is within normal limits. There are moderate degenerative changes with osteophytes. IMPRESSION: No acute process. Lumbar spine AP and lateral views were obtained. There are several chronic mild lumbar compression fractures. Vertebrae are normal height. Alignment is within normal limits. There are mild and moderate degenerative changes. There is multilevel facet arthropathy. Dense vascular calcification is seen. IMPRESSION: No acute process. Reviewed, Interpreted and Dictated by Javy Sutherland III, MD Transcribed by Elpidio Lee Authenticated and [facility]
[2023-08-02 14:24] LABS: Basophils % 0.3 % (0.1-2.0); Eosinophils # 0.2 K/mm3 (0.0-0.4); Eosinophils % 1.2 % (0.1-12.0); Hematocrit 39.3 % (37.0-47.0); Hemoglobin 12.2 g/dL (12.2-16.2); Lymphocytes # 1.1 K/mm3 (0.7-4.5); Lymphocytes % 7.5 % (10-50); Mean Corpuscular HGB Conc 31.2 g/dL (31.8-35.4); Mean Corpuscular Hemoglobin 27.6 pg (27.0-31.2); Mean Corpuscular Volume 88.6 fl (81-99); Mean Platelet Volume 8.4 fl (7.4-10.4); Monocytes # 0.7 K/mm3 (0.1-1.0); Monocytes % 4.5 % (1.7-9.3); Neutrophils # 12.6 K/mm3 (1.8-7.8); Neutrophils % 86.6 % (37.0-80.0); Platelet Count 452 K/mm3 (142-424); Red Blood Count 4.43 M/mm3 (4.20-5.40); Red Cell Distribution Width 15.6 % (11.5-17.5); White Blood Count 14.5 K/mm3 (4.8-10.8)
[2023-08-02 14:26] LABS: MANUAL DIFFERENTIAL MANUAL DIFFERENTIAL (MANUAL DIFF)
[2023-08-02 15:12] LABS: Erythrocyte Sedimentation Rate 74 mm/hr (0-30)
[2023-08-02 15:21] LABS: Eosinophils % 1 % (0-3); Lymphocytes % 5 % (10-50); Monocytes % 6 % (2-9); Neutrophils % 88 % (42-76); Total Cells Counted 100
[2023-08-02 15:23] LABS: Hypochromasia 1+; Platelet Estimate Slight Increase; RBC Morphology Normal
[2023-08-02 15:36] LABS: Alanine Aminotransferase 21 U/L (12-78); Albumin Level 3.4 g/dl (3.5-5.0); Albumin/Globulin Ratio 1.2 (1.1-1.8); Alkaline Phosphatase 86 U/L (38-126); Anion Gap 8.5 mEq/L (5-15); Aspartate Amino Transferase 30 U/L (14-36); Bilirubin,Total 0.6 mg/dl (0.2-1.3); Blood Urea Nitrogen 17 mg/dl (7-17); Calcium 9.2 mg/dl (8.4-10.2); Carbon Dioxide 32 mmol/L (22.0-30.0); Chloride 100 mmol/L (98-107); Estimated Glomerular Filt Rate 71 ml/min (>60); GFR (African American) 86 ML/MIN (>60); Globulin 2.9 g/dL (1.3-3.2); Glucose 91 mg/dl (74-100); Potassium 4.5 mmoL/L (3.5-5.1); Sodium 136 mmol/L (136-145); Total Protein,Serum 6.3 g/dl (6.3-8.2)
[2023-08-02 15:53] LABS: 25-OH Vitamin D, Total 36.5 ng/mL (30-100)
[2023-08-04 21:02] LABS: C-Reactive Protein 50.3 mg/L (0-4)
== END ==
PROVIDERS: PCP Internal Medicine; Visit Provider Internal Medicine Rheumatology
DX: M06.4 Inflammatory polyarthropathy (principal); M06.8A Other specified rheumatoid arthritis, other specified site; M18.9 Osteoarthritis of first carpometacarpal joint, unspecified; M35.3 Polymyalgia rheumatica; R53.83 Other fatigue; E55.9 Vitamin D deficiency, unspecified; Z79.899 Other long term (current) drug therapy
CPT/HCPCS: 36415; 72084; 80053; 82306; 85007; 85025; 85651; 86140

== ENCOUNTER → 2023-09-03 15:09 | Outpatient (CLI) | payer MEDICARE, OTHER, SELFPAY ==
--- NOTE | 2023-09-03 15:28 | XR_ITS ---
FINAL REPORT CLINICAL HISTORY: CHEST PAIN,THORACIC BACK PAIN COMPARISON: None FINDINGS: Two views of the chest were obtained. The heart size and pulmonary vascularity are within normal limits. The mediastinum is normal. Bibasilar opacities, [id number], favor atelectasis. There is no pneumothorax. The bony thorax is intact. IMPRESSION: Bibasilar opacities favor atelectasis. Reviewed, Interpreted and Dictated by Javy Sutherland III, MD Transcribed by Janneth Marti Authenticated and [facility]
--- NOTE | 2023-09-03 15:42 | ECG_ITS ---
APPROVED REPORT Exam: Resting ECG HR:84 bpm ECG Measurements Heart Rate 84 AXES IA 145 P 11 QRSd 87 QRS -33 QT 389 T 27 QTc 430 Conclusion SINUS RHYTHM LEFT AXIS DEVIATION [QRS AXIS < -30] LOW QRS VOLTAGE IN PRECORDIAL LEADS [QRS DEFLECTION < 1.0 mV IN CHEST LEADS] POOR R WAVE PROGRESSION ABNORMAL ECG-NO ACUTE CHANGES Electronically signed by : Alfred Chapa MD 09/03/2023 16:17:28
[2023-09-03 15:58] LABS: Troponin I < 0.01 ng/ml (0.00-0.034)
== END ==
PROVIDERS: PCP Internal Medicine; Visit Provider Internal Medicine
DX: R07.9 Chest pain, unspecified (principal); M54.6 Pain in thoracic spine
CPT/HCPCS: 36415; 71046; 84484; 93005

== ENCOUNTER 2024-01-10 14:37 | Observation (INO) | payer MEDICARE, OTHER, SELFPAY ==
[2024-01-10] VITALS (16 sets, daily range): BP systolic 100–154; BP diastolic 53–88; PULSE 82–89; RESP 17–19; TEMP 36.6–36.9; O2SAT 90–99; BMI 29.4; BMI 27.8
--- NOTE | 2024-01-10 15:09 | XR_ITS ---
PROCEDURE INFORMATION: Exam: XR Chest Exam date and time: 01/10/2024 3:12 PM Age: 68 years old Clinical indication: Cough TECHNIQUE: Imaging protocol: Radiologic exam of the chest. Views: 2 views. COMPARISON: CR XR CHEST 2V 09/03/2023 3:32 PM FINDINGS: Lungs: Bibasilar atelectasis versus parenchymal scarring. Findings appear stable compared with the previous study. Pleural spaces: Unremarkable. No pleural effusion. No pneumothorax. Heart/Mediastinum: Unremarkable. No cardiomegaly. Vasculature: Persistent ectasia of the aortic arch Bones/joints: Unremarkable. IMPRESSION: 1. Bibasilar atelectasis versus parenchymal scarring. Findings appear stable compared with the previous study. 2. No evidence of acute cardiopulmonary disease.
[2024-01-10 15:12] LABS: Microscopic, Urine URINE MICROSCOPIC (MICROSCOPIC)
[2024-01-10 15:20] LABS: Appearance,Urine CLEAR (Clear); Blood, Urine Negative (Negative); Color,Urine YELLOW (Yellow); Glucose,Urine (UA) Negative (Negative); Ketones,Urine 1+ (Negative); Leukocyte Esterase,Urine TRACE (Negative); Nitrate,Urine Negative (Negative); PH,Urine 5.5 (5.0-8.5); Protein,Urine 2+ (Negative); Specific Gravity, Urine >= 1.030 (1.005-1.030); Urobilinogen,Urine 0.2 EU/dl (0.2)
[2024-01-10 15:21] LABS: Strep Scrn Group A (Rapid) Negative (Negative)
--- NOTE | 2024-01-10 15:24 | HMH.EDGENADL ---
Discharge Plan Disposition Patient Disposition: Admitted Prescriptions Prescriptions: No Action tramadol 50 mg tablet 50 mg PO NEEDED PRN (Reason: pain) ascorbate calcium (vitamin C) 500 mg tablet 500 mg PO DAILY aspirin 81 mg tablet,chewable 1 tab PO DAILY Patient Comments: TAKE 1 TABLET BY MOUTH ONCE DAILY clopidogrel 75 mg tablet 75 mg PO DAILY albuterol sulfate 90 mcg/actuation HFA aerosol inhaler 2 inh IH Q6H PRN (Reason: shortness of breath or wheezing) 90 Days Qty: 8.5 3RF atenolol 100 mg tablet 100 mg PO DAILY omeprazole 40 mg capsule,delayed release(DR/EC) 40 mg PO DAILY ciclopirox 0.77 % cream topical mupirocin 2 % ointment topical montelukast 10 mg tablet 10 mg PO DAILY prednisone 1 mg tablet 4 mg PO DAILY triamcinolone acetonide 0.1 % cream topical azelastine 137 mcg (0.1 %) aerosol,spray 1 spray intranasal BID Qty: 30 3RF Rx Instructions: administer into each nostril hydroxychloroquine 200 mg tablet 200 mg PO BID rosuvastatin 10 mg tablet 10 mg PO DAILY Qty: 90 3RF loratadine 10 MG capsule 10 mg PO DAILY losartan 50 mg tablet 50 mg PO DAILY Referrals Follow up/Referrals: Alfred Chapa MD [Primary Care Provider] - See instructions Clinical Impressions Clinical Impression: ALDO (acute kidney injury), Acute exacerbation of chronic obstructive pulmonary disease, Pharyngitis, Decreased oral intake, Dehydration, moderate Discharge ED Provider: Lamin Hoffman General Adult HPI General Chief complaint: PAIN Stated complaint: congestion, pain while coughing Time Seen by Provider: 01/10/24 15:11 Mode of Arrival: Wheelchair Source of Information: Patient and Spouse Limitations: No Limitations Description of Symptoms (Recalled from ER Triage Doc. by RN): c/o sore throat to the point she cant eat or drink due to pain, was seen at her pcp next week and was told she had bronchitis, states that her cough is still bad and her urine is dark due to lack of fluid intake, reports when it is like this she usually has a uti, denies any buring or irritation at this time. History of Present Illness HPI narrative: Patient is a 68-year-old female with a history of COPD stopped smoking 8 years ago presents today with multiple complaints. States she is been coughing having increased wheezing was seen by her primary care doctor last week started on azithromycin without any significant improvement. States she did have a breathing treatment at home which allowed her to move more air and had some increase sputum production at that time but she presents today with worsening cough shortness of breath also with urinary symptoms and states she has had multiple urinary tract infections in the past. She also complains of severe sore throat to the point where she feels like it is an open wound and she had decreased p.o. intake over the last 5 to 7 days with decreased urine output. Related Data Home Medications Medication Instructions Recorded Confirmed loratadine 10 mg capsule 10 mg PO DAILY Allergy symptoms 05/25/18 12/16/23 ascorbate calcium (vitamin C) 500 500 mg PO DAILY Supplement 04/25/20 12/16/23 mg tablet tramadol 50 mg tablet 50 mg PO NEEDED PRN pain 04/25/20 12/16/23 atenolol 100 mg tablet 100 mg PO DAILY 01/27/23 12/16/23 ciclopirox 0.77 % topical cream applic topical 01/27/23 12/16/23 montelukast 10 mg tablet 10 mg PO DAILY 01/27/23 12/16/23 mupirocin 2 % topical ointment topical 01/27/23 12/16/23 omeprazole 40 mg capsule,delayed 40 mg PO DAILY 01/27/23 12/16/23 release prednisone 1 mg tablet 4 mg PO DAILY 01/27/23 12/16/23 triamcinolone acetonide 0.1 % applic topical 01/27/23 12/16/23 topical cream aspirin 81 mg chewable tablet 1 tab PO DAILY 10/11/23 12/16/23 clopidogrel 75 mg tablet 75 mg PO DAILY 10/11/23 12/16/23 hydroxychloroquine 200 mg tablet 200 mg PO BID 10/11/23 12/16/23 losartan 50 mg tablet 50 mg PO DAILY bp 10/11/23 12/16/23 Previous Rx's Medication Instructions Recorded rosuvastatin 10 mg tablet 10 mg PO DAILY Cholesterol #90 tabs 10/09/20 albuterol sulfate 90 mcg/actuation 2 inh inhalation Q6H PRN shortness 06/01/22 aerosol inhaler of breath or wheezing 90 days #8.5 grams azelastine 137 mcg (0.1 %) nasal 1 spray intranasal BID #30 mL 01/27/23 spray aerosol Allergies Allergy/AdvReac Type Severity Reaction Status Date / Time No Known Allergies Allergy Verified 12/16/23 13:12 [facility] Disclaimer: The information contained in this section may have been updated after the patient was seen, as this information can be updated by other users. Medical History Deviated septum Dysphagia Edema Globus sensation Hoarseness Nasal valve collapse Warthin's tumor Xerostomia due to dehydration Surgical History H/O: hysterectomy History of bowel resection Family History Other Asthma Diabetes Heart attack Hypertension Thyroid disorder Social History Smoking Status: Former smoker tobacco type: cigarettes second hand exposure: No alcohol intake: never counseling provided: none substance use type: denies use current occupational status: retired Travel in the last 8 weeks: None household members: spouse housing: house current occupational exposures/hazards: No caffeine: Yes ROS Obtained: Yes All systems reviewed & no additional complaints except as documented Physical Exam General General appearance: alert and in no apparent distress ENT ENT exam: Absent normal oropharynx (Posterior pharynx is erythematous and inflamed but no ulcerations or exudates or soft tissue abnormalities from my standpoint) Neck Neck exam: Present normal inspection and full ROM Respiratory Respiratory exam: Present other (No respiratory distress there is mild diffuse wheezing throughout all lung [place] nonfocal no excess or muscle use patient speaking in full sentences without any difficulty normal saturations on room air) Cardiovascular Cardiovascular exam: Present regular rate and normal rhythm Abdominal Exam Abdominal exam: Present soft; Absent distention or tenderness Neurological Exam Neurological exam: Present alert and oriented X3; Absent motor sensory deficit Medical Decision Making Chuy Inquiry Pt receiving controlled substance: No Vital Signs: 01/10/24 14:50 01/10/24 15:54 01/10/24 15:55 Temperature 98.4 F Temperature Source Oral Pulse Rate 83 84 Pulse Rate [Left Radial] 82 Respiratory Rate 18 Blood Pressure 107/75 L 107/75 L Blood Pressure [Right Arm] 115/53 L Blood Pressure Mean [Right Arm] 73 Blood Pressure Source [Right Arm] Automatic Cuff Blood Pressure Position [Right Arm] Sitting 02 Sat by Pulse Oximetry 95 95 90 L Oxygen Delivery Method Room Air Room Air Room Air 01/10/24 16:01 01/10/24 16:16 01/10/24 16:30 Temperature Temperature Source Pulse Rate 85 88 Pulse Rate [Left Radial] Respiratory Rate Blood Pressure 107/69 L 128/71 130/82 Blood Pressure [Right Arm] Blood Pressure Mean [Right Arm] Blood Pressure Source [Right Arm] Blood Pressure Position [Right Arm] 02 Sat by Pulse Oximetry 93 L 99 91 L Oxygen Delivery Method Room Air Room Air Room Air 01/10/24 16:45 Temperature Temperature Source Pulse Rate 88 Pulse Rate [Left Radial] Respiratory Rate Blood Pressure 144/87 H Blood Pressure [Right Arm] Blood Pressure Mean [Right Arm] Blood Pressure Source [Right Arm] Blood Pressure Position [Right Arm] 02 Sat by Pulse Oximetry 91 L Oxygen Delivery Method Room Air Lab Data Lab results reviewed: Yes I reviewed the patient's lab results. Lab Results 01/10/24 15:06: Urine Color Yellow, Urine Appearance Clear, Urine pH 5.5, Ur Specific [place] >= 1.030, Urine Protein 2+, Urine Glucose (UA) Negative, Urine Ketones 1+, Urine Blood Negative, Urine Nitrate Negative, Urine Bilirubin 2+ A, Urine Urobilinogen 0.2, Ur Leukocyte Esterase Trace, Urine RBC Occasional, Urine WBC Occasional, Ur Squamous Epith Cells 3-5, Ur Transition Epith Cell Occ, Urine Bacteria Trace, Hyaline Casts 5-10, Group A Strep Rapid Negative 01/10/24 15:42: SARS-CoV-2 (PCR) Not detected, Influenza A Untype (PCR) Not detected, Influenza Type B (PCR) Not detected 01/10/24 15:49: WBC 16.3 H, RBC 5.07, Hgb 14.7, Hct 45.5, MCV 89.7, MCH 29.0, MCHC 32.4, RDW 15.2, Plt Count 376, MPV 7.9, Neut % (Auto) 86.0 H, Lymph % (Auto) 9.7 L, [place] % (Auto) 2.5, Eos % (Auto) 0.8, Baso % (Auto) 0.9, Neut # (Auto) 14.1 H, Lymph # (Auto) 1.6, [place] # (Auto) 0.4, Eos # (Auto) 0.1, Baso # (Auto) 0.2, Total Counted 100, Neutrophils % (Manual) 89 H, Lymphocytes % (Manual) 8 L, Monocytes % (Manual) 3, Platelet Estimate Normal, RBC Morphology Normal, D-Dimer 0.86 H, Sodium 133 L, Potassium 4.4, Chloride 93 L, Carbon Dioxide 29, Anion Gap 15.4 H, BUN 47 H, Creatinine 2.20 H, Estimated Creat Clear 28, Estimated GFR 22 L, Est GFR ( Amer) 27 L, Glucose 94, Lactate 2.1, Calcium 9.1, Total Bilirubin 1.0, AST 48 H, ALT 28, Alkaline Phosphatase 87, Troponin I 0.05 H, NT-Pro-B Natriuret Pep 606 H, Total Protein 7.2, Albumin 4.0, Globulin 3.2, Albumin/Globulin Ratio 1.3 01/10/24 15:54: VBG pH 7.33, VBG pCO2 49.1, VBG pO2 30.6, VBG HCO3 25.2, VBG Total CO2 26.8, VBG O2 Saturation 50.6, VBG Base Excess -0.7 01/10/24 16:00: VBG Lactic Acid 3.5 H 01/10/24 15:49 01/10/24 15:49 Orders (Tests/Meds): ED MEDICATIONS Generic Name Dose Route Start Last Admin Trade Name Freq PRN Reason Stop Dose Admin Lactated Ringer's 1,000 mls @ 100 mls/hr 01/10/24 17:00 Lactated Ringer's 1000 Ml Bag IV 01/11/24 02:59 .Q10H ISIAH Discontinued Medications Generic Name Dose Route Start Last Admin Trade Name Freq PRN Reason Stop Dose Admin Albuterol/Ipratropium 3 ml 01/10/24 15:19 01/10/24 15:57 Ipratropium/Albuterol 3 Ml Neb IH 01/10/24 15:20 3 ml ONCE ONE Administration Lactated Ringer's 500 mls @ 999 mls/hr 01/10/24 15:30 01/10/24 15:56 Lactated Ringer's 1000 Ml Bag IV 01/10/24 16:00 999 mls/hr .Q31M ISIAH Administration Prednisone 60 mg 01/10/24 15:19 01/10/24 15:55 Prednisone 20mg Tab PO 01/10/24 15:20 60 mg ONCE ONE Administration ORDERS Category Date Time Status Cardiology Consult [Consult to Cardiology] [CONS] Cons 01/11/24 07:00 Active Routine XR chest 2V Stat Exams 01/10/24 15:09 Completed BNP [Brain Natriuretic Peptide] Stat Lab 01/10/24 15:49 Completed CBC w/Auto Diff [Complete Blood Count Auto Diff] Stat Lab 01/10/24 15:49 Completed CMP [Comprehensive Metabolic Panel] Stat Lab 01/10/24 15:49 Completed Complete Blood Count Auto Diff AMLAB Lab 01/11/24 06:00 Ordered Comprehensive Metabolic Panel AMLAB Lab 01/11/24 06:00 Ordered D-Dimer Stat Lab 01/10/24 15:49 Completed Lactate Venous Stat Lab 01/10/24 16:00 Completed Lactic Acid Stat Lab 01/10/24 15:49 Completed Magnesium AMLAB Lab 01/11/24 06:00 Ordered Rapid PCR Covid and Flu A/B Stat Lab 01/10/24 15:42 Completed Strep Scrn Group A (Rapid) Stat Lab 01/10/24 15:06 Completed Trop I [Troponin I] Stat Lab 01/10/24 15:49 Completed Troponin I Q3H Lab 01/10/24 18:30 Ordered Troponin I Q3H Lab 01/10/24 21:30 Ordered Urinalysis and Microscopic Stat Lab 01/10/24 15:06 Completed Blood Culture Stat Micro 01/10/24 15:36 Received Strep Screen Confirmation Stat Micro 01/10/24 15:06 Received Venous Blood Gas Stat RT 01/10/24 15:54 Completed ECG Data Tracing #1: I reviewed this ECG and interpreted as documented below: Ventricular rate of 84 left anterior fascicular block however no acute ischemic changes no acute ST segment abnormalities there are Q waves in the inferior leads possibly an old inferior [place] no significant conduction abnormalities Medical Decision Narrative: Patient is a 68-year-old female with above history. Differential includes acute exacerbation of COPD pneumonia pulmonary embolism heart failure myocarditis acute coronary syndrome acute kidney injury renal insufficiency urinary tract infection etc. Broad workup is initiated. She has been given IV fluids at a minimum she is dehydrated from decreased p.o. intake due to the sore throat that she has been complaining of. Infectious workup is also pending including strep COVID flu. Will reassess after her workup. Chest pain chest x-ray performed to person interpreted which shows no acute cardiopulmonary emergency specifically no pneumonia. Reassessment 5:04 PM patient feeling much better clinically. Patient does have significant dehydration and as stated above and has an acute kidney injury creatinine of 2.2 baseline 0.8. IV fluids have been administered I spoke with Dr. Valdovinos who will admit the patient for further evaluation and management. COVID and flu were negative no indication for antibiotics at the moment. Critical Care Critical Care Time Critical Care Time: Yes Attestation: On 01/10/24, the high probability of a clinically significant, sudden or life threatening deterioration of the following system(s) required my full and direct attention, intervention and personal management. The time I documented below is in addition to time spent performing reported procedures but includes the following listed in this critical care notation. Total Time Total Critical Care Time: 35
[2024-01-10 15:38] LABS: Bacteria,Urine Trace /lpf; Bilirubin,Urine 2+ (Negative); RBC,Urine Occasional #/hpf (0-3); Transitional Epi Cells,Urine OCC #/lpf (0-3); WBC,Urine Occasional #/hpf (0-3)
--- NOTE | 2024-01-10 15:41 | ECG_ITS ---
APPROVED REPORT Exam: Resting ECG HR:84 bpm ECG Measurements Heart Rate 84 AXES NJ 138 P 26 QRSd 92 QRS -50 QT 409 T 27 QTc 451 Conclusion SINUS RHYTHM LEFT ANTERIOR FASCICULAR BLOCK [QRS AXIS <= -45, QR IN I, RS IN II] POSSIBLE ANTERIOR MYOCARDIAL INFARCTION , OF INDETERMINATE AGE [30 ms Q WAVE IN V3/V4, OR R < 0.2 mV IN V4] INFERIOR MYOCARDIAL INFARCTION , PROBABLY OLD [40+ ms Q WAVE AND/OR ST/T ABNORMALITY IN II/aVF] ABNORMAL ECG UNCONFIRMED REPORT Electronically signed by : Basilio Hoffman, 01/10/2024 23:39:35
[2024-01-10] MEDS: predniSONE 20MG TAB 60 MG PO (15:55)
[2024-01-10 15:56] LABS: VBG Base Excess -0.7 mmol/L (-2.4-2.3); VBG HCO3 25.2 mmol/L (23-30); VBG Oxygen Saturation 50.6 % (50-70); VBG PCO2 49.1 mmol/L (35-51); VBG PH 7.33 mmol/L (7.31-7.41); VBG PO2 30.6 mmol/L (28-40); VBG Total CO2 26.8 mmol/L (23-27)
[2024-01-10 15:56] LABS: Coronavirus 19, PCR Not Detected (NotDetected); Influenza A, PCR Not Detected (NotDetected); Influenza B, PCR Not Detected (NotDetected)
[2024-01-10] MEDS: LACTATED RINGERS 1000ML 500 ML 999 ML IV (15:56)
[2024-01-10] MEDS: IPRATROPIUM/ALBUTEROL 3 ML NEB IH (15:57)
[2024-01-10 15:59] LABS: Basophils # 0.2 K/mm3 (0-0.2); Basophils % 0.9 % (0.1-2.0); Eosinophils # 0.1 K/mm3 (0.0-0.4); Eosinophils % 0.8 % (0.1-12.0); Hematocrit 45.5 % (37.0-47.0); Hemoglobin 14.7 g/dL (12.2-16.2); Lymphocytes # 1.6 K/mm3 (0.7-4.5); Lymphocytes % 9.7 % (10-50); Mean Corpuscular HGB Conc 32.4 g/dL (31.8-35.4); Mean Corpuscular Volume 89.7 fl (81-99); Mean Platelet Volume 7.9 fl (7.4-10.4); Monocytes # 0.4 K/mm3 (0.1-1.0); Monocytes % 2.5 % (1.7-9.3); Neutrophils # 14.1 K/mm3 (1.8-7.8); Platelet Count 376 K/mm3 (142-424); Red Blood Count 5.07 M/mm3 (4.20-5.40); Red Cell Distribution Width 15.2 % (11.5-17.5); White Blood Count 16.3 K/mm3 (4.8-10.8)
[2024-01-10 16:01] LABS: Lactate Venous 3.5 mmol/L (0.4-2.0)
[2024-01-10 16:04] LABS: MANUAL DIFFERENTIAL MANUAL DIFFERENTIAL (MANUAL DIFF)
[2024-01-10 16:11] LABS: Alanine Aminotransferase 28 U/L (12-78); Albumin/Globulin Ratio 1.3 (1.1-1.8); Alkaline Phosphatase 87 U/L (38-126); Anion Gap 15.4 mEq/L (5-15); Aspartate Amino Transferase 48 U/L (14-36); Blood Urea Nitrogen 47 mg/dl (7-17); Calcium 9.1 mg/dl (8.4-10.2); Carbon Dioxide 29 mmol/L (22.0-30.0); Chloride 93 mmol/L (98-107); Creatinine Clearance Estimated 28 mL/min (50-200); Estimated Glomerular Filt Rate 22 ml/min (>60); GFR (African American) 27 ML/MIN (>60); Globulin 3.2 g/dL (1.3-3.2); Glucose 94 mg/dl (74-100); Lymphocytes % 8 % (10-50); Monocytes % 3 % (2-9); Neutrophils % 89 % (42-76); Platelet Estimate Normal; Potassium 4.4 mmoL/L (3.5-5.1); RBC Morphology Normal; Sodium 133 mmol/L (136-145); Total Cells Counted 100; Total Protein,Serum 7.2 g/dl (6.3-8.2)
[2024-01-10 16:12] LABS: Lactic Acid 2.1 mmol/L (0.7-2.1)
[2024-01-10 16:17] LABS: D-Dimer 0.86 ug/mL (0.0-0.5)
[2024-01-10 16:23] LABS: NT Pro Brain Natriuretic Pep. 606 pg/mL (0-125); Troponin I 0.05 ng/ml (0.00-0.034)
--- NOTE | 2024-01-10 17:04 | PC.NURSE ---
called house for bed assignment
--- NOTE | 2024-01-10 17:45 | PC.NURSE ---
report called to katiana on second floor
[2024-01-10] MEDS: LACTATED RINGERS 1000ML 1,000 ML 100 ML IV (18:55)
[2024-01-10 19:02] LABS: Troponin I 0.03 ng/ml (0.00-0.034)
[2024-01-10 19:53] LABS: Reflex Lactic Add Lactic Reflex
[2024-01-10 20:21] LABS: Lactic Acid Follow Up (RFLX 1) 1.2 mmol/L (0.7-2.1)
--- NOTE | 2024-01-10 20:40 | EXP.HP ---
History of Present Illness *Admission Date: 01/10/24 *Reason for visit:: sore throat *History of present illness: This is a pleasant 68-year-old female with a PMHx of COPD stopped smoking 8 years ago, CAD on plavix, Dysphagia, presented today to ED with sore throat and painful swallowing. Pain is so severe to the point where she feels like it is an open wound, therefore she had decreased p.o. intake over the last 5 to 7 days with decreased urine output. She stated she is been coughing having increased wheezing was seen by her primary care doctor last week started on azithromycin for apparently COPD exacerbation without any significant improvement. States she did have a breathing treatment at home. patient has been seen increase in sputum. Today she referred worsening cough shortness of breath also with urinary symptoms and states she has had multiple urinary tract infections in the past. Admitted for treatment and management. [facility] Disclaimer: The information contained in this section may have been updated after the patient was seen, as this information can be updated by other users. Medical History Deviated septum Dysphagia Edema Globus sensation Hoarseness Nasal valve collapse Warthin's tumor Xerostomia due to dehydration Surgical History H/O: hysterectomy History of bowel resection Family History Other Asthma Diabetes Heart attack Hypertension Thyroid disorder Social History Smoking Status: Former smoker tobacco type: cigarettes second hand exposure: No alcohol intake: never counseling provided: none substance use type: denies use current occupational status: retired Travel in the last 8 weeks: None household members: spouse housing: house current occupational exposures/hazards: No caffeine: Yes Review of Systems Review of Systems Review of systems:: pertinent systems reviewed and negative unless documented below Meds Home Medications and Allergies Home Medications Medication Instructions Recorded Confirmed Type loratadine 10 mg capsule 10 mg PO DAILY Allergy symptoms 05/25/18 01/10/24 History ascorbate calcium (vitamin C) 500 500 mg PO DAILY Supplement 04/25/20 01/10/24 History mg tablet tramadol 50 mg tablet 50 mg PO Q6 PRN pain 04/25/20 01/10/24 History rosuvastatin 10 mg tablet 10 mg PO DAILY Cholesterol #90 tabs 10/09/20 01/10/24 Rx albuterol sulfate 90 mcg/actuation 2 inh inhalation Q6H PRN shortness 06/01/22 01/10/24 Rx aerosol inhaler of breath or wheezing 90 days #8.5 grams atenolol 100 mg tablet 100 mg PO HS 01/27/23 01/10/24 History azelastine 137 mcg (0.1 %) nasal 1 spray intranasal BID #30 mL 01/27/23 01/10/24 Rx spray aerosol ciclopirox 0.77 % topical cream 1 applic topical DAILY 01/27/23 01/10/24 History montelukast 10 mg tablet 10 mg PO HS 01/27/23 01/10/24 History omeprazole 40 mg capsule,delayed 40 mg PO DAILY 01/27/23 01/10/24 History release prednisone 1 mg tablet 4 mg PO DAILY 01/27/23 01/10/24 History aspirin 81 mg chewable tablet 1 tab PO DAILY 10/11/23 01/10/24 History clopidogrel 75 mg tablet 75 mg PO DAILY 10/11/23 01/10/24 History hydroxychloroquine 200 mg tablet 200 mg PO BID 10/11/23 01/10/24 History losartan 50 mg tablet 50 mg PO DAILY bp 10/11/23 01/10/24 History New Prescriptions to Start Prescriptions: Allergies Allergy/AdvReac Type Severity Reaction Status Date / Time No Known Allergies Allergy Verified 12/16/23 13:12 Exam Data for Last 24 hours Vital signs and Labs for Last 24 Hours: Temp Pulse Resp BP Pulse Ox O2 Del Method 98 F 88 17 107/58 L 94 L Room Air 01/10/24 20:00 01/10/24 20:00 01/10/24 20:00 01/10/24 20:00 01/10/24 20:00 01/10/24 20:00 Laboratory Results - last 24 hr 01/10/24 15:06: Urine Color Yellow, Urine Appearance Clear, Urine pH 5.5, Ur Specific [place] >= 1.030, Urine Protein 2+, Urine Glucose (UA) Negative, Urine Ketones 1+, Urine Blood Negative, Urine Nitrate Negative, Urine Bilirubin 2+ A, Urine Urobilinogen 0.2, Ur Leukocyte Esterase Trace, Urine RBC Occasional, Urine WBC Occasional, Ur Squamous Epith Cells 3-5, Ur Transition Epith Cell Occ, Urine Bacteria Trace, Hyaline Casts 5-10, Group A Strep Rapid Negative 01/10/24 15:42: SARS-CoV-2 (PCR) Not detected, Influenza A Untype (PCR) Not detected, Influenza Type B (PCR) Not detected 01/10/24 15:49: WBC 16.3 H, RBC 5.07, Hgb 14.7, Hct 45.5, MCV 89.7, MCH 29.0, MCHC 32.4, RDW 15.2, Plt Count 376, MPV 7.9, Neut % (Auto) 86.0 H, Lymph % (Auto) 9.7 L, [place] % (Auto) 2.5, Eos % (Auto) 0.8, Baso % (Auto) 0.9, Neut # (Auto) 14.1 H, Lymph # (Auto) 1.6, [place] # (Auto) 0.4, Eos # (Auto) 0.1, Baso # (Auto) 0.2, Total Counted 100, Neutrophils % (Manual) 89 H, Lymphocytes % (Manual) 8 L, Monocytes % (Manual) 3, Platelet Estimate Normal, RBC Morphology Normal, D-Dimer 0.86 H, Sodium 133 L, Potassium 4.4, Chloride 93 L, Carbon Dioxide 29, Anion Gap 15.4 H, BUN 47 H, Creatinine 2.20 H, Estimated Creat Clear 28, Estimated GFR 22 L, Est GFR ( Amer) 27 L, Glucose 94, Lactate 2.1, Calcium 9.1, Total Bilirubin 1.0, AST 48 H, ALT 28, Alkaline Phosphatase 87, Troponin I 0.05 H, NT-Pro-B Natriuret Pep 606 H, Total Protein 7.2, Albumin 4.0, Globulin 3.2, Albumin/Globulin Ratio 1.3 01/10/24 15:54: VBG pH 7.33, VBG pCO2 49.1, VBG pO2 30.6, VBG HCO3 25.2, VBG Total CO2 26.8, VBG O2 Saturation 50.6, VBG Base Excess -0.7 01/10/24 16:00: VBG Lactic Acid 3.5 H 01/10/24 18:32: Troponin I 0.03 01/10/24 20:05: Lactate 1.2 I & O for Last 24 hours: Intake & Output 01/07/24 01/08/24 01/09/24 01/10/24 22:59 22:59 23:59 23:59 Intake Total 240 / 240 Balance 240 / 240 Weight 71.299 kg Constitutional Constitutional: obese, chronically ill appearing and combative *Routine HEENT Exam Head: Present normocephalic and atraumatic Eye: Present EOMI, PERRL and normal accommodation ENT: Present mucous membranes moist *Routine Neck Exam Neck: Present supple, full ROM and trachea midline *Routine Respiratory Exam Respiratory: Present CTA bilaterally, prolonged expiratory phase, wheezes, normal respiratory effort and symmetric chest movement; Absent respiratory distress *Routine Cardiovascular Exam Cardiovascular: Present RRR, Normal S1 and Normal S2 *Routine Abdominal Exam Abdominal: Present soft and normoactive bowel sounds; Absent tenderness or distended *Routine Rectal Exam Rectal:: deferred *Routine Genitalia Exam Genitalia:: deferred *Routine Extremities Exam Extremities: Present full ROM and pulses intact; Absent cyanosis, clubbing or edema *Routine Skin Exam Skin: Present intact; Absent cyanosis, erythema or rash *Routine Neurological Exam Neurological: Present alert, oriented X3, normal reflexes, moving all extremities and normal speech Routine Psychiatric Exam Psychiatric: Present cooperative, good insight and good judgment Assessment and Plan *Assessment and plan (1) ALDO (acute kidney injury): Status: Acute Category: Medical Code(s): N17.9 - Acute kidney failure, unspecified (2) Dehydration, moderate: Status: Acute Category: Medical Code(s): E86.0 - Dehydration (3) Elevated troponin: Status: Acute Category: Medical Code(s): R79.89 - Other specified abnormal findings of blood chemistry (4) Acute exacerbation of chronic obstructive pulmonary disease: Status: Acute Category: Medical Code(s): J44.1 - Chronic obstructive pulmonary disease with (acute) exacerbation (5) Thrush, oral: Status: Acute Category: Medical Code(s): B37.0 - Candidal stomatitis (6) GERD (gastroesophageal reflux disease): Status: Acute Qualifiers: Esophagitis presence: without esophagitis Qualified Code(s): K21.9 - Gastro-esophageal reflux disease without esophagitis Category: Medical Code(s): K21.9 - Gastro-esophageal reflux disease without esophagitis (7) CAD (coronary artery disease): Status: Acute Qualifiers: Associated angina: without angina Coronary Disease-Associated Artery/Lesion type: [place] artery [place] vs. transplanted heart: [place] heart Qualified Code(s): I25.10 - Atherosclerotic heart disease of [place] coronary artery without angina pectoris Category: Medical Code(s): I25.10 - Atherosclerotic heart disease of [place] coronary artery without angina pectoris (8) Diastolic dysfunction: Status: Acute Category: Medical Code(s): I51.89 - Other ill-defined heart diseases (9) Dysphagia: Status: Acute Qualifiers: Dysphagia type: esophageal phase Qualified Code(s): R13.19 - Other dysphagia Category: Medical Code(s): R13.10 - Dysphagia, unspecified Plan 68-year-old female with a PMHx of COPD stopped smoking 8 years ago, CAD on plavix, Dysphagia, presented today to ED with sore throat and painful swallowing. Pain is so severe to the point where she feels like it is an open wound, therefore she had decreased p.o. intake over the last 5 to 7 days with decreased urine output. initial work up found patient to be very dehydrated with ALDO, Creatinine of 2.8. CXR low concern for focal consolidation. found detectable troponin. started on IV resuscitation. Due to high risk of decompensation, discussion was made with ER for admission. Plan as follow: -Acute kidney injury, likely prerenal azotemia. Secondary to severe dehydration, Due to moderate oral thrush: Admit patient for medical services. Dispo MedSurg *Continue gentle IV hydration. Avoid fluid overload Repeat CMP in the morning monitor for renal function In and output Avoid nephrotoxic's medications Started on nystatin suspension 500 000 units 3 times daily Encourage increased p.o. intake -Elevated troponin: CAD: Likely to oxygen demand: EKG normal. No chest pain Last echocardiogram normal EF diastolic dysfunction Cardiology consult to assist -COPD exacerbation: Started on Levaquin empirically DuoNeb every 6 Monitor for O2 saturation -History of GERD, and dysphagia: Patient has schedule EGD outpatient on February 02. Follow-up outpatient with the GI On Plavix. Low concern of DVT. On Protonix for GI protection Full code Rounded on patient prior to nurse practitioner. Personally examined and interviewed patient. Agree with exam findings and care plan as documented.
[2024-01-10] MEDS: NYSTATIN SUSP 500,000 UNITS/5ML UDC 500000 UNIT PO (21:38)
[2024-01-10] MEDS: PANTOPRAZOLE 40MG TABLET 40 MG PO (21:38)
[2024-01-10] MEDS: MONTELUKAST SODIUM 10MG TAB 10 MG PO (21:38)
[2024-01-10 21:48] LABS: Troponin I 0.02 ng/ml (0.00-0.034)
[2024-01-10] MEDS: LEVOFLOXACIN/D5W 750 MG/150 ML 750 MG/150 ML PIGGYBACK 100 MG IV (23:34)
[2024-01-11 04:00] VITALS: BP 109/73; PULSE 89; RESP 17; TEMP 36.6; O2SAT 94; BMI 29.2
[2024-01-11 06:40] LABS: Basophils # 0.1 K/mm3 (0-0.2); Eosinophils % 0.1 % (0.1-12.0); Monocytes # 0.5 K/mm3 (0.1-1.0); Monocytes % 3.8 % (1.7-9.3); Red Cell Distribution Width 15.2 % (11.5-17.5); White Blood Count 12.5 K/mm3 (4.8-10.8)
[2024-01-11 06:46] LABS: Alanine Aminotransferase 20 U/L (12-78); Albumin Level 3.4 g/dl (3.5-5.0); Albumin/Globulin Ratio 1.2 (1.1-1.8); Alkaline Phosphatase 71 U/L (38-126); Anion Gap 12.1 mEq/L (5-15); Aspartate Amino Transferase 48 U/L (14-36); Bilirubin,Total 0.6 mg/dl (0.2-1.3); Blood Urea Nitrogen 35 mg/dl (7-17); Calcium 8.8 mg/dl (8.4-10.2); Carbon Dioxide 30 mmol/L (22.0-30.0); Chloride 99 mmol/L (98-107); Creatinine Clearance Estimated 48 mL/min (50-200); Estimated Glomerular Filt Rate 40 ml/min (>60); GFR (African American) 49 ML/MIN (>60); Globulin 2.9 g/dL (1.3-3.2); Glucose 85 mg/dl (74-100); Magnesium 1.8 mg/dl (1.6-2.3); Potassium 5.1 mmoL/L (3.5-5.1); Sodium 136 mmol/L (136-145); Total Protein,Serum 6.3 g/dl (6.3-8.2)
[2024-01-11 06:54] LABS: Basophils % 0.4 % (0.1-2.0); Lymphocytes # 1.2 K/mm3 (0.7-4.5); Lymphocytes % 9.3 % (10-50); Mean Corpuscular HGB Conc 32.6 g/dL (31.8-35.4); Mean Corpuscular Volume 89.1 fl (81-99); Mean Platelet Volume 7.7 fl (7.4-10.4); Neutrophils # 10.8 K/mm3 (1.8-7.8); Neutrophils % 86.5 % (37.0-80.0); Platelet Count 311 K/mm3 (142-424); Red Blood Count 4.49 M/mm3 (4.20-5.40)
[2024-01-11 07:00] LABS: MANUAL DIFFERENTIAL MANUAL DIFFERENTIAL (MANUAL DIFF)
--- NOTE | 2024-01-11 07:41 | HMH.PHAINT1 ---
Pharmacy Intervention Comments: Verified patient's home medications using external fill history and provider note from recent office visit (12/16/23).
[2024-01-11 07:53] VITALS: BP 156/84; PULSE 89; RESP 18; TEMP 37; O2SAT 95
[2024-01-11] MEDS: LORATADINE 10MG TABLET 10 MG PO (08:22)
[2024-01-11] MEDS: CLOPIDOGREL 75MG TAB 75 MG PO (08:22)
[2024-01-11] MEDS: IRBESARTAN 75MG TABLET 75 MG PO (08:22)
[2024-01-11] MEDS: ASPIRIN 81MG CHEWABLE TABLET 81 MG PO (08:22)
[2024-01-11] MEDS: NYSTATIN SUSP 500,000 UNITS/5ML UDC 500000 UNIT PO ×4 (08:22→22:00)
[2024-01-11] MEDS: LACTATED RINGERS 395 ML IV (08:24)
[2024-01-11 08:41] LABS: Lymphocytes % 7 % (10-50); Monocytes % 5 % (2-9); Neutrophils % 88 % (42-76); Total Cells Counted 100
[2024-01-11 08:42] LABS: Platelet Estimate Normal; RBC Morphology Normal
--- NOTE | 2024-01-11 09:08 | P.CONCA_ITS ---
History of Present Illness History of Present Illness Consult date: 01/11/24 Requesting physician: Basilio Valdovinos Chief complaint: sore throat History of present illness: 68-year-old white female with past medical history of coronary artery disease with medical management heart catheter 2016 and normal stress test 2019, hx of questionable subclavian stenting at [facility] last year for which is on plavix, COPD, former smoker-quit 8 years ago and dysphagia presented to emergency department last night with complaints of sore throat and decreased p.o. intake x 5 to 7 days. Patient was recently treated by PCP for COPD exacerbation with a Z-Blake without any improvement. Patient reports ongoing wheezing, cough and worsening shortness of breath. Patient reports throat was so bad she has not been able to eat in the past 5 to 7 days and has decreased urinary output. Upon presentation to emergency department initial labs as follow: WBC 16.3,Sodium 133, sodium 133, creatinine 2.2, lactate 2.1, troponin 0.05 trending down to 0.02, proBNP 606 and strep was negative. EKG upon arrival to emergency department showed sinus rhythm at a rate of 84 without acute ischemic changes noted. Chest x-ray was negative for acute cardiopulmonary process. Cardiology was asked to evaluate for elevated troponin, which since admission has trended down. Patient denies chest pain or shortness of breath currently. [facility] Disclaimer: The information contained in this section may have been updated after the patient was seen, as this information can be updated by other users. Medical History Deviated septum Dysphagia Edema Globus sensation Hoarseness Nasal valve collapse Warthin's tumor Xerostomia due to dehydration Surgical History H/O: hysterectomy History of bowel resection Family History Other Asthma Diabetes Heart attack Hypertension Thyroid disorder Social History Smoking Status: Former smoker tobacco type: cigarettes second hand exposure: No alcohol intake: never counseling provided: none substance use type: denies use current occupational status: retired Travel in the last 8 weeks: None household members: spouse housing: house current occupational exposures/hazards: No caffeine: Yes Review of Systems ENT Ears, Nose, Mouth, and Throat: Reports dry mouth Comments: Report sore throat *Cardiovascular Cardiovascular: Denies chest pain and Denies dyspnea *Respiratory Respiratory: Reports cough and Denies dyspnea Exam Data for Last 24 hours Vital signs and Labs for Last 24 Hours: Temp Pulse Resp BP Pulse Ox O2 Del Method O2 Flow Rate 98.6 F 89 18 156/84 H 95 Room Air 2 01/11/24 07:53 01/11/24 07:53 01/11/24 07:53 01/11/24 07:53 01/11/24 07:53 01/11/24 08:00 01/11/24 07:55 Laboratory Results - last 24 hr 01/10/24 15:06: Urine Color Yellow, Urine Appearance Clear, Urine pH 5.5, Ur Specific [place] >= 1.030, Urine Protein 2+, Urine Glucose (UA) Negative, Urine Ketones 1+, Urine Blood Negative, Urine Nitrate Negative, Urine Bilirubin 2+ A, Urine Urobilinogen 0.2, Ur Leukocyte Esterase Trace, Urine RBC Occasional, Urine WBC Occasional, Ur Squamous Epith Cells 3-5, Ur Transition Epith Cell Occ, Urine Bacteria Trace, Hyaline Casts 5-10, Group A Strep Rapid Negative 01/10/24 15:42: SARS-CoV-2 (PCR) Not detected, Influenza A Untype (PCR) Not detected, Influenza Type B (PCR) Not detected 01/10/24 15:49: WBC 16.3 H, RBC 5.07, Hgb 14.7, Hct 45.5, MCV 89.7, MCH 29.0, MCHC 32.4, RDW 15.2, Plt Count 376, MPV 7.9, Neut % (Auto) 86.0 H, Lymph % (Auto) 9.7 L, [place] % (Auto) 2.5, Eos % (Auto) 0.8, Baso % (Auto) 0.9, Neut # (Auto) 14.1 H, Lymph # (Auto) 1.6, [place] # (Auto) 0.4, Eos # (Auto) 0.1, Baso # (Auto) 0.2, Total Counted 100, Neutrophils % (Manual) 89 H, Lymphocytes % (Manual) 8 L, Monocytes % (Manual) 3, Platelet Estimate Normal, RBC Morphology Normal, D-Dimer 0.86 H, Sodium 133 L, Potassium 4.4, Chloride 93 L, Carbon Dioxide 29, Anion Gap 15.4 H, BUN 47 H, Creatinine 2.20 H, Estimated Creat Clear 28, Estimated GFR 22 L, Est GFR ( Amer) 27 L, Glucose 94, Lactate 2.1, Calcium 9.1, Total Bilirubin 1.0, AST 48 H, ALT 28, Alkaline Phosphatase 87, Troponin I 0.05 H, NT-Pro-B Natriuret Pep 606 H, Total Protein 7.2, Albumin 4.0, Globulin 3.2, Albumin/Globulin Ratio 1.3 01/10/24 15:54: VBG pH 7.33, VBG pCO2 49.1, VBG pO2 30.6, VBG HCO3 25.2, VBG Total CO2 26.8, VBG O2 Saturation 50.6, VBG Base Excess -0.7 01/10/24 16:00: VBG Lactic Acid 3.5 H 01/10/24 18:32: Troponin I 0.03 01/10/24 20:05: Lactate 1.2 01/10/24 21:18: Troponin I 0.02 01/11/24 05:43: WBC 12.5 H, RBC 4.49, Hgb 13.0 D, Hct 40.0, MCV 89.1, MCH 29.0, MCHC 32.6, RDW 15.2, Plt Count 311, MPV 7.7, Neut % (Auto) 86.5 H, Lymph % (Auto) 9.3 L, [place] % (Auto) 3.8, Eos % (Auto) 0.1, Baso % (Auto) 0.4, Neut # (Auto) 10.8 H, Lymph # (Auto) 1.2, [place] # (Auto) 0.5, Eos # (Auto) 0.0, Baso # (Auto) 0.1, Total Counted 100, Neutrophils % (Manual) 88 H, Lymphocytes % (Manual) 7 L, Monocytes % (Manual) 5, Platelet Estimate Normal, RBC Morphology Normal, Sodium 136, Potassium 5.1, Chloride 99, Carbon Dioxide 30, Anion Gap 12.1, BUN 35 H D, Creatinine 1.30 H D, Estimated Creat Clear 48, Estimated GFR 40 L, Est GFR ( Amer) 49 L D, Glucose 85, Calcium 8.8, Magnesium 1.8, Total Bilirubin 0.6, AST 48 H, ALT 20 D, Alkaline Phosphatase 71, Total Protein 6.3, Albumin 3.4 L D, Globulin 2.9, Albumin/Globulin Ratio 1.2 I & O for Last 24 hours: Intake & Output 01/08/24 01/09/24 01/10/24 01/11/24 22:59 23:59 23:59 23:59 Intake Total 240 / 240 1150 / 1150 Balance 240 / 240 1150 / 1150 Weight 157 lb 3 oz 165 lb 1.6 oz Constitutional Constitutional: no acute distress *Routine HEENT Exam ENT: Present mucous membranes dry *Routine Respiratory Exam Respiratory: Present CTA bilaterally and symmetric chest movement *Routine Cardiovascular Exam Cardiovascular: Present RRR, Normal S1 and Normal S2 *Routine Abdominal Exam Abdominal: Present soft and normoactive bowel sounds; Absent tenderness *Routine Extremities Exam Extremities: Present full ROM and normal capillary refill; Absent edema *Routine Skin Exam Skin: Present intact, dry and warm Detailed Neck Exam: Thyroids Thyroid: Absent bruit Meds Home Medications and Allergies Home Medications Medication Instructions Recorded Confirmed Type loratadine 10 mg capsule 10 mg PO DAILY 05/25/18 01/10/24 History ascorbate calcium (vitamin C) 500 500 mg PO DAILY 04/25/20 01/10/24 History mg tablet tramadol 50 mg tablet 50 mg PO Q6 PRN pain 04/25/20 01/10/24 History rosuvastatin 10 mg tablet 10 mg PO DAILY Cholesterol #90 tabs 10/09/20 01/10/24 Rx albuterol sulfate 90 mcg/actuation 2 inh inhalation Q6H PRN shortness 06/01/22 01/10/24 Rx aerosol inhaler of breath or wheezing 90 days #8.5 grams atenolol 100 mg tablet 100 mg PO HS 01/27/23 01/10/24 History azelastine 137 mcg (0.1 %) nasal 1 spray intranasal BID #30 mL 01/27/23 01/10/24 Rx spray aerosol ciclopirox 0.77 % topical cream 1 applic topical DAILY 01/27/23 01/10/24 History montelukast 10 mg tablet 10 mg PO HS 01/27/23 01/10/24 History omeprazole 40 mg capsule,delayed 40 mg PO DAILY 01/27/23 01/10/24 History release prednisone 1 mg tablet 4 mg PO DAILY 01/27/23 01/10/24 History aspirin 81 mg chewable tablet 1 tab PO DAILY 10/11/23 01/10/24 History clopidogrel 75 mg tablet 75 mg PO DAILY 10/11/23 01/10/24 History hydroxychloroquine 200 mg tablet 200 mg PO BID 10/11/23 01/10/24 History losartan 50 mg tablet 50 mg PO DAILY 10/11/23 01/10/24 History New Prescriptions to Start Prescriptions: Allergies Allergy/AdvReac Type Severity Reaction Status Date / Time No Known Allergies Allergy Verified 12/16/23 13:12 Assessment and Plan *Assessment and plan (1) Myocardial injury: Status: Acute Category: Medical Code(s): I5A - Non-ischemic myocardial injury (non-traumatic) (2) ALDO (acute kidney injury): Status: Acute Category: Medical Code(s): N17.9 - Acute kidney failure, unspecified (3) Dehydration, moderate: Status: Acute Category: Medical Code(s): E86.0 - Dehydration (4) Pharyngitis: Status: Acute Category: Medical Code(s): J02.9 - Acute pharyngitis, unspecified Plan Hx of CAD without stenting Acute myocardial injury -Elevated troponin in the setting of acute illness, dehydration and ALDO -Normal cath 2016 -Normal myoview 2019 -Functional capacity is hard to assess, reports ongoing soa at baseline with hx of copd, 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 ALDO Dehydration secondary to poor p.o. intake Pharyngitis -Defer to primary service CV summary 01/11/2024: Patient likely suffered from acute myocardial injury secondary to acute illness and dehydration. Prelim echo shows normal EF. Cardiology will sign off. Please have patient follow up out patient in [facility] in 2 weeks for re-evaluation.
--- NOTE | 2024-01-11 09:08 | CA_ITS ---
APPROVED REPORT EXAM: Limited 2D Echocardiogram Office Helper Clerical: Leonor Sorto RVT Ht: 5 ft 2 in Wt: 165lbs BSA: 1.76 BP: 156/84 mmHg Indications: ELEVATED TROP,CAD,COPD,EDEMA VERY TDS-LIMITED EXAM-LIMITED WINDOWS R/T OVERLAYING LUNG AND BODY HABITUS M-Mode Dimensions RVDd 2.45 cm (0.9-2.6) LA Diam 4.39 cm (1.9-4.0) LVDd 3.88 cm (3.5-5.7) LVDs 2.67 cm (3.5-5.7) IVSd 1.47 cm (0.6-1.1) PWd 0.85 cm (0.6-1.1) EF (Teich) 59.60% FS 31.20% EDV (Teich) 65.10 mL ESV (Teich) 26.30 mL Aortic Valve AO Peak GR. 3.80 mmHg Pulmonary Valve PV Peak Velocity 69.0 (50-150 cm/s) Tricuspid Valve TR P. Velocity 266.00 cm/s RAP Estimate 10.00 mmHg RVSP 38.20 mmHg Other Information Study Quality: Technically Difficult Conclusion This is a limited TTE to evaluate for LVEF and wall motion. Limited windows were obtained. Technically difficult study due to poor acoustic windows. The left ventricle appears normal in size. There is increased LV wall thickness. There are no regional wall motion abnormalities noted. LVEF is 65%. The right ventricle is normal in size and function. There is increased RV wall thickness. Epicardial thickening is noted, which may be suggestive of epicardial fat pad versus loculated pericardial effusion versus pericardial constriction. Findings are inconclusive in the setting of technically very difficult study. Further evaluation for the epicardial thickening (to rule out loculated pericardial effusion) with CTA chest is recommended. Electronically signed by : Carlota Escobar MD 01/12/2024 00:14:08
--- NOTE | 2024-01-11 09:42 | HMH.OTEV ---
OT Inpatient Evaluation Rehab OT IP Evaluation Start: 01/10/24 18:59 Freq: ONCE Status: Active Protocol: [facility]11[facility]24 09[facility]Rec: 01/11/24 09:42 [facility] [id number]) Rehab OT IP Assessment Subjective History Pt oriented x 3 on arrival. Pt agreeable to engage in therapy evaluation. Pt admitted on 01/10/24 due to ALDO and respiratory failure. History and physical report: This is a pleasant 68-year-old female with a PMHx of COPD stopped smoking 8 years ago, CAD on plavix, Dysphagia, presented today to ED with sore throat and painful swallowing. Pain is so severe to the point where she feels like it is an open wound, therefore she had decreased p. o. intake over the last 5 to 7 days with decreased urine output. She stated she is been coughing having increased wheezing was seen by her primary care doctor last week started on azithromycin for apparently COPD exacerbation without any significant improvement. States she did have a breathing treatment at home. patient has been seen increase in sputum. Today she referred worsening cough shortness of breath also with urinary symptoms and states she has had multiple urinary tract infections in the past. Admitted for treatment and management. Subjective I usually do pretty good. Pt reports prior to being in the hospital, she lived at home with her . Pt claims normally she is independent with all ADLs. She is also able to do some IADLS such as laundry, dishes, and light cleaning. Her does the cooking and family comes in and does the heavy cleaning. Pt uses rolling walker during functional transfers. Objective Patient Orientation Person,Place,Birthday Right Upper Extremity Gross ROM WFL Left Upper Extremity Gross ROM WFL Bed Mobility bed mobility-scooting,bed mobility - supine/sit Assist Level Contact Guard/Hand Hold Transfer Training Sit/Stand Transfer Assist Level Contact Guard/Hand Hold Chair Transfer Ability Contact Guard/Hand Hold Chair Transfer Technique Sit to/from Ambulatory Chair Transfer Assistive Devices Rolling Walker Lower Body Dressing Ability Standby Assistance Rehab OT IP prob,goals,plan Problems Date of Evaluation: 01/11/24 OT IP Problems Bed Mobility,Transfers,Balance ,Self care,Safety Rehab Potential Rehab Potential Good Equipment Needs Assistive Devices Rolling / Wheeled Walker Plan OT intervention Plan Bed Mobility,Transfers,Balance ,Self care,Safety,Therapeutic Exercise OT Plan Frequency Daily Duration LOS Discharge Goals Bed Mobility Ability Standby Assistance Sit to Stand Chair Transfer Ability Supervision/Stand by Chair Transfer Ability Supervision/Stand by Chair Transfer Technique Sit to/from Ambulatory Chair Transfer Assistive Devices Rolling Walker Feeding Ability Assist with Tray Set Up Lower Body Dressing Ability Standby Assistance Upper Body Dressing Ability Standby Assistance Bathing Ability Minimal Assistance Performing Toilet Hygiene Ability Standby Assistance Overall Commode/Toilet Transfer Ability Standby Assistance Commode/Toilet Transfer Technique Sit to/from Ambulatory Commode/Toilet Transfer Assistive Raised Toilet Seat,Grab Bars Devices Oral Care Assist Standby Assistance Decrease in Endurance Yes Discharge Plan OT Discharge Plan Pt will continue to be seen for OT services while at [facility]. Pt can return home with once she is medically stable per physician. Therapist recommends OT evaluaiton upon return home for continued skilled therapy. Eval Complexity Eval Charge Codes 75214 - Moderate Complexity PHYSICIAN CERTIFICATION: I certify the specified therapy services for Dulce Paez Mae are required, authorized, and reviewed every 30 days.
--- NOTE | 2024-01-11 09:55 | HMH.PTEV ---
Physical Therapy Evaluation Rehab PT IP Evaluation Start: 01/10/24 18:59 Freq: ONCE Status: Active Protocol: Document 01/11/24 09:32 [facility] (Rec: 01/11/24 09:55 [facility] [id number]) Subjective/History History History Patient is a 68 year old female that presents to [facility] with a severe sore throat that has led to exacerbation of COPD. The patient's PMH includes COPD, CAD and Dysphagia. Subjective Subjective The patient is agreeable to PT . She was in the bathroom upon arrival. The patient reports that she feels better, but she continues to get short of breath very quickly. The patient reports that she lives at home with her and operates independently with all of her normal ADLs. She does the laundry and dishes and her does the cooking. She does not drive. She typically ambulates with a rollator walker at home and requested a walker today. New diagnosis of cancer in past 12 No months? Rehab PT IP Eval Objective Appearance Patient Behavior Appropriate,Cooperative, Patient Baseline Patient Orientation Person,Place,Time,Birthday Difficulty following instructions none Speech Pattern Clear,Appropriate,Patient Baseline Ambulation Patient Able to Ambulate Yes Ambulation Observation IP General Gait Pattern Observation No Deviations/Normal Ambulation Distance (feet) 30 Ambulation Assistive Device Rolling Walker Ambulation Ability Contact Guard/Hand Hold Balance Ability to Arise Able, uses arms to help Sitting Balance Steady, safe Standing Balance Narrow stance w/o support Dynamic Sitting Balance Ability Good Dynamic Standing Balance Ability Good Transfers Bed Transfer Ability Independent Chair Transfer Ability Supervision/Stand by Sit to Stand Bed Transfer Ability Supervision/Stand by Sit to Stand Chair Transfer Ability Supervision/Stand by MMT RLE PT MMT WNL Abnormal MMT Grade Hip flexor 3+/5 LLE PT MMT WNL Abnormal MMT Grade Hip flexor 3+/5 Rehab PT IP prob,goals,plan Problems Date of Evaluation: 01/11/24 PT IP Problems Transfers,Gait Rehab Potential Rehab Potential Good Plan PT Intervention Plan Bed Mobility,Transfers,Gait, Balance,Therapeutic Exercise PT Plan Frequency Daily Duration LOS Discharge Goals Bed Transfer Ability Independent Sit to Stand Chair Transfer Ability Independent Ambulation Assistive Device Rolling Walker Ambulation Distance (feet) 150 Discharge Plan PT Discharge Plan The patient presented for initial evaluation today. The patient presents below baseline in her endurance, which leads to increased difficulty with ambulation and transfers. Skilled PT is indicated to promote a return to her prior level of function and to prevent further injuries. Upon discharge, the patient may be most appropriate to discharge to home with home health therapy, given she has appropriate assistance. Eval Complexity Eval Charge Codes 88623 - High Complexity PHYSICIAN CERTIFICATION: I certify the specified therapy services for Dulce Mae are required, authorized, and reviewed every 30 days.
--- NOTE | 2024-01-11 09:59 | SW/DCPLANNER ---
I spoke w/ this patient regarding plans once medically stable for discharge. PT/OT evaluated patient and recommended home health services. Patient stated that she had home health in the past and does not feel that she needs it at time of discharge. Patient stated that she resides at home w/ her and he will assist w/ all needs. I will continue to follow up w/ this patient until medically stable for discharge. Discharge date is unknown at this time.
[2024-01-11] MEDS: ALBUTEROL-HFA 90MCG/PUFF INHALER 8GM 2 PUFF IH ×2 (13:01→21:18)
--- NOTE | 2024-01-11 13:38 | P.PN_ITS ---
Subjective *Date: 01/11/24 *Time: 13:38 Interval history: patient was seen and evaluated at the bedside. No reported acute events overnight, denies chest pain, shortness of breath, nausea, vomiting, abdominal pain. feels her mouth is dry, drinking water at bedside Exam Data for Last 24 hours Vital signs and Labs for Last 24 Hours: Temp Pulse Resp BP Pulse Ox O2 Del Method O2 Flow Rate 98.6 F 89 18 156/84 H 95 Room Air 2 01/11/24 07:53 01/11/24 07:53 01/11/24 07:53 01/11/24 07:53 01/11/24 07:53 01/11/24 12:22 01/11/24 07:55 Laboratory Results - last 24 hr 01/10/24 15:06: Urine Color Yellow, Urine Appearance Clear, Urine pH 5.5, Ur Specific [place] >= 1.030, Urine Protein 2+, Urine Glucose (UA) Negative, Urine Ketones 1+, Urine Blood Negative, Urine Nitrate Negative, Urine Bilirubin 2+ A, Urine Urobilinogen 0.2, Ur Leukocyte Esterase Trace, Urine RBC Occasional, Urine WBC Occasional, Ur Squamous Epith Cells 3-5, Ur Transition Epith Cell Occ, Urine Bacteria Trace, Hyaline Casts 5-10, Group A Strep Rapid Negative 01/10/24 15:42: SARS-CoV-2 (PCR) Not detected, Influenza A Untype (PCR) Not detected, Influenza Type B (PCR) Not detected 01/10/24 15:49: WBC 16.3 H, RBC 5.07, Hgb 14.7, Hct 45.5, MCV 89.7, MCH 29.0, MCHC 32.4, RDW 15.2, Plt Count 376, MPV 7.9, Neut % (Auto) 86.0 H, Lymph % (Auto) 9.7 L, [place] % (Auto) 2.5, Eos % (Auto) 0.8, Baso % (Auto) 0.9, Neut # (Auto) 14.1 H, Lymph # (Auto) 1.6, Allen # (Auto) 0.4, Eos # (Auto) 0.1, Baso # (Auto) 0.2, Total Counted 100, Neutrophils % (Manual) 89 H, Lymphocytes % (Manual) 8 L, Monocytes % (Manual) 3, Platelet Estimate Normal, RBC Morphology Normal, D-Dimer 0.86 H, Sodium 133 L, Potassium 4.4, Chloride 93 L, Carbon Dioxide 29, Anion Gap 15.4 H, BUN 47 H, Creatinine 2.20 H, Estimated Creat Clear 28, Estimated GFR 22 L, Est GFR ( Amer) 27 L, Glucose 94, Lactate 2.1, Calcium 9.1, Total Bilirubin 1.0, AST 48 H, ALT 28, Alkaline Phosphatase 87, Troponin I 0.05 H, NT-Pro-B Natriuret Pep 606 H, Total Protein 7.2, Albumin 4.0, Globulin 3.2, Albumin/Globulin Ratio 1.3 01/10/24 15:54: VBG pH 7.33, VBG pCO2 49.1, VBG pO2 30.6, VBG HCO3 25.2, VBG Total CO2 26.8, VBG O2 Saturation 50.6, VBG Base Excess -0.7 01/10/24 16:00: VBG Lactic Acid 3.5 H 01/10/24 18:32: Troponin I 0.03 01/10/24 20:05: Lactate 1.2 01/10/24 21:18: Troponin I 0.02 01/11/24 05:43: WBC 12.5 H, RBC 4.49, Hgb 13.0 D, Hct 40.0, MCV 89.1, MCH 29.0, MCHC 32.6, RDW 15.2, Plt Count 311, MPV 7.7, Neut % (Auto) 86.5 H, Lymph % (Auto) 9.3 L, Allen % (Auto) 3.8, Eos % (Auto) 0.1, Baso % (Auto) 0.4, Neut # (Auto) 10.8 H, Lymph # (Auto) 1.2, Allen # (Auto) 0.5, Eos # (Auto) 0.0, Baso # (Auto) 0.1, Total Counted 100, Neutrophils % (Manual) 88 H, Lymphocytes % (Manual) 7 L, Monocytes % (Manual) 5, Platelet Estimate Normal, RBC Morphology Normal, Sodium 136, Potassium 5.1, Chloride 99, Carbon Dioxide 30, Anion Gap 12.1, BUN 35 H D, Creatinine 1.30 H D, Estimated Creat Clear 48, Estimated GFR 40 L, Est GFR ( Amer) 49 L D, Glucose 85, Calcium 8.8, Magnesium 1.8, Total Bilirubin 0.6, AST 48 H, ALT 20 D, Alkaline Phosphatase 71, Total Protein 6.3, Albumin 3.4 L D, Globulin 2.9, Albumin/Globulin Ratio 1.2 I & O for Last 24 hours: Intake & Output 01/08/24 01/09/24 01/10/24 01/11/24 22:59 23:59 23:59 23:59 Intake Total 240 / 240 2420 / 2420 Output Total 0 / 0 Balance 240 / 240 2420 / 2420 Weight 71.299 kg 74.888 kg Constitutional Constitutional: no acute distress *Routine HEENT Exam Head: Present normocephalic Eye: Present EOMI and PERRL ENT: Present mucous membranes moist *Routine Neck Exam Neck: Present supple; Absent lymphadenopathy *Routine Respiratory Exam Respiratory: Present CTA bilaterally *Routine Cardiovascular Exam Cardiovascular: Present RRR *Routine Abdominal Exam Abdominal: Present soft and normoactive bowel sounds; Absent tenderness *Routine Extremities Exam Extremities: Absent cyanosis, clubbing or edema *Routine Skin Exam Skin: Present warm; Absent rash *Routine Neurological Exam Neurological: Present alert and oriented X3 Assessment and Plan *Assessment and plan (1) ALDO (acute kidney injury): Status: Acute Category: Medical Code(s): N17.9 - Acute kidney failure, unspecified (2) Dehydration, moderate: Status: Acute Category: Medical Code(s): E86.0 - Dehydration (3) Elevated troponin: Status: Acute Category: Medical Code(s): R79.89 - Other specified abnormal findings of blood chemistry (4) Acute exacerbation of chronic obstructive pulmonary disease: Status: Acute Category: Medical Code(s): J44.1 - Chronic obstructive pulmonary disease with (acute) exacerbation (5) Thrush, oral: Status: Acute Category: Medical Code(s): B37.0 - Candidal stomatitis (6) GERD (gastroesophageal reflux disease): Status: Acute Qualifiers: Esophagitis presence: without esophagitis Qualified Code(s): K21.9 - Gastro-esophageal reflux disease without esophagitis Category: Medical Code(s): K21.9 - Gastro-esophageal reflux disease without esophagitis (7) CAD (coronary artery disease): Status: Acute Qualifiers: Coronary Disease-Associated Artery/Lesion type: [place] artery [place] vs. transplanted heart: [place] heart Associated angina: without angina Qualified Code(s): I25.10 - Atherosclerotic heart disease of [place] coronary artery without angina pectoris Category: Medical Code(s): I25.10 - Atherosclerotic heart disease of [place] coronary artery without angina pectoris (8) Diastolic dysfunction: Status: Acute Category: Medical Code(s): I51.89 - Other ill-defined heart diseases (9) Dysphagia: Status: Acute Qualifiers: Dysphagia type: esophageal phase Qualified Code(s): R13.19 - Other dysphagia Category: Medical Code(s): R13.10 - Dysphagia, unspecified Plan 68-year-old female with a PMHx of COPD stopped smoking 8 years ago, CAD on plavix, Dysphagia, presented today to ED with sore throat and painful swallowing. -Acute kidney injury, likely prerenal azotemia. Secondary to severe dehydration, Due to moderate oral thrush: Cr has significantly improved, will give Bolus, check Cr in the evening, if Cr continues to improve, will plan to DC patient, patient also agrees with the plan Avoid nephrotoxic's medications Started on nystatin suspension 500 000 units 3 times daily Encourage increased p.o. intake -Elevated troponin - likley due to demand ischemia CAD: follow up as OP for possible stress test -COPD exacerbation: Started on Levaquin empirically - continue DuoNeb every 6 Monitor for O2 saturation -History of GERD, and dysphagia: Patient has schedule EGD outpatient on February 02. Follow-up outpatient with the GI On Plavix. On Protonix for GI protection Full code PT/OT recommend Home health but patient is reportedly not interested, plan to potential DC today
[2024-01-11 16:00] VITALS: BP 129/78; PULSE 58; RESP 20; TEMP 36.6; O2SAT 92
[2024-01-11 17:47] LABS: Chloride 102 mmol/L (98-107)
[2024-01-11 17:48] LABS: Potassium 3.9 mmoL/L (3.5-5.1); Sodium 138 mmol/L (136-145)
[2024-01-11 17:50] LABS: Blood Urea Nitrogen 25 mg/dl (7-17); Creatinine Clearance Estimated 52 mL/min (50-200); Estimated Glomerular Filt Rate 44 ml/min (>60); GFR (African American) 54 ML/MIN (>60)
[2024-01-11 17:51] LABS: Anion Gap 8.9 mEq/L (5-15); Calcium 9.4 mg/dl (8.4-10.2); Carbon Dioxide 31 mmol/L (22.0-30.0); Glucose 87 mg/dl (74-100)
[2024-01-11 20:00] VITALS: BP 99/56; PULSE 94; RESP 18; TEMP 36.7; O2SAT 96
[2024-01-11 21:59] VITALS: BP 114/65; PULSE 91
[2024-01-11] MEDS: MONTELUKAST SODIUM 10MG TAB 10 MG PO (22:00)
[2024-01-11] MEDS: PANTOPRAZOLE 40MG TABLET 40 MG PO (22:00)
[2024-01-11] MEDS: ATENOLOL 50MG TABLET 100 MG PO (22:00)
[2024-01-11] MEDS: LEVOFLOXACIN/D5W 750 MG/150 ML 750 MG/150 ML PIGGYBACK 100 MG IV (23:31)
[2024-01-12] MEDS: MELATONIN 5MG TABLET 10 MG PO (03:18)
[2024-01-12 04:00] VITALS: BP 127/78; PULSE 77; RESP 17; TEMP 37; O2SAT 95; BMI 29.1
--- NOTE | 2024-01-12 06:35 | P.DS_ITS ---
General Admission date:: 01/10/24 Discharge date: 01/12/24 HPI HPI HPI: This is a pleasant 68-year-old female with a PMHx of COPD stopped smoking 8 years ago, CAD on plavix, Dysphagia, presented today to ED with sore throat and painful swallowing. Pain is so severe to the point where she feels like it is an open wound, therefore she had decreased p.o. intake over the last 5 to 7 days with decreased urine output. She stated she is been coughing having increased wheezing was seen by her primary care doctor last week started on azithromycin for apparently COPD exacerbation without any significant improvement. States she did have a breathing treatment at home. patient has been seen increase in sputum. Today she referred worsening cough shortness of breath also with urinary symptoms and states she has had multiple urinary tract infections in the past. Admitted for treatment and management. Hospital Course Hospital Course Hospital Course: 68-year-old female with a PMHx of COPD stopped smoking 8 years ago, CAD on plavix, Dysphagia, presented today to ED with sore throat and painful swallowing. Pain is so severe to the point where she feels like it is an open wound, therefore she had decreased p.o. intake over the last 5 to 7 days with decreased urine output. initial work up found patient to be very dehydrated with ALDO, Creatinine of 2.8. CXR low concern for focal consolidation. found detectable troponin. started on IV resuscitation. Patient showed improvement. Kidney function near baseline. Tolerating p.o. intake and stable on room air. Stable to discharge home for further convalescence. Problems addressed as follows: -Acute kidney injury, likely prerenal azotemia. Secondary to severe dehydration, Due to moderate oral thrush: COPD exacerbation, on room air. Admitted for IV fluid resuscitation and monitoring of kidney dysfunction. Creatinine improved from 2.8-1.2 by morning of discharge. Tolerating p.o. intake. Patient overall doing well. Making adequate urine. Stable discharge home, recommend repeat labs in 1 to 2 weeks. In regard to her thrush, initiated on nystatin. Seeing improvement by discharge. Continue nystatin for 8 more days. In regard to her COPD exacerbation, improving dyspnea. No oxygen required. Will complete 5-day course of Levaquin 500 mg orally. White cell count improving. Continue inhaler regimen. Hx of CAD without stenting Acute myocardial injury -Elevated troponin in the setting of acute illness, dehydration and ALDO. Cardiology was consulted, patient had a normal cath in 2016. Normal Myoview in 2019. Echo obtained showing preserved ejection fraction. Does have what appears to be pericardial fat pad. Would benefit from CT, recommend as an outpatient. Will have patient follow-up with cardiology in 2 weeks for reevaluation. Troponin improved during admission. EKG without ischemic changes. -History of GERD, and dysphagia: Patient has schedule EGD outpatient on February 02. Follow-up outpatient with the GI Exam Data for Last 24 hours Vital signs and Labs for Last 24 Hours: Temp Pulse Resp BP Pulse Ox O2 Del Method O2 Flow Rate 98.6 F 77 17 127/78 95 Room Air 2 01/12/24 04:00 01/12/24 04:00 01/12/24 04:00 01/12/24 04:00 01/12/24 04:00 01/12/24 05:00 01/11/24 07:55 Laboratory Results - last 24 hr 01/11/24 05:43: WBC 12.5 H, RBC 4.49, Hgb 13.0 D, Hct 40.0, MCV 89.1, MCH 29.0, MCHC 32.6, RDW 15.2, Plt Count 311, MPV 7.7, Neut % (Auto) 86.5 H, Lymph % (Auto) 9.3 L, [place] % (Auto) 3.8, Eos % (Auto) 0.1, Baso % (Auto) 0.4, Neut # (Auto) 10.8 H, Lymph # (Auto) 1.2, [place] # (Auto) 0.5, Eos # (Auto) 0.0, Baso # (Auto) 0.1, Total Counted 100, Neutrophils % (Manual) 88 H, Lymphocytes % (Manual) 7 L, Monocytes % (Manual) 5, Platelet Estimate Normal, RBC Morphology Normal, Sodium 136, Potassium 5.1, Chloride 99, Carbon Dioxide 30, Anion Gap 12.1, BUN 35 H D, Creatinine 1.30 H D, Estimated Creat Clear 48, Estimated GFR 40 L, Est GFR ( Amer) 49 L D, Glucose 85, Calcium 8.8, Magnesium 1.8, Total Bilirubin 0.6, AST 48 H, ALT 20 D, Alkaline Phosphatase 71, Total Protein 6.3, Albumin 3.4 L D, Globulin 2.9, Albumin/Globulin Ratio 1.2 01/11/24 17:33: Sodium 138, Potassium 3.9 D, Chloride 102, Carbon Dioxide 31 H, Anion Gap 8.9, BUN 25 H D, Creatinine 1.20 H, Estimated Creat Clear 52, Estimated GFR 44 L, Est GFR ( Amer) 54 L, Glucose 87, Calcium 9.4 I & O for Last 24 hours: Intake & Output 01/09/24 01/10/24 01/11/24 01/12/24 23:59 23:59 23:59 23:59 Intake Total 240 / 240 2780 / 2780 Output Total 0 / 0 0 / 0 Balance 240 / 240 2780 / 2780 0 / 0 Weight 71.299 kg 74.888 kg 74.52 kg Constitutional Constitutional: no acute distress, chronically ill appearing and cooperative Comments: Overweight *Routine HEENT Exam Head: Present normocephalic Eye: Present EOMI and PERRL ENT: Present mucous membranes moist Comments: Improving plaques on tongue *Routine Neck Exam Neck: Present supple; Absent lymphadenopathy *Routine Respiratory Exam Respiratory: Present CTA bilaterally; Absent rhonchi, wheezes or crackles *Routine Cardiovascular Exam Cardiovascular: Present RRR *Routine Abdominal Exam Abdominal: Present soft and normoactive bowel sounds; Absent tenderness *Routine Rectal Exam Patient deferred: visual exam *Routine Exam Patient deferred: external exam *Routine Extremities Exam Extremities: Absent cyanosis, clubbing or edema *Routine Skin Exam Skin: Present warm; Absent rash *Routine Neurological Exam Neurological: Present alert, oriented X3 and moving all extremities; Absent altered mental status Comments: Voice hoarse Results Data Completed and Pending Labs on day of discharge: Labs from last 24 hours 01/11/24 01/11/24 17:33 05:43 WBC 12.5 H RBC 4.49 Hgb 13.0 D Hct 40.0 MCV 89.1 MCH 29.0 MCHC 32.6 RDW 15.2 Plt Count 311 MPV 7.7 Neut % (Auto) 86.5 H Lymph % (Auto) 9.3 L [place] % (Auto) 3.8 Eos % (Auto) 0.1 Baso % (Auto) 0.4 Neut # (Auto) 10.8 H Lymph # (Auto) 1.2 [place] # (Auto) 0.5 Eos # (Auto) 0.0 Baso # (Auto) 0.1 Total Counted 100 Neutrophils % (Manual) 88 H Lymphocytes % (Manual) 7 L Monocytes % (Manual) 5 Platelet Estimate Normal RBC Morphology Normal Sodium 138 136 Potassium 3.9 D 5.1 Chloride 102 99 Carbon Dioxide 31 H 30 Anion Gap 8.9 12.1 BUN 25 H D 35 H D Creatinine 1.20 H 1.30 H D Estimated Creat Clear 52 48 Estimated GFR 44 L 40 L Est GFR ( Amer) 54 L 49 L D Glucose 87 85 Calcium 9.4 8.8 Magnesium 1.8 Total Bilirubin 0.6 AST 48 H ALT 20 D Alkaline Phosphatase 71 Total Protein 6.3 Albumin 3.4 L D Globulin 2.9 Albumin/Globulin Ratio 1.2 DS: Diagnosis Discharge Diagnosis (1) ALDO (acute kidney injury): Status: Acute Code(s): N17.9 - Acute kidney failure, unspecified (2) Dehydration, moderate: Status: Acute Code(s): E86.0 - Dehydration (3) Elevated troponin: Status: Acute Code(s): R79.89 - Other specified abnormal findings of blood chemistry (4) Acute exacerbation of chronic obstructive pulmonary disease: Status: Acute Code(s): J44.1 - Chronic obstructive pulmonary disease with (acute) exacerbation (5) Thrush, oral: Status: Acute Code(s): B37.0 - Candidal stomatitis (6) GERD (gastroesophageal reflux disease): Status: Acute Code(s): K21.9 - Gastro-esophageal reflux disease without esophagitis Qualifiers: Esophagitis presence: without esophagitis Qualified Code(s): K21.9 - Gastro-esophageal reflux disease without esophagitis (7) CAD (coronary artery disease): Status: Acute Code(s): I25.10 - Atherosclerotic heart disease of [place] coronary artery without angina pectoris Qualifiers: Associated angina: without angina Coronary Disease-Associated Artery/Lesion type: [place] artery [place] vs. transplanted heart: [place] heart Qualified Code(s): I25.10 - Atherosclerotic heart disease of [place] coronary artery without angina pectoris (8) Diastolic dysfunction: Status: Acute Code(s): I51.89 - Other ill-defined heart diseases (9) Dysphagia: Status: Acute Code(s): R13.10 - Dysphagia, unspecified Qualifiers: Dysphagia type: esophageal phase Qualified Code(s): R13.19 - Other dysphagia Meds Home Medications and Allergies Home Medications Medication Instructions Recorded Confirmed Type loratadine 10 mg capsule 10 mg PO DAILY 05/25/18 01/10/24 History ascorbate calcium (vitamin C) 500 500 mg PO DAILY 04/25/20 01/10/24 History mg tablet tramadol 50 mg tablet 50 mg PO Q6 PRN pain 04/25/20 01/10/24 History rosuvastatin 10 mg tablet 10 mg PO DAILY Cholesterol #90 tabs 10/09/20 01/10/24 Rx albuterol sulfate 90 mcg/actuation 2 inh inhalation Q6H PRN shortness 06/01/22 01/10/24 Rx aerosol inhaler of breath or wheezing 90 days #8.5 grams atenolol 100 mg tablet 100 mg PO HS 01/27/23 01/10/24 History azelastine 137 mcg (0.1 %) nasal 1 spray intranasal BID #30 mL 01/27/23 01/10/24 Rx spray aerosol ciclopirox 0.77 % topical cream 1 applic topical DAILY 01/27/23 01/10/24 History montelukast 10 mg tablet 10 mg PO HS 01/27/23 01/10/24 History omeprazole 40 mg capsule,delayed 40 mg PO DAILY 01/27/23 01/10/24 History release prednisone 1 mg tablet 4 mg PO DAILY 01/27/23 01/10/24 History aspirin 81 mg chewable tablet 1 tab PO DAILY 10/11/23 01/10/24 History clopidogrel 75 mg tablet 75 mg PO DAILY 10/11/23 01/10/24 History hydroxychloroquine 200 mg tablet 200 mg PO BID 10/11/23 01/10/24 History losartan 50 mg tablet 50 mg PO DAILY 10/11/23 01/10/24 History baclofen 5 mg tablet 5 mg PO TID PRN muscle spasms 01/12/24 01/12/24 History levofloxacin 500 mg tablet 500 mg PO DAILY 4 days #4 tabs 01/12/24 Rx nystatin 100,000 unit/mL oral 500,000 unit (5 mL) PO QID 8 days 01/12/24 Rx suspension #160 mL New Prescriptions to Start Prescriptions: levoBasilio Benson nystatin Basilio Valdovinos Allergies Allergy/AdvReac Type Severity Reaction Status Date / Time No Known Allergies Allergy Verified 12/16/23 13:12 Discharge Plan Disposition Patient Disposition: Home Health Service Condition: Fair Discharge Order Discharge Orders: Discharge Order (Routine); Ordered 01/12/24 Ordered By: Basilio Valdovinos Follow up Plan Follow up with: Alfred Chapa MD [Primary Care Provider] - Enter time for follow up Jose Luis Escobar MD [Staff Physician] - Enter time for follow up Prescriptions/Medication Reconciliation: New nystatin 100,000 unit/mL Suspension 500,000 unit PO QID 8 Days Qty: 160 0RF levofloxacin 500 mg tablet 500 mg PO DAILY 4 Days Qty: 4 0RF Rx Instructions: first dose tonight 01/11 Continued tramadol 50 mg tablet 50 mg PO Q6 PRN (Reason: pain) ascorbate calcium (vitamin C) 500 mg tablet 500 mg PO DAILY aspirin 81 mg tablet,chewable 1 tab PO DAILY Patient Comments: TAKE 1 TABLET BY MOUTH ONCE DAILY clopidogrel 75 mg tablet 75 mg PO DAILY albuterol sulfate 90 mcg/actuation HFA aerosol inhaler 2 inh IH Q6H PRN (Reason: shortness of breath or wheezing) 90 Days Qty: 8.5 3RF atenolol 100 mg tablet 100 mg PO HS omeprazole 40 mg capsule,delayed release(DR/EC) 40 mg PO DAILY ciclopirox 0.77 % cream 1 applic topical DAILY montelukast 10 mg tablet 10 mg PO HS prednisone 1 mg tablet 4 mg PO DAILY azelastine 137 mcg (0.1 %) aerosol,spray 1 spray intranasal BID Qty: 30 3RF Rx Instructions: administer into each nostril hydroxychloroquine 200 mg tablet 200 mg PO BID rosuvastatin 10 mg tablet 10 mg PO DAILY Qty: 90 3RF loratadine 10 MG capsule 10 mg PO DAILY baclofen 5 mg Tablet 5 mg PO TID PRN (Reason: muscle spasms) losartan 50 mg tablet 50 mg PO DAILY Problem Reconciliation Problems Reviewed?: Yes Patient Discharge Instructions ACTIVITY: Continue current activity and Ambulate as tolerated DIET: continue same diet Patient Instructions: Dehydration, Acute Kidney Injury, DI for Chest Pain Providers Primary Care Provider: Alfred Chapa Admit Provider: Basilio Valdovinos Attending Provider: Basilio Valdovinos
[2024-01-12 08:00] VITALS: BP 141/77; PULSE 85; RESP 22; TEMP 36.6; O2SAT 94
[2024-01-12] MEDS: ALBUTEROL-HFA 90MCG/PUFF INHALER 8GM 2 PUFF IH (08:40)
[2024-01-12] MEDS: ASPIRIN 81MG CHEWABLE TABLET 81 MG PO (08:52)
[2024-01-12] MEDS: NYSTATIN SUSP 500,000 UNITS/5ML UDC 500000 UNIT PO (08:52)
[2024-01-12] MEDS: LORATADINE 10MG TABLET 10 MG PO (08:52)
[2024-01-12] MEDS: CLOPIDOGREL 75MG TAB 75 MG PO (08:53)
[2024-01-12] MEDS: IRBESARTAN 75MG TABLET 75 MG PO (08:53)
--- NOTE | 2024-01-12 09:47 | HMH.OTEV ---
OT Inpatient Evaluation Rehab OT IP Evaluation Start: 01/10/24 18:59 Freq: ONCE Status: Active Protocol: [facility] 01/11/24 09:37 [facility] (Rec: 01/11/24 09:42 [facility] [id number]) Rehab OT IP Assessment Subjective History Pt oriented x 3 on arrival. Pt agreeable to engage in therapy evaluation. Pt admitted on 01/10/24 due to ALDO and respiratory failure. History and physical report: This is a pleasant 68-year-old female with a PMHx of COPD stopped smoking 8 years ago, CAD on plavix, Dysphagia, presented today to ED with sore throat and painful swallowing. Pain is so severe to the point where she feels like it is an open wound, therefore she had decreased p. o. intake over the last 5 to 7 days with decreased urine output. She stated she is been coughing having increased wheezing was seen by her primary care doctor last week started on azithromycin for apparently COPD exacerbation without any significant improvement. States she did have a breathing treatment at home. patient has been seen increase in sputum. Today she referred worsening cough shortness of breath also with urinary symptoms and states she has had multiple urinary tract infections in the past. Admitted for treatment and management. Subjective I usually do pretty good. Pt reports prior to being in the hospital, she lived at home with her . Pt claims normally she is independent with all ADLs. She is also able to do some IADLS such as laundry, dishes, and light cleaning. Her does the cooking and family comes in and does the heavy cleaning. Pt uses rolling walker during functional transfers. Objective Patient Orientation Person,Place,Birthday Right Upper Extremity Gross ROM WFL Left Upper Extremity Gross ROM WFL Bed Mobility bed mobility-scooting,bed mobility - supine/sit Assist Level Contact Guard/Hand Hold Transfer Training Sit/Stand Transfer Assist Level Contact Guard/Hand Hold Chair Transfer Ability Contact Guard/Hand Hold Chair Transfer Technique Sit to/from Ambulatory Chair Transfer Assistive Devices Rolling Walker Lower Body Dressing Ability Standby Assistance Rehab OT IP prob,goals,plan Problems Date of Evaluation: 01/11/24 OT IP Problems Bed Mobility,Transfers,Balance ,Self care,Safety Rehab Potential Rehab Potential Good Equipment Needs Assistive Devices Rolling / Wheeled Walker Plan OT intervention Plan Bed Mobility,Transfers,Balance ,Self care,Safety,Therapeutic Exercise OT Plan Frequency Daily Duration LOS Discharge Goals Bed Mobility Ability Standby Assistance Sit to Stand Chair Transfer Ability Supervision/Stand by Chair Transfer Ability Supervision/Stand by Chair Transfer Technique Sit to/from Ambulatory Chair Transfer Assistive Devices Rolling Walker Feeding Ability Assist with Tray Set Up Lower Body Dressing Ability Standby Assistance Upper Body Dressing Ability Standby Assistance Bathing Ability Minimal Assistance Performing Toilet Hygiene Ability Standby Assistance Overall Commode/Toilet Transfer Ability Standby Assistance Commode/Toilet Transfer Technique Sit to/from Ambulatory Commode/Toilet Transfer Assistive Raised Toilet Seat,Grab Bars Devices Oral Care Assist Standby Assistance Decrease in Endurance Yes Discharge Plan OT Discharge Plan Pt will continue to be seen for OT services while at [facility]. Pt can return home with once she is medically stable per physician. Therapist recommends OT evaluaiton upon return home for continued skilled therapy. Eval Complexity Eval Charge Codes 35285 - Moderate Complexity Rehab OT IP Evaluation Start: 01/11/24 08:12 Freq: ONCE Status: Active Protocol: Document 01/12/24 09:42 [facility] (Rec: 01/12/24 09:47 [facility] [id number]) Rehab OT IP Assessment Subjective History *History of present illness: This is a pleasant 68-year-old female with a PMHx of COPD stopped smoking 8 years ago, CAD on plavix, Dysphagia, presented today to ED with sore throat and painful swallowing. Pain is so severe to the point where she feels like it is an open wound, therefore she had decreased p. o. intake over the last 5 to 7 days with decreased urine output. She stated she is been coughing having increased wheezing was seen by her primary care doctor last week started on azithromycin for apparently COPD exacerbation without any significant improvement. States she did have a breathing treatment at home. patient has been seen increase in sputum. Today she referred worsening cough shortness of breath also with urinary symptoms and states she has had multiple urinary tract infections in the past. Admitted for treatment and management. Patient lives at home with in 1 story home with 1 -2 PETE. Indepenent with ADLs and fx'l mobility prior. assist with transportation. Subjective I can use the restroom. Analysis Patient's safety awareness during bed mobility, transfers, ambulation and toileting. Patient completed all tasks independently. No LOB noted. Objective Patient Orientation Person,Place,Name,Year Right Upper Extremity Gross ROM WFL Left Upper Extremity Gross ROM WFL Bed Mobility bed mobility - supine/sit Assist Level Independent Transfer Training Sit/Stand Transfer,Sit/Stand/ Step Transfer Assist Level Independent Chair Transfer Ability Independent Chair Transfer Technique Sit to/from Ambulatory Chair Transfer Assistive Devices Rolling Walker Lower Body Dressing Ability Independent Upper Body Dressing Ability Independent Performing Toilet Hygiene Ability Independent Overall Commode/Toilet Transfer Ability Independent Commode/Toilet Transfer Technique Sit to/from Ambulatory Rehab OT IP prob,goals,plan Problems Date of Evaluation: 01/12/24 Rehab Potential Rehab Potential Innapropriate for Skilled Therapy Discharge Plan OT Discharge Plan Patient appears to be at baseline. Plans to return home . Eval Complexity Eval Charge Codes 69867 - Low Complexity PHYSICIAN CERTIFICATION: I certify the specified therapy services for Dulce Mae are required, authorized, and reviewed every 30 days.
--- NOTE | 2024-01-13 14:38 | CARE MANAGER ---
Contacted patient related to hospital discharge. She states she is doing a little better. She has her medications and is aware of follow up appointments. Denies questions or concerns. DAMIR Chau
== END 2024-01-12 10:35 | disposition home or self-care (01) ==
LOC: ER 17:04 → 2ND 18:03
PROVIDERS: Internal Medicine; Nurse Practitioner; Admitting Provider Internal Medicine Adolescent Medicine; Emergency Provider Student in an Organized Health Care Education/Training Program; PCP Internal Medicine; Visit Provider Internal Medicine Adolescent Medicine
DX: N17.9 Acute kidney failure, unspecified (principal); E86.0 Dehydration; R79.89 Other specified abnormal findings of blood chemistry; J44.1 Chronic obstructive pulmonary disease with (acute) exacerbation; B37.0 Candidal stomatitis; K21.9 Gastro-esophageal reflux disease without esophagitis; I25.10 Atherosclerotic heart disease of native coronary artery without angina pectoris; R13.19 Other dysphagia; I5A Non-ischemic myocardial injury (non-traumatic); J02.9 Acute pharyngitis, unspecified; Z87.891 Personal history of nicotine dependence
CPT/HCPCS: 36415; 71046; 80048; 80053; 81001; 82803; 83605; 83735; 83880; 84484; 85007; 85025; 85378; 87040; 87430; 87636; 93005; 93308; 94640; 97163; 97165; 97166; 97530; 99291; G0378; J1956

== ENCOUNTER 2024-01-19 16:37 | Outpatient (CLI) | payer MEDICARE, OTHER, SELFPAY ==
[2024-01-19 17:45] LABS: Chloride 102 mmol/L (98-107); Potassium 4.5 mmoL/L (3.5-5.1); Sodium 136 mmol/L (136-145)
[2024-01-19 17:48] LABS: Anion Gap 11.5 mEq/L (5-15); Blood Urea Nitrogen 12 mg/dl (7-17); Calcium 8.8 mg/dl (8.4-10.2); Carbon Dioxide 27 mmol/L (22.0-30.0); Estimated Glomerular Filt Rate 62 ml/min (>60); GFR (African American) 75 ML/MIN (>60); Glucose 100 mg/dl (74-100)
== END 2024-01-19 23:59 ==
PROVIDERS: PCP Internal Medicine; Visit Provider Internal Medicine
DX: I10 Essential (primary) hypertension (principal); E86.0 Dehydration; N17.9 Acute kidney failure, unspecified; J44.9 Chronic obstructive pulmonary disease, unspecified; M19.90 Unspecified osteoarthritis, unspecified site
CPT/HCPCS: 80048

== ENCOUNTER 2024-02-02 12:50 | Outpatient (CLI) | payer MEDICARE, OTHER, SELFPAY ==
--- NOTE | 2024-02-02 | CA_ITS ---
APPROVED REPORT Exam: Pharmacologic Technologist: Isaura Yanez, Ht: 5 ft 2 in Wt: 156 lbs BSA: 1.72 m2 HR: 78 bpm BP: 153/72 mmHg Rhythm: NSR Medical History Medications: Omeprazole,,,,, Aspirin,,,,, Atenolol,,,,, Albuterol,,,,, Tramadol,,,,, Montelukast,,,,, CloPIdogrel,,,,, Vit C,,,,, Prednisone,,,,, LoraTADINE,,,,, Baclofen,,,,, RoSUVASTATIN,,,,, Cardiac Risk Factors: HTN, Hyperlipidemia, FHX of CAD, Smoking Stress Test Details Test: LEXISCAN HR Resting HR: 85 bpm Max Heart Rate (APMHR): 150 bpm Max HR Achieved: 96 bpm Target HR (85% APMHR): 128 bpm % of APMHR: 64 Recovery HR: 93 bpm BP Resting BP: 153/72 mmHg Max BP: 153/72 mmHg Recovery BP: 140.0/59.0 mmHg ECG Resting ECG: NSR, cannot R/O old anterior TX, ST changes at baseline Stress ECG: No ST changes Arrhythmia: None Clinical Exercise duration: 04:00 min Highest Stage Achieved: Stress ECG Conclusion During lexiscan pt experinced SOA, head, and stomach discomfort. No CP noted. No arrhythmias noted. No significant ST changes. Conclusion: Nondiagnostic Lexiscan stress test due to baseline abnormalities. Myoview images reported separately. Test Summary REST . . . . . . . Sitting REST 04:26 . . 85 . 153/ 72 . . Stage 1 01:00 . . 94 . . . . Stage 2 01:00 . . 92 . 134/ 69 . . Stage 3 01:00 . . 92 . 140/ 66 . . Stage 4 01:00 . . 92 . 144/ 63 . Stop exercise at 04:00 RECOVERY 01:00 . . 92 . . . . RECOVERY 02:00 . . 89 . . . . RECOVERY 03:00 . . 86 . . . . RECOVERY 04:00 . . 91 . 140/ 59 . . RECOVERY 04:08 . . 88 . 140/ 59 . . Electronically signed by : Carlota Escobar MD 02/03/2024 12:43:22
--- NOTE | 2024-02-02 12:51 | NM_ITS ---
APPROVED REPORT Exam: Nuclear Stress Test Indication: CAD, OBESITY, HTN, HYPERLIPIDEMIA, FM HX, SOB, ABN EKG Patient Location: Outpatient Stress Tech: Isaura TINSLEY Tech:Shruthi Estrada RYDERAlejandro RT (R)(N)(M) Ht: 5 ft 3 in Wt: 156 lbs Bra Size: C HR: 78 bpm BP: 153/72 mmHg BSA: 1.74 m2 TID: 0.95 BMI: 27.6 History: CAD, HTN, HYPERLIPIDEMIA, FM HX, SOB, ABN EKG Procedure: Patient received 0.4 mg of intravenous Lexiscan, resting heart rate 78 bpm, resting blood pressure 153/72 mmHg, with Lexiscan maximum heart rate achieved was 94 bpm which is % of the maximum predicted heart rate and blood pressure was 134/69 mmHg. With Lexiscan, patient denied any complaint of chest pain. Cardiac Stress and Resting SPECT Images: Cardiac Stress and Resting SPECT images were obtained using technetium 99m Myoview 31.9 mCi stress and 10.45 mCi at rest. Resting and stress imaging in supine and prone positions demonstrate a medium sized, moderate, fixed perfusion defect in the basal lateral LV wall Gated imaging demonstrates normal global and regional LV systolic function. LVEF is calculated at 58%. Conclusion: Medium sized, moderate, fixed perfusion defect in the basal lateral LV wall Gated imaging demonstrates normal global and regional LV systolic function. LVEF is calculated at 58%. Electronically signed by : Carlota Escobar MD 02/03/2024 12:46:39
[2024-02-02] MEDS: SODIUM CHLORIDE 0.9% 10ML SYR (RAD ONLY) 10 ML IV ×2 (13:00→13:50)
[2024-02-02] MEDS: REGADENOSON 0.4MG/5ML SYRINGE 0.400000000000000022 MG IV (13:50)
[2024-02-02] MEDS: ISOTOPE MYOVIEW (PER STUDY) 1 DOSE IV (15:45)
== END 2024-02-02 23:59 ==
LOC: RAD 12:51
PROVIDERS: PCP Internal Medicine; Visit Provider Internal Medicine
DX: I25.10 Atherosclerotic heart disease of native coronary artery without angina pectoris (principal); E78.5 Hyperlipidemia, unspecified; I10 Essential (primary) hypertension; R94.31 Abnormal electrocardiogram [ECG] [EKG]; Z98.890 Other specified postprocedural states; Z95.828 Presence of other vascular implants and grafts; I5A Non-ischemic myocardial injury (non-traumatic); K21.9 Gastro-esophageal reflux disease without esophagitis; I51.89 Other ill-defined heart diseases
CPT/HCPCS: 78452; 93017; 93018; A9502; J2785

== ENCOUNTER 2024-02-23 10:35 | Day surgery (SDC) | payer MEDICARE, OTHER, SELFPAY ==
[2024-02-21 11:26] VITALS: BMI 28.9
[2024-02-23 11:02] VITALS: BP 147/69; PULSE 81; RESP 18; TEMP 35.9; O2SAT 99
[2024-02-23] MEDS: LACTATED RINGERS 1000ML 1,000 ML 100 ML IV (11:07)
--- NOTE | 2024-02-23 12:16 | P.PNANES_ITS ---
[facility] Disclaimer: The information contained in this section may have been updated after the patient was seen, as this information can be updated by other users. Medical History History of common carotid artery stent placement Abnormal electrocardiogram [ECG] [EKG] Coronary artery disease CAD (coronary artery disease) Xerostomia due to dehydration Globus sensation Hoarseness Dysphagia Nasal valve collapse Deviated septum Warthin's tumor Edema Surgical History H/O hysterectomy with oophorectomy History of bowel resection H/O: hysterectomy Family History Other Asthma Diabetes Heart attack Hypertension Thyroid disorder Social History Smoking Status: Former smoker tobacco type: cigarettes second hand exposure: No alcohol intake: never counseling provided: none substance use type: denies use current occupational status: retired Travel in the last 8 weeks: None household members: spouse housing: house current occupational exposures/hazards: No caffeine: Yes [facility] Anesthesia Checklist Patient Identification Patient Identification: Verbal (Name & ) Structural Data Admitted From: Home Planned Operative Procedure/s: egd Consent for Planned Operative Procedure(s) Verified: Yes Additional verifications Anesthesia Reactions: No Hx Blood Transfusions: No Blood Transfusion Reaction: No Airway Assessment Mallampati Score:: Class II C-Spine Mobility Assessed: Yes TMJ Mobility Assessed: Yes Dentition: Good Dentition Neurological Assessment Level of Consciousness: Awake, Alert and Appropriate Anesthesia Plan Anesthesia Risk discussed: Yes Anesthesia Plan: Verified ASA Class: II Anesthesia Type: MAC
[2024-02-23 12:26] VITALS: O2SAT 99
--- NOTE | 2024-02-23 12:41 | HMH.SCOPE ---
Procedure: Date: 02/23/24 Patient Date of :: 1955 Procedure Performed:: EGD Indications:: Dysphagia Performing Provider:: Benitez Monaco MD Referring Provider:: Alfred Chapa MD Sedation:: See RN records Procedure:: The gastroscope was gently passed through the incisoral orifice into the oral cavity and under direct visualization the esophagus was intubated. The endoscope was passed down the esophagus, through the stomach, and into the duodenum. Color, texture, mucosa, and anatomy of the esophagus, stomach, and duodenum were carefully examined with the scope. Findings:: There was a somewhat dilated appearance to the mid esophagus. There was a Schatzki ring in the distal esophagus. Dilatation was performed sequentially with a 18 to 20 mm TTS balloon. There was a small hiatal hernia present. There was mild inflammation of the stomach characterized by erythema in the gastric antrum and body. Biopsies were obtained with a cold forceps for histology. The examined duodenum appeared normal. Impression: Schatzki ring Hiatal hernia Mild gastritis Recommendations:: Await pathology results If patient's dysphagia symptom does not improve after esophageal dilatation, and recommend barium esophagram with tablet. Follow-up with referring provider as previously scheduled Complications:: None Estimated blood obtained (mL): 0 Colonoscopy Component Colonoscopy Component Was a colonoscopy performed during today's procedure?: No
[2024-02-23 12:42] VITALS: BP 139/88; PULSE 74; RESP 16; TEMP 36.3; O2SAT 96
[2024-02-23 12:50] VITALS: BP 99/57; PULSE 79; RESP 18; TEMP 36.1; O2SAT 94
[2024-02-23 13:00] VITALS: BP 114/72; PULSE 76; RESP 18; O2SAT 94
[2024-02-23 13:10] VITALS: BP 130/77; PULSE 80; RESP 18; O2SAT 94
== END 2024-02-23 13:10 | disposition home or self-care (01) ==
PROVIDERS: PCP Internal Medicine; Visit Provider Internal Medicine
PROC: 0DJ08ZZ Inspection of Upper Intestinal Tract, Via Natural or Artificial Opening Endoscopic (ICD-10-PCS; CPT 43235; principal; 2024-02-23 12:00)
DX: R13.10 Dysphagia, unspecified (principal); K22.2 Esophageal obstruction; K44.9 Diaphragmatic hernia without obstruction or gangrene; K29.70 Gastritis, unspecified, without bleeding; K31.7 Polyp of stomach and duodenum
CPT/HCPCS: 43239; 43249; C1726

== ENCOUNTER 2024-04-20 08:55 | Outpatient (CLI) | payer MEDICARE, OTHER, SELFPAY ==
--- OUTSIDE RECORDS SUMMARY | 2024-04-26 09:00 | XMS_ITS ---
Author Name Unknown Organization Unknown ALLERGIES AND ADVERSE REACTIONS No information ASSESSMENT No information CHIEF COMPLAINT No information MEDICATIONS No information OBJECTIVE DATA No information PHYSICAL EXAMINATION No information TREATMENT PLAN Planned Care Start Date Provider Encounter for Check-up [id number] [facility] PROBLEMS No information RESULTS No information REVIEW OF SYSTEMS No information SUBJECTIVE DATA No information VITAL SIGNS No information
== END 2024-04-24 23:59 | disposition home or self-care (01) ==
LOC: LAB.DROPOF 04-28 12:27
PROVIDERS: PCP Internal Medicine; Visit Provider Internal Medicine
DX: R30.0 Dysuria (principal); B96.1 Klebsiella pneumoniae [K. pneumoniae] as the cause of diseases classified elsewhere
CPT/HCPCS: 87086; 87088; 87186

== ENCOUNTER 2024-05-30 18:12 | Outpatient (CLI) | payer MEDICARE, OTHER, SELFPAY | END 2024-05-30 23:59 | disposition home or self-care (01) | LOC: LAB.DROPOF 18:13 | PROVIDERS: PCP Internal Medicine; Visit Provider Internal Medicine | DX: N39.0 Urinary tract infection, site not specified (principal) | CPT/HCPCS: 87086; 87088; 87186 ==

== ENCOUNTER 2024-08-21 15:32 | Outpatient (CLI) | payer MEDICARE, OTHER, SELFPAY ==
--- NOTE | 2024-08-21 15:39 | XR_ITS ---
PROCEDURE INFORMATION: Exam: XR Left Ankle Exam date and time: 08/21/2024 3:49 PM Age: 68 years old Clinical indication: Pain; Ankle; Left; Additional info: Pain and swelling left ankle TECHNIQUE: Imaging protocol: Radiologic exam of the left ankle. Views: 3 or more views. COMPARISON: No relevant prior studies available. FINDINGS: Bones/joints: Plantar calcaneal spur. No fracture or subluxation. Soft tissues: Nonspecific soft tissue swelling. Vasculature: Atherosclerosis. IMPRESSION: No fracture or subluxation.
== END 2024-08-21 23:59 | disposition home or self-care (01) ==
LOC: RAD 15:34
PROVIDERS: PCP Internal Medicine; Visit Provider Internal Medicine
DX: M25.572 Pain in left ankle and joints of left foot (principal); M25.472 Effusion, left ankle
CPT/HCPCS: 73610

== ENCOUNTER 2024-09-18 08:06 | Outpatient (CLI) | payer MEDICARE, OTHER, SELFPAY ==
--- NOTE | 2024-09-18 08:08 | US_ITS ---
FINAL REPORT TECHNIQUE: ultrasound images of the right upper quadrant were obtained. CLINICAL HISTORY: RUQ PAIN -- N/V COMPARISON: None FINDINGS: There is increased echogenicity in the liver parenchyma consistent with fatty infiltration. The gallbladder is well visualized and the wall appears normal. There are no gallstones. The common duct is normal measuring 4 mm in diameter. The pancreas is not well-visualized. IMPRESSION: Fatty infiltration of the liver. No evidence of gallstones or biliary ductal dilatation. Reviewed, Interpreted and Dictated by Cristobal Wu MD Transcribed by Valerie Lee Authenticated and . [facility]
== END 2024-09-18 23:59 | disposition home or self-care (01) ==
LOC: RAD 08:08
PROVIDERS: PCP Internal Medicine; Visit Provider Nurse Practitioner Family
DX: R10.11 Right upper quadrant pain (principal); R11.0 Nausea; R11.10 Vomiting, unspecified; R63.4 Abnormal weight loss; R63.0 Anorexia
CPT/HCPCS: 76705

== ENCOUNTER 2024-10-20 08:53 | Outpatient (CLI) | payer MEDICARE, OTHER, SELFPAY ==
--- NOTE | 2024-10-20 08:54 | FL_ITS ---
FINAL REPORT CLINICAL HISTORY: Nausea/weight loss/RUQ pain pain all in upper area x 8-10 months mGy : 14.77 DAP: 521.96 time : 22 seconds FINDINGS: SMALL BOWEL FOLLOW THROUGH HISTORY: . Diffuse abdominal pain. Abnormal weiight loss. PROCEDURE: The patient ingested barium. Spot and overhead films were obtained. FINDINGS: The visual lead film is unremarkable. The transit time to the colon is normal. The mucosal fold pattern is normal. Spot images of the terminal ileum are unremarkable. IMPRESSION: Normal small bowel follow-through. Fluoroscopy time: 22 seconds Radiation exposure in Reference air Kerma: 14.77 mGy Fluoro dose: 521.96 DAP in [employer] reviewed , interpreted and dictated by Dr. Luong. Transcribed by Santiago Choi PA-C. Reviewed, Interpreted and Dictated by May Luong MD Transcribed by CHRISTOPHER Mcmahan Authenticated and [facility]
[2024-10-20] MEDS: DIATRIZOATE MEGLUMINE(GASTROGRAFIN) 66%-10% 120ML 30 ML PO (09:44)
[2024-10-20] MEDS: BARIUM SULFATE(LIQUID E-Z-PAQUE);355ML BOTTLE 355 ML PO (09:44)
== END 2024-10-20 23:59 | disposition home or self-care (01) ==
LOC: RAD 08:54
PROVIDERS: PCP Internal Medicine; Visit Provider Nurse Practitioner Family
DX: R10.11 Right upper quadrant pain (principal); R63.4 Abnormal weight loss; R63.0 Anorexia; R11.0 Nausea
CPT/HCPCS: 74250; Q9963

== ENCOUNTER 2025-05-22 11:50 | Outpatient (CLI) | payer MEDICARE, OTHER, SELFPAY ==
--- OUTSIDE RECORDS SUMMARY | 2025-04-12 10:03 | XMS_ITS | Encounter Summary ---
Author Organization [facility] Address [address] [place] [address] Care Team Providers Care Senior Product Designer Name Role Phone Alfred Chapa MD Primary Care Provider [phone] Reason for Referral * Diagnostic Medical (Routine) - Pending Review Specialty Diagnoses / Procedures Referred By Real velazquez Referred To Contact Diagnoses Innominate artery stenosis Procedures Cardiac Catheterization/Vascular Study Vijaya Henderson PA-C [address] [id number] Phone: tel: fax: Referral ID Status Reason Start Date Expiration Date V isits Requested Visits Authorized [id number] Pending Review 03/22/2025 06/21/2026 1 1 Reason for Visit * Auth/Cert Specialty Diagnoses / Procedures Referred By Real velazquez Referred To Contact Diagnoses Innominate artery stenosis Innominate artery stenosis [I77.1] Procedures AK TCATH STENT PLACEMT ANTEGRADE CAROTID/INNOMINATE IR thoracic carotid or innominate artery angioplasty and stent Referral ID Status Reason Start Date Expiration Date Visits Re quested Visits Authorized [id number] 1 1 Encounter Details Date Type Department Care Team (Late st Contact Info) Description 04/12/2025 10:03 AM EDT - 04/13/2025 10:55 AM EDT Hospital Encounter [facility] 2B ICU [address] [place] [address] Duc Barrera MD [address] [place] [address] Innominate artery stenosis Discharge Disposition: Home or Self Care Social History Tobacco Use Types Packs/Day Years Used Date Smoking Tobacco: Former Cigarettes 1 40 1 [id number] Passive Smoke Exposure: Past Smokeless Tobacco: Never Alcohol Use Standard Drinks/Week Comments Never 0 (1 standard drink = 0.6 oz pur e alcohol) AUDIT-C Answer Date Recorded Q1: How often do you have a drink containing alcohol? Never 04/12/2025 Q2: How many drinks containi ng alcohol do you have on a typical day when you are drinking? Patient does not drink Q3: How often do you have si x or more drinks on one occasion? Never 04/12/2025 Abuse Screen Answer Date Recorded Feels Unsafe at Home or Work/School no 04/12/2025 Feels Threatened by Someone no 04/01 Does Anyone Try to Keep You From Having Contact with Others or Doing Things Outside Your Home? no 04/12/2025 Physical Signs of Abuse Present no 04/12/2025 Housing Stability Answer Date Recorded Current Living Arrangements home 04/01 Potentially Unsafe Housing Conditions Not on jovi e 04/12/2025 Disabilities Answer Date Recorded Difficulty Concentrating, Remembering or Making Decisions no 04/12/2025 Difficulty Managing Errands Independently no 04/12/2025 Comments No Sex and Gender Information Value Date Recorded Sex Assigned at Not on file Legal Sex Female 3:27 PM EST Gender Identity Not on file Sexual Orientation Not on file Occupation Industry Job Start Date Job End Date [employer] homem[employer] Not on file Not on file Not on file documented as of this encounter Last Filed Vital Signs Vital Sign Reading Time Taken Comments Blood Pressure 106/50 04/13/2025 10:00 AM EDT Pulse 69 04/13/2025 10:00 AM EDT Temperature 37.2 C (98.9 F) 04/13/2025 8:00 AM EDT Respiratory Rate 18 04/13/2025 8:00 AM EDT Oxygen Saturation 97% 04/13/2025 10:00 AM EDT Inhaled Oxygen Concentration - - Weight 66 kg (145 lb 8.1 oz) 04/12/2025 10:19 AM EDT Height 160 cm (5' 3 ) 04/12/2025 10:19 AM EDT Body Mass Index 25.77 04/12/2025 10:19 AM EDT documented in this encounter Functional Status * Question Answer Date of Assessment Author 1. Wish to be (Past 1 Month) No 025 10:45 AM EDT Meg Carpio RN 2. Non-Specific Active Suici marcio Thoughts (Past 1 Month) No 04/12/2025 10:45 AM EDT aMriza Carpio RN * Calculated C-SSRS Risk Score (Lifetime/Recent) Answer Date of Assessment Author No Risk Indicated 04/12/2025 10:45 AM EDT Meg Kulkarni RN * Scott Suicide Severity Rating Scale (Screener/Recent Self-Report) Question Answer Date of Assessment Author 6. Suicidal Behavior (Lifetime) No 10:45 AM EDT Meg Carpio RN documented as of this encounter Discharge Summaries * Duc Barrera MD - 04/13/2025 10:26 AM EDT PATIENT: HIEN MAE DATE OF : 1955 VISIT ID: [id number] PRIMARY CARE: Alfred Chapa MD ADMITTING PHYSICIAN: Duc Barrera MD DATE OF ADMISSION: 04/12/2025 DATE OF DISCHARGE: 04/13/25 ADMITTING DIAGNOSIS: Innominate artery stenosis, symptomatic DISCHARGE DIAGNOSIS: Innominate artery stenosis, symptomatic PROCEDURES: 1. Innominate artery angioplasty/stent placement 2. Carotid duplex BRIEF HOSPITAL COURSE: Ms. Mae is a 69 y.o. 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 While she denied any focal stroke or TIA-like symptoms, she had been having episodesof dizziness . She was found to have a nearly 60 point discrepancy in upper extremity blood pressures, and carotid duplex demonstrated tardus waveforms within the right carotid and vertebral vasculature, all of which indicated a recurrent high-grade innominate artery stenosis. After deliberation, Ms. Mae elected to pursue additional treatment. 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 Her fractured stent and recurrent stenosis was treated with additional angioplasty/stent placement, utilizing a 7 x 29 mm Viabahn [id number] covered stent. This resulted in mormon of a near normal caliber lumen and robust antegrade flow within the right carotid and subclavian vasculature. Ms. Mae made an uneventful recovery in the neuro ICU, and was discharged home at her neurologic baseline on 04/13/2025. At the time of discharge, her right radial access site was soft and dry without hematoma. She had a bounding brachial pulse. Postoperative carotid duplex demonstrates mormon of normal waveforms with robust antegrade flow in the right carotid and vertebral vasculature, with no hemodynamically significant stenosis. Given the complexity of her carotid/innominate disease, Ms. Mae will remain on a dual antiplatelet/statin regimen indefinitely. Discharge activities, medications, signs/symptoms of stroke, and follow-up care were discussed with Ms. Mae at the bedside, and she expressed an understanding and was in agreement with the treatment plan. She will follow-up in the neurointerventional clinic in 1 month's time. DISCHARGE MEDICATIONS: Discharge Medications Continue These Medications Instructions Start Date aspirin 81 MG EC tablet 81 mg, Daily atenolol 100 MG tablet Commonly known as: TENORMIN 1 tablet, Nightly Azelastine HCl 137 MCG/SPRAY solution As Needed. baclofen 10 MG tablet Commonly known as: LIORESAL 2 Times Daily ciclopirox 0.77 % cream Commonly known as: LOPROX 2 Times Daily clopidogrel 75 MG tablet Commonly known as: PLAVIX 75 mg, Oral, Daily hydroxychloroquine 200 MG tablet Commonly known as: PLAQUENIL 1 tablet, Every 12 Hours Scheduled loratadine 10 MG tablet Commonly known as: CLARITIN 10 mg, Daily montelukast 10 MG tablet Commonly known as: SINGULAIR 10 mg, Nightly omeprazole 40 MG capsule Commonly known as: priLOSEC TAKE 1 CAPSULE BY MOUTH TWICE DAILY FOR 30 DAYS ondansetron ODT 4 MG disintegrating tablet Commonly known as: ZOFRAN-ODT 4 mg, Translingual, Every 8 Hours PRN predniSONE 5 MG tablet Commonly known as: DELTASONE 1 tablet, Daily rosuvastatin 10 MG tablet Commonly known as: CRESTOR 10 mg, Nightly traMADol 50 MG tablet Commonly known as: ULTRAM tramadol 50 mg tablet TAKE 1 TABLET BY MOUTH EVERY 6 HOURS NEEDED triamcinolone 0.1 % cream Commonly known as: KENALOG As Needed. ASK your doctor about these medications Instructions Start Date furosemide 20 MG tablet Commonly known as: LASIX Take 1 tablet by mouth Daily As Needed. ACTIVITY: No strenuous activity or heavy lifting for 5-7 days. DIET: Cardiac diet FOLLOW UP: Follow-up Information Alfred Chapa MD. Go on 04/19/2025. Specialty: Internal Medicine Why: at 1:00 pm Contact information: [address] [facility] [address] [facility] [address] Duc Barrera MD. Go on 05/14/2025. Specialty: Neurosurgery Why: at 1:00 pm with Vijaya WHITE Contact information: [address] [facility] [phone] documented in this encounter Medications at Time of Discharge aspirin 81 MG EC tablet Take 1 tablet by mouth Daily. atenolol (TENORMIN) 100 MG tablet Take 1 tablet by mouth Every Night. 12/29/2022 Azelastine HCl 137 MCG/SPRAY solution As Needed. 03/01/2023 baclofen (LIORESAL) 10 MG tablet 2 (Two) Times a Day. 03/13/2025 ciclopirox (LOPROX) 0.77 % cream Apply topically to the appropriate area as directed 2 (Two) Times a Day. 07/07/2023 clopidogrel (PLAVIX) 75 MG tabletIndications:C arotid artery disease, unspecified laterality, unspecified type Take 1 tablet by mouth Daily. 90 tablet 6 03/20/2024 furosemide (LASIX) 20 MG tablet Take 1 tablet by mouth Daily As Needed. hydroxychloroquine (PLAQUENIL) 200 MG tablet Take 1 tablet by mouth Every 12 (Twelve) Hours. 01/25/2023 loratadine (CLARITIN) 10 MG tablet Take 1 tablet by mouth Daily. montelukast (SINGULAIR) 10 MG tablet Take 1 tablet by mouth Every Night. 01/25/2023 omeprazole (priLOSEC) 40 MG capsule TAKE 1 CAPSULE BY MOUTH TWICE DAILY FOR 30 DAYS 01/05/2023 ondansetron ODT (ZOFRAN-ODT) [address] 1 tablet on the tongue Every 8 (Eight) Hours As Needed for Nausea or Vomiting. 30 tablet 03/06/2023 predniSONE (DELTASONE) 1 MG tablet Take 4 tablets by mouth Daily. 03/13/2025 rosuvastatin (CRESTOR) 10 MG tablet Take 1 tablet by mouth Every Night. 12/29/2022 traMADol (ULTRAM) 50 MG tablet tramadol 50 mg tablet TAKE 1 TABLET BY MOUTH EVERY 6 HOURS NEEDED triamcinolone (KENALOG) 0.1 % cream As Needed. 04/22/2023 predniSONE (DELTASONE) 5 MG tablet Take 1 tablet by mouth Daily. 04/21/2023 05/14/20 documented as of this encounter Progress Notes * Yessy Valle, MARY - 04/12/2025 1:36 PM EDT Intensive Care Follow-up Hospital: LOS: 0 days Ms. Hien Mae, 69 y.o. female is followed for: Innominate artery stenosis Subjective Interval History: Encountered patient upon arrival to the ICU. Hemodynamically stable. Family at bedside. Patient denies any neurological changes, headaches. The patient's past medical, surgical and social history were reviewed and updated in [facility] as appropriate. Objective Infusions: sodium chloride, 75 mL/hr, Last Rate: 75 mL/hr (04/12/25 1332) Medications: [START ON 04/13/2025] aspirin, 81 mg, Oral, Daily atenolol, 100 mg, Oral, Nightly baclofen, 10 mg, Oral, BID [START ON 04/13/2025] cetirizine, 10 mg, Oral, Daily [START ON 04/13/2025] clopidogrel, 75 mg, Oral, Daily hydroxychloroquine, 200 mg, Oral, Q12H montelukast, 10 mg, Oral, Nightly [START ON 04/13/2025] pantoprazole, 40 mg, Oral, Q AM [START ON 04/13/2025] predniSONE, 4 mg, Oral, Daily rosuvastatin, 10 mg, Oral, Nightly I reviewed the patient's medications. Vital Sign Min/Max for last 24 hours Temp Min: 97.5 ??F (36.4 ??C) Max: 97.9 ??F (36.6 ??C) BP Min: 92/61 Max: 168/87 Pulse Min: 67 Max: 78 Resp Min: 12 Max: 16 SpO2 Min: 88 % Max: 96 % Flow (L/min) (Oxygen Therapy) Min: 2 Max: 2 Input/Output for last 24 hour shift No intake/output data recorded. Physical Exam: GENERAL: Patient lying in bed and conversant. No acute distress. HEENT: Normocephalic and atraumatic. Trachea midline. PER. EOM WNL. LUNGS: Chest rise of normal depth and symmetric. Lungs clear to auscultation bilaterally. No wheezes, rhonchi, or rales. HEART: S1,S2 detected. Regular rate and rhythm. No rub, murmur, or gallop. ABDOMEN: Soft, round, nondistended, and nontender. Bowel sounds present. EXTREMITIES: No clubbing, edema, or cyanosis. Peripheral pulses present. Skin warm and dry. Right radial s/p sheath site with TR band intact. Good cap refill. NEURO/PSYCH: Alert and oriented. Follows commands. Moves all extremities. Results from last 7 days Lab Units 04/12/25 1038 WBC 10*3/mm3 13.95* HEMOGLOBIN g/dL 14.2 PLATELETS 10*3/mm3 300 Results from last 7 days Lab Units 04/12/25 1038 SODIUM mmol/L 145 POTASSIUM mmol/L 4.4 CO2 mmol/L 30.0* BUN mg/dL 16.8 CREATININE mg/dL 0.76 GLUCOSE mg/dL 100* Estimated Creatinine Clearance: 62 mL/min (by C-G formula based on SCr of 0.76 mg/dL). I reviewed the patient's new clinical results. I reviewed the patient's new imaging results/reports including actual images and agree with reports. Imaging Results (Last 24 Hours) No results found for the last 24 hours. Assessment & Plan Impression Innominate artery stenosis Subclavian steal syndrome Hypertension Dyslipidemia Rheumatoid arthritis Class 1 obesity in adult Current chronic use of systemic steroids Former smoker Asthma Hien Mae is a 69 year-old female with HTN, dyslipidemia, RA, subclavian steal syndrome, former tobacco abuse, fibromyalgia, polymyalgia rheumatica, asthma, and obesity that presents to [facility] ICU after carotid angiogram with Dr. Barrera today where she was found to have fracture of patient's innominate stent with recurrent stenosis. This was treated with placement of covered stent restoring flow. Plan Admit to ICU Postop orders per Primary Nicardipine for blood pressure control per protocol Continue close neurological monitoring Aspirin/statin/Plavix Ensure adequate pain control Mobilize patient per protocol Aggressive pulmonary toilet Continue chronic prednisone Continue home BP medications Continue Plaquenil for polymyalgia rheumatica Continue Singulair for Asthma SCDs for DVT prophylaxis AM labs Time spent: 36 minutes Plan of care and goals reviewed with multidisciplinary/antibiotic stewardship team during rounds. I discussed the patient's findings and my recommendations with patient and nursing staff Yessy Valle, RANJITH, BATCH ROOM TECHNICIAN, AGAP- Pulmonary and Critical Care Medicine documented in this encounter H&P Notes * Vijaya Henderson PA-C - 04/12/2025 10:50 AM EDT H&P reviewed. The patient was examined and there are no changes to the H&P. Cosigned by Duc Barrera MD at 04/12/2025 11:06 AM EDT Associated attestation - Duc Barrera MD - 04/12/2025 11:06 AM EDT AGree with above Source Note - Duc Barrera MD - 03/14/2025 1:30 PM EDT NAME: HIEN AME DOS: 03/14/2025 : 1955 PCP: Alfred Chapa MD Chief Complaint: Chief Complaint Patient presents with Follow-up Innominate artery stenosis History of Present Illness: 69 y.o. female known to the neurointerventional service, having undergone prior angioplasty/stent placement on 03/05/2023 for asymptomatic, high-grade innominate artery stenosis. Ms. Mae presented with a right central retinal artery occlusion and right-sided vision changes. She has regained some vision in her right eye, but is still unable to read. She has fairly wellsince I saw her last, denying any new stroke or TIA-like symptoms, but does have episodes of dizziness, in particular upon standing. She has noticed a discrepancy in the blood pressures in her upper extremities.. She remains on a dual antiplatelet regimen. She presents today for routine follow-up. Past Medical History: Past Medical History: Diagnosis Date Arthritis Asthma Fibromyalgia GERD (gastroesophageal reflux disease) History of tobacco abuse Hyperlipidemia Hypertension Kidney stone Osteoporosis Ovarian cyst Polymyalgia rheumatica Past Surgical History: Past Surgical History: Procedure Laterality Date APPENDECTOMY CEREBRAL ANGIOGRAM N/A 02/22/2023 Procedure: Cerebral angiogram; Surgeon: Duc Barrera MD; Location: [facility]; Service: Interventional Radiology; Laterality: N/A; COLON RESECTION 2017 perforation due to blockage during colonoscopy - with colostomy COLOSTOMY REVISION 2019 HYSTERECTOMY INTERVENTIONAL RADIOLOGY PROCEDURE N/A 03/05/2023 Procedure: IR thoracic carotid or innominate artery angioplasty and stent; Surgeon: Duc Barrera MD; Location: [facility]; Service: Interventional Radiology; Laterality: N/A; LAPAROSCOPIC TUBAL LIGATION NECK SURGERY 2010 [place] tumor removal OTHER SURGICAL HISTORY POSSIBLE THORACIC CAROTID/ INNOMINATE ARTERY STENT 03/05/[address] BARRERA Review of Systems: Review of Systems Constitutional: Negative for activity change, appetite change, chills, diaphoresis, fatigue, fever and unexpected weight change. HENT: Negative for congestion, dental problem, drooling, ear discharge, ear pain, facial swelling, hearing loss, mouth sores, nosebleeds, postnasal drip, rhinorrhea, sinus pressure, sinus pain, sneezing, sore throat, tinnitus, trouble swallowing and voice change. Eyes: Negative for photophobia, pain, discharge, redness, itching and visual disturbance. Respiratory: Negative for apnea, cough, choking, chest tightness, shortness of breath, wheezing andstridor. Cardiovascular: Negative for chest pain, palpitations and leg swelling. Gastrointestinal: Negative for abdominal distention, abdominal pain, anal bleeding, blood in stool,constipation, diarrhea, nausea, rectal pain and vomiting. Endocrine: Negative for cold intolerance, heat intolerance, polydipsia, polyphagia and polyuria. Genitourinary: Negative for decreased urine volume, difficulty urinating, dysuria, enuresis, flank pain, frequency, genital sores, hematuria and urgency. Musculoskeletal: Negative for arthralgias, back pain, gait problem, joint swelling, myalgias, neck pain and neck stiffness. Skin: Negative for color change, pallor, rash and wound. Allergic/Immunologic: Negative for environmental allergies, food allergies and immunocompromised state. Neurological: Negative for dizziness, tremors, seizures, syncope, facial asymmetry, speech difficulty, weakness, light-headedness, numbness and headaches. Hematological: Negative for adenopathy. Does not bruise/bleed easily. Psychiatric/Behavioral: Negative for agitation, behavioral problems, confusion, decreased concentration, dysphoric mood, hallucinations, self-injury, sleep disturbance and suicidal ideas. The patientis not nervous/anxious and is not hyperactive. All other systems reviewed and are negative. Medications Current Outpatient Medications: aspirin 81 MG EC tablet, Take 1 tablet by mouth Daily., Disp: , Rfl: atenolol (TENORMIN) 100 MG tablet, Take 1 tablet by mouth Every Night., Disp: , Rfl: Azelastine HCl 137 MCG/SPRAY solution, USE 1 SPRAY(S) IN EACH NOSTRIL TWICE DAILY, Disp: , Rfl: baclofen (LIORESAL) 10 MG tablet, 2 (Two) Times a Day., Disp: , Rfl: ciclopirox (LOPROX) 0.77 % cream, Apply topically to the appropriate area as directed 2 (Two) Timesa Day., Disp: , Rfl: clopidogrel (PLAVIX) 75 MG tablet, Take 1 tablet by mouth Daily., Disp: 90 tablet, Rfl: 6 furosemide (LASIX) 20 MG tablet, Take 1 tablet by mouth Daily As Needed., Disp: , Rfl: hydroxychloroquine (PLAQUENIL) 200 MG tablet, Take 1 tablet by mouth Every 12 (Twelve) Hours., Disp: , Rfl: loratadine (CLARITIN) 10 MG tablet, Take 1 tablet by mouth Daily., Disp: , Rfl: montelukast (SINGULAIR) 10 MG tablet, Take 1 tablet by mouth Every Night., Disp: , Rfl: nystatin (MYCOSTATIN) 100,000 unit/mL suspension, TAKE 4ML BY MOUTH 4 TIMES A DAY, Disp: , Rfl: omeprazole (priLOSEC) 40 MG capsule, TAKE 1 CAPSULE BY MOUTH TWICE DAILY FOR 30 DAYS, Disp: , Rfl: ondansetron ODT (ZOFRAN-ODT) 4 MG disintegrating tablet, Place 1 tablet on the tongue Every 8 (Eight) Hours As Needed for Nausea or Vomiting., Disp: 30 tablet, Rfl: 0 predniSONE (DELTASONE) 5 MG tablet, Take 1 tablet by mouth Daily. (Patient taking differently: Take1 tablet by mouth Daily. Patient is now taking 4 mg), Disp: , Rfl: rosuvastatin (CRESTOR) 10 MG tablet, Take 1 tablet by mouth Every Night., Disp: , Rfl: spironolactone (ALDACTONE) 25 MG tablet, Take 1 tablet by mouth As Needed., Disp: , Rfl: traMADol (ULTRAM) 50 MG tablet, tramadol 50 mg tablet TAKE 1 TABLET BY MOUTH EVERY 6 HOURS NEEDED, Disp: , Rfl: triamcinolone (KENALOG) 0.1 % cream, APPLY CREAM EXTERNALLY TO AFFECTED AREA THREE TIMES A DAY DIRECTED, Disp: , Rfl: losartan (COZAAR) 25 MG tablet, Take 0.5 tablets by mouth Daily. (Patient not taking: Reported on 03/14/2025), Disp: , Rfl: Allergies: No Known Allergies Social Hx: Social History Tobacco Use Smoking status: Former Current packs/day: 0.00 Average packs/day: 1 pack/day for 40.0 years (40.0 ttl pk-yrs) Types: Cigarettes Start date: 1976 Quit date: 2017 Years since quittin.3 Passive exposure: Past Smokeless tobacco: Never Vaping Use Vaping status: Never Used Substance Use Topics Alcohol use: Never Drug use: Never Family Hx: Family History Problem Relation Age of Onset Kidney disease Mother Coronary artery disease Father No Known Problems Sister Rheum arthritis Sister Kidney nephrosis Brother Aneurysm Brother Review of Imaging: Carotid duplex dated 03/14/2025 from [facility] was reviewed along with its corresponding radiologic report. Comparison is made to prior study dated 03/20/2024. There is evidence of a recurrent, high-grade innominate artery stenosis with now tardus waveforms within the right carotid andvertebral vasculature. Peak velocities within the right carotid vasculature are 76/37 cm/s, with Lynda/CCA ratio of 1.2 (was 121/35 cm/s, ratio 2.1). There is stable, calcific plaque within the leftcarotid vasculature, but without hemodynamically significant stenosis. Peak velocities within the within the left carotid vasculature are 105/33 cm/s, with a ratio 0.9 (was 96/20 cm/s, with a ratio of 1.1). Physical Examination: Vitals: 03/14/25 1325 BP: (!) 60/45 Pulse: 74 Temp: 97.7 ??F (36.5 ??C) SpO2: 94% Blood pressure in the right upper extremity is 65/49, blood pressure in the left upper extremity is132/73 General Appearance: Well developed, well nourished, well groomed, alert, and cooperative. Cardiovascular: Regular rate and rhythm. No carotid bruits Neurological examination: Alert and oriented x 3. She continues to describe a central visual field deficit involving the right eye, but again has regained significant vision following her innominate/stent placement. I do not appreciate any gross left-sided visual field deficits. Speech is clear. No facial droop. Strength issymmetric in the upper and lower extremities. She ambulates with assistance of a cane/walker, but uses a wheelchair for longer distances secondary to unsteady gait. Diagnoses/Plan: Ms. Mae is a 69 y.o. female status post angioplasty/stent for asymptomatic innominate artery stent in March 2023. Ms. Mae has done well following her hospitalization, regaining some vision in herright eye. While she denies any new stroke or TIA-like symptoms, she has been experiencing dizziness, in particular when standing.. Carotid duplex on 03/14/2025 demonstrates a recurrent, high-grade innominate stenosis with tardus waveforms within the right carotid and vertebral vasculature. Additionally, she has a greater than 60 point discrepancy in her upper extremity blood pressures. I discussed these findings in detail with Ms. Mae, and given her symptoms of dizziness, along with increased risk of stroke, I do think it would be prudent to perform additional angioplasty/stent placement(with covered stent) for her recurrent innominate artery stenosis. Ms. Mae would like to wait a few months to have this done, and I think this is certainly reasonable as long as she remains on herdual antiplatelet regimen. We are going to tentatively schedule her to follow-up in mid June 2025, with anticipation of scheduling her innominate stent procedure for early July 2025. During the interim, she will contact our office and/or call 911 if she has any progressive dizziness/syncopalepisodes or any new stroke or TIA-like symptoms. Shared Decision Making A formal shared decision-making approach was used as we discussed the patient's treatment options for carotid artery stenosis. Treatment options including; carotid endarterectomy (CEA), carotid artery stenting (RAIMUNDO), transcarotid artery revascularization (TCAR), and optimal medical therapy (OMT) were discussed. Risks and benefits of each treatment options were discussed. Copied text and portions of the note have been reviewed and are accurate as of 03/14/25. documented in this encounter Nursing Notes * Mati Henley RN - 04/13/2025 10:14 AM EDT Problem: Adult Inpatient Plan of Care Goal: Plan of Care Review Outcome: Met Flowsheets (Taken 04/13/2025 1013) Outcome Evaluation: Pt VSS over night, Ambulates in room with no issues. Being DC'd Goal: Patient-Specific Goal (Individualized) Outcome: Met Goal: Absence of Hospital-Acquired Illness or Injury Outcome: Met Intervention: Identify and Manage Fall Risk Recent Flowsheet Documentation Taken 04/13/2025 0800 by Mati Henley RN Safety Promotion/Fall Prevention: safety round/check completed room organization consistent lighting adjusted fall prevention program maintained clutter free environment maintained Intervention: Prevent Skin Injury Recent Flowsheet Documentation Taken 04/13/2025 08 by Mati Henley RN Body Position: position changed independently Skin Protection: incontinence pads utilized Intervention: Prevent Infection Recent Flowsheet Documentation Taken 04/13/2025 0800 by Mati Henley RN Infection Prevention: visitors restricted/screened single patient room provided rest/sleep promoted hand hygiene promoted environmental surveillance performed Goal: Optimal Comfort and Wellbeing Outcome: Met Intervention: Monitor Pain and Promote Comfort Recent Flowsheet Documentation Taken 04/13/2025799 by Mati Henley RN Pain Management Interventions: care clustered pillow support provided position adjusted quiet environment facilitated Intervention: Provide Person-Centered Care Recent Flowsheet Documentation Taken 04/13/2025799 by Mati Henley RN Trust Relationship/Rapport: care explained questions answered reassurance provided Goal: Readiness for Transition of Care Outcome: Met Problem: Pain Acute Goal: Optimal Pain Control and Function Outcome: Met Intervention: Optimize Psychosocial Wellbeing Recent Flowsheet Documentation Taken 04/13/2025 08 by Mati Henley RN Diversional Activities: television Intervention: Develop Pain Management Plan Recent Flowsheet Documentation Taken 04/13/2025799 by Mati Henley RN Pain Management Interventions: care clustered pillow support provided position adjusted quiet environment facilitated Intervention: Prevent or Manage Pain Recent Flowsheet Documentation Taken 04/13/2025799 by Mati Henley RN Medication Review/Management: medications reviewed Problem: Carotid Revascularization Goal: Absence of Bleeding Outcome: Met Goal: Adequate Tissue Perfusion Outcome: Met Intervention: Optimal Blood Flow Recent Flowsheet Documentation Taken 04/13/2025799 by Mati Henley RN Head of Bed (HOB) Positioning: HOB elevated Goal: Absence of Infection Signs and Symptoms Outcome: Met Goal: Absence of Acute Neurologic Symptoms Outcome: Met Goal: Anesthesia/Sedation Recovery Outcome: Met Intervention: Optimize Anesthesia Recovery Recent Flowsheet Documentation Taken 04/13/2025799 by Mati Henley RN Safety Promotion/Fall Prevention: safety round/check completed room organization consistent lighting adjusted fall prevention program maintained clutter free environment maintained Goal: Acceptable Pain Control Outcome: Met Intervention: Prevent or Manage Pain Recent Flowsheet Documentation Taken 04/13/2025799 by Mati Henley RN Pain Management Interventions: care clustered pillow support provided position adjusted quiet environment facilitated Diversional Activities: television Goal Outcome Evaluation: Outcome Evaluation: Pt VSS over night, Ambulates in room with no issues. Being DC'd * Charline Torres RN - 04/12/2025 6:40 PM EDT Goal Outcome Evaluation: TR band removed at 1645 after removing 2mL q15min after 2hr of staying in place. Some bruising noted at the sheath site, but no hematoma. Pulses palpable. Patient tolerating meals and has reported nopain. Neurologically intact, with baseline field cut still present. 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 This was treated with placement of a 7 x 29 mm Viabahn VBX covered stent, restoring a near normal caliber lumen and robust flow within the right carotid and subclavian vasculature. Complications: None apparent. Duc Barrera MD Date: 04/12/2025 Time: 13:27 EDT documented in this encounter Plan of Treatment Upcoming Encounters Date Type Department Care Team (Late st Contact Info) Description 08/15/2025 11:00 AM EDT Appointment [facility] [address] [place] [address] [address] [place] [id number] 08/15/2025 1:00 PM EDT Office Visit [facility] [address] [place] [id number] Vijaya Henderson PA-C [address] [place] [address] documented as of this encounter Procedures Procedure Name Priority Date/Time Associated Diagnosis Comments DUPLEX CAROTID BILATERAL CAR - PERFORMED PROCEDURE Routine 04/13/2025 8:38 AM EDT CBC (NO DIFF) Routine 04/13/2025 2:59 AM EDT BASIC METABOLIC PANEL Routine 04/13/2025 2:59 AM EDT SCANNED - TELEMETRY 04/12/2025 3 :22 PM EDT CARDIAC CATHETERIZATION Routine 04/12/20 12:57 PM EDT Innominate artery stenosis CBC (NO DIFF) Routine 04/12/2025 10:38 AM EDT Innominate artery stenosis BASIC METABOLIC PANEL Routine 04/12/2025 10:38 AM EDT Innominate artery stenosis SCANNED - TELEMETRY 04/12/2025 documented in this encounter Results * (ABNORMAL) DUPLEX CAROTID BILATERAL CAR - PERFORMED PROCEDURE (04/13/2025 8:38 AM EDT) Prox CCA PSV 106.0 cm/sec Prox CCA EDV 27.3 cm/sec Right Mid CCA PSV 146.0 cm/sec right Mid CCA EDV 40.7 cm/sec Dist CCA PSV 137.0 cm/sec Dist CCA EDV 32.9 cm/sec Prox ICA PSV 229.0(A) cm/sec Prox ICA EDV 40.8 cm/sec Mid ICA PSV 141.0 cm/sec Mid ICA EDV 37.5 cm/sec Dist ICA PSV 141.0 cm/sec Dist ICA EDV 30.5 cm/sec Prox ECA PSV 245.0 cm/sec Prox ECA EDV 23.5 cm/sec Vertebral A PSV 126.0 cm/sec Vertebral A EDV 37.3 cm/sec Prox SCLA PSV 169.0 cm/sec Prox CCA PSV 93.9 cm/sec Prox CCA EDV 26.1 cm/sec left Mid CCA PSV 87.2 cm/sec left Mid CCA EDV 34.9 cm/sec Dist CCA PSV 89.1 cm/sec Dist CCA EDV 29.1 cm/sec Prox ICA PSV 120.0 cm/sec Prox ICA EDV 28.1 cm/sec Mid ICA PSV 115.0 cm/sec Mid ICA EDV 29.1 cm/sec Dist ICA PSV 130.0 cm/sec Dist ICA EDV 28.1 cm/sec Prox ECA PSV 92.0 cm/sec Vertebral A PSV 118.0 cm/sec Vertebral A EDV 21.3 cm/sec Prox SCLA PSV 142.0 cm/sec XLRA ISREAL RIGHT CAROTID BULB PSV 256.0(A) cm/sec XLRA ISREAL RIGHT CAROTID BULB EDV 43.9 cm/sec ICA/CCA ratio 1.54 ICA/CCA ratio 1.38 Anatomical Region Laterality Modality Ultrasound Narrative 04/13/2025 11:42 AM EDT Right internal carotid artery demonstrates a 50-69% stenosis. Antegrade right vertebral flow. Left internal carotid artery demonstrates a less than 50% stenosis. Antegrade left vertebral flow. Innominate artery angioplasty and stent placement performed on 03/05/2023, PSV of 369/56 cm/sec compared to 198.42/46.6 cm/s on 03/14/2025. Study Impression Right ICA: Imaging indicates 50-69% stenosis. Left ICA: Imaging indicates <50% stenosis. Study Findings Right CCA Prox: Irregular heterogeneous plaque present. Right CCA Mid: Irregular heterogeneous plaque present. Right CCA Dist: Irregular heterogeneous plaque present. Right Carotid Bulb: Irregular calcified heterogeneous plaque present. Right ICA Prox: Irregular calcified heterogeneous plaque present. Right ICA Mid: No plaque visualized. Right ICA Dist: No plaque visualized. Right ECA: Irregular calcific heterogeneous plaque present. Right Vertebral: Antegrade flow noted. Left CCA Prox: Irregular heterogeneous plaque present. Left CCA Mid: Irregular calcified heterogeneous plaque present. Left CCA Dist: Irregular calcified heterogeneous plaque present. Left Carotid Bulb: Irregular calcified heterogeneous plaque present. Left ICA Prox: Irregular calcified heterogeneous plaque present. Left ICA Mid: No plaque visualized. Left ICA Dist: No plaque visualized. Left ECA: Irregular heterogeneous plaque present. Left Vertebral: Antegrade flow noted. Innominate artery angioplasty and stent placement performed on 03/05/2023, per Dr. Barrera. PSV of 369 cm/sec detected on todays exam. Elevated velocities of 229 cm/sec detected in the right proximal ICA with a ratio of 1.5. No elevated velocities detected left ICA. Ratio is 1.4. Antegrade flow detected bilateral vertebral arteries. Multiphasic flow detected bilateral subclavian arteries. Previous duplex performed on 03/14/2025. Additional Study Details Study performed at bedside. The study is technically adequate for diagnosis. The quality of the study is limited due to patient respirations. Relevant Cardiovascular History: Innominate artery stenosis - angioplasty and stent placement (03/05/2023) us Duc Barrera MD CV VASCULAR ORDERABLES Final R esult * (ABNORMAL) CBC (No Diff) (04/13/2025 2:59 AM EDT) WBC 11.49(H) 3.40 - 10.80 10*3/mm3 04/13/2025 4:21 AM EDT [facility] RBC 4.05 3.77 - 5.28 10*6/mm3 04/13/2025 4:21 AM EDT [facility] Hemoglobin 11.5(L) 12.0 - 15.9 g/dL 04/13/2025 4:21 AM EDT [facility] Hematocrit 37.2 34.0 - 46.6 % 04/13/2025 4:21 AM EDT [facility] MCV 91.9 79.0 - 97.0 fL 04/13/2025 4:21 AM EDT [facility] MCH 28.4 26.6 - 33.0 pg 04/13/2025 4:21 AM EDT [facility] MCHC 30.9(L) 31.5 - 35.7 g/dL 04/13/2025 4:21 AM EDT [facility] RDW 14.9 12.3 - 15.4 % 04/13/2025 4:21 AM EDT [facility] RDW-SD 50.3 37.0 - 54.0 fl 04/13/2025 4:21 AM EDT [facility] MPV 9.8 6.0 - 12.0 fL 04/13/2025 4:21 AM EDT [facility] Platelets 270 140 - 450 10*3/mm3 04/13/2025 4:21 AM EDT [facility] Blood Venipuncture / Unknown 04/13/2025 2:59 AM EDT 04/13/2025 4:04 AM EDT Jeovanny Simon BATCH ROOM TECHNICIAN LAB BLOOD ORDERABLES Katt l Result [facility]
[address] [place] [address], * (ABNORMAL) Basic Metabolic Panel (04/13/2025 2:59 AM EDT) Glucose 86 65 - 99 mg/dL 04/13/2025 4:34 AM EDT [facility] BUN 16.3 8.0 - 23.0 mg/dL 04/13/2025 4:34 AM EDT [facility] Creatinine 0.79 0.57 - 1.00 mg/dL 04/13/2025 4:34 AM EDT [facility] Sodium 145 136 - 145 mmol/L 04/13/2025 4:34 AM EDT [facility] Potassium 4.4 3.5 - 5.2 mmol/L 04/13/2025 4:34 AM EDT [facility] Chloride 106 98 - 107 mmol/L 04/13/2025 4:34 AM EDT [facility] CO2 31.0(H) 22.0 - 29.0 mmol/L 04/13/2025 4:34 AM EDT [facility] Calcium 9.0 8.6 - 10.5 mg/dL 04/13/2025 4:34 AM EDT [facility] BUN/Creatinine Ratio 20.6 7.0 - 25.0 04/13/2025 4:34 AM EDT [facility] Anion Gap 8.0 5.0 - 15.0 mmol/L 04/13/2025 4:34 AM EDT [facility] eGFR 80.1 >60.0 mL/min/1.7 3 04/13/2025 4:34 AM EDT [facility] Blood Venipuncture / Unknown 04/13/2025 2:59 AM EDT 04/13/2025 4:02 AM EDT Narrative [facility] - 04/13/2025 4:34 AM EDT GFR Categories in Chronic Kidney Disease (CKD) GFR Category GFR (mL/min/1.73) Interpretation G1 90 or greater Normal or high (1) G2 60-89 Mild decrease (1) G3a 45-59 Mild to moderate decrease G3b 30-44 Moderate to severe decrease G4 15-29 Severe decrease G5 14 or less Kidney failure (1)In the absence of evidence of kidney disease, neither GFR category G1 or G2 fulfill the criteria for CKD. eGFR calculation 2020 CKD-EPI creatinine equation, which does not include race as a factor Jeovanny Simon BATCH ROOM TECHNICIAN LAB BLOOD ORDERABLES Katt l Result [facility]
[address] [place] [address], * Telemetry Scan (04/12/2025 3:22 PM EDT) [facility] Onbase ECG ORDERABLES Final Result * IR THORACIC CAROTID OR INNOMINATE ARTERY ANGIOPLASTY AND STENT (04/12/2025 12:57 PM EDT) Anatomical Region Laterality Modality X-Ray Angiograph y Impressions 04/12/2025 1:51 PM EDT Interval fracture of the innominate stent, with recurrent, critical (greater than 90%) stenosis. This lesion did respond well to angioplasty/stent placement (7 mm Viabahn VBX), restoring a near normal caliber lumen and a less than 20% residual stenosis. There were no immediate complications. Narrative 04/12/2025 1:51 PM EDT Clinical Indication: 69-year-old female with history of a right sided central retinal artery occlusion and vision loss, related to asymptomatic, critical innominate stenosis, treated with angioplasty/stent placement in 2022. She has done well since that time, denying any new stroke or TIA additionally symptoms; however, she has had carotid duplex demonstrating recurrent, high-grade innominate stenosis with tardus waveforms in the carotid vasculature, as well as marked discrepancy in upper extremity blood pressures. Roller Setter: Dr. Duc Barrera. Access: Right radial artery. Ultrasound was used to identify the right radial artery for access. It was patent, appropriate for catheterization, and used for guidance of the micropuncture. Successful cannulation was achieved and images were saved to PACS for review. Conscious sedation: Moderate sedation was provided by ga for a total of 63 minutes. Physical vitals were continuously monitored by an independently trained observer. A total of 2 mg of Versed and 125 ug of fentanyl were administered intravenously. Estimated blood loss: Negligible Complication: None apparent. Procedures: 1. Innominate/brachiocephalic artery angioplasty/stent placement 2. Ultrasound-guided arterial access, right radial artery. 3. Conscious sedation Technique/Findings: Formal written consent for the procedure was obtained from the patient/patient's family after explained risks to include bleeding, infection, contrast reaction, vascular injury, and stroke. The right wrist region was prepped and draped in the usual, sterile fashion. Local anesthesia with 1% lidocaine infiltration was achieved. Additionally, intravenous fentanyl and Versed were given for patient comfort throughout the procedure, the details of which are documented in the nursing record. Utilizing Ultrasound guidance and Seldinger technique, a 5 Vincentian vascular sheath was placed into the right radial artery without difficulty. A radial cocktail was then administered, per protocol, the details of which are documented in the nursing record. Subsequently, a 5 Vincentian Berenstein catheter was advanced into the aortic arch and used to select the right subclavian and innominate arteries under fluoroscopic guidance. Appropriate angiographic sequences were filmed following contrast injection. Comparison is made to multiple prior catheter angiograms at [facility], most notably the interventional angiogram from 2022. Innominate/subclavian catheterization and angiography: Injection of the proximal subclavian and innominate artery demonstrates recurrent, critical (greater than 90%) stenosis involving the innominate artery. Fluoroscopy demonstrates multisegmental fracture of the previously placed innominate stent. The Berenstein catheter was carefully navigated through the struts of the fractured stent and into the ascending aorta, and attempts to exchange the Berenstein catheter and 5 Vincentian sheath over a Casillas wire for a 7 Vincentian Jakin sheath was unsuccessful, with the 7 Vincentian sheath not advancing beyond the axillary artery. Subsequently, a 6 Vincentian Jakin Destination sheath was advanced over the Casillas wire into the right subclavian artery without difficulty. However, the Jakin Destination sheath would not advance through the fractured stent, and I suspect that the wire and Berenstein catheter had passed through either struts of the stent or in/out through the fracture components. Multiple attempts to successfully cannulate the lumen of the fractured segments of the stents with the Berenstein catheter and Glidewire was unsuccessful. Eventually, an Moorhead SL 10 microcatheter was navigated over a Synchro microwire through the components of the fractured innominate stent and into the ascending aorta without difficulty. This allowed easy passage of the Berenstein catheter over the microcatheter/microwire into the ascending aorta. However, the Jakin Destination sheath would still not advance through the struts of the stent. At this point, sub-optimal balloon angioplasty was deemed indicated, to assess whether the wire was through a strut of the stent or potentially beside a fractured component of the stent. Subsequently, 5 mm EverCross balloon was advanced over the Casillas wire and positioned through the fractured stent at the site of restenosis without difficulty. The stent fully expanded to nominal diameter without any crimping or substantial dog boning of the balloon. Following balloon angioplasty, the Destination sheath was able to be advanced with its introducer over the Casillas wire through the fractured stent/recurrent stenosis and into the ascending aorta without difficulty. Next, a 7 x 29 mm Viabahn VBX covered stent was advanced through the Destination sheath and positioned across the recurrent innominate stenosis/fractured stent without difficulty. The Viabahn stent was deployed to nominal diameter, restoring a near normal caliber lumen with a less than 20% residual stenosis. There is a small component of the prior fractured stent which was effectively crushed exterior to the Viabahn covered stent, but again resulted in no significant residual stenosis, contrast extravasation, or other complicating feature. At the end of the procedure, all catheters and sheaths were removed from the wrist and hemostasis was achieved at the puncture site utilizing manual compression and placement of a radial TR band . The patient tolerated the procedure well without apparent complication. us Duc Barrera MD CV CARDIAC CATH ORDERABLES [facility] al Result * (ABNORMAL) CBC (No diff) (04/12/2025 10:38 AM EDT) WBC 13.95(H) 3.40 - 10.80 10*3/mm3 04/12/2025 10:47 AM EDT [facility] RBC 5.06 3.77 - 5.28 10*6/mm3 04/12/2025 10:47 AM EDT [facility] Hemoglobin 14.2 12.0 - 15.9 g/dL 04/12/2025 10:47 AM EDT [facility] Hematocrit 45.0 34.0 - 46.6 % 04/12/2025 10:47 AM EDT [facility] MCV 88.9 79.0 - 97.0 fL 04/12/2025 10:47 AM EDT [facility] MCH 28.1 26.6 - 33.0 pg 04/12/2025 10:47 AM EDT [facility] MCHC 31.6 31.5 - 35.7 g/dL 04/12/2025 10:47 AM EDT [facility] RDW 14.8 12.3 - 15.4 % 04/12/2025 10:47 AM EDT [facility] RDW-SD 48.3 37.0 - 54.0 fl 04/12/2025 10:47 AM EDT [facility] MPV 9.5 6.0 - 12.0 fL 04/12/2025 10:47 AM EDT [facility] Platelets 300 140 - 450 10*3/mm3 04/12/2025 10:47 AM EDT [facility] Blood Line / Unknown 04/12/2025 10 :38 AM EDT 04/12/2025 10:42 AM EDT us Vijaya Henderson PA-C LAB BLOOD ORDERABLES Final R esult [facility]
[address] [place] [address], * (ABNORMAL) Basic metabolic panel (04/12/2025 10:38 AM EDT) Glucose 100(H) 65 - 99 mg/dL 04/12/2025 11:15 AM EDT [facility] BUN 16.8 8.0 - 23.0 mg/dL 04/12/2025 11:15 AM EDT [facility] Creatinine 0.76 0.57 - 1.00 mg/dL 04/12/2025 11:15 AM EDT [facility] Sodium 145 136 - 145 mmol/L 04/12/2025 11:15 AM EDT [facility] Potassium 4.4 3.5 - 5.2 mmol/L 04/12/2025 11:15 AM EDT [facility] Chloride 103 98 - 107 mmol/L 04/12/2025 11:15 AM EDT [facility] CO2 30.0(H) 22.0 - 29.0 mmol/L 04/12/2025 11:15 AM EDT [facility] Calcium 9.9 8.6 - 10.5 mg/dL 04/12/2025 11:15 AM EDT [facility] BUN/Creatinine Ratio 22.1 7.0 - 25.0 04/12/2025 11:15 AM EDT [facility] Anion Gap 12.0 5.0 - 15.0 mmol/L 04/12/2025 11:15 AM EDT [facility] eGFR 83.9 >60.0 mL/min/1.7 3 04/12/2025 11:15 AM EDT [facility] Blood Line / Unknown 04/12/2025 10 :38 AM EDT 04/12/2025 10:42 AM EDT Narrative [facility] - 04/12/2025 11:15 AM EDT GFR Categories in Chronic Kidney Disease (CKD) GFR Category GFR (mL/min/1.73) Interpretation G1 90 or greater Normal or high (1) G2 60-89 Mild decrease (1) G3a 45-59 Mild to moderate decrease G3b 30-44 Moderate to severe decrease G4 15-29 Severe decrease G5 14 or less Kidney failure (1)In the absence of evidence of kidney disease, neither GFR category G1 or G2 fulfill the criteria for CKD. eGFR calculation 2020 CKD-EPI creatinine equation, which does not include race as a factor Vijaya Henderson PA-C LAB BLOOD ORDERABLES Final R esult [facility]
[address] [place] [address], * Telemetry Scan (04/12/2025) [facility] Onbase ECG ORDERABLES Final Result documented in this encounter Visit Diagnoses Diagnosis Innominate artery stenosis- Primary Dyslipidemia Other and unspecified hyperlipidemia Former smoker Personal history of tobacco use, presenting hazards to health Hypertension Unspecified essential hypertension Rheumatoid arthritis Class 1 obesity in adult Current chronic use of systemic steroids Subclavian steal syndrome Asthma Unspecified asthma Innominate artery stenosis documented in this encounter Admitting Diagnoses Diagnosis Innominate artery stenosis documented in this encounter Administered Medications Inactive Administered Medications - up to 3 most recent administrations Medication Order MAR Action Action Date Dose Rate Site acetaminophen (TYLENOL) tablet 650 mg 650 mg, Oral, Every 6 Hours PRN, Headache, Starting on Myrtle 04/12/25 at 2225, If given for fever, use fever parameter: fever greater than 100.4 F Based on patient request - if ordered for moderate or severe pain, provider allows for administration of a medication prescribed for a lower pain scale. Do not exceed 4 grams of acetaminophen in a 24 hr period. Max dose of 2gm for AST/ALT greater than 120 units/L. If given for pain, use the following pain scale: Mild Pain = Pain Score of 1-3, CPOT 1-2 Moderate Pain = Pain Score of 4-6, CPOT 3-4 Severe Pain = Pain Score of 7-10, CPOT 5-8 Given 04/12/2025 10:33 PM EDT 650 mg aspirin EC tablet 81 mg 81 mg, Oral, Once, On Myrtle 04/12/25 at 1105, For 1 dose, Do not crush or chew the capsules or tablets. The drug may not work as designed if the capsule or tablet is crushed or chewed. Swallow whole. Do not exceed 4 grams of aspirin in a 24 hr period. If given for pain, use the following pain scale: Mild Pain = Pain Score of 1-3, CPOT 1-2 Moderate Pain = Pain Score of 4-6, CPOT 3-4 Severe Pain = Pain Score of 7-10, CPOT 5-8 Given 04/12/2025 11:05 AM EDT 81 mg aspirin EC tablet 81 mg 81 mg, Oral, Daily, First dose on Wed04/13/25 at 0900, Do not crush or chew the capsules or tablets. The drug may not work as designed if the capsule or tablet is crushed or chewed. Swallow whole. Do not exceed 4 grams of aspirin in a 24 hr period. If given for pain, use the following pain scale: Mild Pain = Pain Score of 1-3, CPOT 1-2 Moderate Pain = Pain Score of 4-6, CPOT 3-4 Severe Pain = Pain Score of 7-10, CPOT 5-8 Given 04/13/2025 8:01 AM EDT 81 mg atenolol (TENORMIN) tablet 100 mg 100 mg, Oral, Nightly, First dose (after last modification) on Myrtle 04/12/25 at 2300, Hold for SBP less than 100, DBP less than 60, or heart rate less than 50. If a dose is held, please contact the provider. Given 04/12/2025 8:41 PM EDT 100 mg baclofen (LIORESAL) tablet 10 mg 10 mg, Oral, 2 Times Daily, First dose on Wed04/12/25 at 2100, Take with food if GI upset occurs. Given 04/13/2025 8:01 AM EDT 10 mg Given 04/12/2025 8:41 PM EDT 10 mg cetirizine (zyrTEC) tablet 10 mg 10 mg, Oral, Daily, First dose on Wed04/13/25 at 0900 Given 04/13/2025 8:01 AM EDT 10 mg clopidogrel (PLAVIX) tablet 75 mg 75 mg, Oral, Daily, First dose on Wed04/13/25 at 0900 Given 04/13/2025 8:00 AM EDT 75 mg hydroxychloroquine (PLAQUENIL) tablet 200 mg 200 mg, Oral, Every 12 Hours Scheduled, First dose on Wed04/12/25 at 2100, Do not crush or divide film-coated tablets per the mayonnaise mixer; the tablets have a bitter taste. In patients unable to swallow tablets, it has been recommended that tablets may be crushed and mixed with a small amount of applesauce., Indications: polymyalgia rheumaticaIndications:polymyalgia rheumatica Given 04/13/2025 8:00 AM EDT 200 mg Given 04/12/2025 8:41 PM EDT 200 mg montelukast (SINGULAIR) tablet 10 mg 10 mg, Oral, Nightly, First dose on Wed04/12/25 at 2100 Given 04/12/2025 8:41 PM EDT 10 mg mupirocin (BACTROBAN) 2 % nasal ointment 1 Application 1 Application, Each Nare, 2 Times Daily, First dose on Wed04/12/25 at 1545, For 5 days, Administer for 5 days, even if patient transferred out of critical care. MUPIROCIN APPLICATION: 1. Place patient's bed at 30 degrees, if tolerated. 2. Wash your hands with warm soapy water or use hand any commodity buyer. 3. Open the tube of mupirocin 2%. 4. Squeeze about 0.5 g (blueberry-size) of mupirocin from the tube onto a sterile applicator or a cotton swab. 5. Apply the swab directly into nostril. Ensure coating of the sides of the nostril. 6. Repeat with second sterile applicator for other nostril. 7. Gently press the sides of the nostrils together and massage gently for 60 seconds. ([facility]) Given 04/13/2025 8:06 AM EDT 1 Ap plication Given 04/12/2025 8:41 PM EDT 1 Application Given 04/12/2025 3:47 PM EDT 1 Application pantoprazole (PROTONIX) EC tablet 40 mg 40 mg, Oral, Every Scanning Supervisor, First dose on Wed04/13/25 at 0600, Swallow whole; do not crush, split, or chew. Given 04/13/2025 5:37 AM EDT 40 mg predniSONE (DELTASONE) tablet 4 mg 4 mg, Oral, Daily, First dose (after last modification) on Wed04/13/25 at 0900, Take with food. Given 04/13/2025 8:01 AM EDT 4 mg rosuvastatin (CRESTOR) tablet 10 mg 10 mg, Oral, Nightly, First dose on My[place]le 04/12/25 at 2100, Avoid grapefruit juice. Given 04/12/2025 8:41 PM EDT 10 mg sodium chloride 0.9 % flush 10 mL 10 mL, Intravenous, Every 12 Hours Scheduled, First dose on Myrtle 04/12/25 at 1008Indications:Innominate artery stenosis Given 04/12/2025 1:33 PM EDT 10 mL sodium chloride 0.9 % infusion 75 mL/hr, Intravenous, Continuous, Starting on Myrtle 04/12/25 at 1309, For 2 hours Currently Infusing 04/12/2025 1:32 PM EDT 75 mL/hr 75 mL/hr traMADol (ULTRAM) tablet 50 mg 50 mg, Oral, Every 6 Hours PRN, Moderate Pain, Starting on Myrtle 04/12/25 at 1303, Based on patient request - if ordered for moderate or severe pain, provider allows for administration of a medication prescribed for a lower pain scale. ([facility]) Caution: Look alike/sound alike drug alert If given for pain, use the following pain scale: Mild Pain = Pain Score of 1-3, CPOT 1-2 Moderate Pain = Pain Score of 4-6, CPOT 3-4 Severe Pain = Pain Score of 7-10, CPOT 5-8 Given 04/12/2025 8:51 PM EDT 50 mg documented in this encounter Active and Recently Administered Medications Times are shown in EDT. Scheduled Medication Order 04/11/2025 04/12/2025 04/13/2025 aspirin EC tablet 81 mg (COMPLETED) 81 mg, Oral, Once, On Myrtle 04/12/25 at 1105, For 1 dose, Do not crush or chew the capsules or tablets. The drug may not work as designed if the capsule or tablet is crushed or chewed. Swallow whole. Do not exceed 4 grams of aspirin in a 24 hr period. If given for pain, use the following pain scale: Mild Pain = Pain Score of 1-3, CPOT 1-2 Moderate Pain = Pain Score of 4-6, CPOT 3-4 Severe Pain = Pain Score of 7-10, CPOT 5-8 1105 (Given - Provider: Meg Carpio RN) aspirin EC tablet 81 mg 81 mg, Oral, Daily, First dose on Wed04/13/25 at 0900, Do not crush or chew the capsules or tablets. The drug may not work as designed if the capsule or tablet is crushed or chewed. Swallow whole. Do not exceed 4 grams of aspirin in a 24 hr period. If given for pain, use the following pain scale: Mild Pain = Pain Score of 1-3, CPOT 1-2 Moderate Pain = Pain Score of 4-6, CPOT 3-4 Severe Pain = Pain Score of 7-10, CPOT 5-8 08 (Given - Provid er: Mati Henley RN) atenolol (TENORMIN) tablet 100 mg 100 mg, Oral, Nightly, First dose (after last modification) on Myrtle 04/12/25 at 2300, Hold for SBP less than 100, DBP less than 60, or heart rate less than 50. If a dose is held, please contact the provider. 2040 (Given - Provider: Carol Meyer RN) baclofen (LIORESAL) tablet 10 mg 10 mg, Oral, 2 Times Daily, First dose on My[place] 04/12/25 at 2100, Take with food if GI upset occurs. 2040 (Given - Provider: Carol Meyer RN) 800 (Given - Provider: Mati Henley RN) cetirizine (zyrTEC) tablet 10 mg 10 mg, Oral, Daily, First dose on Wed04/13/25 at 0900 0801 (Given - Provid er: Mati Henley RN) clopidogrel (PLAVIX) tablet 75 mg 75 mg, Oral, Daily, First dose on Wed04/13/25 at 0900 0800 (Given - Provid er: Mati Henley RN) hydroxychloroquine (PLAQUENIL) tablet 200 mg 200 mg, Oral, Every 12 Hours Scheduled, First dose on Wed04/12/25 at 2100, Do not crush or divide film-coated tablets per the mayonnaise mixer; the tablets have a bitter taste. In patients unable to swallow tablets, it has been recommended that tablets may be crushed and mixed with a small amount of applesauce., Indications: polymyalgia rheumatica 2040 (Given - Provider: Carol Meyer RN) 08 (Given - Provider: Mati Henley RN) montelukast (SINGULAIR) tablet 10 mg 10 mg, Oral, Nightly, First dose on Wed04/12/25 at 2100 2040 (Given - Provider: Carol Meyer RN) mupirocin (BACTROBAN) 2 % nasal ointment 1 Application 1 Application, Each Nare, 2 Times Daily, First dose on Wed04/12/25 at 1545, For 5 days, Administer for 5 days, even if patient transferred out of critical care. MUPIROCIN APPLICATION: 1. Place patient's bed at 30 degrees, if tolerated. 2. Wash your hands with warm soapy water or use hand any commodity buyer. 3. Open the tube of mupirocin 2%. 4. Squeeze about 0.5 g (blueberry-size) of mupirocin from the tube onto a sterile applicator or a cotton swab. 5. Apply the swab directly into nostril. Ensure coating of the sides of the nostril. 6. Repeat with second sterile applicator for other nostril. 7. Gently press the sides of the nostrils together and massage gently for 60 seconds. ([facility]) 1547 (Given - Provider: Charline Torres RN)2040 (Given - Provider: Carol Meyer RN) 08 (Given - Provider: Mati Henley RN) pantoprazole (PROTONIX) EC tablet 40 mg 40 mg, Oral, Every Scanning Supervisor, First dose on Wed04/13/25 at 0600, Swallow whole; do not crush, split, or chew. 536 (Given - Provid er: Carol Meyer RN) predniSONE (DELTASONE) tablet 4 mg 4 mg, Oral, Daily, First dose (after last modification) on Wed04/13/25 at 0900, Take with food. 800 (Given - Provid er: Mati Henley RN) rosuvastatin (CRESTOR) tablet 10 mg 10 mg, Oral, Nightly, First dose on Wed04/12/25 at 2100, Avoid grapefruit juice. 2040 (Given - Provider: Carol Meyer RN) sodium chloride 0.9 % flush 10 mL (CANCELED) 10 mL, Intravenous, Every 12 Hours Scheduled, First dose on Wed04/12/25 at 1008 1333 (Given - Provider: Charline Torres RN) Continuous Medication Order 04/11/2025 04/12/2025 04/13/2025 sodium chloride 0.9 % infusion () 75 mL/hr, Intravenous, Continuous, Starting on Wed04/12/25 at 1309, For 2 hours 1332 (Currently Infusing - Provider: Charline Torres RN)1530 (Stopped - Provider: Charline Torres RN - Comment: [Order ends at this time. Document the following action when infusion is complete: Stopped]) PRN Medication Order 04/11/2025 04/12/2025 04/13/2025 acetaminophen (TYLENOL) tablet 650 mg 650 mg, Oral, Every 6 Hours PRN, Headache, Starting on Wed04/12/25 at 2225, If given for fever, use fever parameter: fever greater than 100.4 F Based on patient request - if ordered for moderate or severe pain, provider allows for administration of a medication prescribed for a lower pain scale. Do not exceed 4 grams of acetaminophen in a 24 hr period. Max dose of 2gm for AST/ALT greater than 120 units/L. If given for pain, use the following pain scale: Mild Pain = Pain Score of 1-3, CPOT 1-2 Moderate Pain = Pain Score of 4-6, CPOT 3-4 Severe Pain = Pain Score of 7-10, CPOT 5-8 2233 (Given - Provider: Carol Meyer RN) fentaNYL citrate (PF) (SUBLIMAZE) injection (CANCELED) Code / Trauma / Sedation Medication, Starting on Myrtle 25 at 1158 1158 (Given - Provider: Rafiq Espinal RN)1213 (Given - Provider: Rafiq Espinal RN)1214 (Given - Provider: Rafiq Espinal RN)1250 (Given - Provider: Rafiq Espinal RN) heparin (porcine) injection (CANCELED) Code / Trauma / Sedation Medication, Starting on Myrtle 25 at 1200 1200 (Given - Provider: Duc Barrera MD) iodixanol (VISIPAQUE) 320 MG/ML injection (CANCELED) Code / Trauma / Sedation Medication, Starting on Myrtle 25 at 1259 1259 (Given - Provider: Duc Barrera MD) lidocaine PF 1% (XYLOCAINE) injection (CANCELED) Code / Trauma / Sedation Medication, Starting on Myrtle 25 at 1159 1159 (Given - Provider: Duc Barrera MD)1240 (Canceled Entry - Provider: Duc Barrera MD) midazolam (VERSED) injection (CANCELED) Code / Trauma / Sedation Medication, Starting on Myrtle 625 at 1158 1158 (Given - Provider: Rafiq Espinal RN)1217 (Given - Provider: Rafiq Espinal RN)1218 (Canceled Entry - Provider: Rafiq Espinal RN) niCARdipine (CARDENE) syringe (CANCELED) Code / Trauma / Sedation Medication, Starting on Myrtle 25 at 1200 1200 (Given - Provider: Duc Barrera MD) nitroglycerin (NITROSTAT) SL tablet 0.4 mg 0.4 mg, Sublingual, Every 5 Minutes PRN, Chest Pain, Starting on Myrtle 25 at 1306, Notify Provider if Pain Unrelieved After 3 Doses May administer up to 3 doses per episode. Hold if SBP less than 100. nitroglycerin 100 mcg/mL in D5W syringe (CANCELED) Code / Trauma / Sedation Medication, Starting on Myrtle 04/12/25 at 1200 1200 (Given - Provider: Duc Barrera MD) ondansetron ODT (ZOFRAN-ODT) disintegrating tablet 4 mg 4 mg, Translingual, Every 8 Hours PRN, Nausea, Vomiting, Starting on Myrtle 04/12/25 at 1258, If multiple N/V medications ordered, use in the following order: Ondansetron, Prochlorperazine, Promethazine. Use PO unless patient refuses or patient unable to swallow. Place on tongue and allow to dissolve. traMADol (ULTRAM) tablet 50 mg 50 mg, Oral, Every 6 Hours PRN, Moderate Pain, Starting on Myrtle 04/12/25 at 1303, Based on patient request - if ordered for moderate or severe pain, provider allows for administration of a medication prescribed for a lower pain scale. ([facility]) Caution: Look alike/sound alike drug alert If given for pain, use the following pain scale: Mild Pain = Pain Score of 1-3, CPOT 1-2 Moderate Pain = Pain Score of 4-6, CPOT 3-4 Severe Pain = Pain Score of 7-10, CPOT 5-8 2050 (Given - Provider: Carol Meyer RN) documented in this encounter Care Teams Senior Product Designer Relationship Specialty Start Date End Date Alfred Chapa MD [address] [facility] [address] [place] [id number] PCP - General Internal Medicine 02/01/23 documented as of this encounter
--- OUTSIDE RECORDS SUMMARY | 2025-04-12 11:40 | XMS_ITS | Encounter Summary ---
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] Procedures ID TCATH STENT PLACEMT ANTEGRADE CAROTID/INNOMINATE IR thoracic carotid or innominate artery angioplasty and stent Referral ID Status Reason Start Date Expiration Date Visits Re quested Visits Authorized [id number] 1 1 Encounter Details Date Type Department Care Team (Late st Contact Info) Description 04/12/2025 11:40 AM EDT - 04/12/2025 1:10 PM EDT Surgery [facility] POWDER LINE REPAIRER [address] [id number] Duc Barrera MD [address] [place] [address] IR thoracic carotid or innominate artery angioplasty and stent [94239 (CPT )] Social History Tobacco Use Types Packs/Day Years Used Date Smoking Tobacco: Former Cigarettes 1 40 1 977 - 2017 Passive Smoke Exposure: Past Smokeless Tobacco: Never [...] Sign Reading Time Taken Comments Blood Pressure 136/101 04/12/2025 1:03 PM EDT Pulse 71 04/12/2025 1:03 PM EDT Temperature 36.4 C (97.5 F) 04/12/2025 10:18 AM EDT Respiratory Rate 16 04/12/2025 1:03 PM EDT Oxygen Saturation 93% 04/12/2025 1:03 PM EDT Inhaled Oxygen Concentration - - Weight 66 kg (145 lb 8.1 oz) 04/12/2025 10:19 AM EDT Height 160 cm (5' 3 ) 04/12/2025 10:19 AM EDT Body Mass Index 25.77 04/12/2025 10:19 AM EDT documented in this encounter Functional Status * Question Answer Date of Assessment Author 1. Wish to be (Past 1 Month) No 025 10:45 AM EDT Meg Carpio, DAMIR 2. Non-Specific Active Suici marcio Thoughts (Past 1 Month) No 04/12/2025 10:45 AM EDT Mariza Carpio, DAMIR * Calculated C-SSRS Risk Score (Lifetime/Recent) Answer Date of Assessment Author No Risk Indicated 04/12/2025 10:45 AM EDT Meg Kulkarni RN * Brown Suicide Severity Rating Scale (Screener/Recent Self-Report) Question Answer Date of Assessment Author 6. Suicidal Behavior (Lifetime) No 10:45 AM Meg Dickson RN documented as of this encounter Discharge Summaries * Duc Barrera MD - 04/13/2025 10:26 AM EDT PATIENT: HIEN MAE DATE OF : 1955 VISIT ID: [id number] PRIMARY CARE: Alfred Chapa MD ADMITTING PHYSICIAN: [...] Viabahn VBX covered stent. This resulted in protestant of a near normal caliber lumen and robust antegrade flow within the right carotid and subclavian vasculature. Ms. Mae made an uneventful recovery in the neuro ICU, and was discharged home at her neurologic baseline on 04/13/2025. At the time of discharge, her right radial access site was soft and dry without hematoma. She had a bounding brachial pulse. Postoperative carotid duplex demonstrates protestant of normal waveforms with robust antegrade flow [...] Medicine Why: at 1:00 pm Contact information: [facility] [address] [facility] [address] [place] [address] Duc Barrera MD. Go on 05/14/2025. Specialty: Neurosurgery Why: at 1:00 pm with Vijaya WHITE Contact information: [address] [facility] [phone] documented in this encounter Medications at Time [...] of this encounter Progress Notes * Yessy ValleMARY - 04/12/2025 1:36 PM EDT Intensive Care Follow-up Hospital: LOS: 0 days Ms. Hien Mae, 69 y.o. female is followed for: Innominate artery stenosis Subjective Interval History: Encountered patient upon arrival to the ICU. Hemodynamically stable. Family at bedside. Patient denies any neurological changes, headaches. The patient's past medical, surgical and social history were reviewed and updated in Epic as appropriate. Objective Infusions: sodium chloride, 75 [...] rheumatica, asthma, and obesity that presents to [facility] ICU after carotid angiogram with Dr. Barrera [...] with patient and nursing staff Yessy Valle, MSN, [employer], [facility] Pulmonary and Critical Care Medicine documented in [...] - 03/14/2025 1:30 PM EDT NAME: HIEN MAE DOS: 03/14/2025 : 1955 PCP: Alfred Chapa [...] Types: Cigarettes Start date: 1976 Quit date: 2016 Years since quittin.3 Passive exposure: Past Smokeless tobacco: Never Vaping Use Vaping status: Never Used Substance Use Topics Alcohol use: Never Drug use: Never Family Hx: Family History Problem Relation Age of Onset Kidney disease Mother Coronary artery disease Father No Known Problems Sister Rheum arthritis Sister Kidney nephrosis Brother Aneurysm Brother Review of Imaging: Carotid duplex dated 03/14/2025 from [facility] was reviewed along with its corresponding [...] Fall Risk Recent Flowsheet Documentation Taken 04/13/2025 08 by Mati Henley RN Safety Promotion/Fall Prevention: safety round/check completed room organization consistent lighting adjusted fall prevention program maintained clutter free environment maintained Intervention: Prevent Skin Injury Recent Flowsheet Documentation Taken 04/13/2025 08 by Mati Henley RN Body Position: position changed independently Skin Protection: incontinence pads utilized Intervention: Prevent Infection Recent Flowsheet Documentation Taken 04/13/2025 08 by Mati Henley RN Infection Prevention: visitors restricted/screened single patient room provided rest/sleep promoted hand hygiene promoted environmental surveillance performed Goal: Optimal Comfort and Wellbeing Outcome: Met Intervention: Monitor Pain and Promote Comfort Recent Flowsheet Documentation Taken 04/13/2025 08 by Mati Henley RN Pain Management Interventions: care clustered pillow support provided position adjusted quiet environment facilitated Intervention: Provide Person-Centered Care Recent Flowsheet Documentation Taken 04/13/2025 08 by Mati Henley RN Trust Relationship/Rapport: care explained questions answered reassurance provided Goal: Readiness for Transition of Care Outcome: Met Problem: Pain Acute Goal: Optimal Pain Control and Function Outcome: Met Intervention: Optimize Psychosocial Wellbeing Recent Flowsheet Documentation Taken 04/13/2025 08 by Mati Henley RN Diversional Activities: television Intervention: Develop Pain Management Plan Recent Flowsheet Documentation Taken 04/13/2025 08 by Mati Henley RN Pain Management Interventions: care clustered pillow support provided position adjusted quiet environment facilitated Intervention: Prevent or Manage Pain Recent Flowsheet Documentation Taken 04/13/2025 08 by Mati Henley RN Medication Review/Management: medications reviewed Problem: Carotid Revascularization Goal: Absence of Bleeding Outcome: Met Goal: Adequate Tissue Perfusion Outcome: Met Intervention: Optimal Blood Flow Recent Flowsheet Documentation Taken 04/13/2025 08 by Mati Henley RN Head of Bed [...] or Manage Pain Recent Flowsheet Documentation Taken 04/13/2025 08 by Mati Henley RN Pain Management Interventions: [...] OR Notes * Brief Op Note - Given, Duc Hurt MD - 04/12/2025 11:38 AM EDT CV IR THORACIC CAROTID OR INNOMINATE ARTERY ANGIOPLASTY AND STENT Progress Note Hien Richardson Mae 04/12/2025 Pre-op Diagnosis: 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 [address] [phone] Vijaya Henderson PA-C [address] [address] documented as of this encounter Procedures Procedure [...] angioplasty and stent placement (03/05/2023) us Duc A Given MD CV VASCULAR ORDERABLES Final R esult * (ABNORMAL) CBC (No Diff) (04/13/2025 2:59 AM EDT) WBC 11.49(H) 3.40 - 10.80 10*3/mm3 04/13/2025 4:21 AM EDT [facility] RBC 4.05 3.77 - 5.28 10*6/mm3 04/13/2025 4:21 AM EDT [facility] Hemoglobin 11.5(L) 12.0 - 15.9 g/dL 04/13/2025 4:21 AM EDT [facility] Hematocrit 37.2 34.0 - 46.6 % 04/13/2025 4:21 AM EDT [facility] MCV 91.9 79.0 - 97.0 fL 04/13/2025 4:21 AM EDT [facility] MCH 28.4 26.6 - 33.0 pg 04/13/2025 4:21 AM EDT [facility] MCHC 30.9(L) 31.5 - 35.7 g/dL 04/13/2025 4:21 AM EDT [facility] RDW 14.9 12.3 - 15.4 % 04/13/2025 4:21 AM EDT [facility] RDW-SD 50.3 37.0 - 54.0 fl 04/13/2025 4:21 AM EDT [facility] MPV 9.8 6.0 - 12.0 fL 04/13/2025 4:21 AM EDT [facility] Platelets 270 140 - 450 10*3/mm3 04/13/2025 4:21 AM EDT [facility] Blood Venipuncture / Unknown 04/13/2025 2:59 AM EDT 04/13/2025 4:04 AM EDT Jeovanny Simon [employer] LAB BLOOD ORDERABLES Katt harris Result [facility]
[address] [place] [address], * (ABNORMAL) Basic Metabolic Panel (04/13/2025 2:59 AM EDT) Glucose 86 65 - 99 mg/dL 04/13/2025 4:34 AM EDT [facility] BUN 16.3 8.0 - 23.0 mg/dL 04/13/2025 4:34 AM EDT [facility] Creatinine 0.79 0.57 - 1.00 mg/dL 04/13/2025 4:34 AM EDT [facility] Sodium 145 136 - 145 mmol/L 04/13/2025 4:34 AM EDT [facility] Potassium 4.4 3.5 - 5.2 mmol/L 04/13/2025 4:34 AM EDT [facility] Chloride 106 98 - 107 mmol/L 04/13/2025 4:34 AM EDT [facility] CO2 31.0(H) 22.0 - 29.0 mmol/L 04/13/2025 4:34 AM EDT [facility] Calcium 9.0 8.6 - 10.5 mg/dL 04/13/2025 4:34 AM EDT [facility] BUN/Creatinine Ratio 20.6 7.0 - 25.0 04/13/2025 4:34 AM EDT [facility] Anion Gap 8.0 5.0 - 15.0 mmol/L 04/13/2025 4:34 AM EDT [facility] eGFR 80.1 >60.0 mL/min/1.7 3 04/13/2025 4:[facility] Blood Venipuncture / Unknown 04/13/2025 2:59 AM EDT 04/13/2025 4:02 AM EDT Narrative [facility] - 04/13/2025 4:34 AM EDT [...] include race as a factor Jeovanny Simon [employer] LAB BLOOD ORDERABLES Katt l Result [facility]
[address] [place] [address], * Telemetry Scan (04/12/2025 3:22 PM EDT) [facility] Onbase ECG ORDERABLES Final Result * IR [...] marked discrepancy in upper extremity blood pressures. Senior Biostatistician/Group Leader: Dr. Duc Barrera. Access: Right radial artery. Ultrasound was used to identify the right radial artery for access. It was patent, appropriate for catheterization, and used for guidance of the micropuncture. Successful cannulation was achieved and images were saved to PACS for review. Conscious sedation: Moderate sedation was provided by ks for a total of 63 minutes. Physical [...] Ultrasound guidance and Seldinger technique, a 5 Guatemalan vascular sheath was placed into the right radial artery without difficulty. A radial cocktail was then administered, per protocol, the details of which are documented in the nursing record. Subsequently, a 5 Guatemalan Berenstein catheter was advanced into the aortic arch and used to select the right subclavian and innominate arteries under fluoroscopic guidance. Appropriate angiographic sequences were filmed following contrast injection. Comparison is made to multiple prior catheter angiograms at [facility], most notably the interventional angiogram from [...] to exchange the Berenstein catheter and 5 Guatemalan sheath over a Casillas wire for a 7 Guatemalan Chandler sheath was unsuccessful, with the 7 Guatemalan sheath not advancing beyond the axillary artery. Subsequently, a 6 Guatemalan Chandler Destination sheath was advanced over the Casillas wire into the right subclavian artery without difficulty. However, the Chandler Destination sheath would not advance through the fractured stent, and I suspect that the wire and Berenstein catheter had passed through either struts of the stent or in/out through the fracture components. Multiple attempts to successfully cannulate the lumen of the fractured segments of the stents with the Berenstein catheter and Glidewire was unsuccessful. Eventually, an Leavenworth SL 10 microcatheter was navigated over a Synchro microwire through the components of the fractured innominate stent and into the ascending aorta without difficulty. This allowed easy passage of the Berenstein catheter over the microcatheter/microwire into the ascending aorta. However, the Chandler Destination sheath would still not advance through [...] Duc Barrera MD CV CARDIAC CATH ORDERABLES Fin al Result * (ABNORMAL) CBC (No diff) (04/12/2025 10:38 AM EDT) WBC 13.95(H) 3.40 - 10.80 10*3/mm3 04/12/2025 10:47 AM EDT [facility] RBC 5.06 3.77 - 5.28 10*6/mm3 04/12/2025 10:47 AM EDT [facility] Hemoglobin 14.2 12.0 - 15.9 g/dL 04/12/2025 10:47 AM EDT [facility] Hematocrit 45.0 34.0 - 46.6 % 04/12/2025 10:47 AM EDT [facility] MCV 88.9 79.0 - 97.0 fL 04/12/2025 10:47 AM EDT [facility] MCH 28.1 26.6 - 33.0 pg 04/12/2025 10:47 AM EDT [facility] MCHC 31.6 31.5 - 35.7 g/dL 04/12/2025 10:47 AM EDT [facility] RDW 14.8 12.3 - 15.4 % 04/12/2025 10:47 AM EDT [facility] RDW-SD 48.3 37.0 - 54.0 fl 04/12/2025 10:47 AM EDT [facility] MPV 9.5 6.0 - 12.0 fL 04/12/2025 10:47 AM EDT [facility] Platelets 300 140 - 450 10*3/mm3 04/12/2025 10:47 AM EDT [facility] Blood Line / Unknown 04/12/2025 10 :38 AM EDT 04/12/2025 10:42 AM EDT us Vijaya WHITE-Betty LAB BLOOD ORDERABLES Final R esult [facility]
[address] [place] [address], * (ABNORMAL) Basic metabolic panel (04/12/2025 10:38 AM EDT) Glucose 100(H) 65 - 99 mg/dL 04/12/2025 11:15 AM EDT [facility] BUN 16.8 8.0 - 23.0 mg/dL 04/12/2025 11:15 AM EDT [facility] Creatinine 0.76 0.57 - 1.00 mg/dL 04/12/2025 11:15 AM EDT [facility] Sodium 145 136 - 145 mmol/L 04/12/2025 11:15 AM EDT [facility] Potassium 4.4 3.5 - 5.2 mmol/L 04/12/2025 11:15 AM EDT [facility] Chloride 103 98 - 107 mmol/L 04/12/2025 11:15 AM EDT [facility] CO2 30.0(H) 22.0 - 29.0 mmol/L 04/12/2025 11:15 AM EDT [facility] Calcium 9.9 8.6 - 10.5 mg/dL 04/12/2025 11:15 AM T [facility] BUN/Creatinine Ratio 22.1 7.0 - 25.0 04/12/2025 11:15 AM T [facility] Anion Gap 12.0 5.0 - 15.0 mmol/L 04/12/2025 11:15 AM [facility] eGFR 83.9 >60.0 mL/min/1.7 3 04/12/2025 11:15 AM [facility] Blood Line / Unknown 04/12/2025 10 :38 AM EDT 04/12/2025 10:42 AM EDT [facility] - 04/12/2025 11:15 AM EDT GFR [...] PA-C LAB BLOOD ORDERABLES Final R esult [facility]
[address] [place] [address], * Telemetry Scan (04/12/2025) [facility] Onbase ECG ORDERABLES Final Result documented in this encounter Visit Diagnoses Diagnosis Innominate artery stenosis- Primary Innominate artery stenosis documented in this encounter [...] 81 mg, Oral, Daily, First dose on 04/13/25 at 0900, Do not crush or chew [...] Nightly, First dose (after last modification) on Wed04/12/25 at 2300, Hold for SBP less than [...] Given 04/13/2025 8:00 AM EDT 75 mg fentaNYL citrate (PF) (SUBLIMAZE) injection Code / Trauma / Sedation Medication, Starting on Wed04/12/25 at 1158 Given 04/12/2025 12:50 PM EDT 25 mcg Given 04/12/2025 12:14 PM EDT 25 mcg Given 04/12/2025 12:13 PM EDT 25 mcg heparin (porcine) injection Code / Trauma / Sedation Medication, Starting on Wed04/12/25 at 1200 Given 04/12/2025 12:00 PM EDT 5,000 Units hydroxychloroquine (PLAQUENIL) tablet 200 mg 200 mg, Oral, Every 12 Hours Scheduled, First dose on Myrtle 04/12/25 at 2100, Do not crush or divide film-coated tablets per the gunsmith apprentice; the tablets have a bitter taste. In patients unable to swallow tablets, it has been recommended that tablets may be crushed and mixed with a small amount of applesauce., Indications: polymyalgia rheumaticaIndications:polymyalgia rheumatica Given 04/13/2025 8:00 AM EDT 200 mg Given 04/12/2025 8:41 PM EDT 200 mg iodixanol (VISIPAQUE) 320 MG/ML injection Code / Trauma / Sedation Medication, Starting on Myrtle 04/12/25 at 1259 Given 04/12/2025 12:59 PM EDT 50 mL lidocaine PF 1% (XYLOCAINE) injection Code / Trauma / Sedation Medication, Starting on Myrtle 04/12/25 at 1159 Given 04/12/2025 11:59 AM EDT 5 mL Wris t Right midazolam (VERSED) injection Code / Trauma / Sedation Medication, Starting on Myrtle 04/12/25 at 1158 Given 04/12/2025 12:17 PM EDT 1 mg Given 04/12/2025 11:58 AM EDT 1 mg montelukast (SINGULAIR) tablet 10 mg 10 mg, Oral, Nightly, First dose on Myrtle 04/12/25 at 2100 Given 04/12/2025 8:41 PM EDT 10 mg mupirocin (BACTROBAN) 2 % nasal ointment 1 Application 1 Application, Each Nare, 2 Times Daily, First dose on Myrtle 04/12/25 at 1545, For 5 days, Administer for 5 days, even if patient transferred out of critical care. MUPIROCIN APPLICATION: 1. Place patient's bed at 30 degrees, if tolerated. 2. Wash your hands with warm soapy water or use hand clothing pattern preparer. 3. Open the tube of mupirocin 2%. [...] Given 04/12/2025 3:47 PM EDT 1 Application niCARdipine (CARDENE) syringe Code / Trauma / Sedation Medication, Starting on Myrtle 04/12/25 at 1200 Given 04/12/2025 12:00 PM EDT 200 mcg nitroglycerin 100 mcg/mL in D5W syringe Code / Trauma / Sedation Medication, Starting on Myrtle 04/12/25 at 1200 Given 04/12/2025 12:00 PM EDT 200 mcg pantoprazole (PROTONIX) EC tablet 40 mg 40 mg, Oral, Every Concrete Spreader, First dose on Wed04/13/25 at 0600, Swallow [...] Given 04/12/2025 8:41 PM EDT 10 mg traMADol (ULTRAM) tablet 50 mg 50 mg, [...] Nightly, First dose (after last modification) on Wed04/12/25 at 2300, Hold for SBP less than [...] crush or divide film-coated tablets per the gunsmith apprentice; the tablets have a bitter taste. In patients unable to swallow tablets, it has been recommended that tablets may be crushed and mixed with a small amount of applesauce., Indications: polymyalgia rheumatica 2040 (Given - Provider: Carol Meyer RN) 0800 (Given - Provider: Mati Henley RN) montelukast [...] with warm soapy water or use hand clothing pattern preparer. 3. Open the tube of mupirocin 2%. [...] together and massage gently for 60 seconds. ([facility]) 1547 (Given - Provider: Charline Torres RN)2040 (Given - Provider: Carol Meyer RN) 08 (Given - Provider: Mati Henley RN) pantoprazole (PROTONIX) EC tablet 40 mg 40 mg, Oral, Every Concrete Spreader, First dose on Wed04/13/25 at 0600, Swallow whole; do not crush, split, or chew. 0537 (Given - Provid er: Carol Meyer RN) predniSONE (DELTASONE) tablet 4 mg 4 mg, Oral, Daily, First dose (after last modification) on Wed04/13/25 at 0900, Take with food. 08 (Given - Provid er: Mati Henley [...] = Pain Score of 7-10, CPOT 5-8 2443 (Given - Provider: Carol Meyer RN) fentaNYL citrate (PF) (SUBLIMAZE) injection (CANCELED) Code / Trauma / Sedation Medication, Starting on Myrtle 04/12/25 at 1158 1158 (Given - Provider: Rafiq Teddy, RN)1213 (Given - Provider: Rafiq Espinal RN)1214 (Given - Provider: Rafiq Espinal RN)1250 (Given - Provider: Rafiq Espinal RN) heparin (porcine) injection (CANCELED) Code / Trauma / Sedation Medication, Starting on Myrtle 04/12/25 at 1200 1200 (Given - Provider: Duc Barrera MD) iodixanol (VISIPAQUE) 320 MG/ML injection (CANCELED) Code / Trauma / Sedation Medication, Starting on Ymrtle 04/12/25 at 1259 1259 (Given - Provider: Duc Barrera MD) lidocaine PF 1% (XYLOCAINE) injection (CANCELED) Code / Trauma / Sedation Medication, Starting on Myrtle 04/12/25 at 1159 1159 (Given - Provider: Duc Barrera MD)1240 (Canceled Entry - Provider: Duc Barrera MD) midazolam (VERSED) injection (CANCELED) Code / Trauma / Sedation Medication, Starting on Myrtle 04/12/25 at 1158 1158 (Given - Provider: Rafiq Espinal RN)1217 (Given - Provider: Rafiq Espinal RN)1218 (Canceled Entry - Provider: Rafiq Espinal RN) niCARdipine (CARDENE) syringe (CANCELED) Code / Trauma / Sedation Medication, Starting on Myrtle 04/12/25 at 1200 1200 (Given - Provider: Duc Barrera MD) nitroglycerin (NITROSTAT) SL tablet 0.4 mg 0.4 mg, Sublingual, Every 5 Minutes PRN, Chest Pain, Starting on Myrtle 04/12/25 at 1306, Notify Provider if Pain Unrelieved [...] = Pain Score of 7-10, CPOT 5-8 (Given - Provider: Carol Meyer RN) documented in this encounter Care Teams Quality Checker Relationship Specialty Start Date End Date Alfred Chapa MD [address] [facility] [address] [place] [id number] PCP - General Internal Medicine 02/01/23 documented as of this encounter
--- OUTSIDE RECORDS SUMMARY | 2025-05-14 13:00 | XMS_ITS | Encounter Summary ---
Author Organization [facility] Address [address] [place] [address] Care Team Providers Care Care Analyst Name Role Phone Alfred Chapa MD Primary Care Provider [phone] Reason for Referral * Diagnostic Imaging (Routine) - Authorized Specialty Diagnoses / Procedures Referred By Contac t Referred To Contact Cardiology Diagnoses Innominate artery stenosis Carotid stenosis, bilateral Procedures Duplex Carotid Ultrasound CAR Vijaya Henderson PA-C [address] [id number] Phone: tel: fax: [facility] NONINVASIVE LAB [address] [facility] 3rd [place] [address] Phone: tel: fax: Referral ID Status Reason Start Date Expiration Date V isits Requested Visits Authorized [id number] Authorized 05/14/2025 08/13/2026 1 1 Reason for Visit * Reason Comments Post-op Innominate artery st enosis Encounter Details Date Type Department Care Team (Late st Contact Info) Description 05/14/2025 1:00 PM EDT Office Visit [facility] NE[facility]ERY [address] [facility] [address] [place] [address] Vijaya Henderson PA-C [address] [place] [address] Innominate artery stenosis (Primary Dx); Carotid stenosis, bilateral Social History Tobacco Use Types Packs/Day Years Used Date Smoking Tobacco: Former Cigarettes 1 40 1 977 - 2017 Passive Smoke Exposure: Past Smokeless Tobacco: Never Tobacco Cessation:Counseling Given: Not Answered Alcohol Use Standard Drinks/Week Comments Never 0 [...] Sign Reading Time Taken Comments Blood Pressure 140/60 05/14/2025 12:54 PM EDT 12 0/68 Pulse 63 05/14/2025 12:54 PM EDT Temperature 36.9 C (98.5 F) 05/14/2025 12:54 PM EDT Respiratory Rate - - Oxygen Saturation 93% 05/14/2025 12:54 PM EDT Inhaled Oxygen Concentration - - Weight 67.3 kg (148 lb 6.4 oz) 05/14/2025 12:54 PM EDT Height 157.5 cm (5' 2 ) 05/14/2025 12:54 PM EDT Body Mass Index 27.14 05/14/2025 12:54 PM EDT documented in this encounter Progress Notes * Vijaya Henderson PA-C - 05/14/2025 1:00 PM EDT Name: Dulce Mae : 1955 Primary Care Provider: Alfred Chapa MD Chief Complaint Post-op (Innominate artery stenosis) History of Present Illness: Dulce Mae is a 69 y.o. 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 While she denied any focal stroke or TIA-like symptoms, she had been having episodes of dizziness . She was found to have a nearly 60 point discrepancy in upper extremity blood pressures, and carotid duplex demonstrated tardus waveforms within the right carotid and vertebralvasculature, all of which indicated a recurrent high-grade innominate artery stenosis. 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 Her fractured stent and recurrent stenosis was treated with additional angioplasty/stent placement, utilizing a 7 x 29 mm Viabahn VBX covered stent. This resulted in lutheran of a near normal caliber lumen and robust antegrade flow within the right carotid and subclavian vasculature. Unfortunately, Ms. Mae reports that her dizziness has not improved following the procedure. She reports that she is constantly dizzy, both while sitting and standing, and nothing makes it better. She reports also having difficulty keeping her O2 sats up, and is currently working with primary care regarding this. She does have chronic right sided vision changes secondary to previous right central retinal artery occlusion. She is on a chronic Plavix/aspirin regimen and tolerating this well. She presents today for routine follow-up. PMHX Allergies: No Known Allergies Medications Current Outpatient Medications: aspirin 81 MG EC tablet, Take 1 tablet by mouth Daily., Disp: , Rfl: atenolol (TENORMIN) 100 MG tablet, Take 1 tablet by mouth Every Night., Disp: , Rfl: Azelastine HCl 137 MCG/SPRAY solution, As Needed., Disp: , Rfl: baclofen (LIORESAL) 10 MG [...] by mouth Every Night., Disp: , Rfl: omeprazole (priLOSEC) 40 MG capsule, TAKE 1 CAPSULE BY MOUTH TWICE DAILY FOR 30 DAYS, Disp: , Rfl: ondansetron ODT (ZOFRAN-ODT) 4 MG disintegrating tablet, Place 1 tablet on the tongue Every 8 (Eight) Hours As Needed for Nausea or Vomiting., Disp: 30 tablet, Rfl: 0 predniSONE (DELTASONE) 1 MG tablet, Take 4 tablets by mouth Daily., Disp: , Rfl: rosuvastatin (CRESTOR) 10 MG tablet, Take 1 tablet by mouth Every Night., Disp: , Rfl: traMADol (ULTRAM) 50 MG tablet, tramadol 50 mg tablet TAKE 1 TABLET BY MOUTH EVERY 6 HOURS NEEDED, Disp: , Rfl: triamcinolone (KENALOG) 0.1 % cream, As Needed., Disp: , Rfl: Past Medical History: Past Medical History: Diagnosis Date Arthritis Asthma Fibromyalgia GERD (gastroesophageal reflux disease) History of tobacco abuse Hyperlipidemia Hypertension Kidney stone Osteoporosis Ovarian cyst Polymyalgia rheumatica Past Surgical History: Past Surgical History: Procedure Laterality Date APPENDECTOMY CEREBRAL ANGIOGRAM N/A 02/22/2023 Procedure: Cerebral angiogram; Surgeon: Duc Barrera MD; Location: [facility] INVASIVE LOCATION; Service: Interventional Radiology; Laterality: N/A; COLON RESECTION 2017 perforation due to blockage during colonoscopy - with colostomy COLOSTOMY REVISION 2019 HYSTERECTOMY INTERVENTIONAL RADIOLOGY PROCEDURE N/A 03/05/2023 Procedure: IR thoracic carotid or innominate artery angioplasty and stent; Surgeon: Duc Barrera MD; Location: [facility]; Service: Interventional Radiology; Laterality: N/A; INTERVENTIONAL RADIOLOGY PROCEDURE N/A 04/12/2025 Procedure: IR thoracic carotid or innominate artery angioplasty and stent; Surgeon: Duc Barrera MD; Location: [facility]; Service: Interventional Radiology; Laterality: N/A; LAPAROSCOPIC TUBAL LIGATION NECK SURGERY 2010 [place] tumor removal OTHER SURGICAL HISTORY POSSIBLE THORACIC CAROTID/ INNOMINATE ARTERY STENT 03/05/[address] BARRERA Social Hx: Social History Tobacco Use Smoking status: Former Current packs/day: 0.00 Average packs/day: 1 pack/day for 40.0 years (40.0 ttl pk-yrs) Types: Cigarettes Start date: 1976 Quit date: 2016 Years since quittin.5 Passive exposure: Past Smokeless tobacco: Never Vaping Use Vaping status: Never Used Substance Use Topics Alcohol use: Never Drug use: Never Family Hx: Family History Problem Relation Age of Onset Kidney disease Mother Coronary artery disease Father No Known Problems Sister Rheum arthritis Sister Kidney nephrosis Brother Aneurysm Brother Review of Systems: Review of Systems Constitutional: [...] allergies, food allergies and immunocompromised state. Neurological: Positive for dizziness. Negative for tremors, seizures, syncope, facial asymmetry, speech difficulty, weakness, light-headedness, numbness and headaches. Hematological: Negative for adenopathy. Does not bruise/bleed easily. Psychiatric/Behavioral: Negative for agitation, behavioral problems, confusion, decreased concentration, dysphoric mood, hallucinations, self-injury, sleep disturbance and suicidal ideas. The patientis not nervous/anxious and is not hyperactive. Review of Imaging: No new imaging Vital Signs: Vitals: 05/14/25 1254 BP: 140/60 Pulse: 63 Temp: 98.5 ??F (36.9 ??C) SpO2: 93% Blood pressure in the right upper extremity is 140/60, blood pressure in the left upper extremity is 120/68. Physical Exam General: Well-developed, well-nourished, in no acute distress. Cardiovascular: No carotid bruits Neuro: Alert and oriented x 3. She continues to describe a central visual field deficit involving the right eye. I do not appreciate any gross left-sided visual field deficits. Speech is clear. No facial droop. Strength is symmetric in the upper and lower extremities. She ambulates with assistance of a cane/walker, but uses a wheelchair for longer distances secondary to unsteady gait. Social History Tobacco Use Smoking status: Former Packs/day: 0.00 Years: 1 pack/day for 40.0 years (40.0 ttl pk-yrs) Types: Cigarettes Start date: 1976 Quit date: 2017 Years since quittin.5 Passive exposure: Past Smokeless tobacco: Never Tobacco Use: Medium Risk (05/14/2025) Patient History Smoking Tobacco Use: Former Smokeless Tobacco Use: Never Passive Exposure: Past STEADI Fall Risk Assessment was completed, and patient is at MODERATE risk for falls. Assessment completed on:05/14/2025 Assessment/Plan Dulce Mae is a 69 y.o. female who is approximately 1 month status post angioplasty/stent placement for recurrent high-grade stenosis of innominate artery stent. She has done well following theprocedure, though does report constant dizziness that has not improved. She remains on a DAPT/statin regimen. We will plan to follow-up with Ms. Mae in 3 months time with carotid duplex to ensure stability/exclude progression of disease that might necessitate further treatment/intervention. In the interim, she will contact our office and/or 911 if she experiences any new stroke/TIA-like symptoms. Patient encouraged to contact us if she has any changes in her condition or any concerns. Any copied data from previous notes included in the (1) HPI, (2) PE, (3) MDM and/or Assessment and Plan has been reviewed and accurate as of 05/14/25. Vijaya Henderson PA-C 05/14/25 documented in this encounter Plan of Treatment Upcoming Encounters Date Type Department Care Team (Late st Contact Info) Description 08/15/2025 11:00 AM EDT Appointment [facility] NONINVASIVE LAB [address] [facility] 3rd [place] [address] 08/15/2025 1:00 PM EDT Office Visit [facility] NEUROSURGERY [address] [phone] Vijaya Henderson PA-C [address] [facility] [address] [place] [address] Scheduled Orders Name Type Priority Associated Diagnoses Order Schedule Duplex Carotid Ultrasound CAR Vascular Ultrasound Routine Innominate artery stenosis Carotid stenosis, bilateral Expected: 08/14/2025 (Approximate), Expires: 05/14/2026 documented as of this encounter Visit Diagnoses Diagnosis Innominate artery stenosis- Primary Carotid stenosis, bilateral Occlusion and stenosis of carotid artery without mention of cerebral infarction documented in this encounter Care Teams Care Analyst Relationship Specialty Start Date End Date Alfred Chapa MD [address] [facility] [address] [facility] [address] PCP - General Internal Medicine 02/01/23 documented as of this encounter
[2025-05-22 13:26] LABS: Hematocrit 41.4 % (37.0-47.0); Hemoglobin 13.0 g/dL (12.2-16.2); Immature Granulocytes % 0.3 %; Mean Corpuscular HGB Conc 31.4 g/dL (31.8-35.4); Mean Corpuscular Hemoglobin 28.0 pg (27.0-31.2); Mean Corpuscular Volume 89.0 fl (81-99); Nucleated Red Blood Cells % 0 %; Platelet Count 309 K/mm3 (142-424); Red Blood Count 4.65 M/mm3 (4.20-5.40); Red Cell Distribution Width-SD 45.4 fL; White Blood Count 11.7 K/mm3 (4.8-10.8)
[2025-05-22 13:56] LABS: Alanine Aminotransferase 12 U/L (12-78); Albumin Level 4.0 g/dl (3.5-5.0); Albumin/Globulin Ratio 1.7 (1.1-1.8); Alkaline Phosphatase 94 U/L (38-126); Anion Gap 11.3 mEq/L (5-15); Aspartate Amino Transferase 31 U/L (14-36); Bilirubin,Total 1.2 mg/dl (0.2-1.3); Blood Urea Nitrogen 14 mg/dl (7-17); Calcium 9.9 mg/dl (8.4-10.2); Carbon Dioxide 34 mmol/L (22.0-30.0); Chloride 99 mmol/L (98-107); Cholesterol 139 mg/dl (140-200); Creatinine,Serum 0.80 mg/dl (0.52-1.04); Estimated Glomerular Filt Rate 71 ml/min (>60); GFR (African American) 86 ML/MIN (>60); Globulin 2.4 g/dL (1.3-3.2); Glucose 94 mg/dl (74-100); HDL Cholesterol 69 mg/dl (40-60); Potassium 5.3 mmoL/L (3.5-5.1); Sodium 139 mmol/L (136-145); Total Protein,Serum 6.4 g/dl (6.3-8.2); Triglycerides 90 mg/dl (30-150)
[2025-05-22 14:27] LABS: Thyroid Stimulating Hormone 2.61 uIU/mL (0.465-4.68)
[2025-05-22 14:46] LABS: Vitamin B12 981 pg/mL (239-931)
--- OUTSIDE RECORDS SUMMARY | 2025-05-23 11:54 | XMS_ITS | Encounter Summary ---
Author Organization [facility] Address [address] [place] [address] Care Team Providers Care Tax Compliance Agent Name Role Phone Alfred Chapa MD Primary Care Provider [phone] Encounter Details Date Type Department Care Team (Latest Contact Info) Description 04/12/2025 Travel Social History Tobacco Use Types Packs/Day Years Used Date Smoking Tobacco: Former Cigarettes 1 40 1 977 2016 Passive Smoke Exposure: Past Smokeless Tobacco: Never [...] on file documented as of this encounter Functional Status * Question Answer Date of Assessment Author 1. Wish to be (Past 1 Month) No 025 10:45 AM EDT Meg Carpio RN 2. Non-Specific Active Suici marcio Thoughts (Past 1 Month) No 04/12/2025 10:45 AM EDT Mariza Carpio RN * Calculated C-SSRS Risk Score (Lifetime/Recent) Answer Date of Assessment Author No Risk Indicated 04/12/2025 10:45 AM EDT Meg Kulkarni RN * [place] Suicide Severity Rating Scale (Screener/Recent Self-Report) Question Answer Date of Assessment Author 6. Suicidal Behavior (Lifetime) No 10:45 AM EDT Meg Carpio RN documented as of this encounter Plan of Treatment Upcoming Encounters Date Type Department Care Team (Late st Contact Info) Description 08/15/2025 11:00 AM EDT Appointment [facility] NONINVASIVE LAB [address] [facility] 3rd [place] [address] 08/15/2025 1:00 PM EDT Office Visit [facility] NEUR[facility]ERY [address] [phone] Vijaya Henderson, SINDHU [address] [address] documented as of this encounter Visit Diagnoses Not on filedocumented in this encounter Care Teams Tax Compliance Agent Relationship Specialty Start Date End Date Alfred Chapa MD [address] [facility] [address] [place] [address] PCP - General Internal Medicine 02/01/23 documented as of this encounter
--- OUTSIDE RECORDS SUMMARY | 2025-05-23 11:54 | XMS_ITS | Encounter Summary ---
[facility] Address [address] [place] [address] Care Team Providers Care Ragman Name Role Phone Alfred Chapa MD Primary Care Provider [phone] Encounter Details Date Type Department Care Team (Late st Contact Info) Description 04/13/2025 Readmission Management [facility] NURSE CALL CENTER [address] [place] [phone] Martha Henley, DAMIR Social History Tobacco Use Types Packs/Day Years [...] on file documented as of this encounter Miscellaneous Notes * Outreach Note - Martha Henley, RN - 04/13/2025 6:39 PM EDT Prep Survey Flowsheet Row Responses [facility] patient discharged from? [place] Is LACE score < 7 ? No Eligibility Readm Mgmt Discharge diagnosis Innominate artery stenosis Does the patient have one of the following disease processes/diagnoses(primary or secondary)? Other Does the patient have Home health ordered? No Is there a DME ordered? No Medication alerts for this patient see AVS Prep survey completed? Yes Martha R - Registered Nurse Martha R - Registered Nurse documented in this encounter Plan of Treatment Upcoming Encounters Date Type Department Care Team (Late st Contact Info) Description 08/15/2025 11:00 AM EDT Appointment [facility] NONINVASIVE LAB [address] [facility] 3rd [place] [address] 08/15/2025 1:00 PM EDT Office Visit [facility] NEUR[facility] [address] [phone] Vijaya Henderson PA-C [address] [address] documented as of this encounter Visit Diagnoses Not on filedocumented in this encounter Care Teams Ragman Relationship Specialty Start Date End Date Alfred Chapa MD [address] [facility] [address] [place] [address] PCP - General Internal Medicine 02/01/23 documented as of this encounter
--- OUTSIDE RECORDS SUMMARY | 2025-05-23 11:54 | XMS_ITS | Clinical Summary ---
Author Organization [facility] Address [address] [phone] Care Team Providers Care Timber Sprinkler Name Role Phone Alfred Chapa MD Primary Care Provider [phone] Family History Medical History Relation Name Comments Conversions - Other Father Perforat ed bowel Hypertension Father COPD Mother Emphysema Mother Heart Problem Mother Relation Name Status Comments Father Mother Social History Tobacco Use Types Packs/Day Years Used Date Smoking Tobacco: Former Alcohol Use Standard Drinks/Week Comments No 0 (1 standard drink = 0.6 oz pure alcohol) Alcoholic Drinks/day: Denies alcohol consumption Comments Unknown Sex and Gender Information Value Date Recorded Sex Assigned at Not on file Legal Sex Female 8:25 PM EDT Gender Identity Not on file Sexual Orientation Not on file Last Filed Vital Signs Vital Sign Reading Time Taken Comments Blood Pressure 122/72 11/23/2019 1:53 PM EST Pulse 99 11/23/2019 1:53 PM EST Temperature 36.9 C (98.5 F) 11/23/2019 1:53 PM EST Respiratory Rate 24 05/16/2019 2:20 PM EDT Oxygen Saturation - - Inhaled Oxygen Concentration - - Weight 75.5 kg (166 lb 7.2 oz) 11/23/2019 1:53 P M EST Height 162.6 cm (5' 4 ) 11/23/2019 1:53 PM EST Body Mass Index 28.57 11/23/2019 1:53 PM EST Plan of Treatment Not on file Care Teams Timber Sprinkler Relationship Specialty Start Date End Date Alfred Chapa MD [address] [facility] [address] [place] [address] PCP - General 03/14/21
--- OUTSIDE RECORDS SUMMARY | 2025-05-23 11:54 | XMS_ITS | Encounter Summary ---
Author Organization [facility] Address [address] [place] [address] Care Team Providers Care Set Up Person Name Role Phone Alfred Chapa MD Primary Care Provider [phone] Encounter Details Date Type Department Care Team (Late st Contact Info) Description 04/18/2025 Readmission Management [facility] NURSE CALL CENTER [address] [place] [phone] Sherry Pena RN Social History Tobacco Use Types Packs/Day Years [...] encounter Miscellaneous Notes * Outreach Note - Sherry Pena, RN - 04/18/2025 8:02 AM EDT Medical Week 1 Survey Flowsheet Row Responses [facility] patient discharged from? [place] Does the patient have one of the following disease processes/diagnoses(primary or secondary)? Other Week 1 attempt successful? No Unsuccessful attempts Attempt 1 SHERRY Arzola - Registered Nurse documented in this encounter Plan of Treatment Upcoming Encounters Date Type Department Care Team (Late st Contact Info) Description 08/15/2025 11:00 AM EDT Appointment [facility] NONINVASIVE LAB [address] [facility] 3rd [place] [address] 08/15/2025 1:00 PM EDT Office Visit [facility] NEUROSURGERY [address] [facility] [address] [place] [address] Vijaya Henderson, PAHamidaC [address]60 [facility] [address] [place] [address] documented as of this encounter Visit Diagnoses Not on filedocumented in this encounter Care Teams Set Up Person Relationship Specialty Start Date End Date Alfred Chapa MD [address] [facility] [address] [place] [address] PCP - General Internal Medicine 02/01/23 documented as of this encounter
--- OUTSIDE RECORDS SUMMARY | 2025-05-23 11:54 | XMS_ITS | Encounter Summary ---
[facility] Address [address] [place] [address] Care Team Providers Care Professor Of Psychology Name Role Phone Alfred Chapa MD Primary Care Provider [phone] Reason for Visit * Reason Onset Date Comments SX SCHEDULING 03/21/2025 Encounter Details Date Type Department Care Team (Late st Contact Info) Description 03/21/2025 Telephone [facility] NEUROSURGERY [address] [phone] Duc Barrera MD [address] [place] [address] SX SCHEDULING Social History Tobacco Use Types Packs/Day Years Used Date Smoking Tobacco: Former Cigarettes 1 40 1 7 - 2016 Passive Smoke Exposure: Past Smokeless Tobacco: [...] 10:45 AM EDT Meg Kulkarni RN * [place] Suicide Severity Rating Scale (Screener/Recent Self-Report) Question Answer Date of Assessment Author 6. Suicidal Behavior (Lifetime) No 10:45 AM EDT Meg Carpio RN documented as of this encounter Miscellaneous Notes * Telephone Encounter - Tejinder Ridley RegSched Rep - 03/21/2025 12:46 PM EDT PROVIDER: DR. BARRERA REASON FOR CALL: PATIENT DULCE MAE CALLED AND SHE CHANGED HER MIND - SHE WANTS TO GO AHEAD AND MOVE FORWARD WITH GETTING HER SX SCHEDULED. SHE WANTS TO HAVE IT DONE IF POSSIBLE BETWEEN April-. SHE IS REQUESTING A NURSE OR A CLINICAL STAFF MEMBER TO CALL HER BACK TO DISCUSS THIS. PLEASE CALL BACK TO ADVISE THE PATIENT. THANKS. CALL BACK # [phone] CALL BACK ANYTIME documented in this encounter Plan of Treatment Upcoming Encounters Date Type Department Care Team (Late st Contact Info) Description 08/15/2025 11:00 AM EDT Appointment [facility] NONINVASIVE LAB [address] [address] [place] [address] 08/15/2025 1:00 PM EDT Office Visit [facility] [address] [facility] [address] [place] [phone] Vijaya Henderson PA-C [address] [facility] [address] [place] [address] documented as of this encounter Visit Diagnoses Not on filedocumented in this encounter Care Teams Professor Of Psychology Relationship Specialty Start Date End Date Alfred Chapa MD [address] [facility] [address] [facility] [address] [place] [address] PCP - General Internal Medicine 02/01/23 documented as of this encounter
--- OUTSIDE RECORDS SUMMARY | 2025-05-23 11:54 | XMS_ITS | Clinical Summary ---
Author Organization [facility] Address [address] [place] [address] Care Team Providers Care Rn Relief Charge Name Role Phone Alfred Chapa MD Primary Care Provider Allergies No known active allergies Medications omeprazole (priLOSEC) 40 MG capsule TAKE 1 CAPSULE BY MOUTH TWICE DAILY FOR 30 DAYS 01/06/20 23 Active montelukast (SINGULAIR) 10 MG tablet Take 1 tablet by mouth Every Night. 01/26/20 23 Active rosuvastatin (CRESTOR) 10 MG tablet Take 1 tablet by mouth Every Night. 12/29/19 23 Active traMADol (ULTRAM) 50 MG tablet tramadol 50 mg tablet TAKE 1 TABLET BY MOUTH EVERY 6 HOURS NEEDED Active furosemide (LASIX) 20 MG tablet Take 1 tablet by mouth Daily As Needed. Active hydroxychloroquine (PLAQUENIL) 200 MG tablet Take 1 tablet by mouth Every 12 (Twelve) Hours. 01/26/20 23 Active atenolol (TENORMIN) 100 MG tablet Take 1 tablet by mouth Every Night. 12/29/19 23 Active loratadine (CLARITIN) 10 MG tablet Take 1 tablet by mouth Daily. Active aspirin 81 MG EC tablet Take 1 tablet by mouth Daily. Active ondansetron ODT (ZOFRAN-ODT) [address] 1 tablet on the tongue Every 8 (Eight) Hours As Needed for Nausea or Vomiting. 30 tablet 03/06/20 23 Active Azelastine HCl 137 MCG/SPRAY solution As Needed. 03/01/20 23 Active ciclopirox (LOPROX) 0.77 % cream Apply topically to the appropriate area as directed 2 (Two) Times a Day. 07/07/20 Active triamcinolone (KENALOG) 0.1 % cream As Needed. 04/22/20 23 Active clopidogrel (PLAVIX) 75 MG tabletIndications: Carotid artery disease, unspecified laterality, unspecified type Take 1 tablet by mouth Daily. 90 tablet 6 03/20/20 24 Active baclofen (LIORESAL) 10 MG tablet 2 (Two) Times a Day. 03/13/20 25 Active predniSONE (DELTASONE) 1 MG tablet Take 4 tablets by mouth Daily. 03/13/20 25 Active predniSONE (DELTASONE) 5 MG tablet Take 1 tablet by mouth Daily. 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 02/02/2023 Encounters Date Type Department Care Team Description 05/14/2025 1:00 PM EDT Office Visit [facility] NE[facility]OSURGERY [address] [facility] [address] [place] [address] Vijaya Henderson, SINDHU Innominate artery stenosis (Primary Dx); Carotid stenosis, bilateral 05/14/2025 Travel 04/27/2025 Readmission Management [facility] NURSE CALL CENTER [address] [place] [address] Cathie Macias RN 04/23/2025 Readmission Management [facility] NURSE CALL [facility] [address] [place] [address] Marley Bhat LPN 04/18/2025 Readmission Management [facility] NURSE CALL C[facility] [address] [place] [address] Sherry Pena RN 04/13/2025 Readmission Management [facility] NURSE CALL [facility] [address] [place] [address] Martha Henley, DAMIR 04/12/2025 11:40 AM EDT - 04/12/2025 1:10 PM EDT Surgery [facility] [employer] [address] [place] [address] Duc Green MD IR thoracic carotid or innominate artery angioplasty and stent [36343 (CPT )] 04/12/2025 10:03 AM EDT - 04/13/2025 10:55 AM EDT Hospital Encounter [facility] 2B ICU [address] [place] [address] Duc Green MD Innominate artery stenosis Discharge Disposition: Home or Self Care 04/12/2025 Travel 03/22/2025 Telephone [facility] NEUROSURGERY [address] [address] Duc Green MD CALL BACK REQUEST 03/22/2025 Prep for Surgery [facility] ORDERS ONLY [address] [place] [address] Vijaya Henderson PA-C Innominate artery stenosis (Primary Dx) 03/21/2025 Telephone [facility] NEUROSURGERY [address] [address] Duc Green MD SX SCHEDULING 03/14/2025 1:30 PM EDT Office Visit [facility] NEUROSURGERY [address] [address] Duc Green MD Innominate artery stenosis (Primary Dx) 03/14/2025 10:58 AM EDT - 03/14/2025 11:59 PM EDT Hospital Encounter [facility] NONINVASIVE LAB OUTPATIENT CENTER [address] [facility] [address] [place] [address] Duc Green MD Carotid stenosis, non-symptomatic, bilateral Discharge Disposition: Home or Self Care 03/14/2025 Travel from Last 3 Months Immunizations Immunization Administration Dates Next Due COVID-19 (ISABELL) 02/05/2021 Family History Medical History Relation Name Comments Kidney nephrosis Brother 1 Aneurysm Brother 2 Coronary artery disease Father Kidney disease Mother No Known Problems Sister 1 Rheum arthritis Sister 2 Relation Name Status Comments Brother 1 Alive Brother 2 Father Mother Alive Sister 1 Alive Sister 2 Alive Social History Tobacco Use Types Packs/Day Years [...] file Not on file Not on file Last Filed Vital Signs Vital Sign Reading Time Taken Comments Blood Pressure 140/60 05/14/2025 12:54 PM EDT 12 0/68 Pulse 63 05/14/2025 12:54 PM EDT Temperature 36.9 C (98.5 F) 05/14/2025 12:54 PM EDT Respiratory Rate 18 04/13/2025 8:00 AM EDT Oxygen Saturation 93% 05/14/2025 12:54 PM EDT Inhaled Oxygen Concentration - - Weight 67.3 kg (148 lb 6.4 oz) 05/14/2025 12:54 PM EDT Height 157.5 cm (5' 2 ) 05/14/2025 12:54 PM EDT Body Mass Index 27.14 05/14/2025 12:54 PM EDT Plan of Treatment Upcoming Encounters Date Type Department Care Team (Late st Contact Info) Description 08/15/2025 11:00 AM EDT Appointment [facility] NONINVASIVE LAB [address] [facility] 3rd [place] [address] 08/15/2025 1:00 PM EDT Office Visit [facility] NEUROSURGERY [address] [address] Vijaya Henderson PA-C [address] [phone] Health Maintenance Due Date Last Done Comments DXA SCAN 1955 Pneumococcal Vaccine 50+ (1 of 2 - PCV) 1972 TDAP/TD VACCINES (1 - Tdap) 1972 MAMMOGRAM 1993 COLOGUARD 1998 COLON CANCER SCREENING 5 YEAR SIGMOIDOSCOPY 1998 COLONOSCOPY 1998 [address] CANCER SCREENING 1998 CT COLONOGRAPHY 1998 FECAL OCCULT BLOOD TEST 1998 FIT Testing (1 year) 1998 LUNG CANCER SCREENING 2003 ZOSTER VACCINE (1 of 2) 2003 ANNUAL WELLNESS VISIT 02/01/2023 HEPATITIS C SCREENING 02/01/2023 COVID-19 Vaccine (2 - season) 07/02/202405/2021 INFLUENZA VACCINE 08/01/2025 Medical Devices Implanted Type Area Behavioral Health Care Manager Device Identifier Shelf Expiration Date Model / Serial / Lot Stentgr Endoprosth Viabahn Vbx Baln/Exp Hep 6f 7x29mm 135cm - [id number] Implanted:Qty: 1 on 04/12/2025 by Duc Green MD at [facility] Implant [employer] 09/06/2027 [id number] / / [id number] Stnt Burton Visipro .035 8f27mm 135cm - [id number] Implanted:Qty: 1 on 03/05/2023 by Duc Green MD at [facility] Stent EV3 [employer] [id number] 35 / / [id number] Procedures Procedure Name Priority Date/Time Associated Diagnosis [...] Innominate artery stenosis SCANNED - TELEMETRY 04/12/2025 DUPLEX CAROTID BILATERAL CAR - PERFORMED PROCEDURE Routine 03/14/2025 12:00 PM EDT Carotid stenosis, non-symptomatic, bilateral from Last 3 Months Results * (ABNORMAL) DUPLEX CAROTID BILATERAL CAR - PERFORMED PROCEDURE (04/13/2025 8:38 AM EDT) Only the most recent of2 resultswithin the time period is included. Prox CCA PSV 106.0 cm/sec Prox CCA [...] stent placement performed on 03/05/2023, per Dr. Green. PSV of 369 cm/sec detected on todays [...] angioplasty and stent placement (03/05/2023) us Duc Green MD CV VASCULAR ORDERABLES Final R esult * (ABNORMAL) CBC (No Diff) (04/13/2025 2:59 AM EDT) Only the most recent of2 resultswithin the time period is included. WBC 11.49(H) 3.40 - 10.80 10*3/mm3 04/13/2025 4:21 AM EDT [facility] RBC 4.05 3.77 - 5.28 10*6/mm3 04/13/2025 4:21 AM EDT [facility] Hemoglobin 11.5(L) 12.0 - 15.9 g/dL 04/13/2025 4:21 AM EDT [facility] Hematocrit 37.2 34.0 - 46.6 % 04/13/2025 4:21 AM EDT [facility] MCV 91.9 79.0 - 97.0 fL 04/13/2025 4:21 AM EDT [facility] MCH 28.4 26.6 - 33.0 pg 04/13/2025 4:21 AM EDT [facility] MCHC 30.9(L) 31.5 - 35.7 g/dL 04/13/2025 4:21 AM EDT [facility] RDW 14.9 12.3 - 15.4 % 04/13/2025 4:21 AM EDT [facility] RDW-SD 50.3 37.0 - 54.0 fl 04/13/2025 4:21 AM EDT [facility] MPV 9.8 6.0 - 12.0 fL 04/13/2025 4:21 AM EDT [facility] Platelets 270 140 - 450 10*3/mm3 04/13/2025 4:21 AM EDT [facility] Blood Venipuncture / Unknown 04/13/2025 2:59 AM EDT 04/13/2025 4:04 AM EDT Jeovanny Simon HR SHARED SERVICES CONSULTANT LAB BLOOD ORDERABLES Katt harris Result [facility]
[address] [place] [id number], * (ABNORMAL) Basic Metabolic Panel (04/13/2025 2:59 AM EDT) Only the most recent of2 resultswithin the time period is included. Glucose 86 65 - 99 mg/dL 04/13/2025 4:34 AM EDT [facility] BUN 16.3 8.0 - 23.0 mg/dL 04/13/2025 4:34 AM [facility] Creatinine 0.79 0.57 - 1.00 mg/dL 04/13/2025 4:34 AM EDT [facility] Sodium 145 136 - 145 mmol/L 04/13/2025 4:34 AM EDT [facility] Potassium 4.4 3.5 - 5.2 mmol/L 04/13/2025 4:34 AM EDT [facility] Chloride 106 98 - 107 mmol/L 04/13/2025 4:34 AM EDT [facility] CO2 31.0(H) 22.0 - 29.0 mmol/L 04/13/2025 4:34 AM EDT [facility] Calcium 9.0 8.6 - 10.5 mg/dL 04/13/2025 4:34 AM [facility] BUN/Creatinine Ratio 20.6 7.0 - 25.0 04/13/2025 4:34 AM EDT [facility] Anion Gap 8.0 5.0 - 15.0 mmol/L 04/13/2025 4:34 AM [facility] eGFR 80.1 >60.0 mL/min/1.7 3 04/13/2025 4:34 AM [facility] Blood Venipuncture / Unknown 04/13/2025 2:59 AM EDT 04/13/2025 4:02 AM EDT [facility] LABORAT[facility] - 04/13/2025 4:34 AM EDT GFR [...] include race as a factor Jeovanny Simon APRN LAB BLOOD ORDERABLES Katt harris Result [facility]
[address] [place] [id number], * Telemetry Scan (04/12/2025 3:22 PM EDT) Only the most recent of2 resultswithin the time period is included. [facility] New Onbase ECG ORDERABLES Final Result * IR [...] marked discrepancy in upper extremity blood pressures. C Engineer: Dr. Duc Green. Access: Right radial artery. Ultrasound was used to identify the right radial artery for access. It was patent, appropriate for catheterization, and used for guidance of the micropuncture. Successful cannulation was achieved and images were saved to PACS for review. Conscious sedation: Moderate sedation was provided by or for a total of 63 minutes. Physical [...] Ultrasound guidance and Seldinger technique, a 5 Azerbaijani vascular sheath was placed into the right radial artery without difficulty. A radial cocktail was then administered, per protocol, the details of which are documented in the nursing record. Subsequently, a 5 Azerbaijani Berenstein catheter was advanced into the aortic arch and used to select the right subclavian and innominate arteries under fluoroscopic guidance. Appropriate angiographic sequences were filmed following contrast injection. Comparison is made to multiple prior catheter angiograms at [facility], most notably the interventional angiogram from [...] to exchange the Berenstein catheter and 5 Azerbaijani sheath over a [place] wire for a 7 [place]ani [place] sheath was unsuccessful, with the 7 Azerbaijani sheath not advancing beyond the axillary artery. Subsequently, a 6 [place]ani [place] Destination sheath was advanced over the [place] wire into the right subclavian artery without difficulty. However, the [place] Destination sheath would not advance through the fractured stent, and I suspect that the wire and Berenstein catheter had passed through either struts of the stent or in/out through the fracture components. Multiple attempts to successfully cannulate the lumen of the fractured segments of the stents with the Berenstein catheter and Glidewire was unsuccessful. Eventually, an [place] SL 10 microcatheter was navigated over a Synchro microwire through the components of the fractured innominate stent and into the ascending aorta without difficulty. This allowed easy passage of the Berenstein catheter over the microcatheter/microwire into the ascending aorta. However, the [place] Destination sheath would still not advance through [...] procedure well without apparent complication. us Duc Green MD CV CARDIAC CATH ORDERABLES Abundio sampson Result from Last 3 Months Insurance MEDICARE A & [facility] Advance Directives * CPR (Attempt to Resuscitate) (Latest Code Status on File) Date Activated Date Inactivated Comments 04/13/2025 9:09 AM 04/13/2025 2:11 PM Question Answer Comments Code Status (Patient has no pulse and is not breathing): CPR (Attempt to Resuscitate) Medical Interventions (Patie nt has pulse or is breathing): Full Support Level Of Support Discussed With: Patient Care Teams Rn Relief Charge Relationship Specialty Start Date End Date Alfred Chapa MD [address] [facility] [address] [facility] [address] [place] [id number] PCP - General Internal Medicine 02/01/23
--- OUTSIDE RECORDS SUMMARY | 2025-05-23 11:55 | XMS_ITS | Encounter Summary ---
Author Organization [facility] Address [address] [place] [address] Care Team Providers Care Collections Professional Name Role Phone Alfred Chapa MD Primary Care Provider [phone] Encounter Details Date Type Department Care Team (Latest Contact Info) Description 05/14/2025 Travel Social History Tobacco Use Types Packs/Day [...] on file documented as of this encounter Plan of Treatment Upcoming Encounters Date Type Department Care Team (Late st Contact Info) Description 08/15/2025 11:00 AM EDT Appointment NONINVASIVE LAB [address] [address] [address]rd [place] [address] 08/15/2025 1:00 PM EDT Office Visit [facility] NEUROSURGERY [address] [facility] [address] [place] [address] Vijaya Henderson PA-C [address] [facility] [address] [place] [phone] documented as of this encounter Visit Diagnoses Not on filedocumented in this encounter Care Teams Collections Professional Relationship Specialty Start Date End Date Alfred Chapa MD [address] [facility] [address] [place] [address] PCP - General Internal Medicine 02/01/23 documented as of this encounter
--- OUTSIDE RECORDS SUMMARY | 2025-05-23 11:55 | XMS_ITS | Encounter Summary ---
Author Organization [facility] Address [address] [place] [address] Care Team Providers Care Lacquer Maker Name Role Phone Alfred Chapa MD Primary Care Provider [phone] Encounter Details Date Type Department Care Team (Late st Contact Info) Description 04/23/2025 Readmission Management [facility] NURSE CALL CENTER [address] [place] [address] Marley Bhat LPN Social History Tobacco Use Types Packs/Day Years [...] encounter Miscellaneous Notes * Outreach Note - Marley Bhat LPN - 04/23/2025 4:47 PM EDT Medical Week 2 Survey Flowsheet Row Responses [facility] patient discharged from? [place] Does the patient have one of the following disease processes/diagnoses(primary or secondary)? Other Week 2 attempt successful? No Unsuccessful attempts Attempt 1 Marley Vera - Licensed Nurse documented in this encounter Plan of Treatment Upcoming Encounters Date Type Department Care Team (Late st Contact Info) Description 08/15/2025 11:00 AM EDT Appointment [facility] NONINVASIVE LAB [address] [facility] 3rd [place] [address] 08/15/2025 1:00 PM EDT Office Visit [facility] NEUROSURGERY [address] [address] Vijaya Henderson PA-C [address] [facility] [address] [place] [address] documented as of this encounter Visit Diagnoses Not on filedocumented in this encounter Care Teams Lacquer Maker Relationship Specialty Start Date End Date Alfred Chapa MD [address] [facility] [address] [place] [address] PCP - General Internal Medicine 02/01/23 documented as of this encounter
--- OUTSIDE RECORDS SUMMARY | 2025-05-23 11:55 | XMS_ITS | Data Portability ---
Author Organization [facility] DUANE Leonard [place] Address [address] [facility] [facility] [facility] [address] [place] [address] Care Team Providers Care Commercial Leasing Agent Name Role Phone MERA HUNTER Primary Care Provider [facility] Electrical Appliance Repairer Assessment Encounter Date Assessment Date Assessment LastModified by Organization Details LastModified Time 05/08/2021 05/08/2021 A 65 year old female htantoush Not available 05/08/2021 15:56:34 06/05/2021 06/05/2021 A 65 year old female htantoush Not available 06/05/2021 13:26:30 Plan of Treatment Reminders Order Date Submit Date Provider Last Modified By Organization Details Last Modified Time Details Appointments None recorded. Lab CK (creatine kinase), total, serum 2020 [facility], [address] [place] [address], [id number], 16:58:10 ESR (erythrocyt e sedimentati on rate), blood 2020 021 [facility], [address] [place] [address], [id number], 17:59:10 C reactive protein, QN, serum or plasma 2020 021 [facility], [address] [place] [address], [id number], 16:58:11 protein electrophor esis panel, serum or plasma 2020 [facility], [address] [place] [address], [id number], 1 14:26:17 rf (rheumatoid factor), serum 2020 [facility], [address] [place] [address], [id number], 1 16:58:09 ccp (cyclic citrullinat ed peptide) iga+igg, serum 2020 [facility], [address] [place] [address], [address], 1 17:45:29 hepatitis (A+B+C) panel, serum 2020 [facility], [address] [place] [address], [id number], 17:23:23 TSH, serum or plasma 2020 021 [facility], [address] [place] [address], [address], 17:03:13 Referral None recorded. Procedures None recorded. Surgeries None recorded. Imaging XR, joint, multiple, 1 view 2020 [facility], [address] [place] [address], [id number], 08:11:18 Medication Orders None recorded. Patient TargetsNo targets recorded. Patient Instructions Encounter Date Encounter Id Patient Instructions Last Modified By Organization Details Last Modified Time 05/08/2021 [id number] I personally reviewed her PCP not. Labs reviewed and overall stable CBC and CMP. Has elevated ESR at 99. Thank you for the trust and confidence you have in the care that I provided for your patients. Please let me know if you have any further questions or concerns. Part of this note was generated using voice recognition software. Inadvertent word errors may have occurred, which were not recognized during proofreading process. RTC in 4 weeks Elsa Santillan MD, CCD, FACP htantoush Not available 05/08/2021 18:45:39 Reason for Referral None Reported. Results Created Date Observation Date Name Description Value Unit Range Abnormal Flag Note LastModifiedBy Organization Detail LastModifiedTime 05/08/20 21 05/08/2021 RF SCREE N, QUANT . rf screen, quant. <10.0 IU/mL 0.0-13 .9 normal Not Available [facility] [address] [place] [address], [id number], 05/08/2021 16:58:09 05/08/20 21 05/08/2021 CREAT INE KINAS E creatine kinase 85 U/L 0-169 normal Not Available [facility] [address] [place] [address], [address], 05/08/2021 16:58:10 05/08/20 21 05/08/2021 C REACT DILIP PROTE IN C reactive protein 0.55 mg/dL 0.00-0 .49 high Not Available [facility] [address] [place] [address], [id number], 05/08/2021 16:58:11 05/08/20 21 05/08/2021 TSH TSH 1.510 uIU/m L 0.270- 4.200 normal Not Available [facility] [address] [place] [address], [address], 05/08/2021 17:03:13 05/08/2005/08/2021 HEPAT ITIS PANEL hepatitis B surface Ag Nonrea ctive non-re active normal Not Available [facility] [address] [place] [address], [address], 05/10/2021 11:05:48 05/08/2005/08/2021 HEPAT ITIS PANEL hcab, reflex viral RNA qt Nonrea ctive non-re active normal Antib odies to HCV were not detec kleber; does not exclu de the possi bilit y of expos ure to HCV. Not Available [facility] [address] [place] [address], [address], 05/10/2021 11:05:48 05/08/20 21 05/10/2021 HEPAT ITIS PANEL hepatitis A Ab, IgM NON-RE ACTIVE non-re active normal For addit ional infor kelechi bonds e refer to http: //[facility] mara n.que stdia gnost ics.c om/fa q/FAQ (This link is being provi ded for infor debbie nal/ educa katie l purpo ses only. ) TEST PERFO RMED AT: [facility] [address] [facility] [place] [phone] ARNOL Early MD Not Available [facility] [address] [place] [address], [address], 05/10/2021 11:05:48 05/08/20 21 05/10/2021 HEPAT ITIS PANEL hepatitis B core Ab,IgM NON-RE ACTIVE non-re active normal TEST PERFO RMED AT: [facility] [address] [facility], [place] [phone] ARNOL Early MD Not Available [facility] [address] [place] [address], [address], 05/10/2021 11:05:48 05/08/20 21 05/08/2021 ESR, AUTOM ATED ESR, automated 25 mm/HR 0-29 normal Not Available [facility] [address] [place] [address], [address], 05/08/2021 17:59:10 05/08/20 21 05/09/2021 PROTE IN ELECT ROPHO RESIS , SERUM protein, total 7.2 g/dL 6.1-8. 1 normal TEST PERFO RMED AT: [facility] [address] [facility] [place] [address] ARNOL Early MD Not Available [facility] [address] [place], [address], 05/12/2021 13:40:31 05/08/20 21 05/12/2021 PROTE IN ELECT ROPHO RESIS , SERUM albumin 4.2 g/dL 3.8-4. 8 normal Not Available [facility] [address] [place], [address], 05/12/2021 13:40:31 05/08/20 21 05/12/2021 PROTE IN ELECT ROPHO RESIS , SERUM ymnph-0-enwi ulin 0.4 g/dL 0.2-0. 3 high Not Available [facility] [address] [place], [address], 05/12/2021 13:40:31 05/08/20 21 05/12/2021 PROTE IN ELECT ROPHO RESIS , SERUM jxmzi-3-nsex ulin 0.9 g/dL 0.5-0. 9 normal Not Available [facility] [address] [place], [address], 05/12/2021 13:40:31 05/08/20 21 05/12/2021 PROTE IN ELECT ROPHO RESIS , SERUM beta 1 globulin 0.5 g/dL 0.4-0. 6 normal Not Available [facility] [address] [place], [address], 05/12/2021 13:40:31 05/08/20 21 05/12/2021 PROTE IN ELECT ROPHO RESIS , SERUM beta 2 globulin 0.4 g/dL 0.2-0. 5 normal Not Available [facility] [address] [place], [address], 05/12/2021 13:40:31 05/08/20 21 05/12/2021 PROTE IN ELECT ROPHO RESIS , SERUM gamma globulin 1.0 g/dL 0.8-1. 7 normal Not Available [facility] [address] [place], [address], 05/12/2021 13:40:31 05/08/20 21 05/12/2021 PROTE IN ELECT ROPHO RESIS , SERUM interpretati on SEE BELOW normal The incre ase in the alpha -1-gl obuli ns may be due to incre ased alpha -1-an titry psin, an acute phase react ant prote in. No monoc lonal immun oglob ulin detec kleber. TEST [facility] [address] [facility] [place] [phone] ARNOL Early MD Not Available [facility] [address] [place] [address], [address], 05/12/2021 13:40:31 05/08/20 21 05/10/2021 ANTI- CCP anti-ccp <16 units normal Refer ence Range Negat dilip: <20 Weak Posit dilip: 20-39 Moder ate Posit dilip: 40-59 Stron g Posit dilip: >59 TEST PERFO RMED AT: [facility] [place] [facility] [address] [facility] [place] [phone] ARNOL Early MD Not Available [facility] [address] [place] [address], [address], 05/10/2021 17:45:29 05/09/20 21 05/08/2021 XR, joint , multi ple, [address] [address] Patien t Name: [place] MAE Patimaria ines t : 954 Patien t 1 Orderi ng Provid er: ELSA BOLANOS EXAM DATE: 2020 EXAM: XR MEDHAT HANDS, AP VIEW HISTOR Y: Bilate ral hand pain. COMPAR BJORN: None. FINDIN GS: There are severe degene rative change s at the first carpom etacar pal joint bilate rally. There are mild degene rative change s in the trisca phe joint and radioc arpal joint. There are mild degene rative change s throug hout the interp halang eal joints . The bones are mildly osteop enic. No fractu re is identi fied. IMPRES [place]: 1. There are severe degene rative change s at the first carpom etacar pal joint in both hands. Interp reted By: Hortensia miguel MD Electr onical ly Signed By: Hortensia miguel MD on 05/09/20 8:06 AM [email or web address] [facility] [address], [address], 05/14/2021 15:18:33 Result Notes Documentation Provider Name and Address Organization Details Recorded Time Xr, Joint, Multiple, 1 View : [address] [address] Patient Name: HIEN MAE Patient : [id number] Patient Ordering Provider: ELSA SANTILLAN EXAM DATE: 05/08/2021 EXAM: XR MEDHAT HANDS, AP VIEW HISTORY: Bilateral hand pain. COMPARISON: None. FINDINGS: There are severe degenerative changes at the first carpometacarpal joint bilaterally. There are mild degenerative changes in the triscaphe joint and radiocarpal joint. There are mild degenerative changes throughout the interphalangeal joints. The bones are mildly osteopenic. No fracture is identified. IMPRESSION: 1. There are severe degenerative changes at the first carpometacarpal joint in both hands. Interpreted By: Taj Payne MD Rosario Streeter [facility] 05/14/2021 15:18:33 Medical Equipment None Reported. Allergies No known drug allergies Medications Name Sig Start Date Stop Date Status Note LastModified by Organization Details LastModified Time cyclobenz aprine 10 mg tablet Bedtime 05/08 completed Duration : 90 days;Ins truction s: take 1/2 to 1 tab 1-2 hrs before bedtime; Frequenc y: hs;Alt Frequenc y: prn;Medi cation Descript ion: cycloben zaprine; Dosage:1 ; Route:or al; refills: 1; Quantity :90 tablet Not Available Not Available Not Available amoxicill in 500 mg capsule TAKE 3 CAPSULES BY MOUTH TWICE DAILY UNTIL GONE 05/08 completed Not Available Not Available Not Available isosorbid e dinitrate 10 mg tablet TAKE 1 TABLET BY MOUTH TWICE DAILY active Not Available Not Available No t Available prednison e 10 mg tablet TAKE 4 TABLETS BY MOUTH IN THE MORNING FOR 5 DAYS THEN 3 TABLETS IN THE MORNING FOR 2 DAYS 2 TABLETS IN THE MORNING FOR 2 DAY THEN 1 TABLET 05/08 completed Not Available Not Available Not Available azithromy mae 250 mg tablet TAKE 2 TABLETS BY MOUTH ON DAY 1 AND THEN TAKE 1 TABLET BY MOUTH ONCE A DAY ON DAY 2 THROUGH DAY 5 06/05 completed Not Available Not Available Not Available prednison e 20 mg tablet TAKE 1 TABLET BY MOUTH TWICE DAILY FOR 7 DAYS 05/08 completed Not Available Not Available Not Available alendrona te 70 mg tablet TAKE 1 TABLET BY MOUTH ONCE A WEEK active Not Available Not Available No t Available Mobic 7.5 mg tablet Daily 05/08 completed Duration : 30 days;Ull quency: daily;Me dication Descript ion: meloxica m; Dosage:1 ; Route:or al; refills: 3; Quantity :30 tablet Not Available Not Available Not Available nifedipin e ER 30 mg tablet,ex tended release TAKE 1 TABLET BY MOUTH ONCE DAILY FOR 90 DAYS active Not Available Not Available No t Available tramadol 50 mg tablet TAKE 1 TABLET BY MOUTH EVERY 6 HOURS NEEDED active Not Available Not Available No t Available spironola ctone 25 mg tablet TAKE 1 TABLET BY MOUTH TWICE DAILY active Not Available Not Available No t Available Celebrex 200 mg capsule Daily 05/08 completed Duration : 30 days;Ins truction s: do not take mobic or other nsaids;F requency : daily;Me dication Descript ion: celecoxi b; Dosage:1 ; Route:or al; refills: 6; Quantity :30 capsule Not Available Not Available Not Available Mobic 15 mg tablet Daily 05/08 completed Duration : 30 days;Ins truction s: take 1/2 to 1 tab daily;Fr equency: daily;Me dication Descript ion: meloxica m; Dosage:1 ; Route:or al; refills: 6; Quantity :30 tablet Not Available Not Available Not Available methocarb skyler 750 mg tablet TAKE 1 TABLET BY MOUTH EVERY 6 HOURS NEEDED FOR MUSCLE SPASM (MAY CAUSE DROWSINE SS) active Not Available Not Available No t Available prednison e 1 mg tablet TAKE 4 TABLETS BY MOUTH ONCE DAILY active Not Available Not Available No t Available baclofen 10 mg tablet Daily 05/08 completed Duration : 90 days;Ins truction s: Take 1/2-1 tablet at 8am & 3pm;Freq uency: daily;Al t Frequenc y: as direct.; Medicati on Descript ion: baclofen ; Dosage:1 /2-1; Route:or al; refills: 1; Quantity :180 tablet Not Available Not Available Not Available pantopraz ole 40 mg tablet,de layed release TAKE 1 TABLET BY MOUTH ONCE DAILY FOR 90 DAYS active Not Available Not Available No t Available losartan 25 mg tablet TAKE 1 2 (ONE HALF) TABLET BY MOUTH ONCE DAILY active Not Available Not Available No t Available furosemid e 20 mg tablet TAKE 1 TABLET BY MOUTH ONCE DAILY FOR 90 DAYS active Not Available Not Available No t Available atenolol 50 mg tablet TAKE 1 TABLET BY MOUTH ONCE DAILY active Not Available Not Available No t Available loratadin e 10 mg tablet Daily active Frequenc y: daily;Al t Frequenc y: prn;Medi cation Descript ion: loratadi ne; Dosage:1 ; Route:or al; refills: 5; Quantity :30 tablet Not Available Not Available Not Available rosuvasta tin 10 mg tablet TAKE 1 TABLET BY MOUTH ONCE DAILY FOR 90 DAYS active Not Available Not Available No t Available Vitals Date Recorded Body weight Body mass index (BMI) Body height Heart rate Systolic And Diastolic Provider Name and Address Organization Details Last Updated DateTime 05/08/2021 89519.7 g 30.1 kg/m2 160.02 cm 70 /min 136/70 mm[Hg] [facility] 05/08/2021 15:11:14 Date Recorded Body height Body mass index (BMI) Body weight Systolic And Diastolic Provider Name and Address Organization Details Last Updated DateTime 06/05/2021 160.02 cm 29.8 kg/m2 00455.52 g 126/70 mm[Hg] Rosario Streeter [facility] 06/05/2021 13:02:45 Social History Question Answer Notes LastModified by Organizat ion Details LastModified Time Tobacco Smoking Status Former Smoker quit 2015 Bre BryantsykevinBertorey andres [facility] 05/08/2021 15:08:21 How Much Tobacco Do You Chew? None Information not available 05/08/2021 What Was The Date Of Your Most Recent Tobacco Screening? 05/08/2021 Information not available 05/08/2021 How Much Tobacco Do You Smoke? 1 PPD Information not available 05/08/2021 How Many Years Have You Smoked Tobacco? 36 Information not available 05/08/2021 Sex: Unknown Functional Status Question Answer Note LastModified by Organizat ion Details LastModified Time Do you or have you ever used smokeless tobacco? Never used smokeless tobacco Information not available 05/08/2021 Do you or have you ever used e-cigarettes or vape? Never used electronic cigarettes Information not available 05/08/2021 Mental Status None recorded. Family History Nothing Reported. Medical History Condition Response Diabetes N Bleeding Disorder N Arthritis Y Emphysema Y Acid Reflux (GERD) Y Heart Disease Y Rheumatoid Arthritis N Hypertension Y COPD Y Asthma Y Gynecological HistoryNo gynecological history recorded. Obstetrics History GPAL:G 0 P 0 0 0 0 Past Encounters Encounter ID Performer Location Encounter Start Date Encounter Closed Date Diagnosis/Indication Diagnosis SNOMED-CT Code Diagnosis ICD10 Code Diagnosis Note [id number] ELSA SANTILLAN MD [facility] [address] [place] [address] 05/08/2021 14:54:10 05/08/2021 16:22:55 Polymyalgia rheumatica 63478020 M35.3 No clear clinical evidence of GCA at this time. PMR seems to be stable on current prednisone 4 mg on PRD for quite sometime~ 7-8 years . Will recheck APR since she feels is back to her baseline as it relate to PMR recent flare . Bilateral arthropathy of joint of hands 7811835322 1499920 M12.841 Hx of perception of MCPs swelling, no clinical synovitis. Has right > left CMC OA changes. Will proceed with illustrate d work up to evaluate for RA as ~ 10% of PMR patient may progress to RA. Osteoporosis 85549424 M8 1.0 seems steroid related. On Alendronat e per pcp. Hx of multiple vertebral fracture per her report. Fall precaution advised. Continue vitamin D 1000 IU per day. Continue follow up with PCP. [id number] ELSA SANTILLAN MD [facility] [address] [place] [address] 06/05/2021 12:44:30 06/05/2021 13:24:06 Polymyalgia rheumatica 74753369 M35.3 No clear clinical evidence of GCA at this time. PMR seems to be stable on current prednisone 4 mg on PRD for quite sometime~ 7-8 years . Has normal ESR May 2021 and very mild CRP elevation at 0.55, upper normal 0.49 . discussed slow taper steroid in near future. Discussed HCQ as potential future steroid sparing agent. continue with current baseline low prednisone dose 4 mg per day for now. Take prednisone with food advised. Osteoporosis 00262272 M8 1.0 Likely steroid related. On Alendronat e per pcp. Hx of multiple vertebral fracture per her report. Fall precaution advised. Continue vitamin D 1000 IU per day. Continue follow up with PCP. Recommend DEXA scan, defer to PCP kind discretion . Osteoarthr osis of the carpometacarpal joint of the thumb 40062542 M18.9 x ray wrist/hand reviewed and showed advanced CMCs DJDdiscuss ed injectionc ontinue Tylenol arthritis PRN QIDContinu e PRN voltaren, biofreezeW ear a thumb spica adviseddis cussed hand surgery not interested at this time Chondrocal cinosis of wrist joint 494442750 M11.239 x ray wrist/hand reviewed and showed chondrocal cinosis, discussed colchicine as potential rx option, ACR handout on colchicine provided. Osteoarthr itis of shoulder region 26680976 M19.019 discussed shoulder injection, not interested Numbness of foot 4927482 00 R20.0 discussed NCS, Pt defer and would like to run it by her PCP Health Concerns Section Related Observation LastModified by Organization Detai ls LastModified Time None Recorded Concern Status LastModified by Organization Details LastModified Time None Recorded Advance Directives Directive None Recorded Payers Insurance Date Sequence Insurance Name Policy Number Policy Nevarez Covered Member ID Nevarez Member ID Guarantor Name 05/09/2021 3 [employer] (MEDICARE SUPPLEMENT) Hien Hurt Tu [id number] Hien Hurt Tu 05/09/2021 2 [employer] Hien Hurt Tu [id number] Hien Hurt Tu 06/02/2021 1 [place] Hien Hurt Tu [id number] Hien Hurt Tu 06/11/2021 2 [employer] (MEDICARE SUPPLEMENT) PLAN G Hien Hurt Tu [id number] Hien Hurt Tu Notes Date Note Type Note Provider Name and Address Organization Details Recorded Time 05/08/2021 text/html A 65-year-old female with osteoporosis, T-spine kyphosis, hypertension, polymyalgia rheumatica, fibromyalgia, here with her daughter in consultation by her primary care provider to evaluate her abnormal ESR at 99 and establish care with us. She used to see Dr. Brice years ago here in [facility]. Currently she is a 4 mg prednisone for polymyalgia rheumatica. Diagnosed with PMR over 7-8 years ago and it has been on prednisone since that time. She reported flare of body stiffness and allover pain especially neck and shoulders started end of March 2021 and lasted ~ 04/22/2021. Today overall she feels stable. She takes alendronate for osteoporosis. she denies any vision loss, jaw claudication, shortness of air, chest pain, nausea, vomiting, Raynaud phenomenon. She has shortness of air with exertion. No clear history of psoriasis, IBD. No history of seizure, heart attack or stroke. She had a history of cataract surgery, she had a history of colon perforation secondary to colonoscopy status post repair. Done with COVID-19 vaccination on December 2020. Up to date on age appropriate cancer screen. Ex smoker, quit 4 years ago, she does not drinks EtOH. and lives with her . Has two growing children. Has sister with RA. Part of her history was obtained with the help of her daughter. ELSA SANTILLAN MD [facility] [place], [address], [facility] 05/09/2021 08:15:03 06/05/2021 text/html A 65-year-old female with osteoporosis, T-spine kyphosis, hypertension, polymyalgia rheumatica, fibromyalgia, here with her daughter for follow up and to go over her initial visit work up. She feels overall decent. Had mild flare of shoulder muscle flare of aching pain moved from her right to left and she feels it's muscle rather than joint. She has no recent infection or hospital stay. She denies chest pain, shortness of air, jaw claudication and vision loss. She was seen initially on May 2021 in consultation by her primary care provider to evaluate her abnormal ESR at 99 and establish care with us. She used to see Dr. Brice years ago here in [facility]. On 4 mg prednisone for polymyalgia rheumatica. Diagnosed with PMR over 7-8 years ago and it has been on prednisone since that time. She reported flare of body stiffness and all over pain especially neck and shoulders started end of March 2021 and lasted ~ 04/22/2021. Last visit overall she felt stable. On alendronate for osteoporosis. she denied any vision loss, jaw claudication, shortness of air, chest pain, nausea, vomiting, Raynaud phenomenon. She has shortness of air with exertion. No clear history of psoriasis, IBD. No history of seizure, heart attack or stroke. She had a history of cataract surgery, she had a history of colon perforation secondary to colonoscopy status post repair. Done with COVID-19 vaccination on December 2020. Up to date on age appropriate cancer screen. Ex smoker, quit 4 years ago, she does not drinks EtOH. and lives with her . Has two growing children. Has sister with RA. ELSA SANTILLAN MD [address] [place], [address], [place] [facility] 06/06/2021 19:26:49 OBGyn Episode No OBEpisode recorded.
--- OUTSIDE RECORDS SUMMARY | 2025-05-23 11:55 | XMS_ITS | Encounter Summary ---
[facility] Address [address] [place] [address] Care Team Providers Care Operation Shift Supervisor Name Role Phone Alfred Chapa MD Primary Care Provider [phone] Encounter Details Date Type Department Care Team (Late st Contact Info) Description 04/27/2025 Readmission Management [facility] [address] [place] [phone] Cathie Macias, RN Social History Tobacco Use Types Packs/Day [...] encounter Miscellaneous Notes * Outreach Note - Cathie Macias, RN - 04/27/2025 1:43 PM EDT Images from the original note were not included. Medical Week 2 Survey Flowsheet Row Responses [facility] patient discharged from? [place] Does the patient have one of the following disease processes/diagnoses(primary or secondary)? Other Week 2 attempt successful? Yes Call start time 135 Discharge diagnosis Innominate artery stenosis Call end time 1359 Meds reviewed with patient/caregiver? Yes Is the patient taking all medications as directed (includes completed medication regime)? Yes Comments regarding appointments Neuro sx apt on 05/14/25 Does the patient have a primary care provider? Yes Has the patient kept scheduled appointments due by today? Yes [PCP apt since hosp dc] Has home health visited the patient within 72 hours of discharge? N/A Psychosocial issues? No Did the patient receive a copy of their discharge instructions? Yes Nursing interventions Reviewed instructions with patient What is the patient's perception of their health status since discharge? Improving Is the patient/caregiver able to teach back signs and symptoms related to disease process for when to call PCP? Yes Is the patient/caregiver able to teach back signs and symptoms related to disease process for when to call 911? Yes Is the patient/caregiver able to teach back the hierarchy of who to call/visit for symptoms/problems? PCP, Specialist, Home health nurse, Urgent Care, ED, 911 Yes If the patient is a current smoker, are they able to teach back resources for cessation? Not a smoker Week 2 Call Completed? Yes Graduated Yes Did the patient feel the follow up calls were helpful during their recovery period? Yes Graduated/Revoked comments Pt improving Call end time 1359 Cathie H - Registered Nurse documented in this encounter Plan of Treatment Upcoming Encounters Date Type Department Care Team (Late st Contact Info) Description 08/15/2025 11:00 AM EDT Appointment [facility] [address] [facility] [address] [place] [address] 08/15/2025 1:00 PM EDT Office Visit [facility] [address] [facility] [address] [place] [address] Vijaya Henderson PA-C [address] [facility] [address] [place] [phone] documented as of this encounter Visit Diagnoses Not on filedocumented in this encounter Care Teams Operation Shift Supervisor Relationship Specialty Start Date End Date Alfred Chapa MD [address] [facility] [address] [facility] [address] [place] [address] PCP - General Internal Medicine 02/01/23 documented as of this encounter
[2025-05-26 03:37] LABS: 1,25 Dihydroxy Vitamin D 47 pg/mL (.); 1,25-Dihydroxy, Vitamin D-2 <10 pg/mL (.); 1,25-Dihydroxy, Vitamin D-3 47 pg/mL (.)
== END 2025-05-22 23:59 | disposition home or self-care (01) ==
LOC: LAB.DROPOF 05-23 11:53
PROVIDERS: PCP Internal Medicine; Visit Provider Internal Medicine
DX: I25.10 Atherosclerotic heart disease of native coronary artery without angina pectoris (principal); M81.0 Age-related osteoporosis without current pathological fracture; E78.5 Hyperlipidemia, unspecified; I10 Essential (primary) hypertension; M06.9 Rheumatoid arthritis, unspecified; R53.83 Other fatigue; D64.9 Anemia, unspecified
CPT/HCPCS: 80053; 80061; 82607; 82652; 84443; 85025

== ENCOUNTER → 2025-09-11 15:48 | Outpatient (CLI) | payer MEDICARE, OTHER, SELFPAY ==
--- OUTSIDE RECORDS SUMMARY | 2025-08-15 10:00 | XMS_ITS | Encounter Summary ---
[facility] Address [address] [place] [address] Care Team Providers Care Associate School Psychologist Name Role Phone Alfred Chapa MD Primary Care Provider [phone] Reason for Referral * Diagnostic Imaging (Routine) - Closed Specialty Diagnoses / Procedures Referred By Real velazquez Referred To Contact Cardiology Diagnoses Innominate artery stenosis Carotid stenosis, bilateral Procedures Duplex Carotid Ultrasound CAR Vijaya Henderson PA-C [address] [place] [address] Phone: tel: fax: [facility] NONINVASIVE LAB [address] [facility] [address] [place] [address] Phone: tel: fax: Referral ID Status Reason Start Date Expiration Date Visits Re quested Visits Authorized [id number] Closed 05/14/2025 08/13/2026 1 1 Reason for Visit * Diagnostic Imaging (Routine) - Closed Specialty Diagnoses / Procedures Referred By Real velazquez Referred To Contact Cardiology Diagnoses Innominate artery stenosis Carotid stenosis, bilateral Procedures Duplex Carotid Ultrasound CAR Vijaya Henderson PA-C [address] [place] [address] Phone: tel: fax: [facility] NONINVASIVE LAB [address] [facility] [address] [place] [address] Phone: tel: fax: Referral ID Status Reason Start Date Expiration Date Visits Re quested Visits Authorized [id number] Closed 05/14/2025 08/13/2026 1 1 Encounter Details Date Type Department Care Team (Late st Contact Info) Description 08/15/2025 11:00 AM EDT - 08/15/2025 11:59 PM EDT Hospital Encounter [facility] NON[facility] [address] [place] [address] Vijaya Henderson PA-C [address] [place] [address] Innominate artery stenosis; Carotid stenosis, bilateral Discharge Disposition: Home or Self Care Social [...] on file documented as of this encounter Medications at Time of Discharge [...] directed 2 (Two) Times a Day. 07/07/2023 furosemide (LASIX) 20 MG tablet Take 1 tablet by mouth Daily As Needed. hydroxychloroquine (PLAQUENIL) 200 MG tablet Take 1 tablet by mouth Every 12 (Twelve) Hours. 01/25/2023 ipratropium-albuter ol (DUO-NEB) 0.5-2.5 mg/3 ml nebulizer USE 3 ML IN NEBULIZER EVERY 8 HOURS 07/31/2025 loratadine (CLARITIN) 10 MG tablet Take 1 [...] (KENALOG) 0.1 % cream As Needed. 04/22/2023 clopidogrel (PLAVIX) 75 MG tabletIndications:C arotid artery disease, unspecified laterality, unspecified type Take 1 tablet by mouth once daily 90 tablet 06/15/2025 09/07/20 25 documented as of this encounter Plan of Treatment Upcoming Encounters Date Type Department Care Team (Late st Contact Info) Description 02/13/2026 11:00 AM EDT Appointment [facility] [address] [facility] [address] [place] [address] 02/13/2026 1:30 PM EDT Office Visit [facility] NEUROSURGERY [address] [facility] [address] [place] [address] Vijaya Henderson PA-C [address] [facility] [address] [place] [address] documented as of this encounter Procedures Procedure Name Priority Date/Time Associated Diagnosis Comments DUPLEX CAROTID BILATERAL CAR - PERFORMED PROCEDURE Routine 08/15/2025 11:27 AM EDT Innominate artery stenosis Carotid stenosis, bilateral documented in this encounter Results * DUPLEX CAROTID BILATERAL CAR - PERFORMED PROCEDURE (08/15/2025 11:27 AM EDT) Prox CCA PSV 59.7 cm/sec Prox CCA EDV 8.7 cm/sec Right Mid CCA PSV 76.3 cm/sec right Mid CCA EDV 15.8 cm/sec Dist CCA PSV 73.8 cm/sec Dist CCA EDV 13.8 cm/sec Prox ICA PSV 113.0 cm/sec Prox ICA EDV 19.9 cm/sec Mid ICA PSV 66.8 cm/sec Mid ICA EDV 19.1 cm/sec Dist ICA PSV 59.4 cm/sec Dist ICA EDV 15.8 cm/sec Prox ECA PSV 117.3 cm/sec Prox ECA EDV 20.1 cm/sec Vertebral A PSV 75.7 cm/sec Vertebral A EDV 20.8 cm/sec Prox CCA PSV 85.7 cm/sec Prox CCA EDV 20.8 cm/sec left Mid CCA PSV 72.6 cm/sec left Mid CCA EDV 18.9 cm/sec Dist CCA PSV 74.6 cm/sec Dist CCA EDV 14.1 cm/sec Prox ICA PSV 72.9 cm/sec Prox ICA EDV 13.2 cm/sec Mid ICA PSV 69.5 cm/sec Mid ICA EDV 22.6 cm/sec Dist ICA PSV 73.1 cm/sec Dist ICA EDV 21.8 cm/sec Prox ECA PSV 96.7 cm/sec Prox ECA EDV 6.5 cm/sec Vertebral A PSV 57.8 cm/sec Vertebral A EDV 15.9 cm/sec Prox SCLA PSV 69.8 cm/sec ICA/CCA ratio 1.53 Prox SCLA PSV 110.4 cm/sec ICA/CCA ratio 0.98 Anatomical Region Laterality Modality Ultrasound Narrative 08/15/2025 12:42 PM EDT Right internal carotid artery demonstrates a less than 50% stenosis. Much improved right ICA velocities, previously (04/2025) 229/40 cm/sec, today's study shows PSV 113, EDV 20 cm/s. Antegrade right vertebral flow. Left internal carotid artery demonstrates a less than 50% stenosis. Antegrade left vertebral flow. 04/12/25 innominate/brachiocephalic balloon angioplasty and covered stent deployment, with improved findings on today's noninvasive study Study Impression Right ICA: Imaging indicates <50% stenosis. Left ICA: Imaging indicates <50% stenosis. Study Findings Right Carotid Bulb: Plaque present. Right ICA Prox: Irregular plaque present. Right Vertebral: Antegrade flow noted. Left Carotid Bulb: Plaque present. Left ICA Prox: Irregular plaque present. Left Vertebral: Antegrade flow noted. Vijaya Henderson PA-C CV VASCULAR ORDERABLES Final Result documented in this encounter Visit Diagnoses Diagnosis Innominate artery stenosis Carotid stenosis, bilateral Occlusion and stenosis of carotid artery without mention of cerebral infarction documented in this encounter Care Teams Associate School Psychologist Relationship Specialty Start Date End Date Alfred Chapa MD [address] [place] [address] PCP - General Internal Medicine 02/01/23 documented as of this encounter
--- OUTSIDE RECORDS SUMMARY | 2025-08-15 12:00 | XMS_ITS | Encounter Summary ---
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, bilateral Innominate artery stenosis Procedures Duplex Carotid Ultrasound CAR Vijaya Henderson PA-C [address] [place] [address] Phone: tel: fax: Referral ID Status Reason Start Date Expiration Date V isits Requested Visits Authorized [id number] Authorized 08/15/2025 08/15/2028 1 1 Reason for Visit * Reason Comments Innominate artery stenosis 3 mo f/u Encounter Details Date Type Department Care Team (Late st Contact Info) Description 08/15/2025 1:00 PM EDT Office Visit [facility] NEUROSURGERY [address] [phone] Vijaya Henderson PA-C [address] [place] [address] Carotid stenosis, symptomatic w/o infarct, bilateral (Primary Dx); Innominate artery stenosis Social History Tobacco Use Types Packs/Day Years [...] Sign Reading Time Taken Comments Blood Pressure 146/88 08/15/2025 12:21 PM EDT Pulse 70 08/15/2025 12:17 PM EDT Temperature 36.2 C (97.1 F) 08/15/2025 12:17 PM EDT Respiratory Rate 18 08/15/2025 12:17 PM EDT Oxygen Saturation 96% 08/15/2025 12:17 PM EDT Inhaled Oxygen Concentration - - Weight 65.1 kg (143 lb 9.6 oz) 08/15/2025 12:17 PM EDT Height 157.5 cm (5' 2.01 ) 08/15/2025 12:17 PM E DT Body Mass Index 26.26 08/15/2025 12:17 PM EDT documented in this encounter Progress Notes * Vijaya Henderson PA-C - 08/15/2025 1:00 PM EDT Name: Dulce Mae : 1955 Primary Care Provider: Alfred Chapa MD Chief Complaint Innominate artery stenosis (3 mo f/u) History of Present Illness: Dulce Mae is [...] a recurrent high-grade innominate artery stenosis. She subsequ ently presented on 04/12/2025, and diagnostic angiogram demonstrated a multisegmental fracture of her prior innominate stent with recurrent high- grade stenosis, which was treated with additional angioplasty/stent placement. Unfortunately, Ms. Mae continues to have dizziness that occurs randomly throughout the day. She denies any falls or syncope. She is able to walk with a walker/cane. She denies any focal stroke/TIA-like symptoms, specifically no unilateral numbness, tingling, or weakness. She is on a chronic Plavix/aspirin and statin regimen and tolerating this well. She presents today for routine follow-up. PMHX Allergies: Allergies[1] Medications Current Medications[2] Past Medical History: Past Medical History: Diagnosis Date Arthritis Asthma Fibromyalgia GERD (gastroesophageal reflux disease) History of tobacco abuse Hyperlipidemia Hypertension Kidney stone Osteoporosis Ovarian cyst Polymyalgia rheumatica Past Surgical History: Past Surgical History: Procedure Laterality Date APPENDECTOMY CEREBRAL ANGIOGRAM N/A 02/22/2023 Procedure: Cerebral angiogram; Surgeon: Duc Barrera MD; Location: [facility] C[facility] INVASIVE LOCATION; Service: Interventional Radiology; Laterality: N/A; COLON RESECTION 2017 perforation due to blockage during colonoscopy - with colostomy COLOSTOMY REVISION 2019 HYSTERECTOMY INTERVENTIONAL RADIOLOGY PROCEDURE N/A 03/05/2023 Procedure: IR thoracic carotid or innominate artery angioplasty and stent; Surgeon: Duc Barrera MD; Location: [facility] C[facility] INVASIVE LOCATION; Service: Interventional Radiology; Laterality: N/A; INTERVENTIONAL RADIOLOGY PROCEDURE N/A 04/12/2025 Procedure: IR thoracic carotid or innominate artery angioplasty and stent; Surgeon: Duc Barrera MD; Location: [facility] INVASIVE LOCATION; Service: Interventional Radiology; Laterality: N/A; LAPAROSCOPIC TUBAL LIGATION NECK SURGERY 2010 [place] tumor removal OTHER SURGICAL HISTORY POSSIBLE THORACIC CAROTID/ INNOMINATE ARTERY STENT 03/05/[address] BARRERA Social Hx: Social History[3] Family Hx: Family History Problem Relation Age of Onset Kidney disease Mother Coronary artery disease Father No Known Problems Sister Rheum arthritis Sister Kidney nephrosis Brother Aneurysm Brother Review of Systems: Review of Systems Musculoskeletal: Positive for back pain and myalgias. Neurological: Positive for dizziness. All other systems reviewed and are negative. Review of Imaging: Carotid duplex dated 08/15/2025 from [facility] was reviewed alongwith corresponding radiologic report. Comparison is made to multiple prior studies, most recently carotid duplex dated 04/13/2025. There is no evidence of a recurrent innominate artery stenosis. Thereis no hemodynamically significant stenosis in bilateral carotid arteries. Peak velocities in the right carotid vasculature are 113/20 cm/s, with an ICA/CCA ratio of 1.5 (was 229/41 cm/s, ratio 1.5). Peak velocities in the left carotid vasculature are 73/22 cm/s, with an ICA/CCA ratio of 0.98 (was 130/28 cm/s, ratio 1.4). There is antegrade flow in the vertebral arteries bilaterally. Vital Signs: Vitals: 08/15/25 1221 BP: 146/88 Pulse: Resp: Temp: SpO2: Blood pressure in the right upper extremity is 146/88. Blood pressure in the left extremity is 136/74. Physical Exam General: Well-developed, well-nourished, in no [...] a wheelchair for longer distances secondary to gait instability. Social History Tobacco Use Smoking status: Former Packs/day: 0.00 Years: 1 pack/day for 40.0 years (40.0 ttl pk-yrs) Types: Cigarettes Start date: 1976 Quit date: 2017 Years since quittin.7 Passive exposure: Past Smokeless tobacco: Never Tobacco Use: Medium Risk (08/15/2025) Patient History Smoking Tobacco Use: Former Smokeless Tobacco Use: Never Passive Exposure: Past STEADI Fall Risk Assessment was completed, and patient is at LOW risk for falls.Assessment completed on:08/15/2025 Assessment/Plan Diagnoses and all orders for this visit: 1. Carotid stenosis, symptomatic w/o infarct, bilateral (Primary) - Duplex Carotid Ultrasound CAR; Future 2. Innominate artery stenosis - Duplex Carotid Ultrasound CAR; Future Dulce Mae is a 69 y.o. female status post angioplasty/stent placement for recurrent, high-grade stenosis of the innominate artery. Carotid duplex today does not demonstrate any recurrence of innominate artery stenosis and blood pressures are similar in bilateral arms. She does continue to have dizziness, however is otherwise doing well from a neurologic standpoint. She denies any stroke/TIA-like symptoms. She remains on a Plavix/aspirin and statin regimen, and should continue this indefinitely. She will contact our office when she is in need of Plavix refills. Will plan to follow-up with Ms. Mae in 6 months time with carotid duplex to ensure stability/exclude progression of disease that might necessitate further treatment/intervention. In the interim, she will contact our officeand/or 911 if she experiences any new stroke/TIA-like symptoms. Patient encouraged to contact us if she has any changes in her condition or any concerns. Any copied data from previous notes included in the (1) HPI, (2) PE, (3) MDM and/or Assessment and Plan has been reviewed and accurate as of 08/15/25. Vijaya Henderson PA-C 08/15/25 [1] No Known Allergies [2] Current Outpatient Medications: aspirin 81 MG EC [...] MG tablet, Take 1 tablet by mouth once daily, Disp: 90 tablet, Rfl: 0 furosemide (LASIX) 20 MG tablet, Take 1 tablet by mouth Daily As Needed., Disp: , Rfl: hydroxychloroquine (PLAQUENIL) 200 MG tablet, Take 1 tablet by mouth Every 12 (Twelve) Hours., Disp: , Rfl: ipratropium-albuterol (DUO-NEB) 0.5-2.5 mg/3 ml nebulizer, USE 3 ML IN NEBULIZER EVERY 8 HOURS, Disp: , Rfl: omeprazole (priLOSEC) 40 MG [...] % cream, As Needed., Disp: , Rfl: loratadine (CLARITIN) 10 MG tablet, Take 1 tablet by mouth Daily. (Patient not taking: Reported on 08/15/2025), Disp: , Rfl: montelukast (SINGULAIR) 10 MG tablet, Take 1 tablet by mouth Every Night. (Patient not taking: Reported on 08/15/2025), Disp: , Rfl: [3] Social History Tobacco Use Smoking status: Former Current packs/day: 0.00 Average packs/day: 1 pack/day for 40.0 years (40.0 ttl pk-yrs) Types: Cigarettes Start date: 1976 Quit date: 2017 Years since quittin.7 Passive exposure: Past Smokeless tobacco: Never Vaping Use Vaping status: Never Used Substance Use Topics Alcohol use: Never Drug use: Never documented in this encounter Plan of Treatment Upcoming Encounters Date Type Department Care Team (Late st Contact Info) Description 02/13/2026 11:00 AM EDT Appointment [facility] NONINVASIVE LAB [address] [facility] 3rd [place] [address] 02/13/2026 1:30 PM EDT Office Visit [facility] NEUR[facility]ERY [address] [facility] [address] [place] [phone] Vijaya Henderson PA-C [address] [facility] [address] [place] [address] Scheduled Orders Name Type Priority Associated Diagnoses Orde r Schedule Duplex Carotid Ultrasound CAR Vascular Ultrasound Routine Carotid stenosis, symptomatic w/o infarct, bilateral Innominate artery stenosis Expected: 02/13/2026 (Approximate), Expires: 11/15/2026 documented as of this encounter Visit Diagnoses Diagnosis Carotid stenosis, 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
--- OUTSIDE RECORDS SUMMARY | 2025-09-11 15:50 | XMS_ITS | Encounter Summary ---
[facility] [address] [place] [id number] Care Team Providers Care Jewelry Sales Name Role Phone Alfred Chapa MD Primary Care Provider [phone] Reason for Visit * Reason Comments Med Refill Encounter Details Date Type Department Care Team (Late st Contact Info) Description 09/07/2025 Refill [facility] NEUROSURGERY [address] [address] Vijaya Henderson PA-C [address] [place] [address] Carotid artery disease, unspecified laterality, unspecified type Social History Tobacco Use Types Packs/Day Years Used Date Smoking Tobacco: Former Cigarettes 1 40 1 977 - 2016 Passive Smoke Exposure: Past Smokeless [...] Info) Description 02/13/2026 11:00 AM EDT Appointment [facility] NONINVASIVE LAB [address] [facility] 3rd [place] [address] 02/13/2026 1:30 PM EDT Office Visit [facility] NEUROSURGERY [address] [facility] [address] [place] [address] Vijaya Henderson, PA-C [address] [facility] [address] [place] [address] documented as of this encounter Visit Diagnoses Diagnosis Carotid artery disease, unspecified laterality, unspecified type documented in this encounter Care Teams Jewelry Sales Relationship Specialty Start Date End Date Alfred Chapa MD [address] [facility] [address] [facility] [place] [address] PCP - General Internal Medicine 02/01/23 documented as of this encounter
--- OUTSIDE RECORDS SUMMARY | 2025-09-11 15:50 | XMS_ITS | Clinical Summary ---
Author Organization [facility] Address [address] [id number] Care Team Providers Care Cooling Tower Technician Name Role Phone Alfred Chapa MD Primary Care Provider [phone] Family History Medical History Relation Name Comments [...] of Treatment Not on file Care Teams Cooling Tower Technician Relationship Specialty Start Date End Date Alfred Chapa MD [address] [facility] [address] [place] [address] PCP - General 03/14/21
--- OUTSIDE RECORDS SUMMARY | 2025-09-11 15:51 | XMS_ITS | Encounter Summary ---
Author Organization [facility] Address [address] [place] [address] Care Team Providers Care Clinical Cytogenetics Director Name Role Phone Alfred Chapa MD Primary Care Provider [phone] Encounter Details Date Type Department Care Team (Latest Contact Info) Description 08/15/2025 Travel Social History Tobacco Use Types Packs/Day Years Used Date Smoking Tobacco: Former Cigarettes 1 40 1 2016 Passive Smoke Exposure: Past Smokeless Tobacco: [...] Info) Description 02/13/2026 11:00 AM EDT Appointment [facility] NONINVASIVE LAB [address] [facility] [address] [place] [address] 02/13/2026 1:30 PM EDT Office Visit [facility] NEUROSURGERY [address] [facility] [address] [place] [address] Vijaya Henderson, PAHamidaC [address] [facility] [address] [place] [address] documented as of this encounter Visit Diagnoses Not on filedocumented in this encounter Care Teams Clinical Cytogenetics Director Relationship Specialty Start Date End Date Alfred Chapa MD [address] [facility] [address] [facility] [place] [address] PCP - General Internal Medicine 02/01/23 documented as of this encounter
--- OUTSIDE RECORDS SUMMARY | 2025-09-11 15:51 | XMS_ITS | Clinical Summary ---
Author Organization [facility] Address [address] [place] [address] Care Team Providers Care Heat Treater Helper Name Role Phone Alfred Chapa MD Primary Care Provider [phone] Allergies No known active allergies Medications omeprazole (priLOSEC) 40 MG capsule TAKE 1 CAPSULE BY MOUTH TWICE DAILY FOR 30 DAYS Active montelukast (SINGULAIR) 10 MG tablet Take 1 tablet by mouth Every Night. 023 Active rosuvastatin (CRESTOR) 10 MG tablet Take 1 tablet by mouth Every Night. 023 Active traMADol (ULTRAM) 50 MG tablet tramadol 50 mg tablet TAKE 1 TABLET BY MOUTH EVERY 6 HOURS NEEDED Active furosemide (LASIX) 20 MG tablet Take 1 tablet by mouth Daily As Needed. Active hydroxychloroquin e (PLAQUENIL) 200 MG tablet Take 1 tablet by mouth Every 12 (Twelve) Hours. Active atenolol (TENORMIN) 100 MG tablet Take 1 tablet by mouth Every Night. 023 Active loratadine (CLARITIN) 10 MG tablet Take 1 tablet by mouth Daily. Active aspirin 81 MG EC tablet Take 1 tablet by mouth Daily. Active ondansetron ODT (ZOFRAN-ODT) [address] 1 tablet on the tongue Every 8 (Eight) Hours As Needed for Nausea or Vomiting. 30 tablet Active Azelastine HCl 137 MCG/SPRAY solution As Needed. 023 Active ciclopirox (LOPROX) 0.77 % cream Apply topically to the appropriate area as directed 2 (Two) Times a Day. 023 Active triamcinolone (KENALOG) 0.1 % cream As Needed. 023 Active baclofen (LIORESAL) 10 MG tablet 2 (Two) Times a Day. 025 Active predniSONE (DELTASONE) 1 MG tablet Take 4 tablets by mouth Daily. 025 Active ipratropium-albut abram (DUO-NEB) 0.5-2.5 mg/3 ml nebulizer USE 3 ML IN NEBULIZER EVERY 8 HOURS 025 Active clopidogrel (PLAVIX) 75 MG tabletIndications :Carotid artery disease, unspecified laterality, unspecified type Take 1 tablet by mouth once daily 90 tablet 025 Active clopidogrel (PLAVIX) 75 MG tabletIndications :Carotid artery disease, unspecified laterality, unspecified type Take 1 tablet by mouth once daily 90 tablet 025 2024 Discontinued Active Problems Problem Noted Date Diagnosed Date Asthma 04/12/2025 Hypertension 03/05/2023 Dyslipidemia 03/05/2023 Rheumatoid arthritis 03/05/2023 Class 1 obesity in adult 03/05/2023 Current chronic use of systemic steroids 023 Former smoker 03/05/2023 Innominate artery stenosis 02/24/2023 Central retinal artery occlusion of right eye Carotid artery disease 02/05/2023 Overview (02/05/2023): Added automatically from request for surgery [id number] Carotid stenosis, symptomatic w/o infarct, bilat eral 02/02/2023 Subclavian steal syndrome 02/02/2023 Stenosis of right vertebral artery 02/02/2023 Encounters Date Type Department Care Team Description 09/07/2025 Refill [facility] [address] [facility] [address] [place] [address] Vijaya Henderson PA-C Carotid artery disease, unspecified laterality, unspecified type 08/15/2025 1:00 PM EDT Office Visit [facility] [address] [place] [address] Vijaya Henderson PA-C Carotid stenosis, symptomatic w/o infarct, bilateral (Primary Dx); Innominate artery stenosis 08/15/2025 11:00 AM EDT - 08/15/2025 11:59 PM EDT Hospital Encounter [facility] [address] [place] [phone] Vijaya Henderson PA-C Innominate artery stenosis; Carotid stenosis, bilateral Discharge Disposition: Home or Self Care 08/15/2025 Travel 06/15/2025 Refill [facility] [address] [place] [address] Duc Green MD Carotid artery disease, unspecified laterality, unspecified type from Last 3 Months Immunizations Immunization Administration [...] Mass Index 26.26 08/15/2025 12:17 PM EDT Plan of Treatment Upcoming Encounters Date Type Department Care Team (Late st Contact Info) Description 02/13/2026 11:00 AM EDT Appointment [facility] [address] [facility] [address] [place] [address] 02/13/2026 1:30 PM EDT Office Visit [facility] [address] [phone] Vijaya Henderson PA-C [address] [facility] [address] [place] [address] Health Maintenance Due Date Last Done Comments [...] 2003 ZOSTER VACCINE (1 of 2) 2003 COVID-19 Vaccine (2 - Isabell risk series) 03/05/2021 02/05/2021 ANNUAL WELLNESS VISIT 02/01/2023 HEPATITIS C SCREENING 02/01/2023 INFLUENZA VACCINE 06/01/2025 Medical Devices Implanted Type Area Concrete Batch Plant Operator Device Identifier Shelf Expiration Date Model / Serial / Lot Stentgr Endoprosth Viabahn Vbx Baln/Exp Hep 6f 7x29mm 135cm - [id number] Implanted:Qty: 1 on 04/12/2025 by Duc Green MD at [facility]plant [employer] 09/06/2027 [id number] / / [id number] Stnt [employer] Visipro .035 8f27mm 135cm - [id number] Implanted:Qty: 1 on 03/05/2023 by Duc Green MD at [facility] Stent EV3 A [employer] [id number] / / [id number] Procedures Procedure Name Priority Date/Time Associated Diagnosis Comments DUPLEX CAROTID BILATERAL CAR - PERFORMED PROCEDURE Routine 08/15/2025 11:27 AM EDT Innominate artery stenosis Carotid stenosis, bilateral from Last 3 Months Results * DUPLEX CAROTID BILATERAL CAR - [...] Henderson PA-C CV VASCULAR ORDERABLES Final Result from Last 3 Months Insurance MEDICARE A & B [employer] SUP Advance Directives * CPR (Attempt to Resuscitate) (Latest Code Status on File) Date Activated Date Inactivated Comments 04/13/2025 9:09 AM 04/13/2025 2:11 PM Question Answer Comments Code Status (Patient has no pulse and is not breathing): CPR (Attempt to Resuscitate) Medical Interventions (Patie nt has pulse or is breathing): Full Support Level Of Support Discussed With: Patient Care Teams Heat Treater Helper Relationship Specialty Start Date End Date Alfred Chapa MD [address] [facility] [address] [place] [phone] PCP - General Internal Medicine 02/01/23
== END ==
LOC: SL 15:49
PROVIDERS: PCP Internal Medicine; Visit Provider Internal Medicine Pulmonary Disease
DX: J44.9 Chronic obstructive pulmonary disease, unspecified (principal)
CPT/HCPCS: 94762